=== PATIENT | female | born 1965 | race Caucasian/White ===

== ENCOUNTER → 2017-12-15 08:24 | Outpatient (CLI) | payer BC, SELFPAY ==
[2017-12-15 09:17] LABS: Albumin, Serum 3.9 g/dL (3.2-5.0); BUN 10 mg/dL (7-18); BUN/Creat Ratio 11.2 RATIO (10-20); Chloride 106 mmol/L (98-107); EST Glomerular Filtration Rate 70 mL/min (>60); Est Glom Filt Rate - Afr Amer 84 mL/min (>60); Glucose 92 mg/dL (74-106); Phosphorus 4.3 mg/dL (2.5-4.9); Sodium Level 140 mmol/L (136-145); Thyroid Stim Hormone (TSH) 2.53 uIU/mL (0.358-3.74)
[2017-12-16 09:36] LABS: Vitamin D,25 Hydroxy 58.9 ng/mL (29.95-100.01)
== END ==
PROVIDERS: Family Provider Family Medicine; PCP Family Medicine; Visit Provider Family Medicine
DX: R79.9 Abnormal finding of blood chemistry, unspecified (principal); E03.9 Hypothyroidism, unspecified; E55.9 Vitamin D deficiency, unspecified
CPT/HCPCS: 36415; 80069; 82306; 84443

== ENCOUNTER → 2019-01-09 10:14 | Outpatient (CLI) | payer BC, MEDICARE, SELFPAY ==
[2019-01-09 12:22] LABS: Absolute Lymphocyte Count 2.43 X10^3/ul (0.83-4.51); Absolute Neutrophil Count 3.7 X10^3/uL (2.0-7.7); Basophil# 0.04 X10^3/uL; Basophil% 0.6 % (0-1); Eosinophil# 0.16 X10^3/uL; Eosinophils% 2.3 % (0-5); Hematocrit 43.6 % (37-47); Hemoglobin 14.6 g/dl (12.0-15.0); Lymphocyte # 2.43 X10^3/ul (4.0); Lymphocyte % 34.8 % (19-41); Mean Corp Hgb Conc 33.5 g/gl (32-36); Mean Corpuscular Hgb 29.3 pg (27.0-32.0); Mean Corpuscular Volume 87.4 fL (81-99); Mean Platelet Vol. 9.3 fl (6.2-12.0); Monocyte# 0.68 X10^3/uL; Monocyte% 9.7 % (0-10); Neutrophil # 3.67 X10^3/uL (2.7-7.7); Neutrophil % 52.5 % (47-70); Platelet Count 279 K/mm3 (150-450); RBC Distribution Width CV 13.5 % (11.6-14.6); Red Blood Count 4.99 M/mm3 (4.2-5.4)
[2019-01-09 12:28] LABS: POSITIVE COUNT NO; POSITIVE DIFFERENTIAL NO; POSITIVE MORPHOLOGY NO
[2019-01-09 13:17] LABS: Anion Gap 10 (5-15); BUN 9 mg/dL (7-18); BUN/Creat Ratio 9.4 RATIO (10-20); Calcium,Total 8.9 mg/dL (8.5-10.1); Chloride 104 mmol/L (98-107); Creatinine, Serum 0.96 mg/dL (0.55-1.02); EST Glomerular Filtration Rate 64 mL/min (>60); Est Glom Filt Rate - Afr Amer 78 mL/min (>60); Free T3 2.2 pg/mL (2.18-3.98); Glucose 73 mg/dL (74-106); Potassium 3.7 mmol/L (3.5-5.1); Sodium Level 140 mmol/L (136-145); Thyroid Stim Hormone (TSH) 1.79 uIU/mL (0.358-3.74)
== END ==
PROVIDERS: Family Provider Family Medicine; PCP Family Medicine; Referring Provider Psychiatry & Neurology Psychiatry; Visit Provider Psychiatry & Neurology Psychiatry
DX: R53.83 Other fatigue (principal); Z79.899 Other long term (current) drug therapy
CPT/HCPCS: 36415; 80048; 84439; 84443; 84481; 85025

== ENCOUNTER 2019-09-03 15:58 | Emergency (ER) | payer BC, MEDICARE, SELFPAY ==
[2019-09-03 15:59] VITALS: BP 160/88; PULSE 74; RESP 16; TEMP 36.4; O2SAT 100; BMI 27.6
--- NOTE | 2019-09-03 16:14 | ED.DCSUM_ITS ---
- ER Visit Summary Date of Service: 09/03/19 Chief Complaint: [Fall with injury to left wrist and left shoulder] History of Present Illness: The patient is a 54 F [presents the emergency department after sustaining a fall about an hour ago. Patient states that she was run into by 1 of her dogs which caused her to fall in the yard onto the grass. Patient try to catch herself with the left wrist and thinks she may have just overdid. Patient also complained of some pain in her left shoulder. Patient does not think she hit her head. She denies any difference in her chronic head neck pain than normal. Patient denies any chest pain or abdominal pain. Patient is right-hand dominant. Patient has history of tach broken heart syndrome.] Physical Examination: [HEENT-PERRLA, EOMI. Cranial nerves II through XII grossly intact. TMs clear. Mucous membranes moist. No adenopathy. No external evidence to her head or neck. Cardiovascular-regular rate and rhythm without murmur or ectopy Lungs-clear to auscultation, chest wall stable without crepitus or subcu emphysema Abdomen-normoactive bowel sounds, soft, nontender, no rebound or rigidity, no peritoneal signs. Extremities-intact ?4, normal range of motion, normal pulses. Left arm-patient has some diffuse tenderness palpation over the glenohumeral joint. Decreased range of motion secondary to pain. No obvious deformity. Patient also tenderness over the distal radius. No soft tissue swelling or ecchymosis or b ruising noted. There is no deformity. Patient has limited range of motion flexion extension at the wrist as well as varus and valgus bending secondary to pain.] Test Results: [X-ray of the left wrist was normal. An x-ray of the left shoulder was normal.] Emergency Department Course and Treatment: [Patient was given a wrist splint.] Treatment Plan: [Patient advised to follow-up with primary care physician within next 5 to 7 days. Patient advised use Tylenol for discomfort.] Disposition: [Discharged home stable condition.] Impression: Mechanical fall Left wrist sprain Left shoulder contusion/sprain [] This note was generated with [employer] software. It may contain incorrect words, spelling, and punctuation that were not noted in review of the chart prior to signing ED Disposition - Plan for ED Patient: Referrals: Marjorie Martinez MD [Primary Care Provider] -
--- NOTE | 2019-09-03 16:15 | RAD_ITS ---
STUDY: X-RAY - LEFT SHOULDER REASON FOR EXAM: Female, 54 years old. Status post fall TECHNIQUE: 4 view(s) of the shoulder. COMPARISON: October 18, 2017 Limited comparison chest x-ray FINDINGS: Normal glenohumeral articulation. Normal acromioclavicular joint. Normal acromion. Normal humeral head and visualized proximal humerus. The soft tissue structures are unremarkable. Normal visualized pulmonary apex. RAD/Shoulder min 2 Views IMPRESSION: Normal x-ray examination of the shoulder. Electronically Signed: Lolly Pedraza MD at 17:01 EST Tel , Service support ,
--- NOTE | 2019-09-03 16:15 | RAD_ITS ---
STUDY: X-RAY - LEFT WRIST REASON FOR EXAM: Female, 54 years old. Status post fall TECHNIQUE: 3 view(s) of the wrist were obtained. COMPARISON: February 21, 2015 left wrist x-ray FINDINGS: Normal visualized distal radius and ulna. Normal radiocarpal articulation. Normal distal radioulnar articulation. Normal carpal bones. Normal carpal articulations. Normal carpometacarpal articulation of the thumb. Normal second through fifth carpometacarpal articulations. Normal visualized metacarpal bones. The soft tissue structures are unremarkable. RAD/Wrist min 3 Views IMPRESSION: Normal x-ray examination of the wrist. Electronically Signed: Lolly Pedraza MD at 16:45 EST Tel , Service support ,
[2019-09-03 16:18] VITALS: RESP 18
--- NOTE | 2019-09-03 17:06 | ED.DEP ---
ED Disposition - Plan for ED Patient: Instructions: Wrist Sprain, Shoulder Sprain Referrals: Marjorie Martinez MD [Primary Care Provider] - 5-7 Days
== END 2019-09-03 17:21 | disposition home or self-care (01) ==
LOC: ED 16:29
PROVIDERS: Emergency Provider Emergency Medicine; Family Provider Family Medicine; PCP Family Medicine
DX: S40.012A Contusion of left shoulder, initial encounter (principal); S43.402A Unspecified sprain of left shoulder joint, initial encounter; S63.502A Unspecified sprain of left wrist, initial encounter; W19.XXXA Unspecified fall, initial encounter; I25.10 Atherosclerotic heart disease of native coronary artery without angina pectoris; Z72.0 Tobacco use
CPT/HCPCS: 73030; 73110; 99283

== ENCOUNTER 2019-12-10 00:36 | Emergency (ER) | payer BC, MEDICARE, SELFPAY ==
[2019-12-10 00:37] VITALS: BP 158/82; PULSE 78; RESP 16; TEMP 36.6; O2SAT 100; BMI 27.3
--- NOTE | 2019-12-10 01:38 | ED.VISSUMM ---
- ER Visit Summary Date of Service: 12/10/19 Chief Complaint: Migraine headache History of Present Illness: The patient is a [address] migraine headaches and prior work-ups. Patient states Jet she started get onset of left-sided migraine headache. Associated nausea vomiting. No head trauma. She is on no blood thinners. No weakness to her upper or lower extremities. No fever. Positive photophobia. Physical Examination: White female no acute distress vital signs stable afebrile. Pulse ox 90% on room air no signs hypoxia. Initial blood pressure 158/82. Patient seated in a darkened room. Lights do cause her photophobia. HEENT exam unremarkable. No trauma. Pupils round react to light extra motions are intact no facial droop. Normal speech. Neck nontender. Lungs clear to auscultation bilaterally. Heart regular rhythm no murmur. Abdomen soft nontender normal bowel sounds no peritoneal signs. Extremities moves all 4. Neurovascular intact. 5 and 5 secondary school registrar strength. Dorsi plantarflexion intact bilaterally. Equal symmetrical. Neurologically she is awake and alert answering her own questions. NIH score is 0. No facial droop. Normal secondary school registrar strength. Normal fingertip to nose. She can lift either leg. Test Results: None necessary. She has had prior imaging in the past. Emergency Department Course and Treatment: Patient treated with IV fluids, Toradol, Benadryl and Phenergan. Repeat exam at 2:07 AM patient is doing well. Headaches resolving. She feels good enough to go home. Her neurologic exam remains normal. Treatment Plan: Fluids and rest. Benadryl as needed. Tylenol and Motrin. Return if feeling worse. Disposition: Discharge Impression: Acute migraine headache This note was generated with [employer] dictation software. It may contain incorrect words, spelling, and punctuation that were not noted in review of the chart prior to signing ED Disposition - Plan for ED Patient: Referrals: Dom Jalloh MD [Primary Care Provider] -
[2019-12-10] MEDS: 0.9% Normal Saline 1,000 ML 1000 ML IV (01:45)
[2019-12-10] MEDS: DiphenhydrAMINE 50 MG/ML Syringe IV (01:45)
[2019-12-10] MEDS: proMETHazine 25 MG/ML Syringe 12.5 MG IV (01:46)
[2019-12-10] MEDS: Ketorolac 30 MG/ML Syringe IV (01:48)
--- NOTE | 2019-12-10 02:08 | ED.DEP ---
ED Disposition - Plan for ED Patient: Disposition: Home or Assisted Living Instructions: ED, Migraine (Classical) Referrals: Dom Jalloh MD [Primary Care Provider] - 1-2 Days if not improving Additional Instructions: Limit fluids and rest. Benadryl as needed. Tylenol Motrin as needed. Follow-up if not improving or return to the emergency department feeling worse.
[2019-12-10 02:15] VITALS: BP 152/63; PULSE 68; RESP 18; O2SAT 94
== END 2019-12-10 02:19 | disposition home or self-care (01) ==
PROVIDERS: Emergency Provider Emergency Medicine; PCP Family Medicine
DX: G43.909 Migraine, unspecified, not intractable, without status migrainosus (principal); J44.9 Chronic obstructive pulmonary disease, unspecified; Z72.0 Tobacco use
CPT/HCPCS: 96361; 96374; 96375; 99283; J7030; A4216

== ENCOUNTER → 2020-04-17 08:23 | Outpatient (CLI) | payer BC, MEDICARE, SELFPAY ==
--- NOTE | 2020-04-17 08:25 | CT_ITS ---
STUDY: LOW DOSE CT LUNG CANCER SCREENING REASON FOR EXAM: Female, 55 years old. 2PPD X 45 YR SMOKING HX. Hx of uterine cancer and HTN-rx controlled. RADIATION DOSAGE (If Supplied By Facility): CTDIvol = ( 2.55 ) mGy, DLP = ( 83.28 ) mGycm TECHNIQUE: No contrast was administered. Low dose technique was utilized (average mAS-38 and kVp 120). 1.25 mm axial source images with a slice interval of 1.25-mm were reconstructed in lung windows. 2.5 mm axial source images with a slice interval of 2.5-mm were reconstructed in lung windows. 5.0 mm axial source images with a slice interval of 5.0-mm were reconstructed in soft tissue windows. Nodule measured using lung windows on PACS and/or independent workstation with automated measurement of minimum and maximum diameter. Nodule measurement reported as average diameter rounded to the nearest whole number. Growth is defined as an increase ins size of greater than 1.5 mm. COMPARISON: Previous plain films NODULES: Lung windows show underlying emphysema with bleb formation throughout both upper lobes. Chronic interstitial fibrotic changes in both lung santos with some subtle groundglass opacifications but no organized infiltrate, or suspicious noncalcified mass or nodule. No pleural or pericardial effusions. Bony structures show degenerative change. Limited cuts through the upper abdomen do not show any suspicious abnormality CT/Low Dose CT Lung Screening IMPRESSION: Lung-RADS category 2 - Continue annual screening with LDCT in 12 months. IMPORTANT NOTES FOR USE: ACR Lung-RADS Version 1.0 Assessment Categories Release Date: January 21, 2014 Category: Coded 0-4 bases on nodule(s) with highest degree of suspicion. Negative screen is defined as categories 1 and 2; a positive screen is defined as categories 3 and 4. Category 3 and 4A nodules that are unchanged on interval CT should be coded as category 2, and individuals returned to screening in 12 months. Category 4X: Category 3 or 4 nodules with additional imaging findings that increase the suspicion of lung cancer, such as spiculation, GGN that doubles in size in 1 year, enlarged lymph notes, etc. Category Modifiers: S (significant finding unrelated to lung cancer) and C (prior history of treated lung cancer) may be added to the 0-4 Lung-RADS Electronically Signed: Cristobal Paez MD at 8:51 EDT , Service support ,
== END ==
PROVIDERS: PCP Family Medicine; Referring Provider Registered Nurse; Visit Provider Registered Nurse
DX: Z12.2 Encounter for screening for malignant neoplasm of respiratory organs (principal); F17.210 Nicotine dependence, cigarettes, uncomplicated
CPT/HCPCS: G0297

== ENCOUNTER 2021-01-05 11:36 | Emergency (ER) | payer BC, MEDICARE, SELFPAY ==
[2021-01-05 11:38] VITALS: BP 120/82; PULSE 74; RESP 18; TEMP 36.9; O2SAT 99; BMI 28.4
--- NOTE | 2021-01-05 13:05 | ED.DCSUM_ITS ---
History of Present Illness Chief Complaint: Upper Extremity Injury Informant: Patient Occurred: Today - About 7 hours ago Mechanism/Context: Injury - See below Context: Sudden Onset Timing: Continuous Quality of Pain: Aching Location: Right shoulder Current Severity: Moderate Maximum Severity: Severe Worsened by: moving Relieved by: leaving alone/rest Associated Symptoms: Parasthesia, Loss of Funtion. Negative for: Weakness Narrative: Patient states she lifted her right upper extremity up to brush her hair she felt a clunk and sudden onset of pain in her right shoulder, and she was not able to bring her arm down, it was stuck in an overhead position. She states her helped her for sit down which hurt a lot and now she is having more pain than she was having when it was stuck up in the air. She is right-hand dominant. Never had this happen before. - Past Medical History (1) Anxiety Status: Chronic (2) COPD (chronic obstructive pulmonary disease) Status: Chronic (3) Takotsubo syndrome Status: Suspected (4) Depression Status: Chronic (5) GERD (gastroesophageal reflux disease) Status: Chronic (6) Hypothyroidism Status: Chronic (7) Irritable bowel syndrome with constipation Status: Chronic Past Medical History - Allergies and Home Meds Allergies/Adverse Reactions: Allergies acetaminophen [From Tylenol] Allergy (Verified 01/05/21 11:41) Shortness of breath amoxicillin Allergy (Verified 01/05/21 11:41) Other dicyclomine [From Bentyl] Allergy (Verified 01/05/21 11:41) Rash ketorolac [From Toradol] Allergy (Verified 01/05/21 11:41) Other Latex, Natural Rubber Allergy (Verified 01/05/21 11:41) Rash lidocaine Allergy (Verified 01/05/21 11:41) Rash mirtazapine Allergy (Verified 01/05/21 11:41) Other morphine Allergy (Verified 01/05/21 11:41) Shortness of breath Penicillins Allergy (Verified 01/05/21 11:41) Other prasterone (DHEA) Allergy (Verified 01/05/21 11:41) Other procaine Allergy (Verified 01/05/21 11:41) Other prochlorperazine Allergy (Verified 01/05/21 11:41) Other sulfasalazine Allergy (Verified 01/05/21 11:41) Other valdecoxib [From Bextra] Allergy (Verified 01/05/21 11:41) Shortness of breath Venlafaxine Analogues Allergy (Verified 01/05/21 11:41) Other Primary Care Physician: Dom Jalloh MD [Primary Care Provider] - Lives: Spouse/ Significant Other Smoking Status: Current every day smoker - Family History Paternal Family History: Reports: No pertinent history Review of Systems General: Denies: Chills, Fever, Sweats Eyes: Denies: Visual changes - bilaterally, Diplopia ENT: Denies: Rhinorrhea, Sore throat Cardiovascular: Denies: Chest pain, Palpitations Respiratory: Denies: Dyspnea, Cough, Dyspnea on exertion Gastrointestinal: Denies: Abdominal pain, Nausea, Vomiting, Diarrhea, Melena, Hematochezia Genitourinary: Denies: Dysuria, Hematuria, Frequency Musculoskeletal: Reports: Extremity Pain. Denies: Back pain Skin: Denies: Rash, Wounds Neurological: Reports: Parasthesia, Numbness. Denies: Headache, Weakness Physical Exam Vital Signs/Narrative: Vital Signs Temp Pulse Resp BP Pulse Ox 01/05/21 11:38 98.5 F 74 18 120/82 H 99 General: Well nourished, Well developed, - - NAD Head: Normocephalic, Atraumatic Neck: Nontender, Full ROM Extremeties: Holding right upper extremity in position of comfort at her side, no deformity at the shoulder. Subacromial tenderness. No acromioclavicular joint tenderness. Negative Yergason. Able to abduct to about 70 or 80 degrees, limited by pain further. Able to externally rotate from her abdomen to about neutral out in front of her then limited by pain. Limited internal rotation due to pain. No excessive warmth, erythema, or deformity at the shoulder. Normal sensation axillary nerve distribution. No problem with moving elbow or wrist. Skin: Normal color, No rash, No Trauma Neurological: Alert, Oriented x3, Cranial nerves II-XII grossly intact, Normal Strength, Parasthesia - Down dorsum of right upper extremity all the way into thumb and index finger Psychological: Normal affect, Normal Mood Diagnostic/Tx/Re-eval Clinical Impression(s) from Imaging Studies Shoulder X-Ray 01/05/21 13:33 IMPRESSION: Normal x-ray examination of the shoulder. Electronically Signed: Jules Cueto MD at 13:46 EDT , Service support , - Medical Decision Making On my interpretation, 4 views of the right shoulder show no acute injury including fracture/dislocation. She was given ibuprofen and declined any pre scription analgesics. Radiology interpretation is in agreement. At this time I suspect a soft tissue injury, unknown if she had a true dislocation but I am less inclined to think that was the case, possibly a subluxation or simply soft tissue problem. Prior to discharge she still has the radicular sensory symptoms into her right upper extremity/hand. ED Disposition - Plan for ED Patient: Disposition: Home or Assisted Living Diagnosis: Cervical radiculopathy at C6, Right shoulder injury Instructions: ED Shoulder Pain, Uncertain Cause, ED Radiculopathy, Cervical Referrals: Pierce Jalloh MD [STAFF PHYSICIAN] - 3-5 Days Dom Jalloh MD [Primary Care Provider] - 3-5 Days Additional Instructions: Ice and ibuprofen okay to use as needed.
[2021-01-05] MEDS: Ibuprofen 600 MG Tablet PO (13:23)
--- NOTE | 2021-01-05 13:33 | RAD_ITS ---
STUDY: X-RAY - RIGHT SHOULDER REASON FOR EXAM: Female, 55 years old. Injury TECHNIQUE: 4 view(s) of the shoulder. COMPARISON: None. FINDINGS: Normal glenohumeral articulation. Normal acromioclavicular joint. Normal acromion. Normal humeral head and visualized proximal humerus. The soft tissue structures are unremarkable. Normal visualized pulmonary apex. RAD/Shoulder min 2 Views IMPRESSION: Normal x-ray examination of the shoulder. Electronically Signed: Jules Cueto MD at 13:46 EDT , Service support ,
== END 2021-01-05 15:26 | disposition home or self-care (01) ==
PROVIDERS: Emergency Provider Emergency Medicine; PCP Family Medicine
DX: M54.12 Radiculopathy, cervical region (principal); S49.91XA Unspecified injury of right shoulder and upper arm, initial encounter; X50.9XXA Other and unspecified overexertion or strenuous movements or postures, initial encounter; Y93.9 Activity, unspecified; Y92.89 Other specified places as the place of occurrence of the external cause; Y99.9 Unspecified external cause status; F41.9 Anxiety disorder, unspecified; J44.9 Chronic obstructive pulmonary disease, unspecified; F32.9 Major depressive disorder, single episode, unspecified; K21.9 Gastro-esophageal reflux disease without esophagitis; E03.9 Hypothyroidism, unspecified; K58.9 Irritable bowel syndrome, unspecified; F17.200 Nicotine dependence, unspecified, uncomplicated; Z88.0 Allergy status to penicillin; Z88.6 Allergy status to analgesic agent; Z91.040 Latex allergy status
CPT/HCPCS: 73030; 99283

== ENCOUNTER 2021-02-06 13:08 | Emergency (ER) | payer BC, MEDICARE, SELFPAY ==
[2021-02-06 13:15] VITALS: BP 109/77; PULSE 106; RESP 17; TEMP 37.1; O2SAT 96; BMI 25.2
[2021-02-06 13:59] LABS: Absolute Lymphocyte Count 0.96 X10^3/uL (0.83-4.51); Absolute Neutrophil Count 5.1 X10^3/uL (2.0-7.7); Basophil# 0.02 X10^3/uL; Basophil% 0.3 % (0-1); Eosinophil# 0.13 X10^3/uL; Eosinophils% 1.9 % (0-5); Hemoglobin 15.2 g/dL (12.0-15.0); Lymphocyte # 0.96 X10^3/ul (0.83-4.51); Lymphocyte % 14.4 % (19-41); Mean Corp Hgb Conc 32.3 g/dL (32-36); Mean Corpuscular Hgb 28.8 pg (27.0-32.0); Mean Corpuscular Volume 89.2 fL (81-99); Mean Platelet Vol. 9.2 fl (6.2-12.0); Monocyte# 0.44 X10^3/uL; Monocyte% 6.6 % (0-10); NRBC Flagged by Analyzer 0 % (0-5); Neutrophil # 5.11 X10^3/uL (2.7-7.7); Neutrophil % 76.7 % (47-70); Platelet Count 272 K/mm3 (150-450); RBC Distribution Width CV 12.8 % (11.6-14.6); RBC Distribution Width SD 42.3 fl (35.1-43.9); Red Blood Count 5.27 M/mm3 (4.2-5.4); White Blood Count 6.7 K/mm3 (4.4-11.0)
[2021-02-06 14:08] LABS: Anion Gap 7 (5-15); BUN 12 mg/dL (7-18); BUN/Creat Ratio 13.6 RATIO (10-20); Calcium,Total 8.8 mg/dL (8.5-10.1); Chloride 107 mmol/L (98-107); Creatinine, Serum 0.88 mg/dL (0.55-1.02); EST Glomerular Filtration Rate 70 mL/min (>60); Est Glom Filt Rate - Afr Amer 85 mL/min (>60); Estimated Creatinine Clearance 66.82 ml/min; Glucose 101 mg/dL (74-106); Potassium 3.1 mmol/L (3.5-5.1); Sodium Level 138 mmol/L (136-145)
--- NOTE | 2021-02-06 14:13 | EDS_ITS ---
HPI HPI - GI History of Present Illness Chief Complaint: Nausea/Vomiting/Diarrhea Informant: patient Narrative Narrative: Patient has nausea, vomiting and diarrhea. Symptoms started yesterday. She has had multiple episodes of vomiting at home as well as diarrhea. Both of been nonbloody. She does have some stomach cramping before diarrhea which does improve after the bowel movement. She states that 2 days ago she had upper endoscopy performed at [facility] by Dr. Carranza. She states that she got a Botox injection in her stomach. She has had these endoscopies before and has not had any difficulties afterwards. She denies any fever. She tried taking Phenergan but vomited it back up. PFSH PFSH Medical History Anxiety Asthma Cancer Chronic pain COPD (chronic obstructive pulmonary disease) Depression GERD (gastroesophageal reflux disease) Hyperlipemia Hypothyroidism Migraines Myocardial infarct Smoker Home Medications ergocalciferol (vitamin D2) [Vitamin D2] 50,000 unit PO WE 10/18/17 [History Last Taken 10/12/17] levothyroxine 50 mcg PO DAILY 10/18/17 [History Last Taken 10/15/17] sertraline 100 mg PO DAILY 10/18/17 [History Last Taken 10/17/17] albuterol sulfate 2 puff IH 4X/DAY #1 hfa.aer.ad 10/19/17 [Rx Last Taken Unknown] alprazolam 0.5 mg PO TID PRN PRN #30 tab 10/19/17 [Rx Last Taken Unknown] tiotropium bromide 18 mcg IH DAILY #30 cap.w.dev 10/19/17 [Rx Last Taken Unknown] esomeprazole magnesium 40 mg PO BID 09/03/19 [History Last Taken Unknown] oxcarbazepine 600 mg PO QHS 09/03/19 [History Last Taken Unknown] risperidone 2 mg PO DAILY 09/03/19 [History Last Taken Unknown] sumatriptan succinate 100 mg PO DAILY PRN 12/10/19 [History Last Taken Unknown] galcanezumab-gnlm [Emgality Pen] 120 mg SUBCUT QMONTH 02/06/21 [History Last Taken Unknown] ondansetron 8 mg PO Q8H PRN PRN #20 tab 02/06/21 [Rx Last Taken Unknown] Allergy/AdvReac Type Severity Reaction Status Date / Time acetaminophen [From Tylenol] Allergy Shortness Verified 02/06/21 13:12 of breath amoxicillin Allergy Other Verified 02/06/21 13:12 dicyclomine [From Bentyl] Allergy Rash Verified 02/06/21 13:12 ketorolac [From Toradol] Allergy Other Verified 02/06/21 13:12 Latex, Natural Rubber Allergy Rash Verified 02/06/21 13:12 mirtazapine Allergy Other Verified 02/06/21 13:12 morphine Allergy Shortness Verified 02/06/21 13:12 of breath Penicillins Allergy Other Verified 02/06/21 13:12 prasterone (DHEA) Allergy Other Verified 02/06/21 13:12 procaine Allergy Other Verified 02/06/21 13:12 prochlorperazine Allergy Other Verified 02/06/21 13:12 sulfasalazine Allergy Other Verified 02/06/21 13:12 valdecoxib [From Bextra] Allergy Shortness Verified 02/06/21 13:12 of breath Venlafaxine Analogues Allergy Other Verified 02/06/21 13:12 Surgical History History of appendectomy Social History Smoking Status: Current every day smoker ROS ROS ED Constitutional Constitutional ED: Denies chills or fever(s) Eyes Eyes: Denies blurry vision, change in vision or diplopia ENT ENT ED: Denies ear pain, rhinorrhea or sore throat Cardiovascular Cardiovascular: Denies chest pain or palpitations Respiratory/Chest Respiratory/Chest: Denies cough, dyspnea or sputum Gastrointestinal Gastrointestinal: Reports diarrhea, nausea and vomiting; Denies abdominal pain Genitourinary Genitourinary ED: Denies dysuria, hematuria or urinary frequency Musculoskeletal Musculoskeletal: Denies back pain or neck pain Integumentary Denies change in pigmentation or rash Neurologic Neurologic: Denies headache(s), numbness or weakness Psychiatric Psychiatric: Denies anxiety or depression Endocrine Endocrinology: Denies polydipsia or polyuria EXAM Physical Exam Const Vital Signs: 02/06/21 13:15 Temperature 98.8 F Temperature Source Temporal Pulse Rate 106 H Respiratory Rate 17 Blood Pressure 109/77 Blood Pressure Mean 87 Pulse Ox 96 Oxygen Delivery Method Room Air Positive well nourished and well developed General Appearance ED: well developed and NAD HEENT Reports moist mucous membranes normocephalic and atraumatic; Negative for tenderness Eyes PERRL and EOMs intact bilaterally Neck supple and no JVD Chest Wall Chest: Negative for tenderness Resp normal respiratory effort and clear to auscultation bilaterally Effort and Inspection: Negative for respiratory distress Cardio regular rate, regular rhythm and no murmurs Rate: regular rate Rhythm: regular rhythm GI no masses Auscultation: normoactive bowel sounds Palpation: soft and tender other (mild diffuse) Back/Spine no CVA tenderness and no thoracic nor lumbar tenderness Cervical Spine: Negative for cervical spine tenderness Extremity normal to inspection and full ROM General Extremety ED: Negative for tenderness Neuro oriented x3, CN's II-XII intact bilaterally and no sensory deficits noted Sensorium / Orientation: awake and alert Motor Exam: strength 5/5 throughout Psych mental status grossly normal Skin no rashes or lesions noted MDM MDM MDM Narrative Medical decision making narrative: Patient was given IV fluids and Zofran. Laboratory studies show a hemoglobin of 15.2. Potassium was 3.1. Liver enzymes and lipase are normal. She felt better most of complaining of pain so I gave her oral Levsin. She has a listed allergy to dicyclomine but it is just a rash. She has not developed a rash since getting the Levsin. Patient is feeling much better. She will be discharged home with oral Zofran to take at home. She will follow-up with her outbound telemarketer Lab Data Labs: Laboratory Results - last 24 hr 02/06/21 02/06/21 02/06/21 13:30 13:30 13:30 WBC 6.7 RBC 5.27 Hgb 15.2 H Hct 47.0 MCV 89.2 MCH 28.8 MCHC 32.3 RDW Std Deviation 42.3 RDW Coeff of Ray 12.8 Plt Count 272 MPV 9.2 Immature Gran % (Auto) 0.100 Neut % (Auto) 76.7 H Lymph % (Auto) 14.4 L [place] % (Auto) 6.6 Eos % (Auto) 1.9 Baso % (Auto) 0.3 Absolute Neuts (auto) 5.1 Absolute Lymphs (auto) 0.96 Nucleated RBC % 0 Sodium 138 Potassium 3.1 L Chloride 107 Carbon Dioxide 24.0 Anion Gap 7 BUN 12 Creatinine 0.88 Estim Creat Clear Calc 66.82 Est GFR (MDRD) Af Amer 85 Est GFR (MDRD) Non-Af 70 BUN/Creatinine Ratio 13.6 Glucose 101 Calcium 8.8 Total Bilirubin 0.50 Direct Bilirubin 0.11 AST 10 L ALT 21 Alkaline Phosphatase 67 Total Protein 7.0 Albumin 4.1 Globulin 2.9 Lipase 63 L Urine Color Urine Clarity Urine pH Ur Specific [place] Urine Protein Urine Glucose (UA) Urine Ketones Urine Occult Blood Urine Nitrite Urine Bilirubin Urine Urobilinogen Ur Leukocyte Esterase Urine RBC Urine WBC Ur Squamous Epith Cells Urine Bacteria Urine Mucus 02/06/21 02/06/21 13:30 14:25 WBC RBC Hgb Hct MCV MCH MCHC RDW Std Deviation RDW Coeff of Ray Plt Count MPV Immature Gran % (Auto) Neut % (Auto) Lymph % (Auto) [place] % (Auto) Eos % (Auto) Baso % (Auto) Absolute Neuts (auto) Absolute Lymphs (auto) Nucleated RBC % Sodium Potassium Chloride Carbon Dioxide Anion Gap BUN Creatinine Estim Creat Clear Calc Est GFR (MDRD) Af Amer Est GFR (MDRD) Non-Af BUN/Creatinine Ratio Glucose Calcium Total Bilirubin Direct Bilirubin AST ALT Alkaline Phosphatase Total Protein Albumin Globulin Lipase Cancelled Urine Color Yellow Urine Clarity Sl. Cloudy Urine pH 6.0 Ur Specific [place] 1.010 Urine Protein Negative Urine Glucose (UA) Normal Urine Ketones 5 H Urine Occult Blood 10 H Urine Nitrite Negative Urine Bilirubin 1 H Urine Urobilinogen Normal Ur Leukocyte Esterase 25 H Urine RBC 0 SEEN Urine WBC 0-5 SEEN Ur Squamous Epith Cells 0-5 SEEN Urine Bacteria 0 SEEN Urine Mucus 0 SEEN Discharge Plan Triage Chief Complaint: Nausea/Vomiting/Diarrhea ED Provider: Salvador Stiles Dx/Rx/DC Orders Clinical Impression: Nausea vomiting and diarrhea Instructions: ED Gastroenteritis, Viral (Adult) Prescriptions: New ondansetron [ondansetron] 4 MG tablet 8 mg PO Q8H PRN PRN (Reason: Nausea) Qty: 20 RF: 0 No Action sertraline 100 MG tablet 100 mg PO DAILY RF: 0 levothyroxine 50 MCG tablet 50 mcg PO DAILY RF: 0 ergocalciferol (vitamin D2) [Vitamin D2] 50,000 UNIT capsule 50,000 unit PO WE RF: 0 alprazolam 0.5 MG tablet 0.5 mg PO TID PRN PRN (Reason: Anxiety) Qty: 30 RF: 0 albuterol sulfate 6.7 GM HFA aerosol inhaler 2 puff IH 4X/DAY Qty: 1 RF: 0 tiotropium bromide 18 MCG capsule, w/inhalation device 18 mcg IH DAILY Qty: 30 RF: 0 oxcarbazepine 300 MG tablet 600 mg PO QHS RF: 0 risperidone 1 MG tablet 2 mg PO DAILY RF: 0 esomeprazole magnesium [address] for susp in packet 40 mg PO BID RF: 0 sumatriptan succinate 100 MG tablet 100 mg PO DAILY PRN (Reason: Migraine Symptoms) RF: 0 Emgality Pen 120 mg/mL pen injector 120 mg SUBCUT QMONTH RF: 0 Primary Care Provider: Dom Jalloh Referrals: Dom Jalloh MD [Primary Care Provider] - Disposition Disposition: Home, self care
[2021-02-06] MEDS: Ondansetron 4 MG/2 ML Vial IV (14:24)
[2021-02-06] MEDS: 0.9% Normal Saline 1,000 ML 1000 ML IV (14:24)
[2021-02-06 14:31] LABS: Bacteria 0 SEEN /hpf (None Seen); Mucous, Urine 0 SEEN /hpf (<or=2+); Red Blood Cells-Urine 0 SEEN /hpf (0-5)
[2021-02-06 14:32] LABS: Color, Urine Yellow (Yellow); Glucose, Dipstick Normal (Normal); Ketone-Dipstick 5 mg/dl (Negative); Leukocyte Esterase-Dipstick 25 /ul (Negative); Nitrite-Dipstick Negative (Negative); Occult Blood-Urine 10 /ul (Negative); Protein-Dipstick Negative (Negative); Urine Clarity Sl. Cloudy (Clear); Urine Urobilinogen Normal (Normal)
[2021-02-06 14:33] LABS: Urine Bilirubin Dipstick 1 mg/dL (Negative)
[2021-02-06 14:37] LABS: Squamous Epithelial Cells - UA 0-5 SEEN /hpf (5-10); White Blood Cells 0-5 SEEN /hpf (0-5)
[2021-02-06 14:41] LABS: AST(SGOT) 10 U/L (15-37); Alanine Aminotransfer ALT/SGPT 21 U/L (13-56); Albumin, Serum 4.1 g/dL (3.2-5.0); Alkaline Phosphatase 67 U/L (45-117); Bilirubin, Direct 0.11 mg/dL (0.00-0.30); Globulin 2.9 g/dL (2.2-4.2); Lipase 63 U/L (73-393)
[2021-02-06] MEDS: Hyoscyamine Sulfate 0.125 MG Tablet SL (15:09)
[2021-02-06 16:20] VITALS: BP 146/82; PULSE 84; RESP 18
== END 2021-02-06 16:22 | disposition home or self-care (01) ==
PROVIDERS: Emergency Provider Emergency Medicine; PCP Family Medicine
DX: R11.2 Nausea with vomiting, unspecified (principal); R19.7 Diarrhea, unspecified; F17.200 Nicotine dependence, unspecified, uncomplicated; J44.9 Chronic obstructive pulmonary disease, unspecified; F32.9 Major depressive disorder, single episode, unspecified; K21.9 Gastro-esophageal reflux disease without esophagitis; E03.9 Hypothyroidism, unspecified; E78.5 Hyperlipidemia, unspecified; I25.2 Old myocardial infarction; F41.9 Anxiety disorder, unspecified; Z79.1 Long term (current) use of non-steroidal anti-inflammatories (NSAID); Z79.899 Other long term (current) drug therapy
CPT/HCPCS: 80048; 80076; 81001; 83690; 85025; 96361; 96374; 99284; J7030; J2405

== ENCOUNTER → 2021-02-27 15:33 | Outpatient (CLI) | payer BC, MEDICARE, SELFPAY ==
[2021-02-06 13:15] VITALS: BMI 25.2
--- NOTE | 2021-02-27 15:36 | RAD_ITS ---
STUDY: X-RAY - CERVICAL SPINE REASON FOR EXAM: Female, 55 years old. NECK PAIN TECHNIQUE: 3 view(s) of the cervical spine were obtained. COMPARISON: None FINDINGS: Normal anterior atlantoaxial articulation. Normal odontoid process. Normal cervical lordosis. Normal vertebral bodies and endplates. Normal disc space heights. Normal visualized intervertebral neuroforamina. The soft tissue structures are unremarkable. RAD/Cerv Spine 2 or 3 Views IMPRESSION: Normal x-ray examination of the visualized cervical spine. Electronically Signed: Jama Aguillon MD at 7:38 EDT Tel , Service support ,
== END ==
PROVIDERS: PCP Family Medicine; Referring Provider Anesthesiology Pain Medicine; Visit Provider Anesthesiology Pain Medicine
DX: M54.2 Cervicalgia (principal)
CPT/HCPCS: 72040

== ENCOUNTER → 2021-03-23 06:29 | Outpatient (CLI) | payer BC, MEDICARE, SELFPAY ==
--- NOTE | 2021-03-23 06:33 | MRI_ITS ---
HISTORY: NECK PAIN, LEFT ARM WEAKNESS. TECHNIQUE: Routine MRI of the cervical spine was performed. # of images incl. paperwork: 247. IV Contrast dosage and agent: None. COMPARISON: XR 02/27/2021, MR 04/18/2015. FINDINGS: VERTEBRAE: Vertebral body heights maintained. No significant bone marrow signal abnormality. ALIGNMENT: No anterior or posterior subluxation. CORD: Morphology and signal within normal limits. SOFT TISSUES: No prevertebral fluid collection. INTERVERTEBRAL DISCS: C2-3, C3-4: No significant posterior disc protrusion, central canal stenosis, or foraminal narrowing. C4-5: Mild posterior disc protrusion without significant central canal stenosis or foraminal narrowing. C5-6: Mild disc bulge and facet arthropathy resulting in mild left foraminal narrowing. No significant central canal stenosis. C6-7, C7-T1: No significant posterior disc protrusion, central canal stenosis, or foraminal narrowing. MRI/Spine Cervical (Routine) IMPRESSION: Mild disc protrusions at C4-5 and C5-6 without significant spinal canal stenosis. Mild left foraminal narrowing at C5-6. at 0810 Reported and signed by: Marjorie Pérez MD Electronically Signed: Marjorie Pérez MD at 8:09 EDT Tel , Service support ,
== END ==
PROVIDERS: PCP Family Medicine; Referring Provider Anesthesiology Pain Medicine; Visit Provider Anesthesiology Pain Medicine
DX: M54.2 Cervicalgia (principal); R53.1 Weakness
CPT/HCPCS: 72141

== ENCOUNTER → 2021-04-08 13:38 | Outpatient (CLI) | payer BC, MEDICARE, SELFPAY ==
--- NOTE | 2021-04-08 13:50 | RAD_ITS ---
STUDY: X-RAY - PELVIS AND BILATERAL HIPS REASON FOR EXAM: Female, 56 years old. HIP PAIN TECHNIQUE: AP view of the pelvis.? 2 views of the right hip, and 2 views of the left hip were obtained. COMPARISON: None. FINDINGS: There is a non-specific bowel gas pattern. Normal visualized soft tissue structures. Normal bilateral iliac wings, sacroiliac joints and visualized sacrum. Normal bilateral superior and inferior pubic rami. There are degenerative changes of the pubic symphysis with articular narrowing and sclerosis. Normal bilateral ischial tuberosities. Normal visualized right femoral head. Normal right acetabulum. Normal right hip joint. Normal visualized left femoral head. Normal left acetabulum. Normal left hip joint. RAD/Hips B/L min 2 views w/ Pelvis IMPRESSION: Degenerative changes of the symphysis pubis. Electronically Signed: Jules Cueto MD at 15:44 EDT , Service support ,
--- NOTE | 2021-04-08 13:50 | RAD_ITS ---
HISTORY: BACK PAIN. TECHNIQUE: XR Spine Lumbar 2 or 3 Views. # of images incl. paperwork: 2. COMPARISON: CT 03/28/2017. FINDINGS: VERTEBRAE: 5 lumbar vertebral bodies. Vertebral body heights maintained. No acute fracture identified. Degenerative changes of the posterior elements. ALIGNMENT: No significant anterior or posterior subluxation. INTERVERTEBRAL DISCS: Degenerative endplate changes with mild intervertebral disc space narrowing at L5-S1. SOFT TISSUES: Moderate stool in the colon. RAD/Lumbar Spine 2 or 3 Views IMPRESSION: No acute fracture or dislocation identified in the lumbar spine. Mild degenerative change. at 1624 Reported and signed by: Marjorie Pérez MD Electronically Signed: Marjorie Pérez MD at 16:23 EDT Tel , Service support ,
== END ==
PROVIDERS: PCP Family Medicine; Referring Provider Anesthesiology Pain Medicine; Visit Provider Anesthesiology Pain Medicine
DX: M54.9 Dorsalgia, unspecified (principal); M25.559 Pain in unspecified hip
CPT/HCPCS: 72100; 73521

== ENCOUNTER → 2021-04-22 06:39 | Outpatient (CLI) | payer BC, MEDICARE, SELFPAY ==
--- NOTE | 2021-04-22 06:43 | CT_ITS ---
STUDY: LOW DOSE CT LUNG CANCER SCREENING REASON FOR EXAM: Female, 56 years old. TOBACCO ABUSE. Patient smoked four packs per day for 30 years. RADIATION DOSAGE (If Supplied By Facility): CTDIvol = ( 2.01 ) mGy, DLP = ( 62.18 ) mGycm TECHNIQUE: No contrast was administered. Low dose technique was utilized (average mAS-38 and kVp 120). 1.25 mm axial source images with a slice interval of 1.25-mm were reconstructed in lung windows. 2.5 mm axial source images with a slice interval of 2.5-mm were reconstructed in lung windows. 5.0 mm axial source images with a slice interval of 5.0-mm were reconstructed in soft tissue windows. Nodule measured using lung windows on PACS and/or independent workstation with automated measurement of minimum and maximum diameter. Nodule measurement reported as average diameter rounded to the nearest whole number. Growth is defined as an increase ins size of greater than 1.5 mm. COMPARISON: Comparison is made with prior study dated 04/17/2020. Emphysema: Hyperinflation. Diffuse changes. Stable scarring at the lung apices. Stable diffuse emphysematous changes throughout both lungs. Endobronchial lesion: None Aorta: Unremarkable. Coronary arteries: Unremarkable Heart: Unremarkable Pulmonary artery: Unremarkable Mediastinal nodes: Small benign-appearing mediastinal lymph nodes. Other chest and abdominal findings: CT/Low Dose CT Lung Screening IMPRESSION: Lung-RADS category 2 - Continue annual screening with LDCT in 12 months. IMPORTANT NOTES FOR USE: ACR Lung-RADS Version 1.1 Assessment Categories Release Date: 2018 Category: Coded 0-4 bases on nodule(s) with highest degree of suspicion. Negative screen is defined as categories 1 and 2; a positive screen is defined as categories 3 and 4. Category 3 and 4A nodules that are unchanged on interval CT should be coded as category 2, and individuals returned to screening in 12 months. Category 4X: Category 3 or 4 nodules with additional imaging findings that increase the suspicion of lung cancer, such as spiculation, GGN that doubles in size in 1 year, enlarged lymph notes, etc. Category Modifiers: S (significant finding unrelated to lung cancer) Electronically Signed: Jules Cueto MD at 12:53 EDT , Service support ,
== END ==
PROVIDERS: PCP Family Medicine; Referring Provider Registered Nurse; Visit Provider Registered Nurse
DX: Z12.2 Encounter for screening for malignant neoplasm of respiratory organs (principal); F17.210 Nicotine dependence, cigarettes, uncomplicated
CPT/HCPCS: 71271

== ENCOUNTER 2021-05-15 23:49 | Emergency (ER) | payer BC, MEDICARE, SELFPAY ==
[2021-05-15 23:50] VITALS: BP 122/77; PULSE 79; RESP 16; TEMP 36.9; O2SAT 97; BMI 22.7
[2021-05-16 01:05] LABS: Absolute Lymphocyte Count 2.57 X10^3/uL (0.83-4.51); Basophil# 0.02 X10^3/uL; Basophil% 0.3 % (0-1); Eosinophil# 0.18 X10^3/uL; Eosinophils% 2.9 % (0-5); Hematocrit 37.2 % (37-47); Hemoglobin 12.5 g/dL (12.0-15.0); Lymphocyte # 2.57 X10^3/ul (0.83-4.51); Lymphocyte % 40.9 % (19-41); Mean Corp Hgb Conc 33.6 g/dL (32-36); Mean Corpuscular Hgb 30.1 pg (27.0-32.0); Mean Corpuscular Volume 89.6 fL (81-99); Mean Platelet Vol. 8.9 fl (6.2-12.0); Monocyte# 0.46 X10^3/uL; Monocyte% 7.3 % (0-10); NRBC Flagged by Analyzer 0 % (0-5); Neutrophil # 3.04 X10^3/uL (2.7-7.7); Neutrophil % 48.4 % (47-70); Platelet Count 250 K/mm3 (150-450); RBC Distribution Width CV 12.7 % (11.6-14.6); RBC Distribution Width SD 41.6 fl (35.1-43.9); Red Blood Count 4.15 M/mm3 (4.2-5.4); White Blood Count 6.3 K/mm3 (4.4-11.0)
--- NOTE | 2021-05-16 01:05 | EDS_ITS ---
HPI History of Present Illness Chief Complaint: Allergic Reaction Informant: patient and spouse/S.O. Onset/Context/Timing Onset: Today (around 1 hr prior to eval) Context: - (occured gradually, just after eating a can of fruit cocktail) Timing: Continuous Quality: sore and swollen Location: left cheek near ear Current Severity: Moderate Maximum Severity: Moderate Worsened by: palpation, moving jaw, talking Relieved by: remaining still Associated Symptoms Associated Symptoms: muffled hearing left ear a little. no fevers, change in taste, oral/ear d/c Narrative Narrative: Swelling in the left cheek just in front of the left ear soon after eating a can of fruit cocktail. Never had this before. No fevers or chills. She is not a diabetic. Denies any diffuse systemic symptoms such as itching, rash. Just sore and swollen in her left cheek. PFSH PFSH Medical History Anxiety Asthma Cancer Chronic pain COPD (chronic obstructive pulmonary disease) Depression GERD (gastroesophageal reflux disease) Hyperlipemia Hypothyroidism Migraines Myocardial infarct Smoker Home Medications ergocalciferol (vitamin D2) [Vitamin D2] 50,000 unit PO WE 10/18/17 [History Last Taken 10/12/17] levothyroxine 50 mcg PO DAILY 10/18/17 [History Last Taken 10/15/17] sertraline 100 mg PO DAILY 10/18/17 [History Last Taken 10/17/17] albuterol sulfate 2 puff IH 4X/DAY #1 hfa.aer.ad 10/19/17 [Rx Last Taken Unknown] alprazolam 0.5 mg PO TID PRN PRN #30 tab 10/19/17 [Rx Last Taken Unknown] tiotropium bromide 18 mcg IH DAILY #30 cap.w.dev 10/19/17 [Rx Last Taken Unknown] esomeprazole magnesium 40 mg PO BID 09/03/19 [History Last Taken Unknown] oxcarbazepine 600 mg PO QHS 09/03/19 [History Last Taken Unknown] risperidone 2 mg PO DAILY 09/03/19 [History Last Taken Unknown] sumatriptan succinate 100 mg PO DAILY PRN 12/10/19 [History Last Taken Unknown] galcanezumab-gnlm [Emgality Pen] 120 mg SUBCUT QMONTH 02/06/21 [History Last Taken Unknown] ondansetron 8 mg PO Q8H PRN PRN #20 tab 02/06/21 [Rx Last Taken Unknown] cephalexin 500 mg PO Q6 #40 capsule 05/16/21 [Rx Last Taken Unknown] Allergy/AdvReac Type Severity Reaction Status Date / Time acetaminophen [From Tylenol] Allergy Shortness Verified 05/15/21 23:52 of breath amoxicillin Allergy Other Verified 05/15/21 23:52 dicyclomine [From Bentyl] Allergy Rash Verified 05/15/21 23:52 ketorolac [From Toradol] Allergy Other Verified 05/15/21 23:52 Latex, Natural Rubber Allergy Rash Verified 05/15/21 23:52 mirtazapine Allergy Other Verified 05/15/21 23:52 morphine Allergy Shortness Verified 05/15/21 23:52 of breath Penicillins Allergy Other Verified 05/15/21 23:52 prasterone (DHEA) Allergy Other Verified 05/15/21 23:52 procaine Allergy Other Verified 05/15/21 23:52 prochlorperazine Allergy Other Verified 05/15/21 23:52 sulfasalazine Allergy Other Verified 05/15/21 23:52 valdecoxib [From Bextra] Allergy Shortness Verified 05/15/21 23:52 of breath Venlafaxine Analogues Allergy Other Verified 05/15/21 23:52 Surgical History History of appendectomy Social History Smoking Status: Current every day smoker tobacco type: cigarettes ROS ROS ED Constitutional Constitutional ED: Denies chills or fever(s) Eyes Eyes: Denies change in vision or diplopia ENT ENT ED: Reports as per HPI, ear pain left and facial pain; Denies rhinorrhea or sore throat Cardiovascular Cardiovascular: Denies chest pain or palpitations Respiratory/Chest Respiratory/Chest: Denies cough or dyspnea Gastrointestinal Gastrointestinal: Denies abdominal pain, diarrhea, nausea or vomiting Genitourinary Genitourinary ED: Denies dysuria or hematuria Musculoskeletal Musculoskeletal: Denies back pain or neck pain Integumentary Denies abscess or rash Neurologic Neurologic: Denies headache(s), paresthesias or weakness Psychiatric Psychiatric: Denies anxiety or suicidal thoughts EXAM Physical Exam Const Vital Signs: 05/15/21 23:50 Temperature 98.4 F Temperature Source Oral Pulse Rate 79 Respiratory Rate 16 Blood Pressure 122/77 H Blood Pressure Mean 92 Pulse Ox 97 Oxygen Delivery Method Room Air Positive well nourished and well developed General Appearance ED: well developed and NAD HEENT Reports moist mucous membranes HEENT Narrative: Swollen and tender, soft left parotid gland. No palpable lymphadenopathy. No overlying skin changes or erythema. Increased pain with manipulating the left ear, the EAC and TM are normal bilaterally. With massaging the parotid, there is no discharge from Stensen's duct which appears normal as is the rest of the intraoral exam. No trismus. normocephalic and atraumatic Eyes PERRL and EOMs intact bilaterally Neck full ROM and supple Resp normal respiratory effort and clear to auscultation bilaterally Cardio regular rate, regular rhythm and no murmurs Extremity normal to inspection General Extremety ED: Negative for edema, pulses abnormal or tenderness General Extremity: Negative for edema or pulses abnormal Neuro oriented x3, CN's II-XII intact bilaterally and no sensory deficits noted Sensorium / Orientation: awake and alert Motor Exam: strength 5/5 throughout Skin no rashes or lesions noted and no wounds MDM MDM MDM Narrative Medical decision making narrative: My suspicion is this patient has sialolithiasis of the left parotid gland causing swelling and pain, but given the differential including infectious etiologies, labs and a CT with contrast were obtained. There is delay because the chemistry machines in the lab went down and we were unable to run chemistries. However she recently had renal function measured and it was normal so we went forward with CT with contrast and flushing with saline afterwards. There is no sialolith present, and she has findings suggestive of acute parotitis as below, and on reexamination she still has some swelling and mild discomfort but she declines analgesics for. Therefore I think it is less likely she had a sialolith that passed although that certainly is possible as well. There is no pus from Stensen's duct so there is nothing to culture right now, but since the etiology here is unclear I would place her on empiric antibiotics and have her follow-up closely, also advised to use sialagogues and heat application to affected area. Lab Data Attestation: I reviewed the patient's lab results. Labs: Laboratory Results - last 24 hr 05/16/21 00:58 WBC 6.3 RBC 4.15 L Hgb 12.5 Hct 37.2 MCV 89.6 MCH 30.1 MCHC 33.6 RDW Std Deviation 41.6 RDW Coeff of Ray 12.7 Plt Count 250 MPV 8.9 Immature Gran % (Auto) 0.200 Neut % (Auto) 48.4 Lymph % (Auto) 40.9 [place] % (Auto) 7.3 Eos % (Auto) 2.9 Baso % (Auto) 0.3 Absolute Neuts (auto) 3.0 Absolute Lymphs (auto) 2.57 Nucleated RBC % 0 Radiography Diagnostic Testing: Radiology Impression Facial/Sinus 05/16/21 02:35 IMPRESSION: Unremarkable paranasal sinuses. Heterogeneous enhancement pattern of the salivary glands with enlargement of the left parotid gland as compared to the right with some inflammatory features. Findings are suggestive of acute parotitis Electronically Signed: Jackson Scanlon DO at 3:07 EDT Tel , Service support , Discharge Plan Triage Chief Complaint: Allergic Reaction ED Provider: Jhonny Miller Dx/Rx/DC Orders Clinical Impression: Acute parotitis Instructions: ED Salivary Gland Swelling ... Prescriptions: New cephalexin [cephalexin] 500 MG capsule 500 mg PO Q6 Qty: 40 RF: 0 No Action sertraline 100 MG tablet 100 mg PO DAILY RF: 0 levothyroxine 50 MCG tablet 50 mcg PO DAILY RF: 0 ergocalciferol (vitamin D2) [Vitamin D2] 50,000 UNIT capsule 50,000 unit PO WE RF: 0 alprazolam 0.5 MG tablet 0.5 mg PO TID PRN PRN (Reason: Anxiety) Qty: 30 RF: 0 albuterol sulfate 6.7 GM HFA aerosol inhaler 2 puff IH 4X/DAY Qty: 1 RF: 0 tiotropium bromide 18 MCG capsule, w/inhalation device 18 mcg IH DAILY Qty: 30 RF: 0 oxcarbazepine 300 MG tablet 600 mg PO QHS RF: 0 risperidone 1 MG tablet 2 mg PO DAILY RF: 0 esomeprazole magnesium [address] for susp in packet 40 mg PO BID RF: 0 sumatriptan succinate 100 MG tablet 100 mg PO DAILY PRN (Reason: Migraine Symptoms) RF: 0 Emgality Pen 120 mg/mL pen injector 120 mg SUBCUT QMONTH RF: 0 ondansetron [ondansetron] 4 MG tablet 8 mg PO Q8H PRN PRN (Reason: Nausea) Qty: 20 RF: 0 Primary Care Provider: Dom Jalloh Referrals: Dom Jalloh MD [Primary Care Provider] - 3-5 Days if not improving Activity Restrictions/Additional Instructions: In addition to antibiotic and warm/hot compresses, you may also try things that make you salivate more, such as acidic foods like a lemon, or chewing gum. Disposition Disposition: Home, Self Care
--- NOTE | 2021-05-16 02:35 | CT_ITS ---
STUDY: CT PARANASAL SINUSES WITH CONTRAST REASON FOR EXAM: Female, 56 years old. parotid RADIATION DOSAGE (If Supplied By Facility): CTDIvol = ( 29.38 ) mGy, DLP = ( 628.26 ) mGycm TECHNIQUE: The patient was scanned in a multi-detector CT scanner. High resolution transaxial imaging was performed following the intravenous administration of IV 100mL [id number]-[id number]. Sagittal and coronal images were reconstructed. Individualized dose optimization techniques were used for this CT. COMPARISON: None. FINDINGS: FRONTAL SINUSES: Normal development and aeration of the bilateral frontal sinuses without mucosal inflammatory disease. ETHMOIDAL SINUSES: Normal development and aeration of the bilateral ethmoidal air cells without mucosal inflammatory disease. MAXILLARY SINUSES: Normal development and aeration of the bilateral maxillary antra without mucosal inflammatory disease. SPHENOIDAL SINUSES: Normal aeration of the bilateral sphenoid sinuses and there is no mucosal inflammatory disease. OMU: Normal aeration of the bilateral maxillary infundibulum. Normal uncinate process, ethmoid bulla, and hiatus semilunaris. MIDDLE TURBINATES: Normal bilateral middle turbinates without a everett bullosa or paradoxical curvature. INFERIOR TURBINATES: Normal bilateral inferior turbinates. NASAL SEPTUM: Normal midline nasal septum and there is no nasal septal mass lesions, deviation or spur. Normal anterior cranial fossa, dilan thierry and cribriform plate. Normal bilateral orbital contents. Normal nasopharynx without adenoidal pad hypertrophy, or a posterior nasopharyngeal retention cyst. Abnormal appearance of the parotid glands with heterogeneous enhancement pattern however, there is enlargement of the left parotid gland as compared to the right with subtle surrounding inflammation suggesting acute partoitis. No definitive stone or ductal dilation is noted at this time. Also, somewhat heterogeneous enhancement pattern of the submandibular glands. CT/Sinus/Facial Bone WITH Contras IMPRESSION: Unremarkable paranasal sinuses. Heterogeneous enhancement pattern of the salivary glands with enlargement of the left parotid gland as compared to the right with some inflammatory features. Findings are suggestive of acute parotitis Electronically Signed: Jackson Scanlon DO at 3:07 EDT Tel , Service support ,
[2021-05-16 03:19] LABS: BUN 18 mg/dL (7-18); BUN/Creat Ratio 20.7 RATIO (10-20); Calcium,Total 8.4 mg/dL (8.5-10.1); Creatinine, Serum 0.87 mg/dL (0.55-1.02); EST Glomerular Filtration Rate 71 mL/min (>60); Est Glom Filt Rate - Afr Amer 86 mL/min (>60); Estimated Creatinine Clearance 69.38 ml/min; Glucose 99 mg/dL (74-106)
[2021-05-16] MEDS: Cephalexin 250 MG Capsule 500 MG PO (03:30)
[2021-05-16 03:37] VITALS: BP 122/70; PULSE 78; RESP 18; O2SAT 96
[2021-05-16 04:27] LABS: Anion Gap 7 (5-15); Chloride 106 mmol/L (98-107); Potassium 3.4 mmol/L (3.5-5.1); Sodium Level 137 mmol/L (136-145)
== END 2021-05-16 03:38 | disposition home or self-care (01) ==
PROVIDERS: Emergency Provider Emergency Medicine; PCP Family Medicine
DX: K11.21 Acute sialoadenitis (principal); E03.9 Hypothyroidism, unspecified; E78.5 Hyperlipidemia, unspecified; F32.9 Major depressive disorder, single episode, unspecified; F41.9 Anxiety disorder, unspecified; J44.9 Chronic obstructive pulmonary disease, unspecified; I25.2 Old myocardial infarction; F17.210 Nicotine dependence, cigarettes, uncomplicated; K21.9 Gastro-esophageal reflux disease without esophagitis; Z79.1 Long term (current) use of non-steroidal anti-inflammatories (NSAID); Z79.899 Other long term (current) drug therapy
CPT/HCPCS: 70487; 80048; 85025; 99284; Q9967; A4216

== ENCOUNTER 2021-10-20 09:27 | Emergency (ER) | payer BC, MEDICARE, SELFPAY ==
[2021-10-20 09:29] VITALS: BP 125/84; PULSE 78; RESP 18; TEMP 36.3; O2SAT 100; BMI 25.7
--- NOTE | 2021-10-20 09:45 | CT_ITS ---
STUDY: CT BRAIN WITHOUT CONTRAST REASON FOR EXAM: Female, 56 years old. 3 day history of headaches with nausea and vomiting. 2 day history of left hand numbness. RADIATION DOSAGE (If Supplied By Facility): CTDIvol = ( 47.06 ) mGy, DLP = ( 855.03 ) mGycm TECHNIQUE: Transaxial CT imaging of the brain was performed without administration of intravenous contrast material. Individualized dose optimization techniques were used for this CT. COMPARISON: Comparison is made with prior examination dated 05/16/2021. FINDINGS: Normal soft tissue structures. Normal calvarium. Normal size ventricles and extra-axial spaces for the patient''s age. Normal white matter tracts of the cerebral hemispheres. Normal basal ganglia and thalami. Normal brainstem. Normal cerebellum. There is no intracranial hemorrhage. There are no findings of an acute ischemic infarction. Normal visualized paranasal sinuses. CT/Brain/Head without Contrast IMPRESSION: Normal unenhanced CT scan of the brain. Electronically Signed: Jules Cueto MD at 10:42 EST ,
--- NOTE | 2021-10-20 09:51 | EX.ED.DYSGE1 ---
HPI History of Present Illness Chief Complaint: Headache Informant: patient Narrative Narrative: Patient presents with headache. She states she gets migraines commonly. This 1 she stated started on Tuesday. Her daughter then corrected her and stated it actually started Tuesday night. She states it was not that bad Tuesday though. Tuesday it slowly got worse. Slow onset. This is not by any means the worst headache she is ever had. Typical migraines are on the frontal area this is a little bit more posterior. But she still has nausea, left arm tingling, photophobia all of which are very typical symptoms for her migraines. She tried Phenergan at home. She also tried Imitrex but she took it the second day into symptoms. She is also concerned because she seems to have more nausea than normal she also has myalgias and subjective fevers. She is also lost some of her taste and smell. She has been exposed to Covid. However she has been vaccinated. She thought it was [employer] but it was actually [facility] in December and January 2021. Nothing specifically makes symptoms better or worse. PFSH PFSH Medical History Anxiety Asthma Cancer Chronic pain COPD (chronic obstructive pulmonary disease) Depression GERD (gastroesophageal reflux disease) Hyperlipemia Hypothyroidism Migraines Myocardial infarct Smoker Home Medications ergocalciferol (vitamin D2) [Vitamin D2] 50,000 unit PO WE 10/18/17 [History Last Taken 10/12/17] levothyroxine 50 mcg PO DAILY 10/18/17 [History Last Taken 10/15/17] sertraline 100 mg PO DAILY 10/18/17 [History Last Taken 10/17/17] albuterol sulfate 2 puff IH 4X/DAY #1 hfa.aer.ad 10/19/17 [Rx Last Taken Unknown] alprazolam 0.5 mg PO TID PRN PRN #30 tab 10/19/17 [Rx Last Taken Unknown] tiotropium bromide 18 mcg IH DAILY #30 cap.w.dev 10/19/17 [Rx Last Taken Unknown] esomeprazole magnesium 40 mg PO BID 09/03/19 [History Last Taken Unknown] oxcarbazepine 600 mg PO QHS 09/03/19 [History Last Taken Unknown] risperidone 2 mg PO DAILY 09/03/19 [History Last Taken Unknown] sumatriptan succinate 100 mg PO DAILY PRN 12/10/19 [History Last Taken Unknown] galcanezumab-gnlm [Emgality Pen] 120 mg SUBCUT QMONTH 02/06/21 [History Last Taken Unknown] ondansetron 8 mg PO Q8H PRN PRN #20 tab 02/06/21 [Rx Last Taken Unknown] Allergy/AdvReac Type Severity Reaction Status Date / Time acetaminophen [From Tylenol] Allergy Shortness Verified 10/20/21 10:21 of breath amoxicillin Allergy Other Verified 10/20/21 10:21 dicyclomine [From Bentyl] Allergy Rash Verified 10/20/21 10:21 Latex, Natural Rubber Allergy Rash Verified 10/20/21 10:21 mirtazapine Allergy Other Verified 10/20/21 10:21 morphine Allergy Shortness Verified 10/20/21 10:21 of breath Penicillins Allergy Other Verified 10/20/21 10:21 prasterone (DHEA) Allergy Other Verified 10/20/21 10:21 procaine Allergy Other Verified 10/20/21 10:21 prochlorperazine Allergy Other Verified 10/20/21 10:21 sulfasalazine Allergy Other Verified 10/20/21 10:21 valdecoxib [From Bextra] Allergy Shortness Verified 10/20/21 10:21 of breath Venlafaxine Analogues Allergy Other Verified 10/20/21 10:21 ketorolac [From Toradol] AdvReac Other Verified 10/20/21 10:21 Surgical History History of appendectomy Social History Smoking Status: Current every day smoker tobacco type: cigarettes ROS ROS ED Constitutional Constitutional ED: Reports subjective; Denies chills or fever(s) Eyes Eyes: Reports other; Denies blurry vision, change in vision or diplopia ENT ENT ED: Reports rhinorrhea; Denies ear pain or sore throat Cardiovascular Cardiovascular: Denies chest pain or palpitations Respiratory/Chest Respiratory/Chest: Reports cough; Denies dyspnea or sputum Gastrointestinal Gastrointestinal: Reports constipation, nausea and other Details: Chronic constipation. No different. ; Denies abdominal pain, diarrhea or vomiting Genitourinary Genitourinary ED: Denies dysuria or hematuria Musculoskeletal Musculoskeletal: Reports myalgias Integumentary Denies abscess or rash Neurologic Neurologic: Reports headache(s); Denies paresthesias or weakness Psychiatric Psychiatric: Reports anxiety; Denies depression Endocrine Endocrinology: Denies polydipsia or polyuria Allergic/Immunologic Allergic/Immunologic ED: Denies mouth swelling or urticaria EXAM Physical Exam Const Vital Signs: 10/20/21 09:29 Temperature 97.4 F L Temperature Source Temporal Pulse Rate 78 Respiratory Rate 18 Blood Pressure 125/84 H Blood Pressure Mean 97 Pulse Ox 100 Oxygen Delivery Method Room Air Positive well developed Constitutional Narrative: Patient has normal gait. She walked easily in the room. She has normal coordination. She is nontoxic. When I ask about medications and allergies both her and her daughter start to laugh. She does not look acutely ill or in significant discomfort at this moment. However she certainly may tolerate her symptoms well also. General Appearance ED: well developed and NAD; Negative for cyanotic or diaphoretic HEENT Reports moist mucous membranes HEENT Narrative: No temporal artery tenderness. Negative for trauma or tenderness Eyes PERRL and EOMs intact bilaterally Eyes Narrative: Mild subjective photophobia. General Eye ED: Negative for pale conjunctiva or scleral icterus Neck no lymphadenopathy and supple Neck Narrative: Mild paraspinal muscular tenderness but no meningismus. Resp normal respiratory effort and clear to auscultation bilaterally Effort and Inspection: Negative for pain with movement Auscultation: Negative for rales, rhonchi or wheezes Cardio regular rate, regular rhythm and no murmurs GI normal to inspection, nondistended, normoactive bowel sounds and non-tender Palpation: soft Back/Spine no CVA tenderness Extremity normal to inspection Neuro oriented x3 and CN's II-XII intact bilaterally Sensorium / Orientation: alert; Negative for orientation impaired, lethargic or stuporous Sensory Exam: No sensory level loss detected Motor Exam: strength 5/5 throughout; Negative for general weakness Psych mental status grossly normal Skin no rashes or lesions noted MDM MDM MDM Narrative Medical decision making narrative: Patient's Covid was negative. I discussed with her that this has about 85% sensitivity so if she still has further symptoms she may need rechecking. Her CT scan also showed no acute process. She states she is feeling better and she wants to go home she wants to go home as soon as we can get her out of here. Her daughter is driving. We will get her home at this time. We did discuss reasons to return and follow-up. Lab Data Attestation: I reviewed the patient's lab results. Radiography Diagnostic Testing: Clinical Impression(s) from Imaging Studies Brain CT 10/20/21 09:45 IMPRESSION: Normal unenhanced CT scan of the brain. Electronically Signed: Jules Cueto MD at 10:42 EST , Discharge Plan Triage Chief Complaint: Headache ED Provider: Garth Swenson Dx/Rx/DC Orders Clinical Impression: Migraine, Close exposure to 2018-nCoV Instructions: ED, Migraine (Classical) Prescriptions: No Action sertraline 100 MG tablet 100 mg PO DAILY RF: 0 levothyroxine 50 MCG tablet 50 mcg PO DAILY RF: 0 ergocalciferol (vitamin D2) [Vitamin D2] 50,000 UNIT capsule 50,000 unit PO WE RF: 0 alprazolam 0.5 MG tablet 0.5 mg PO TID PRN PRN (Reason: Anxiety) Qty: 30 RF: 0 albuterol sulfate 6.7 GM HFA aerosol inhaler 2 puff IH 4X/DAY Qty: 1 RF: 0 tiotropium bromide 18 MCG capsule, w/inhalation device 18 mcg IH DAILY Qty: 30 RF: 0 oxcarbazepine 300 MG tablet 600 mg PO QHS RF: 0 risperidone 1 MG tablet 2 mg PO DAILY RF: 0 esomeprazole magnesium [address] for susp in packet 40 mg PO BID RF: 0 sumatriptan succinate 100 MG tablet 100 mg PO DAILY PRN (Reason: Migraine Symptoms) RF: 0 Emgality Pen 120 mg/mL pen injector 120 mg SUBCUT QMONTH RF: 0 ondansetron [ondansetron] 4 MG tablet 8 mg PO Q8H PRN PRN (Reason: Nausea) Qty: 20 RF: 0 Primary Care Provider: Dom Jalloh Referrals: Dom Jalloh MD [Primary Care Provider] - As Needed Disposition Disposition: Home, Self Care
[2021-10-20] MEDS: 0.9% Normal Saline 1,000 ML 1000 ML IV (10:10)
[2021-10-20] MEDS: LORazepam 2 MG/ML Syringe 1 MG IV (10:11)
[2021-10-20] MEDS: proMETHazine 25 MG/ML Syringe 12.5 MG IM (10:12)
[2021-10-20] MEDS: DiphenhydrAMINE 50 MG/ML Syringe IV (10:13)
[2021-10-20] MEDS: Ketorolac 15 MG/ML Vial IV (10:14)
== END 2021-10-20 11:36 | disposition home or self-care (01) ==
PROVIDERS: Emergency Provider Emergency Medicine; PCP Family Medicine; Visit Provider Emergency Medicine
DX: G43.909 Migraine, unspecified, not intractable, without status migrainosus (principal); J44.9 Chronic obstructive pulmonary disease, unspecified; E78.5 Hyperlipidemia, unspecified; Z20.822 Contact with and (suspected) exposure to COVID-19; G89.29 Other chronic pain; F41.9 Anxiety disorder, unspecified; E03.9 Hypothyroidism, unspecified; I25.2 Old myocardial infarction; Z79.899 Other long term (current) drug therapy; F17.210 Nicotine dependence, cigarettes, uncomplicated; K59.00 Constipation, unspecified
CPT/HCPCS: 70450; 87426; 96361; 96372; 96374; 96375; 99283; J7030

== ENCOUNTER 2021-11-25 06:29 | Outpatient (CLI) | payer BC, MEDICARE, SELFPAY ==
--- NOTE | 2021-11-25 06:39 | MRI_ITS ---
STUDY: MRA OF THE HEAD WITHOUT CONTRAST REASON FOR EXAM: Female, 56 years old. VERTIGO Technologist Notes Other, severe headaches x a few months. Pain is usually frontal headache but recently has had occipital lobe area headaches. CT Brain done 10/20/21 TECHNIQUE: 3-D rdkw-sc-hbgmuj (TOF) imaging was performed with MIPs. The study was performed unenhanced. COMPARISON: Head CT dated October 20, 2021. MRA of the neck dated November 25, 2021 FINDINGS: Normal bilateral petrous carotid arteries. Normal right cavernous carotid artery with a normal supraclinoid bifurcation. Normal left cavernous carotid artery with a normal supraclinoid bifurcation. Normal right A1 segments of the anterior cerebral artery. Normal left A1 segments of the anterior cerebral artery. Normal intact anterior communicating artery (ACOM). Normal bilateral A2 segments of the anterior cerebral arteries. Normal right M1 and M2 segments of the middle cerebral arteries, with a normal M1 bifurcation. Normal left M1 and M2 segments of the middle cerebral arteries, with a normal M1 bifurcation. Normal right posterior communicating artery (PCOM). Normal left posterior communicating artery (PCOM). Normal bilateral vertebral arteries. Normal basilar artery with a normal basilar bifurcation. The visualized bilateral superior cerebellar (SCA) arteries are normal. Normal bilateral P1, P2 and visualized P3 segments of the posterior cerebral arteries. There is no demonstrated aneurysm of the [place]. There is no major vessel occlusion or hemodynamically significant stenosis. There is no demonstrated abnormality of the visualized brain. MRI/MRA Head ONLY without Contrast IMPRESSION: Normal MRA of the head Electronically Signed: Sudarshan Pan MD at 15:27 EST ,
--- NOTE | 2021-11-25 06:39 | MRI_ITS ---
STUDY: MRA NECK WITH AND WITHOUT CONTRAST REASON FOR EXAM: Female, 56 years old. VERTIGO Technologist Notes Other, severe headaches x a few months. Pain is usually frontal headache but recently has had occipital lobe area headaches. CT Brain done 10/20/21 TECHNIQUE: 3-D gdwq-rm-slcbsp (TOF) imaging was performed in an 1.5 T MRI scanner. IV DOTAREM 15 mL injected was administered for the contrast enhanced images. COMPARISON: Head CT dated October 20, 2021. MRA of the brain dated October 20, 2021 FINDINGS: RIGHT CAROTID ARTERIES: Normal right common carotid artery (CCA). Normal right common carotid bulb. Normal origin of the right internal carotid (ICA) artery without a hemodynamically significant stenosis. Normal visualized cervical portion of the right internal carotid artery. Normal origin of the right external carotid artery (ECA). LEFT CAROTID ARTERIES: Normal left common carotid artery (CCA). Normal left common carotid bulb. Normal origin of the left internal carotid (ICA) artery without a hemodynamically significant stenosis. Normal visualized cervical portion of the left internal carotid artery. Normal origin of the left external carotid artery (ECA). VERTEBRAL ARTERIES: Normal antegrade flow within the bilateral vertebral artery without a hemodynamically significant stenosis. MRI/MRA Neck WITH and W/O Contrast IMPRESSION: Normal bilateral cervical carotid and vertebral arteries. Electronically Signed: Sudarshan Pan MD at 15:29 EST ,
== END 2021-11-25 23:59 | disposition home or self-care (01) ==
LOC: MRI 06:31
PROVIDERS: PCP Family Medicine; Referring Provider Clinical Nurse Specialist Acute Care; Visit Provider Clinical Nurse Specialist Acute Care
DX: R42 Dizziness and giddiness (principal)
CPT/HCPCS: 70544; 70549; A9575; A4216

== ENCOUNTER 2021-12-21 06:44 | Outpatient (CLI) | payer BC, MEDICARE, SELFPAY ==
--- NOTE | 2021-12-21 06:52 | MRI_ITS ---
STUDY: MRI BRAIN WITHOUT CONTRAST REASON FOR EXAM: Female, 56 years old. ataxia TECHNIQUE: Standardized multiplanar fat and water weighted pulse sequences were obtained. COMPARISON: Head CT dated October 20, 2021 FINDINGS: Normal size of the ventricles and extra-axial spaces for the patient''s age. There are a limited number of small white matter hyperintensities, distributed throughout the deep white matter tracts of the cerebral hemispheres, consistent with mild chronic white matter ischemic changes. There is no evidence for recent intracranial ischemia or other cause of cytotoxic edema on diffusion weighted imaging (DWI). Normal T2* images of the brain without demonstrated susceptibility artifact. There is no demonstrated hemosiderin stain. No focal parenchymal edema or suspicious lesions. Normal bilateral basal ganglia. Normal thalami. There is no extra-axial fluid accumulation. Normal flow voids within the major intracranial circulation suggesting patency by spin echo criteria. Normal sella turcica, pituitary gland, infundibular stalk, optic chiasm and hypothalamus. Normal tectal plate and pineal gland. Normal midbrain, joseph and medulla. Normal cerebellum. Normal basal cisterns. Normal bilateral temporal bones. Normal bilateral internal auditory canals. No demonstrated orbital abnormality, within the constraints of a routine brain study. Normal visualized paranasal sinuses. Normal calvarium and skull base. Normal visualized soft tissue structures. Normal visualized upper cervical spine. MRI/Brain without Contrast IMPRESSION: 1. Mild chronic ischemic changes of the white matter. 2. No demonstrated acute infarct or intracranial hemorrhage. Electronically Signed: Sudarshan Pan MD at 10:27 EDT ,
== END 2021-12-21 23:59 | disposition home or self-care (01) ==
LOC: MRI 06:46
PROVIDERS: PCP Family Medicine; Referring Provider Clinical Nurse Specialist Acute Care; Visit Provider Clinical Nurse Specialist Acute Care
DX: R26.89 Other abnormalities of gait and mobility (principal); R27.0 Ataxia, unspecified
CPT/HCPCS: 70551

== ENCOUNTER → 2022-03-26 | Outpatient (CLI) | payer BC, MEDICARE, SELFPAY ==
[2022-03-26 12:40] LABS: Absolute Lymphocyte Count 2.59 X10^3/uL (0.83-4.51); Absolute Neutrophil Count 4.6 X10^3/uL (2.0-7.7); Basophil# 0.03 X10^3/uL; Basophil% 0.4 % (0-1); Eosinophil# 0.14 X10^3/uL; Eosinophils% 1.8 % (0-5); Hemoglobin 13.8 g/dL (12.0-15.0); Lymphocyte # 2.59 X10^3/ul (0.83-4.51); Lymphocyte % 32.9 % (19-41); Mean Corp Hgb Conc 34.5 g/dL (32-36); Mean Corpuscular Hgb 29.9 pg (27.0-32.0); Mean Corpuscular Volume 86.8 fL (81-99); Mean Platelet Vol. 8.8 fl (6.2-12.0); Monocyte# 0.52 X10^3/uL; Monocyte% 6.6 % (0-10); NRBC Flagged by Analyzer 0 % (0-5); Neutrophil # 4.57 X10^3/uL (2.7-7.7); Neutrophil % 57.9 % (47-70); Platelet Count 308 K/mm3 (150-450); RBC Distribution Width CV 12.4 % (11.6-14.6); RBC Distribution Width SD 39.4 fl (35.1-43.9); Red Blood Count 4.61 M/mm3 (4.2-5.4); White Blood Count 7.9 K/mm3 (4.4-11.0)
[2022-03-26 13:07] LABS: Vitamin D,25 Hydroxy 25.8 ng/mL
[2022-03-26 13:10] LABS: AST(SGOT) 13 U/L (15-37); Alanine Aminotransfer ALT/SGPT 25 U/L (13-56); Albumin, Serum 3.7 g/dL (3.2-5.0); Alkaline Phosphatase 73 U/L (45-117); Bilirubin, Direct 0.09 mg/dL (0.00-0.30); Globulin 3.2 g/dL (2.2-4.2); Protein, Total 6.9 g/dL (6.4-8.2)
[2022-03-30 14:08] LABS: PROEL- A/G Ratio 1.8 (0.7-1.7); PROEL- Albumin 4.1 g/dL (2.9-4.4); PROEL- Alpha-1 Globulin 0.2 g/dL (0.0-0.4); PROEL- Alpha-2 Globulin 0.8 g/dL (0.4-1.0); PROEL- Beta Globulin 0.8 g/dL (0.7-1.3); PROEL- Gamma Globulin 0.5 g/dL (0.4-1.8); PROEL- Globulin, Total 2.3 g/dL (2.2-3.9); PROEL- TOTAL PROTEIN 6.4 g/dL (6.0-8.5)
== END | disposition home or self-care (01) ==
PROVIDERS: PCP Family Medicine; Visit Provider Specialist
DX: L50.1 Idiopathic urticaria (principal); Z91.038 Other insect allergy status; Z91.040 Latex allergy status
CPT/HCPCS: 36415; 80076; 82306; 83520; 84165; 85025

== ENCOUNTER 2022-09-23 13:31 | Emergency (ER) | payer BC, MEDICARE, SELFPAY ==
[2022-09-23 13:34] VITALS: BP 120/80; PULSE 74; RESP 17; TEMP 36.7; O2SAT 99; BMI 26.6
--- NOTE | 2022-09-23 14:09 | EX.ED.DYSGE1 ---
HPI History of Present Illness Chief Complaint: Headache Narrative Narrative: Patient presents with headache. She is chronic recurrent headaches, this feels the same she normally goes to her doctor's office gets injections of Phenergan and Toradol and these usually help. Her doctor's office is closed today. No fever or chills, she has photophobia and phonophobia which are also part of her migraine. This migraine started slowly this morning and gradually got worse. She tried her Imitrex but did not work. PFSH PFSH Medical History Anxiety Asthma Cancer Chronic pain COPD (chronic obstructive pulmonary disease) Depression GERD (gastroesophageal reflux disease) Hyperlipemia Hypothyroidism Migraines Myocardial infarct Smoker Home Medications ergocalciferol (vitamin D2) 1,250 mcg (50,000 unit) capsule (Vitamin D2) 50,000 unit PO WE supplement 10/18/17 [History Last Taken 10/12/17] levothyroxine 50 mcg tablet 50 mcg PO DAILY thyroid 10/18/17 [History Last Taken 10/15/17] sertraline 100 mg tablet 100 mg PO DAILY mental health 10/18/17 [History Last Taken 10/17/17] albuterol sulfate 90 mcg/actuation aerosol inhaler 2 puff IH 4X/DAY ##1 10/19/17 [Rx Last Taken Unknown] alprazolam 0.5 mg tablet 0.5 mg PO TID PRN PRN Anxiety #30 tabs 10/19/17 [Rx Last Taken Unknown] tiotropium bromide 18 mcg capsule with inhalation device 18 mcg IH DAILY ##30 10/19/17 [Rx Last Taken Unknown] esomeprazole magnesium 40 mg granules delayed release for susp 40 mg PO BID 09/03/19 [History Last Taken Unknown] oxcarbazepine 300 mg tablet 600 mg PO QHS 09/03/19 [History Last Taken Unknown] risperidone 1 mg tablet 2 mg PO DAILY 09/03/19 [History Last Taken Unknown] sumatriptan succinate 100 mg tablet 100 mg PO DAILY PRN Migraine Symptoms 12/10/19 [History Last Taken Unknown] galcanezumab-gnlm 120 mg/mL subcutaneous pen injector (Emgality Pen) 120 mg subcut QMONTH 02/06/21 [History Last Taken Unknown] ondansetron 4 mg disintegrating tablet 8 mg PO Q8H PRN PRN Nausea #20 tabs 02/06/21 [Rx Last Taken Unknown] Allergy/AdvReac Type Severity Reaction Status Date / Time acetaminophen [From Tylenol] Allergy Shortness Verified 09/23/22 13:31 of breath amoxicillin Allergy Other Verified 09/23/22 13:31 dicyclomine [From Bentyl] Allergy Rash Verified 09/23/22 13:31 Latex, Natural Rubber Allergy Rash Verified 09/23/22 13:31 mirtazapine Allergy Other Verified 09/23/22 13:31 morphine Allergy Shortness Verified 09/23/22 13:31 of breath Penicillins Allergy Other Verified 09/23/22 13:31 prasterone (DHEA) Allergy Other Verified 09/23/22 13:31 procaine Allergy Other Verified 09/23/22 13:31 prochlorperazine Allergy Other Verified 09/23/22 13:31 sulfasalazine Allergy Other Verified 09/23/22 13:31 valdecoxib [From Bextra] Allergy Shortness Verified 09/23/22 13:31 of breath Venlafaxine Analogues Allergy Other Verified 09/23/22 13:31 ketorolac [From Toradol] AdvReac Other Verified 09/23/22 13:31 Surgical History History of appendectomy Social History Smoking Status: Current every day smoker tobacco type: cigarettes ROS ROS ED ROS Narrative Past medical history: Reviewed Medications: Reviewed Social history: Noncontributory Review of systems: All systems negative except as indicated General: No fever Eyes: No visual changes ENT: No upper airway congestion, normal voice Neck: No neck pain Cardiovascular: No chest pain Respiratory: No shortness of breath or cough Gastrointestinal: No abdominal pain, nausea vomiting or diarrhea Genitourinary: No dysuria Musculoskeletal: Denies myalgias no difficulty with ambulation Skin: No rash Neurological: Headache as in HPI Psych: No recent behavioral changes Hematologic: No easy bleeding or easy bruising EXAM Physical Exam Narrative Exam Narrative: Physical exam General: Patient appears relatively comfortable. Head: Normocephalic, Atraumatic Eyes: Conjunctiva not pale. Pupils are equal. She is initially wearing sunglasses ENT: Moist mucous membranes Neck: Supple, Nontender, No lymphadenopathy Cardiovascular: Regular rate, Regular rhythm Respiratory: No distress, CTA bilaterally Abdomen: Soft, Nontender, Nondistended Back: Nontender, Normal Inspection. Negative for: CVA tenderness Extremities: Nontender, No edema Skin: Normal color, No rash Neurological: Alert, Normal Strength, Normal Sensation Psychological: Normal affect Const Vital Signs: 09/23/22 13:34 Temperature 98.0 F Temperature Source Temporal Pulse Rate 74 Respiratory Rate 17 Blood Pressure 120/80 Blood Pressure Mean 93 Pulse Ox 99 Oxygen Delivery Method Room Air MDM MDM MDM Narrative Medical decision making narrative: Patient has gradual onset of headache with a normal neurological exam, her headaches similar to prior headaches. I do not believe CT of the head is warranted at this time although I did consider it. She appears well. I will discharge her in stable condition. She was given Phenergan and Toradol as her usual cocktail medicine in the ED. She has medications at home. Discharge Plan Triage Chief Complaint: Headache ED Provider: Jus Avila Dx/Rx/DC Orders Clinical Impression: Headache, Migraine Instructions: Migraine Triggers Prescriptions: No Action sertraline 100 MG tablet 100 mg PO DAILY levothyroxine 50 MCG tablet 50 mcg PO DAILY ergocalciferol (vitamin D2) [Vitamin D2] 50,000 UNIT capsule 50,000 unit PO WE alprazolam 0.5 MG tablet 0.5 mg PO TID PRN PRN (Reason: Anxiety) Qty: 30 0RF albuterol sulfate 6.7 GM HFA aerosol inhaler 2 puff IH 4X/DAY Qty: 1 0RF tiotropium bromide 18 MCG capsule, w/inhalation device 18 mcg IH DAILY Qty: 30 0RF oxcarbazepine 300 MG tablet 600 mg PO QHS Label Comments: TAKE 2 TABLETS BY MOUTH AT BEDTIME risperidone 1 MG tablet 2 mg PO DAILY Label Comments: PLEASE SEE ATTACHED FOR DETAILED DIRECTIONS esomeprazole magnesium [address] for susp in packet 40 mg PO BID sumatriptan succinate 100 MG tablet 100 mg PO DAILY PRN (Reason: Migraine Symptoms) Emgality Pen 120 mg/mL pen injector 120 mg SUBCUT QMONTH Label Comments: INJECT ONCE A MONTH DIRECTED ondansetron [ondansetron] 4 MG tablet 8 mg PO Q8H PRN PRN (Reason: Nausea) Qty: 20 0RF Primary Care Provider: Dom Jalloh Referrals: Dom Jalloh MD [Primary Care Provider] - 3-5 Days Disposition Disposition: Home, Self Care
[2022-09-23] MEDS: proMETHazine 25 MG/ML Syringe 12.5 MG IM (14:16)
[2022-09-23] MEDS: Ketorolac 60 MG/2 ML Vial IM (14:16)
[2022-09-23 14:27] VITALS: BP 134/78; PULSE 88; RESP 16; TEMP 36.6; O2SAT 100
== END 2022-09-23 14:33 | disposition home or self-care (01) ==
LOC: ED 14:17
PROVIDERS: Emergency Provider Emergency Medicine; PCP Family Medicine; Visit Provider Emergency Medicine
DX: G43.909 Migraine, unspecified, not intractable, without status migrainosus (principal); J44.9 Chronic obstructive pulmonary disease, unspecified; E78.5 Hyperlipidemia, unspecified; F17.210 Nicotine dependence, cigarettes, uncomplicated
CPT/HCPCS: 99282

== ENCOUNTER → 2022-11-16 | Outpatient (CLI) | payer BC, MEDICARE, SELFPAY ==
--- NOTE | 2022-11-16 09:35 | EKG12_ITS ---
Test Reason : CHEST PAIN Blood Pressure : / mmHG Vent. Rate : 083 BPM Atrial Rate : 083 BPM P-R Int : 166 ms QRS Dur : 072 ms QT Int : 352 ms P-R-T Axes : 064 071 076 degrees QTc Int : 413 ms Normal sinus rhythm Normal ECG Confirmed by JOJO MALIK, SAMY ([id number]), commissioning editor SEJAL SUNSHINE ([id number]) on 11/17/2022 8:57:30 AM Referred By: BECKY RODRIGUEZ Confirmed By:SAMY URIBE MD
[2022-11-16 09:50] LABS: Hematocrit 43.4 % (37-47); Hemoglobin 13.7 g/dL (12.0-15.0); Mean Corp Hgb Conc 31.6 g/dL (32-36); Mean Corpuscular Hgb 29.5 pg (27.0-32.0); Mean Corpuscular Volume 93.5 fL (81-99); Platelet Count 292 K/mm3 (150-450); RBC Distribution Width CV 13.1 % (11.6-14.6); Red Blood Count 4.64 M/mm3 (4.2-5.4); White Blood Count 8.7 K/mm3 (4.4-11.0)
[2022-11-16 10:14] LABS: Hemoglobin A1c 5.4 % (3.8-5.6)
[2022-11-16 10:26] LABS: Vitamin B12 332 pg/mL (211-911)
[2022-11-16 10:47] LABS: ALB/GLOB Ratio 1.2 RATIO (0.9-2.4); AST(SGOT) 11 U/L (15-37); Alanine Aminotransfer ALT/SGPT 24 U/L (13-56); Albumin, Serum 3.9 g/dL (3.2-5.0); Alkaline Phosphatase 81 U/L (45-117); Anion Gap 7 (5-15); BUN 7 mg/dL (7-18); BUN/Creat Ratio 7.2 RATIO (10-20); Calcium,Total 9.2 mg/dL (8.5-10.1); Chloride 107 mmol/L (98-107); Cholesterol 148 mg/dL (200); Creatinine, Serum 0.97 mg/dL (0.55-1.02); EST Glomerular Filtration Rate 63 mL/min (>60); Est Glom Filt Rate - Afr Amer 76 mL/min (>60); Globulin 3.2 g/dL (2.2-4.2); Glucose 124 mg/dL (74-106); High Density Lipoprotein 65 mg/dL; Iron 74 ug/dL (50-170); Iron Binding Capacity,Total 328 ug/dL (250-450); PERCENT IRON SATURATION 22.6 % (15.0-55.0); Potassium 3.4 mmol/L (3.5-5.1); Protein, Total 7.1 g/dL (6.4-8.2); Sodium Level 140 mmol/L (136-145); Thyroid Stim Hormone (TSH) 1.48 uIU/mL (0.358-3.74); Triglycerides 140 mg/dL; Very Low Density Lipoprotein 28 mg/dL (5-40)
== END | disposition home or self-care (01) ==
PROVIDERS: PCP Family Medicine; Referring Provider Counselor Mental Health; Visit Provider Counselor Mental Health
DX: E55.9 Vitamin D deficiency, unspecified (principal); Z79.899 Other long term (current) drug therapy
CPT/HCPCS: 36415; 80053; 80061; 82306; 82607; 82746; 83036; 83540; 83550; 84443; 85027; 93005

== ENCOUNTER 2023-04-05 13:00 | Outpatient (RCR) | payer BC, MEDICARE, SELFPAY ==
--- NOTE | 2023-03-22 16:19 | HP.PTEVAL ---
Patient's Visit Information ELVA CIFUENTES is a 57 year old F referred to Physical Therapy by Dr. Ghanshyam Rodrigues MD with a diagnosis of NECK PAIN ,BACK PAIN ,BALANCE. Date of Evaluation: 03/22/23 Physical Therapist: Rich Novak PT, Cert MDT, OCS - Visit Plan Frequency: 2x /Week Duration: 4 Weeks Plan: LATEX ALLERGY . PT INTERVETIONS POSTURAL EX'S ,DLS ,GRADED CERVICAL/ LUMBAR ROM, AND MODALTIES - Subjective This 57 y/o female presents to physical therapy with back ,neck pain and balance. Patient has cervical/lumbar pain may years ~ 22 years. Patient under care DR Ocasio recently for pain management. Patient had injection in cervical spine 3 months and lumbar 4 months ago. Tried PT in past several times which patient states therapy made symptoms worse . Patient has been doing [place] ex's and yoga. No pain meds just over counter. Left arm and left leg possible from neuropathy. Location cervical spine left UT /levator region. Back pain Located left lumbar radiating symptoms to thigh. Aggravating factors bending ,lifting , walking and standing. Alleviating factors heat/CP stretching. MRI in cervical spine. Aggravating neck flexion ,turning and lifting . Alleviating rest medication and ice. C/O Migraines. C/O nausea/dizziness. Coughing /sneezing - . Patient pain affects sleeping . Patient has complexity issues anxiety ,PTSD ,depression ,hallucinations with medication. Patient uses cane for walking last fall 4 months due to leg giving way. Patient affects QOL and function. Patient goal is to decrease pain. SOCIAL: SINGLE. VOCATION: disability - Pain Bilateral Back Pain Intensity (Out of 10): 6 Bilateral Neck Pain Intensity (Out of 10): 6 Pain Intensity Range: 10 - Objective POSTURE: mild forward. GAIT: reciprocal pattern with cane antalgic gait. SYMMTIES: align. PAPALTION: tender levator/UT ,SI /LS. NEURO: c/o paresthesia/tingling ,reflexes C5-6-7 ,L3-4,L4-L4-L5 ,L5-S1 1/3. LUMBAR ROM: flexion mod ,extension mod loss ,side glides mod loss pain. CERVICAL ROM: flexion min loss ,extension mod loss ,lateral flexion/rotation mod loss. FLEXABILITY: hamstrings min/mod loss. MMT: BUE 4-/5 except shoulders 3+/5 ,quads/hams 3+/5 ,hip flexion 3+/5 ,ankle 4/5 - Special Tests C/S Radiculapathy - Left Upper limb tension test: Negative C/S Radiculapathy - Right Upper limb tension test: Negative C/S Radiculapathy - Left Spurlings: Positive C/S Radiculapathy - Right Spurlings: Positive C/S Radiculapathy - Left Cervical distraction: Positive C/S Radiculapathy - Right Cervical distraction: Positive Sharp Deepak: Negative Vertebral Artery Test: Negative Alar Ligament Test: Negative L/S Slump test left side: Negative L/S Slump test right side: Negative L/S Left Straight Leg Raise: Negative L/S Right Straight Leg Raise: Negative - Balance/Special Test Scores CATSIB Score (Max score 120 seconds): 45 Oswestry Low Back Score: 33 - Goals Goal 1:: Patient to be I with HEP back /neck Goal Time Frame: 4-6 Weeks Goal 2:: Patient to improve cervical ROM and lumbar ROM for function of recovery for ADL's Goal Time Frame: 4-6 Weeks Goal 3:: Patient demonstrate 30-40% improvement in improved function with less pain. Goal Time Frame: 4-6 Weeks Goal 4:: Patient to strength of BUE/LE to good - to improve function with walking and standing Goal Time Frame: 4-6 Weeks Goal 5:: Patient to improve CATSIB by 5-10 points to improve decrease risk of balance Goal Time Frame: 4-6 Weeks Goal 6:: Patient to improve Back oswestry score by 5 points or > to improve QOL Goal Time Frame: 4-6 Weeks - Rehabilitation Potential Physical Therapy Diagnosis: This patient has chronic neck and lumbar pain with decrease ROM ,pain weakness arms/legs ,decrease gait and balance uses cane thus benefit from skilled PT Rehabilitation Potential: Fair - Anticipated Interventions Patient/Client Instruction: Educate patient on: Condition, Plan of Care For the Purpose of:: To decrease pain, To increase ROM, To improve muscle performance and motor function, To improve ability to perform ADL's, To increase tolerance to activity/condition/position, To improve ability of physical actions for home/community/work/leisure, To improve health of tissue, To decrease soft tissue restriction, To increase flexibility/ROM, To reduce risk of recurrence, To improve tolerance to ADL's Therapeutic Exercise to Include: Strength training, Endurance training, Balance training, Body mechanics, Postural training, Flexibilty training, Active ROM, Dynamic Lumbar Stabilization For the Purpose of:: To decrease pain, To increase ROM, To improve muscle performance and motor function, To increase tolerance to activity/condition/position, To improve ability of physical actions for home/community/work/leisure, To improve gait and locomotor functions, To improve health of tissue, To decrease soft tissue restriction, To increase flexibility/ROM TENS: Yes IF ES: Yes Cryotherapy (ice pack, ice massage): Yes Thermo therapy (hot pack): Yes Ultrasound (thermal/non thermal): Yes For the Purpose of:: To decrease pain, To increase ROM, To improve nutrient delivery to tissue, To increase oxygenation perfusion, To improve health of tissue, To decrease soft tissue restriction Thank you for the opportunity to evaluate your patient. For Medicare and Medicare HMO plans, please review the plan of care and approve it. It will need to be FAXED BACK to us at [phone] for Medicare purposes. For Medicare only, by signing this I certify the plan of care. Please let me know if there are questions or concerns regarding this plan of care. Physician Signature: Date:
--- NOTE | 2023-06-02 11:29 | HP.PTDCNRP_ITS ---
Patient Information Patient Information: ELVA CIFUENTES was seen in my office for initial evaluation on 03/22/23. The following Plan of Care was established for this patient: POC Established Initial Frequency: 2x /Week Initial Duration: 4 Weeks Anticipated Interventions Patient/Client Instruction: Educate patient on: Condition and Plan of Care For the Purpose of:: To decrease pain, To increase ROM, To improve muscle performance and motor function, To improve ability to perform ADL's, To increase tolerance to activity/condition/position, To improve ability of physical actions for home/community/work/leisure, To improve health of tissue, To decrease soft tissue restriction, To increase flexibility/ROM, To reduce risk of recurrence and To improve tolerance to ADL's Therapeutic Exercise to Include: Strength training, Endurance training, Balance training, Body mechanics, Postural training, Flexibilty training, Active ROM and Dynamic Lumbar Stabilization For the Purpose of:: To decrease pain, To increase ROM, To improve muscle performance and motor function, To increase tolerance to activity/condition/position, To improve ability of physical actions for home/community/work/leisure, To improve gait and locomotor functions, To improve health of tissue, To decrease soft tissue restriction and To increase flexibilit y/ROM TENS: Yes IF ES: Yes Cryotherapy (ice pack, ice massage): Yes Thermo therapy (hot pack): Yes Ultrasound (thermal/non thermal): Yes For the Purpose of:: To decrease pain, To increase ROM, To improve nutrient delivery to tissue, To increase oxygenation perfusion, To improve health of tissue and To decrease soft tissue restriction Last Seen Last Seen: This patient was last seen in our office . Pertinent comments regarding their Physical therapy will appear below: Patient was seen for neck pain and balance thus d/c At this point I will be discontinuing this patient from physical therapy. I would be happy to see this patient again in the future if found appropriate by the physician. Thank you! Rich Novak, PT, Cert MDT, OCS Balance/Gait/Functional tests Balance/Special Test Scores CATSIB Score (Max score 120 seconds): 45 Oswestry Low Back Score: 33
== END 2023-04-05 19:00 | disposition home or self-care (01) ==
LOC: PT 13:00
PROVIDERS: PCP Family Medicine; Referring Provider Anesthesiology Pain Medicine; Visit Provider Anesthesiology Pain Medicine
DX: M54.2 Cervicalgia (principal); M54.9 Dorsalgia, unspecified
CPT/HCPCS: 97110; 97162

== ENCOUNTER 2023-04-15 09:46 | Emergency (ER) | payer BC, MEDICARE, SELFPAY ==
[2023-04-15 09:47] VITALS: BP 112/92; PULSE 98; RESP 22; TEMP 37.2; O2SAT 98; BMI 30.5
--- NOTE | 2023-04-15 10:08 | EDS_ITS ---
HPI History of Present Illness Chief Complaint: Shortness of Breath Informant: patient Onset/Context/Timing Onset: Yesterday Context: Gradual Onset Current Severity: Mild Maximum Severity: Moderate Narrative Narrative: Patient presents with cough and congestion along with shortness of breath. She denies fever at home. She has chest pain only when she coughs. She is bringing up light-colored sputum. She does have increased wheezing and has been using her inhalers more than normal. PFSH PFSH Medical History Anxiety Asthma Cancer Chronic pain COPD (chronic obstructive pulmonary disease) Depression GERD (gastroesophageal reflux disease) Hyperlipemia Hypothyroidism Migraines Myocardial infarct Smoker Home Medications ergocalciferol (vitamin D2) 1,250 mcg (50,000 unit) capsule (Vitamin D2) 50,000 unit PO WE supplement 10/18/17 [History Last Taken 10/12/17] levothyroxine 50 mcg tablet 50 mcg PO DAILY thyroid 10/18/17 [History Last Taken 10/15/17] sertraline 100 mg tablet 100 mg PO DAILY mental health 10/18/17 [History Last Taken 10/17/17] albuterol sulfate 90 mcg/actuation aerosol inhaler 2 puff IH 4X/DAY ##1 10/19/17 [Rx Last Taken Unknown] alprazolam 0.5 mg tablet 0.5 mg PO TID PRN PRN Anxiety #30 tabs 10/19/17 [Rx Last Taken Unknown] tiotropium bromide 18 mcg capsule with inhalation device 18 mcg IH DAILY ##30 10/19/17 [Rx Last Taken Unknown] esomeprazole magnesium 40 mg granules delayed release for susp 40 mg PO BID 09/03/19 [History Last Taken Unknown] oxcarbazepine 300 mg tablet 600 mg PO QHS 09/03/19 [History Last Taken Unknown] risperidone 1 mg tablet 2 mg PO DAILY 09/03/19 [History Last Taken Unknown] sumatriptan succinate 100 mg tablet 100 mg PO DAILY PRN Migraine Symptoms 12/10/19 [History Last Taken Unknown] galcanezumab-gnlm 120 mg/mL subcutaneous pen injector (Emgality Pen) 120 mg s ubcut QMONTH 02/06/21 [History Last Taken Unknown] ondansetron 4 mg disintegrating tablet 8 mg (2 x 4 mg) PO Q8H PRN PRN Nausea #20 tabs 02/06/21 [Rx Last Taken Unknown] codeine 10 mg-guaifenesin 100 mg/5 mL oral liquid 5 ml PO Q6H PRN cough #120 mL 04/15/23 [Rx Last Taken Unknown] doxycycline monohydrate 100 mg capsule 100 mg PO BID #20 CAPSULES 04/15/23 [Rx Last Taken Unknown] prednisone 20 mg tablet 40 mg (2 x 20 mg) PO DAILY #8 tabs 04/15/23 [Rx Last Taken Unknown] Allergy/AdvReac Type Severity Reaction Status Date / Time acetaminophen [From Tylenol] Allergy Shortness Verified 04/15/23 09:47 of breath amoxicillin Allergy Other Verified 04/15/23 09:47 dicyclomine [From Bentyl] Allergy Rash Verified 04/15/23 09:47 Latex, Natural Rubber Allergy Rash Verified 04/15/23 09:47 mirtazapine Allergy Other Verified 04/15/23 09:47 morphine Allergy Shortness Verified 04/15/23 09:47 of breath Penicillins Allergy Other Verified 04/15/23 09:47 prasterone (DHEA) Allergy Other Verified 04/15/23 09:47 procaine Allergy Other Verified 04/15/23 09:47 prochlorperazine Allergy Other Verified 04/15/23 09:47 sulfasalazine Allergy Other Verified 04/15/23 09:47 valdecoxib [From Bextra] Allergy Shortness Verified 04/15/23 09:47 of breath Venlafaxine Analogues Allergy Other Verified 04/15/23 09:47 ketorolac [From Toradol] AdvReac Other Verified 04/15/23 09:47 Surgical History History of appendectomy Social History Smoking Status: Current every day smoker tobacco type: cigarettes ROS ROS ED Constitutional Constitutional ED: Denies chills or fever(s) Eyes Eyes: Denies change in vision or discharge from eye(s) ENT ENT ED: Denies discharge from eye(s), rhinorrhea or sore throat Cardiovascular Cardiovascular: Reports chest pain; Denies palpitations Respiratory/Chest Respiratory/Chest: Reports cough, dyspnea and sputum Gastrointestinal Gastrointestinal: Denies abdominal pain, nausea or vomiting Genitourinary Genitourinary ED: Denies dysuria Musculoskeletal Musculoskeletal: Denies back pain or extremity pain Integumentary Denies Abrasions or rash Neurologic Neurologic: Denies headache(s) or weakness Psychiatric Psychiatric: Denies anxiety or depression Endocrine Endocrinology: Denies polydipsia or polyuria Allergic/Immunologic Allergic/Immunologic ED: Denies lip swelling or urticaria EXAM Physical Exam Const Vital Signs: 04/15/23 09:47 04/15/23 09:58 04/15/23 10:16 Temperature 99 F Temperature Source Temporal Pulse Rate 98 84 Respiratory Rate 22 H 12 Respiratory Effort Short of Breath Respiratory Depth Normal Respiratory Pattern Normal Normal Blood Pressure 112/92 H Blood Pressure Mean 98 Pulse Ox 98 Oxygen Delivery Method Room Air Room Air Positive well nourished and well developed General Appearance ED: well developed HEENT Reports normocephalic and head/scalp atraumatic Eyes PERRL and EOMs intact bilaterally Neck supple Chest Wall inspection of chest normal and palpation of chest normal Resp normal respiratory effort Resp Narrative: Expiratory wheezes bilaterally, left greater than right. Cardio regular rate and regular rhythm GI normal to inspection, nondistended, normoactive bowel sounds Palpation: soft Back/Spine no CVA tenderness Extremity normal to inspection Extremity Narrative: No significant lower extremity edema. Neuro oriented x3 and no sensory deficits noted Sensorium / Orientation: alert Motor Exam: strength 5/5 throughout Psych mental status grossly normal Skin no rashes or lesions noted MDM MDM MDM Narrative Medical decision making narrative: Patient is given p.o. prednisone along with aerosols. Swab sent for COVID and influenza. Chest x-ray obtained to evaluate for acute lung pathology, cardiac size, or mediastinal abnormality. History & Record Review Discussion w/independent historian: Patient and Family Radiography Chest X-Ray - ED: 1 View, Read by ED Physician and Chronic Changes Treatment and Re-Evaluation :: On repeat evaluation patient's O2 sats remained in the mid 90s. Lung sounds are improved with only scant expiratory wheezing noted on the left at this time. COVID and influenza swab is negative. Chest x-ray per my interpretation reveals chronic changes with no obvious infiltrate. Given her COPD history she will be covered with doxycycline. I will also write her for prednisone. I will write her a short course of Robitussin-AC to help with cough. Return instructions given. Discharge Plan Triage Chief Complaint: Shortness of Breath ED Provider: Barajas,Michell Dx/Rx/DC Orders Clinical Impression: COPD exacerbation Instructions: ED COPD Flare Prescriptions: New doxycycline monohydrate 100 mg capsule 100 mg PO BID Qty: 20 0RF prednisone 20 mg tablet 40 mg PO DAILY Qty: 8 0RF codeine-guaifenesin 10-100 mg/5 mL liquid 5 ml PO Q6H PRN (Reason: cough) Qty: 120 0RF No Action sertraline 100 MG tablet 100 mg PO DAILY levothyroxine 50 MCG tablet 50 mcg PO DAILY ergocalciferol (vitamin D2) [Vitamin D2] 50,000 UNIT capsule 50,000 unit PO WE alprazolam 0.5 MG tablet 0.5 mg PO TID PRN PRN (Reason: Anxiety) Qty: 30 0RF albuterol sulfate 6.7 GM HFA aerosol inhaler 2 puff IH 4X/DAY Qty: 1 0RF tiotropium bromide 18 MCG capsule, w/inhalation device 18 mcg IH DAILY Qty: 30 0RF oxcarbazepine 300 MG tablet 600 mg PO QHS Patient Comments: TAKE 2 TABLETS BY MOUTH AT BEDTIME risperidone 1 MG tablet 2 mg PO DAILY Patient Comments: PLEASE SEE ATTACHED FOR DETAILED DIRECTIONS esomeprazole magnesium [address] for susp in packet 40 mg PO BID sumatriptan succinate 100 MG tablet 100 mg PO DAILY PRN (Reason: Migraine Symptoms) Emgality Pen 120 mg/mL pen injector 120 mg SUBCUT QMONTH Patient Comments: INJECT ONCE A MONTH DIRECTED ondansetron [ondansetron] 4 MG tablet 8 mg PO Q8H PRN PRN (Reason: Nausea) Qty: 20 0RF Primary Care Provider: Dom Jalloh Referrals: Dom Jalloh MD [Primary Care Provider] - 1 Week Disposition Disposition: Home, Self Care
[2023-04-15] MEDS: Ipratropium/Albuterol Sulfate 3 ML AMPUL.NEB INHALATION (10:14)
[2023-04-15 10:16] VITALS: PULSE 84; RESP 12
[2023-04-15] MEDS: Albuterol 2.5 MG/3 ML VIAL.NEB. INHALATION ×2 (10:19)
[2023-04-15] MEDS: predniSONE 20 MG Tablet 60 MG PO (10:35)
--- NOTE | 2023-04-15 10:43 | RAD_ITS ---
STUDY: X-RAY CHEST REASON FOR EXAM: Female, 58 years old. cough TECHNIQUE: Single AP portable view of the chest. COMPARISON: October 18, 2017 FINDINGS: No visualized consolidation. Cystic emphysematous changes are present as well as interstitial fibrosis. There is no demonstrated pleural abnormality. Normal size heart. Normal mediastinum and luis. Normal visualized pulmonary arteries. Normal visualized aortic arch and descending thoracic aorta. Normal visualized thoracic spine. Normal visualized ribs, clavicles, and shoulders. There is no demonstrated abnormality of the visualized soft tissue structures of the upper abdomen. RAD/Chest 1 View (Portable) IMPRESSION: 1. Cystic emphysematous changes are present as well as interstitial fibrosis Electronically Signed: Sudarshan Pan MD at 11:21 EDT ,
[2023-04-15 11:24] VITALS: BP 128/51; PULSE 97; RESP 20; O2SAT 95
== END 2023-04-15 11:30 | disposition home or self-care (01) ==
PROVIDERS: Emergency Provider Emergency Medicine; PCP Family Medicine; Visit Provider Emergency Medicine
DX: J44.1 Chronic obstructive pulmonary disease with (acute) exacerbation (principal); F17.210 Nicotine dependence, cigarettes, uncomplicated; E78.5 Hyperlipidemia, unspecified; I25.2 Old myocardial infarction; E03.9 Hypothyroidism, unspecified; F32.A Depression, unspecified; J45.909 Unspecified asthma, uncomplicated; Z79.899 Other long term (current) drug therapy; F41.9 Anxiety disorder, unspecified; K21.9 Gastro-esophageal reflux disease without esophagitis; G43.909 Migraine, unspecified, not intractable, without status migrainosus
CPT/HCPCS: 71045; 87428; 94640; 99283

== ENCOUNTER 2023-05-22 14:07 | Emergency (ER) | payer BC, MEDICARE, SELFPAY ==
[2023-05-22 14:08] VITALS: BP 135/80; PULSE 93; RESP 16; TEMP 36.4; O2SAT 96; BMI 29.6
--- NOTE | 2023-05-22 16:03 | EX.ED.DYSGE1 ---
HPI <FRANKLIN Muñiz - Last Filed: 05/22/23 17:03> History of Present Illness Chief Complaint: Ear Problem Narrative Narrative: Patient is a 58-year-old female with history of anxiety, depression, COPD who presents to the emergency department with left ear redness, swelling. Patient had a tragal piercing April 12. She is been having significant redness to the area since. Patient was placed on 1 round of Keflex. Patient states that the last 3 weeks, she is noticed more redness, drainage. She denies any fever or chills. Patient that she has difficulty hearing because of the swelling. PFSH <FRANKLIN Muñiz - Last Filed: 05/22/23 17:03> PFSH Medical History Anxiety Asthma Cancer Chronic pain COPD (chronic obstructive pulmonary disease) Depression GERD (gastroesophageal reflux disease) Hyperlipemia Hypothyroidism Migraines Myocardial infarct Smoker Home Medications ergocalciferol (vitamin D2) 1,250 mcg (50,000 unit) capsule (Vitamin D2) 50,000 unit PO WE supplement 10/18/17 [History Last Taken 10/12/17] levothyroxine 50 mcg tablet 50 mcg PO DAILY thyroid 10/18/17 [History Last Taken 10/15/17] sertraline 100 mg tablet 100 mg PO DAILY mental health 10/18/17 [History Last Taken 10/17/17] albuterol sulfate 90 mcg/actuation aerosol inhaler 2 puff IH 4X/DAY ##1 10/19/17 [Rx Last Taken Unknown] alprazolam 0.5 mg tablet 0.5 mg PO TID PRN PRN Anxiety #30 tabs 10/19/17 [Rx Last Taken Unknown] tiotropium bromide 18 mcg capsule with inhalation device 18 mcg IH DAILY ##30 10/19/17 [Rx Last Taken Unknown] esomeprazole magnesium 40 mg granules delayed release for susp 40 mg PO BID 09/03/19 [History Last Taken Unknown] oxcarbazepine 300 mg tablet 600 mg PO QHS 09/03/19 [History Last Taken Unknown] risperidone 1 mg tablet 2 mg PO DAILY 09/03/19 [History Last Taken Unknown] sumatriptan succinate 100 mg tablet 100 mg PO DAILY PRN Migraine Symptoms 12/10/19 [History Last Taken Unknown] galcanezumab-gnlm 120 mg/mL subcutaneous pen injector (Emgality Pen) 120 mg subcut QMONTH 02/06/21 [History Last Taken Unknown] ondansetron 4 mg disintegrating tablet 8 mg (2 x 4 mg) PO Q8H PRN PRN Nausea #20 tabs 02/06/21 [Rx Last Taken Unknown] codeine 10 mg-guaifenesin 100 mg/5 mL oral liquid 5 ml PO Q6H PRN cough #120 mL 04/15/23 [Rx Last Taken Unknown] doxycycline monohydrate 100 mg capsule 100 mg PO BID #20 CAPSULES 04/15/23 [Rx Last Taken Unknown] prednisone 20 mg tablet 40 mg (2 x 20 mg) PO DAILY #8 tabs 04/15/23 [Rx Last Taken Unknown] doxycycline hyclate 100 mg capsule 100 mg PO DAILY #20 caps 05/22/23 [Rx Last Taken Unknown] Allergy/AdvReac Type Severity Reaction Status Date / Time acetaminophen [From Tylenol] Allergy Shortness Verified 05/22/23 14:08 of breath amoxicillin Allergy Other Verified 05/22/23 14:08 dicyclomine [From Bentyl] Allergy Rash Verified 05/22/23 14:08 Latex, Natural Rubber Allergy Rash Verified 05/22/23 14:08 mirtazapine Allergy Other Verified 05/22/23 14:08 morphine Allergy Shortness Verified 05/22/23 14:08 of breath Penicillins Allergy Other Verified 05/22/23 14:08 prasterone (DHEA) Allergy Other Verified 05/22/23 14:08 procaine Allergy Other Verified 05/22/23 14:08 prochlorperazine Allergy Other Verified 05/22/23 14:08 sulfasalazine Allergy Other Verified 04/15/23 09:47 valdecoxib [From Bextra] Allergy Shortness Verified 05/22/23 14:08 of breath Venlafaxine Analogues Allergy Other Verified 05/22/23 14:08 ketorolac [From Toradol] AdvReac Other Verified 05/22/23 14:08 Surgical History History of appendectomy Social History (Updated 05/22/23 @ 16:20 by Jemima Caballero) household members: spouse housing: house Smoking Status: Current every day smoker tobacco type: cigarettes ROS <ROSARIO MuñizC - Last Filed: 05/22/23 17:03> ROS ED ROS Narrative Constitutional: Negative for fever, chills, weight loss, weakness Eyes: Negative for vision loss, vision change, double vision ENT: Negative for any sore throat, congestion. Positive for left ear pain, redness and swelling Cardiovascular: Negative for any chest pain, tightness, palpitations Respiratory: Negative for any cough, sputum production, hemoptysis, dyspnea, dyspnea on exertion, orthopnea Gastrointestinal: Negative for any abdominal pain, nausea, vomiting, diarrhea, constipation, blood in stool, blood in vomit : Negative for any urinary frequency, dysuria, retention, blood in urine Muscle skeletal: Negative for any muscle joint pain, stiffness, myalgias, arthralgias, neck pain, back pain Neurological: Negative for any headache, syncope, numbness or tingling, dizziness Skin: Negative for any rashes, lumps, itching, abrasions, lacerations Psychiatric: Negative for any depression, anxiety, stress, suicidal ideation, homicidal ideation Hematologic: Negative for any easy bruising, excessive bruising, easy bleeding Allergies: Negative for any eczema, hives, rash EXAM <FRANKLIN Muñiz - Last Filed: 05/22/23 17:03> Physical Exam Narrative Exam Narrative: Vital signs reviewed. HEET: Head normocephalic atraumatic, TMs clear bilaterally. Posterior pharynx is clear, moist mucous membranes. Nares clear bilaterally. Patient does have significant redness and swelling to the left ear. Patient has fluctuance to the just below the antihelix. Neck: Supple with no lymphadenopathy or tenderness. No signs of meningismus, negative jolt sign. Cardiac: Regular rate and rhythm no murmurs gallops or rubs, equal peripheral pulses bilaterally. Respiratory: Lungs clear to auscultation bilaterally. No chest tenderness. Abdomen: Soft, nontender, nondistended. No abdominal bruit or pulsatile masses. No hepatosplenomegaly Extremities: No peripheral edema, no signs of gross trauma or deformity. Active full range of motion of all extremities. Neuro: Cranial nerves II through XII intact, no focal neurological deficits. Skin: Clean dry and intact with no rash, purpura, petechiae, vesicles or pustules. Backs/flank: No CVA tenderness, no midline spinal tenderness, no deformity. Psych: Normal mood and affect. No SI, HI or acute psychosis. Const Vital Signs: 05/22/23 14:08 Temperature 97.5 F L Temperature Source Temporal Pulse Rate 93 Respiratory Rate 16 Blood Pressure 135/80 H Blood Pressure Mean 98 Pulse Ox 96 Oxygen Delivery Method Room Air <Dr. Iraj Olivia MD - Last Filed: 05/22/23 17:11> Physical Exam Const Vital Signs: 05/22/23 14:08 Temperature 97.5 F L Temperature Source Temporal Pulse Rate 93 Respiratory Rate 16 Blood Pressure 135/80 H Blood Pressure Mean 98 Pulse Ox 96 Oxygen Delivery Method Room Air MDM <FRANKLIN Muñiz - Last Filed: 05/22/23 17:03> [facility] Treatment and Re-Evaluation :: Patient appears generally well, patient appears nontoxic, vital signs are stable. Patient significant erythema, edema to the left ear. Patient has some swelling, this will need drain secondary to the fluctuance. I was able to do a field block to the left ear. Was able make a small incision to the top of the area however patient had trouble in significant pain. Immediate expulsion of yellow to green drainage. I was able to massage the area of fluctuation, there was no more drainage. The area appeared smaller. The patient will be able to be discharged home. Patient replaced on doxycycline. We will follow-up with her PCP, as well as ENT. Patient was given strict return precaution to return for any worsening symptoms. Patient has no evidence suspect any mastoiditis. Deep tissue infection. Patient stable for discharge <Dr. Iraj Olivia MD - Last Filed: 05/22/23 17:11> [facility] Narrative Medical decision making narrative: I have personally performed a face to face assessment of the patient and have reviewed the ROX Note. I performed a substantive portion of the visit including all aspects of the following. My chavez findings include: History is remarkable for swollen ear after piercing. This has been an issue for approximately 1 month. She denies history of diabetes. She denies fever, chills night sweats. She has no other complaints. Exam is patient has an enlarged swollen erythematous left ear consistent with abscess. Patient will need the abscess incised and drained. Medical Decision Making incision and drainage of ear and will place on doxycycline for streptococcal, staphylococcal and anaerobic coverage. Other additions or changes: Procedure was performed by nurse practitioner under my supervision and guidance Discharge Plan Triage Chief Complaint: Ear Problem ED Midlevel Provider: Jus Weiss ED Provider: Iraj Olivia Dx/Rx/DC Orders Clinical Impression: Cellulitis of auricle of ear, Abscess Instructions: Abscess Drainage, Cellulitis Dc Prescriptions: New doxycycline hyclate 100 mg capsule 100 mg PO DAILY Qty: 20 0RF No Action sertraline 100 MG tablet 100 mg PO DAILY levothyroxine 50 MCG tablet 50 mcg PO DAILY ergocalciferol (vitamin D2) [Vitamin D2] 50,000 UNIT capsule 50,000 unit PO WE alprazolam 0.5 MG tablet 0.5 mg PO TID PRN PRN (Reason: Anxiety) Qty: 30 0RF albuterol sulfate 6.7 GM HFA aerosol inhaler 2 puff IH 4X/DAY Qty: 1 0RF tiotropium bromide 18 MCG capsule, w/inhalation device 18 mcg IH DAILY Qty: 30 0RF oxcarbazepine 300 MG tablet 600 mg PO QHS Patient Comments: TAKE 2 TABLETS BY MOUTH AT BEDTIME risperidone 1 MG tablet 2 mg PO DAILY Patient Comments: PLEASE SEE ATTACHED FOR DETAILED DIRECTIONS esomeprazole magnesium [address] for susp in packet 40 mg PO BID sumatriptan succinate 100 MG tablet 100 mg PO DAILY PRN (Reason: Migraine Symptoms) Emgality Pen 120 mg/mL pen injector 120 mg SUBCUT QMONTH Patient Comments: INJECT ONCE A MONTH DIRECTED ondansetron [ondansetron] 4 MG tablet 8 mg PO Q8H PRN PRN (Reason: Nausea) Qty: 20 0RF doxycycline monohydrate 100 mg capsule 100 mg PO BID Qty: 20 0RF prednisone 20 mg tablet 40 mg PO DAILY Qty: 8 0RF codeine-guaifenesin 10-100 mg/5 mL liquid 5 ml PO Q6H PRN (Reason: cough) Qty: 120 0RF Primary Care Provider: Dom Jalloh Referrals: Lencho Sin MD [Med Staff - Active Staff] - Dom Jalloh MD [Primary Care Provider] - Activity Restrictions/Additional Instructions: Take antibiotic until finished. Return for worsening symptoms. Disposition Disposition: Home, Self Care
[2023-05-22] MEDS: Doxycycline 100 MG CAPSULE PO (17:15)
== END 2023-05-22 17:17 | disposition home or self-care (01) ==
PROVIDERS: Emergency Provider Emergency Medicine; PCP Family Medicine; Visit Provider Emergency Medicine
DX: H60.02 Abscess of left external ear (principal); J44.9 Chronic obstructive pulmonary disease, unspecified; F41.9 Anxiety disorder, unspecified; E78.5 Hyperlipidemia, unspecified; F17.210 Nicotine dependence, cigarettes, uncomplicated; E03.9 Hypothyroidism, unspecified; F32.A Depression, unspecified; J45.909 Unspecified asthma, uncomplicated; K21.9 Gastro-esophageal reflux disease without esophagitis; I25.2 Old myocardial infarction; G43.909 Migraine, unspecified, not intractable, without status migrainosus; H60.12 Cellulitis of left external ear; W26.8XXA Contact with other sharp object(s), not elsewhere classified, initial encounter
CPT/HCPCS: 69000; 99283

== ENCOUNTER → 2023-05-28 | Outpatient (CLI) | payer BC, MEDICARE, SELFPAY | END | disposition home or self-care (01) | LOC: LABSPEC 11:28 | PROVIDERS: PCP Family Medicine; Referring Provider Otolaryngology Otolaryngology/Facial Plastic Surgery; Visit Provider Otolaryngology Otolaryngology/Facial Plastic Surgery | DX: H66.42 Suppurative otitis media, unspecified, left ear (principal) | CPT/HCPCS: 87070; 87075; 87077; 87186; 87205 ==

== ENCOUNTER 2023-10-27 12:47 | Emergency (ER) | payer BC, MEDICARE, SELFPAY ==
[2023-10-27 12:51] VITALS: BP 134/95; PULSE 92; RESP 20; TEMP 36.8; O2SAT 98
--- NOTE | 2023-10-27 13:10 | CT_ITS ---
STUDY: CTA CHEST REASON FOR EXAM: Female, 58 years old. Hemoptysis. COPD. Increasing shortness of breath. RADIATION DOSAGE (If Supplied By Facility): CTDIvol = ( 11.81 ) mGy, DLP = ( 466.13 ) mGycm TECHNIQUE: The examination was performed with the intravenous administration of IV 100mL Isovue-370. Post-processing of the angiographic images was performed, with multiplanar reformation and 3D reconstruction. Individualized dose optimization techniques were used for this CT. COMPARISON: None. FINDINGS: Normal enhancement of the main pulmonary artery and right and left pulmonary arteries. Normal enhancement of the bilateral peripheral pulmonary arteries. There is no demonstrated pulmonary embolism. Normal thoracic aorta and visualized great vessels. There is no demonstrated aortic dissection. Normal heart and pericardium. Normal mediastinum. Normal hilar regions. Normal visualized trachea and bronchi. The lungs are well expanded. There is a 2.3 cm x 2.1 cm spiculated mass in the posterior aspect of the lingular segment of the left upper lobe abutting the left major fissure. Increased markings also seen in the left upper lobe. There is enlargement of the left hilar lymph nodes. A neoplastic process should be ruled out. Normal pleura. Normal chest wall structures. Normal osseous structures. Normal visualized upper abdomen. CT/CTA Chest W/WO Contrast IMPRESSION: No evidence of pulmonary embolism. 2.3 cm x 2.1 cm spiculated mass in the posterior aspect of the lingular segment of the left upper lobe with increased markings in the left upper lobe. Neoplastic process should be ruled out. Prominence of the left hilar lymph nodes. Electronically Signed: Jules Cueto MD at 14:50 EST ,
--- NOTE | 2023-10-27 13:11 | ED.VIS.DYS ---
HPI History of Present Illness Chief Complaint: Shortness of Breath Informant: patient and family Narrative Narrative: Patient presents with hemoptysis. Patient has a long history of COPD. She finally quit smoking 3 weeks ago. She has been coughing more but thought it was because she quit smoking. Not really bringing up sputum. She was also started on a new inhaler. This has fluticasone and salmeterol. She states she has been told not to take steroid inhalers but she does not know why. She states sometimes her chest hurts but is mostly with a cough and it is not hurting now. She has never had a PE or DVT. No leg swelling. No recent travel surgery or immobilization. PFSH PFSH Medical History Anxiety Asthma Cancer Chronic pain COPD (chronic obstructive pulmonary disease) Depression GERD (gastroesophageal reflux disease) Hyperlipemia Hypothyroidism Migraines Myocardial infarct Smoker Home Medications ergocalciferol (vitamin D2) 1,250 mcg (50,000 unit) capsule (Vitamin D2) 50,000 unit PO WE supplement 10/18/17 [History Last Taken 10/12/17] levothyroxine 50 mcg tablet 50 mcg PO DAILY thyroid 10/18/17 [History Last Taken 10/15/17] sertraline 100 mg tablet 100 mg PO DAILY mental health 10/18/17 [History Last Taken 10/17/17] albuterol sulfate 90 mcg/actuation aerosol inhaler 2 puff IH 4X/DAY ##1 10/19/17 [Rx Last Taken Unknown] alprazolam 0.5 mg tablet 0.5 mg PO TID PRN PRN Anxiety #30 tabs 10/19/17 [Rx Last Taken Unknown] tiotropium bromide 18 mcg capsule with inhalation device 18 mcg IH DAILY ##30 10/19/17 [Rx Last Taken Unknown] esomeprazole magnesium 40 mg granules delayed release for susp 40 mg PO BID 09/03/19 [History Last Taken Unknown] oxcarbazepine 300 mg tablet 600 mg PO QHS 09/03/19 [History Last Taken Unknown] risperidone 1 mg tablet 2 mg PO DAILY 09/03/19 [History Last Taken Unknown] sumatriptan succinate 100 mg tablet 100 mg PO DAILY PRN Migraine Symptoms 12/10/19 [History Last Taken Unknown] galcanezumab-gnlm 120 mg/mL subcutaneous pen injector (Emgality Pen) 120 mg subcut QMONTH 02/06/21 [History Last Taken Unknown] ondansetron 4 mg disintegrating tablet 8 mg (2 x 4 mg) PO Q8H PRN PRN Nausea #20 tabs 02/06/21 [Rx Last Taken Unknown] codeine 10 mg-guaifenesin 100 mg/5 mL oral liquid 5 ml PO Q6H PRN cough #120 mL 04/15/23 [Rx Last Taken Unknown] doxycycline monohydrate 100 mg capsule 100 mg PO BID #20 CAPSULES 04/15/23 [Rx Last Taken Unknown] prednisone 20 mg tablet 40 mg (2 x 20 mg) PO DAILY #8 tabs 04/15/23 [Rx Last Taken Unknown] doxycycline hyclate 100 mg capsule 100 mg PO DAILY #20 caps 05/22/23 [Rx Last Taken Unknown] ipratropium bromide 0.02 % solution for inhalation 2.5 ml inhalation Q6H PRN shortness of breath or wheezing #75 mL 10/27/23 [Rx Last Taken Unknown] ipratropium bromide 17 mcg/actuation HFA aerosol inhaler 2 puff inhalation Q6H PRN shortness of breath or wheezing #12.9 grams 10/27/23 [Rx Last Taken Unknown] Allergy/AdvReac Type Severity Reaction Status Date / Time acetaminophen [From Tylenol] Allergy Shortness Verified 10/27/23 12:51 of breath amoxicillin Allergy Other Verified 10/27/23 12:51 dicyclomine [From Bentyl] Allergy Rash Verified 10/27/23 12:51 Latex, Natural Rubber Allergy Rash Verified 10/27/23 12:51 mirtazapine Allergy Other Verified 10/27/23 12:51 morphine Allergy Shortness Verified 10/27/23 12:51 of breath Penicillins Allergy Other Verified 10/27/23 12:51 prasterone (DHEA) Allergy Other Verified 10/27/23 12:51 procaine Allergy Other Verified 10/27/23 12:51 prochlorperazine Allergy Other Verified 10/27/23 12:51 sulfasalazine Allergy Other Verified 10/27/23 12:51 valdecoxib [From Bextra] Allergy Shortness Verified 10/27/23 12:51 of breath Venlafaxine Analogues Allergy Other Verified 10/27/23 12:51 ketorolac [From Toradol] AdvReac Other Verified 10/27/23 12:51 Surgical History History of appendectomy Social History household members: spouse housing: house Smoking Status: Former smoker ROS ROS ED ROS Narrative A complete review of systems was performed and is negative except as documented in the history of present illness. Some specific details below. Constitutional: No recent fevers or chills. No malaise. EYE: No visual changes. ENT: No difficulty swallowing. No swelling. No pain. No reflux symptoms. CV: See history of present illness. Respiratory: See history of present illness. GI: No abdominal pain. No nausea vomiting diarrhea. No blood in stool. : No frequency dysuria or hematuria. Musculoskeletal: No recent trauma. No pains. No swelling. Skin: No rash. Nondiaphoretic. Neuro: No weakness or numbness. Endocrine: No polyuria or polydipsia. EXAM Physical Exam Narrative Exam Narrative: CONSTITUTIONAL: Patient is nontoxic in appearance. The patient looks comfortable. Work of breathing looks normal. No coughing or hemoptysis while I am in the room. HEENT: No notable trauma. Mucous membranes moist. No sinus tenderness. No indication of pain with swallowing. No nasal blood noted or clot. EYES: No conjunctival injection. No proptosis. No pallor. NECK:No JVD. No stridor. CARDIOVASCULAR: Regular rate. Regular rhythm. No notable murmur. No JVD. RESPIRATORY: No respiratory distress. Breathing is unlabored. Trace wheeze only when she coughs after a deep breath. She does have mild discomfort with a deep breath but none with palpation. She has normal saturations at 98% on room air. GASTROINTESTINAL: Not distended. Bowel sounds are normal. No tenderness. GENITOURINARY: No tenderness over the bladder. No CVA tenderness. MUSCULOSKELETAL: Atraumatic. No peripheral edema. No cord. No tenderness along the deep venous system. No asymmetry. No distended veins. NEUROLOGICAL: Patient is alert and appropriate. No focal deficit noted. SKIN: No noted rashes. No diaphoresis. PSYCHIATRIC: Patient is calm. Mood is appropriate. Const Vital Signs: 10/27/23 12:51 10/27/23 12:57 10/27/23 14:47 Temperature 98.2 F Temperature Source Temporal Pulse Rate 92 67 Respiratory Rate 20 H 18 Respiratory Effort Short of Breath Respiratory Depth Normal Respiratory Pattern Normal Blood Pressure 134/95 H Blood Pressure Mean 108 Pulse Ox 98 98 Oxygen Delivery Method Room Air Room Air MDM MDM MDM Narrative Medical decision making narrative: Patient will have workup with blood work. With this intermittent pain she will get a troponin although her symptoms do not sound likely cardiac. I think she may be having some mild hemoptysis because of the fluticasone. But cannot rule out PE. She is also at risk for lung cancer with long history of smoking and chronic cough. We will do a CT scan that we will evaluate her for enlargement of the heart with history of Takotsubo, pleural effusion, cancer, pneumonia and pulmonary embolus also. Patient's CBC is normal. Patient's electrolytes show no marked abnormalities. Minimal elevation in the glucose of 136 that can be followed up. Patient's troponin is negative at 3. My independent interpretation of the patient's CT scan of the chest shows density in the left lung field. Final reading is spiculated mass 2.3 x 2.1 cm. I discussed this with the patient. I explained that this is concerning but not completely diagnostic for lung cancer. But it needs rapid management. We will update the patient's phone in our computer system to make sure we have the right numbers to call her. I did contact the [facility] phone number and give them her number. I will put the order for referral in the computer also. All questions were answered. I will have the patient's stop her new medication as the inhaled steroid might be contributing to some bleeding. I will write for ipratropium bromide and both an inhaler and liquid as she does have a nebulizer at home. She has had no further hemoptysis here. Lab Data Attestation: I reviewed the patient's lab results. Labs: Laboratory Results - last 24 hr 10/27/23 13:25 WBC 5.5 RBC 4.23 Hgb 12.3 Hct 37.8 MCV 89.4 MCH 29.1 MCHC 32.5 RDW Std Deviation 42.2 RDW Coeff of Ray 12.9 Plt Count 237 MPV 8.8 Immature Gran % (Auto) 0.400 Neut % (Auto) 51.0 Lymph % (Auto) 37.9 [place] % (Auto) 5.8 Eos % (Auto) 4.4 Baso % (Auto) 0.5 Absolute Neuts (auto) 2.8 Absolute Lymphs (auto) 2.09 Nucleated RBC % 0 Sodium 138 Potassium 3.6 Chloride 111 H Carbon Dioxide 23.0 Anion Gap 4 L BUN 7 Creatinine 0.90 Estim Creat Clear Calc 76.24 Est GFR (MDRD) Af Amer 83 Est GFR (MDRD) Non-Af 68 BUN/Creatinine Ratio 7.8 L Glucose 136 H Calcium 8.8 Troponin I High Sens 3 Radiography Diagnostic Testing: Clinical Impression(s) from Imaging Studies Chest CTA 10/27/23 13:10 IMPRESSION: No evidence of pulmonary embolism. 2.3 cm x 2.1 cm spiculated mass in the posterior aspect of the lingular segment of the left upper lobe with increased markings in the left upper lobe. Neoplastic process should be ruled out. Prominence of the left hilar lymph nodes. Electronically Signed: Jules Cueto MD at 14:50 EST , EKG Initial EKG: Comments: My independent interpretation of the patient's EKG shows a normal sinus rhythm with controlled rate at 74. Decreased voltage throughout nonspecific changes but no sign of acute ST elevation or depression. NC interval, QRS duration and QTc are all normal. Discharge Plan Triage Chief Complaint: Shortness of Breath ED Provider: Garth Swenson Dx/Rx/DC Orders Clinical Impression: History of COPD, Hemoptysis, Mass of left lung Instructions: ED Hemoptysis Prescriptions: New ipratropium bromide 17 mcg/actuation HFA aerosol inhaler 2 puff inhalation Q6H PRN (Reason: shortness of breath or wheezing) Qty: 12.9 0RF Rx Instructions: administer with spacer ipratropium bromide 0.02 % solution 2.5 ml inhalation Q6H PRN (Reason: shortness of breath or wheezing) Qty: 75 1RF No Action sertraline 100 MG tablet 100 mg PO DAILY levothyroxine 50 MCG tablet 50 mcg PO DAILY ergocalciferol (vitamin D2) [Vitamin D2] 50,000 UNIT capsule 50,000 unit PO WE alprazolam 0.5 MG tablet 0.5 mg PO TID PRN PRN (Reason: Anxiety) Qty: 30 0RF albuterol sulfate 6.7 GM HFA aerosol inhaler 2 puff IH 4X/DAY Qty: 1 0RF tiotropium bromide 18 MCG capsule, w/inhalation device 18 mcg IH DAILY Qty: 30 0RF oxcarbazepine 300 MG tablet 600 mg PO QHS Patient Comments: TAKE 2 TABLETS BY MOUTH AT BEDTIME risperidone 1 MG tablet 2 mg PO DAILY Patient Comments: PLEASE SEE ATTACHED FOR DETAILED DIRECTIONS esomeprazole magnesium [address] for susp in packet 40 mg PO BID sumatriptan succinate 100 MG tablet 100 mg PO DAILY PRN (Reason: Migraine Symptoms) Emgality Pen 120 mg/mL pen injector 120 mg SUBCUT QMONTH Patient Comments: INJECT ONCE A MONTH DIRECTED ondansetron [ondansetron] 4 MG tablet 8 mg PO Q8H PRN PRN (Reason: Nausea) Qty: 20 0RF doxycycline monohydrate 100 mg capsule 100 mg PO BID Qty: 20 0RF prednisone 20 mg tablet 40 mg PO DAILY Qty: 8 0RF codeine-guaifenesin 10-100 mg/5 mL liquid 5 ml PO Q6H PRN (Reason: cough) Qty: 120 0RF doxycycline hyclate 100 mg capsule 100 mg PO DAILY Qty: 20 0RF Other Ambulatory Orders: Fast Pass: Oncology Referral [facility] (Routine) Facility: [facility] - Location: [facility] Ordered By: Dr. Garth Swenson Primary Care Provider: Bob Lake Referrals: Dom Jalloh MD [Non-Staff] - As soon as possible Activity Restrictions/Additional Instructions: [facility] system will be contacting you soon for close follow-up. Disposition Disposition: Home, Self Care
[2023-10-27 13:35] LABS: Absolute Lymphocyte Count 2.09 X10^3/uL (0.83-4.51); Absolute Neutrophil Count 2.8 X10^3/uL (2.0-7.7); Basophil# 0.03 X10^3/uL; Basophil% 0.5 % (0-1); Eosinophil# 0.24 X10^3/uL; Eosinophils% 4.4 % (0-5); Hematocrit 37.8 % (37-47); Hemoglobin 12.3 g/dL (12.0-15.0); Lymphocyte # 2.09 X10^3/ul (0.83-4.51); Lymphocyte % 37.9 % (19-41); Mean Corp Hgb Conc 32.5 g/dL (32-36); Mean Corpuscular Hgb 29.1 pg (27.0-32.0); Mean Corpuscular Volume 89.4 fL (81-99); Mean Platelet Vol. 8.8 fl (6.2-12.0); Monocyte# 0.32 X10^3/uL; Monocyte% 5.8 % (0-10); NRBC Flagged by Analyzer 0 % (0-5); Neutrophil # 2.81 X10^3/uL (2.7-7.7); Platelet Count 237 K/mm3 (150-450); RBC Distribution Width CV 12.9 % (11.6-14.6); RBC Distribution Width SD 42.2 fl (35.1-43.9); Red Blood Count 4.23 M/mm3 (4.2-5.4); White Blood Count 5.5 K/mm3 (4.4-11.0)
[2023-10-27 13:48] LABS: Anion Gap 4 (5-15); BUN 7 mg/dL (7-18); BUN/Creat Ratio 7.8 RATIO (10-20); Calcium,Total 8.8 mg/dL (8.5-10.1); Chloride 111 mmol/L (98-107); EST Glomerular Filtration Rate 68 mL/min (>60); Est Glom Filt Rate - Afr Amer 83 mL/min (>60); Estimated Creatinine Clearance 76.24 ml/min; Glucose 136 mg/dL (74-106); Potassium 3.6 mmol/L (3.5-5.1); Sodium Level 138 mmol/L (136-145); Troponin-I HS 3 pg/mL (3.0-54.0)
[2023-10-27 14:47] VITALS: PULSE 67; RESP 18; O2SAT 98
--- NOTE | 2023-10-27 15:23 | ED.RN ---
pt refused IV fluids stating I'll just drink some water
[2023-10-27 15:37] VITALS: BP 135/74; PULSE 69; RESP 16; O2SAT 99
== END 2023-10-27 15:40 | disposition home or self-care (01) ==
PROVIDERS: Emergency Provider Emergency Medicine; PCP Student in an Organized Health Care Education/Training Program; Visit Provider Emergency Medicine
DX: R04.2 Hemoptysis (principal); J44.9 Chronic obstructive pulmonary disease, unspecified; Z87.891 Personal history of nicotine dependence; I25.2 Old myocardial infarction; E03.9 Hypothyroidism, unspecified; E78.5 Hyperlipidemia, unspecified; F32.9 Major depressive disorder, single episode, unspecified; R91.8 Other nonspecific abnormal finding of lung field
CPT/HCPCS: 71275; 80048; 84484; 85025; 93005; 99284; J7030; Q9967

== ENCOUNTER → 2023-10-28 | Outpatient (CLI) | payer BC, MEDICARE, SELFPAY ==
--- OUTSIDE RECORDS SUMMARY | 2023-10-28 20:02 | XMS RPT_ITS | CCD ---
Author Name Unknown Address [address] [place] [address] Organization [facility] Care Team Providers Care Exhaust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 Name Role Phone Kemal Monique Unavailable Unavailable GutKemal tirado P Unavailable Unavailable GutroyaveKemal P Unavailable Unavailable GutloveKemal P Unavailable Unavailable GutloveKemal P Unavailable Unavailable GutKemal tirado P Unavailable Unavailable No Family Physician given Unavailable UnaKemal Lopez Unavailable Unavailable No Family Physician given Unavailable Unavaemilee labKemal Feliciano P Unavailable Unavailable No Family Physician given Unavailable Unavai lable Clarissalove, Kemal P Unavailable Unavailable No Family Physician given Unavailable Unavai lable eKmal Monique P Unavailable Unavailable Marjorie Martinez Unavailable Unavailable Kemal Monique P Unavailable Unavailable Scott Barros Unavailable Unavailable No Family Physician given Unavailable Unameena Henson MD, Arun Solomon Primary Care Provider Arnu Henson MD Primary Care Provider ARUN HENSON Attending Unavailable ARUN HENSON Primary Care Unavailable BESSIEAL, AGRY Attending Unavailable ARUN HENSON Primary Care Unavailable BESSIEAL, GARY Referring Unavailable ARUN HENSON Primary Care Unavailable NGUYEN, GARY Attending Unavailable ARUN HENSON Primary Care Unavailable ARUN HENSON Attending Unavailable RHONDA CRAFT Attending Unavailable RHONDA CRAFT Referring Unavailable LAZARUS ROBINS DO Attending Unavailable LAZARUS ROBINS DO Primary Care Unavailable LAZARUS SALINAS CRNA Consulting Unavailable NIYAH MALIK~[id number], NIYAH Estes Admitting Unavailable NIYAH MALIK~[id number], NIYAH Estes Attending Unavailable ARUN HENSON Primary Care Unavailable LAZARUS SALINAS CRNA Consulting Unavailable LAZARUS ROBINS Primary Care Unavailable NIYAH MALIK~[id number], NIYAH Estes Attending Unavailable NIYAH MALIK~[id number], NIYAH Estes Admitting Unavailable JERMAINE ALVAREZ CRNA Consulting Unava ilable JERMAINE ALVAREZ CRNA Consulting Unava ilable JANKI FOSTER Primary Care Unavailable TASHIA WEAVER CRNA Consulting Unavailable NIYAH MALIK~[id number], NIYAH Estes Admitting Unavailable NIYAH MALIK~[id number], NIYAH Estes Attending Unavailable TASHIA WEAVER CRNA Consulting Unavailable BECKY RASMUSSEN CRNA Consulting Unavailable NIYAH MALIK~[id number], NIYAH Estes Admitting Unavailable NIYAH MALIK~[id number], NIYAH Estes Attending Unavailable RAUN HENSON [facility] Unavailable BECKY RASMUSSEN CRNA Consulting Unavailable Allergies Allergy Classification Reported Allergen(s) Allergy Type Date of Onset Reaction(s) Facility (7 sources) Acetaminophen Drug Allergy 03-05-20 15 Hives [facility] (7 sources) calcium phosphate / prasterone Drug Allergy 07-27-20 05 [facility] (7 sources) Dextran Drug Allergy 12-05-19 22 Rash [facility] (7 sources) Dicyclomine Drug Allergy 06-05-20 16 [facility] (6 sources) Honey bee venom Propensity to adverse reactions 03-05-20 15 Anaphylaxis [facility] (8 sources) Iothalamate Drug Allergy 09-05-20 19 [facility] (7 sources) Ketorolac trometamol Propensity to adverse reactions 03-05-20 15 Anxiety [facility] (8 sources) Latex; Translations: [Latex] Propensity to adverse reactions 07-05-20 08 Anaphylaxis, Rash [facility] (7 sources) Lidocaine Drug Allergy 03-05-20 15 Shortness of breath [facility] (7 sources) lubiprostone Drug Allergy 09-05-20 19 [facility] (7 sources) Mirtazapine Drug Allergy 02-09-20 16 Anaphylaxis [facility] (7 sources) Morphine Drug Allergy 03-05-20 15 Shortness of breath [facility] (7 sources) Penicillins Drug Intolerance 03-05-20 15 Shortness of breath [facility] (7 sources) Prazosin Drug Allergy 01-29-20 22 Rash [facility] (7 sources) Prednisone Propensity to adverse reactions 03-05-20 15 [facility] (7 sources) Procaine Drug Allergy 12-09-19 12 [facility] (7 sources) Prochlorperazine Drug Allergy 03-05-20 15 Shortness of breath [facility] (7 sources) Sulfasalazine Propensity to adverse reactions 06-05-20 15 Anaphylaxis [facility] (7 sources) Sulfonamides (Antibiotic) Drug Intolerance 06-05-20 15 Anaphylaxis [facility] (7 sources) valdecoxib Drug Allergy 03-05-20 15 Shortness of breath [facility] (7 sources) venlafaxine Drug Allergy 12-09-19 12 [facility] (7 sources) Amoxicillin-Pot Clavulanate Drug Intolerance 12-09-19 12 [facility] (7 sources) Prasterone Propensity to adverse reactions 02-07-20 21 [facility] (7 sources) Soybean-Containing Drug Products Drug Intolerance 03-05-20 15 Hives [facility] (2 sources) Other Propensity to adverse reactions 04-28-20 23 [facility] (1 source) bee venom Propensity to adverse reactions 03-05-20 15 Anaphylaxis [facility] (1 source) Acetaminophen Drug Allergy [facility] (1 source) Amoxicillin / Clavulanate Drug Allergy [facility] (1 source) Dicyclomine Drug Allergy [facility] (1 source) lubiprostone Drug Allergy [facility] (1 source) Morphine Drug Allergy [facility] (1 source) Penicillins Drug allergy (disorder) [facility] (1 source) DHEA Drug allergy (disorder) [facility] (1 source) Novocain Drug allergy (disorder) [facility] Medications Current Medications Medication Drug Class(es) Dates Sig (Normalized) Sig (Original) [id number] 200 actuat albuterol 0.09 mg/actuat metered dose inhaler (14 sources) beta2-Adrenergic Agonist Start: 08-25-2022 take 1 puff(s) by inhalation every two hours as needed for wheezing albuterol 108 (90 Base) MCG/ACT inhaler Indications: Chronic bronchitis, unspecified chronic bronchitis type (HCC) INHALE 1 PUFF EVERY 2 HOURS NEEDED for shortness of breath, wheezing Strength: 108 (90 Base) MCG/ACT 18 g 3 08/25/2022 Active Completed/Discontinued Medications Medication Drug Class(es) Dates Sig (Normalized) Sig (Original) meloxicam 7.5 mg oral tablet (6 sources) Nonsteroidal Anti-inflammatory Drug Start: 10-16-2021 End: 04-28-2023 meloxicam (Mobic) 7.5 MG tablet tiotropium 0.018 mg inhalation powder (5 sources) Anticholinergic Start: 06-20-2019 End: 01-24-2023 take 1 capsule by inhalation once daily tiotropium (Spiriva) 18 MCG inhalation capsule INHALE THE CONTENTS OF ONE CAPSULE VIA HANDIHALER ONCE DAILY 0 06/20/2019 01/24/2023 Discontinued (Therapy completed) Problems Active Problems Problem Classification Problem Date Documented Da te Episodic/Chronic Allergic reactions (13 sources) Allergic disorder of skin; Translations: [Allergic contact dermatitis, unspecified cause] Onset: 2 07-08-2022 Episodic Anxiety disorders (11 sources) Anxiety; Translations: [Anxiety disorder, unspecified] Onset: 5 07-08-2022 Chronic Chronic obstructive pulmonary disease and bronchiectasis (14 sources) Chronic obstructive lung disease; Translations: [Chronic obstructive pulmonary disease, unspecified] Onset: 8 07-08-2022 Chronic Disorders of lipid metabolism (11 sources) Hyperlipidemia; Translations: [Hyperlipidemia, unspecified] Onset: 5 07-08-2022 Chronic Esophageal disorders (11 sources) Gastroesophageal reflux disease; Translations: [Gastro-esophageal reflux disease without esophagitis] Onset: 5 07-08-2022 Chronic Essential hypertension (1 source) Essential (primary) hypertension; Translations: [ESSENTIAL PRIMARY HYPERTENSION] Onset: 4 Chronic Headache; including migraine (10 sources) Migraine without aura; Translations: [Migraine without aura, not intractable, without status migrainosus] Onset: 9 07-08-2022 Chronic Mood disorders (10 sources) Severe recurrent major depression without psychotic features; Translations: [Major depressive disorder, recurrent severe without psychotic features] Onset: 0 07-08-2022 Chronic Mood disorders (3 sources) Mood disorders; Translations: [DEPRESSION UNSPECIFIED] Onset: 4 04-28-2023 Nutritional deficiencies (9 sources) Vitamin D deficiency; Translations: [Vitamin D deficiency, unspecified] Onset: 7 07-08-2022 Chronic Osteoarthritis (1 source) Unspecified osteoarthritis, unspecified site; Translations: [UNSPECIFIED OSTEOARTHRITIS UNS SITE] Onset: 3 Chronic Other aftercare (1 source) [facility] (current) use of aspirin; Translations: [APPLE SOLUTIONS CONSULTANT CURRENT USE OF ASPIRIN] Onset: 4 Episodic Other aftercare (1 source) Other terminal supervisor (current) drug therapy; Translations: [[facility] CURRENT DRUG THERAPY] Onset: 4 Episodic Other disorders of stomach and duodenum (2 sources) Gastroparesis; Translations: [GASTROPARESIS] Onset: 4 Episodic Other gastrointestinal disorders (7 sources) Irritable bowel syndrome characterized by constipation; Translations: [Irritable bowel syndrome with constipation] Onset: 5 07-08-2022 Chronic Other nervous system disorders (9 sources) Neuropathy; Translations: [Idiopathic progressive neuropathy] Onset: 2 07-08-2022 Chronic Other nervous system disorders (1 source) Idiopathic progressive neuropathy; Translations: [Idiopathic progressive neuropathy] Onset: 2 Chronic Other nutritional; endocrine; and metabolic disorders (1 source) Obesity, unspecified; Translations: [OBESITY UNSPECIFIED] Onset: 4 Chronic Other nutritional; endocrine; and metabolic disorders (1 source) Body mass index (BMI) 30.0-30.9, adult; Translations: [BODY MASS INDEX BMI 30.0-30.9 ADULT] Onset: 4 Chronic Other screening for suspected conditions (not mental disorders or infectious disease) (5 sources) Patient encounter status; Translations: [Encounter for screening for diabetes mellitus] Onset: 3 04-28-2023 Episodic Other upper respiratory disease (7 sources) Allergic rhinitis due to pollen; Translations: [Allergic rhinitis due to pollen] Onset: 1 07-08-2022 Chronic Residual codes; unclassified (5 sources) Desaturation of blood; Translations: [Idiopathic sleep related nonobstructive alveolar hypoventilation] Onset: 3 01-24-2023 Chronic Residual codes; unclassified (1 source) Obstructive sleep apnea (adult) (pediatric); Translations: [OBSTRUCTIVE SLEEP APNEA] Onset: 4 Chronic Residual codes; unclassified (2 sources) Tobacco use; Translations: [Tobacco use] Onset: 2 Episodic Residual codes; unclassified (2 sources) Other amnesia; Translations: [Other amnesia] Onset: 3 Episodic Substance-related disorders (2 sources) Nicotine dependence, cigarettes, uncomplicated; Translations: [Nicotine dependence, unspecified, uncomplicated] Onset: 3 Chronic Thyroid disorders (13 sources) Hypothyroidism; Translations: [Hypothyroidism, unspecified] Onset: 8 07-08-2022 Chronic Unclassified (1 source) Unknown / UNK(Unknown) Onset: 8 Past or Other Problems Problem Classification Problem Date Documented Date Episodic/Chronic Nausea and vomiting (7 sources) Chronic vomiting ; Translations: [Vomiting, unspecified] Onset: 03-05-2015 07-08-2022 Episodic Nonmalignant breast conditions (9 sources) Mastodynia; Translations: [Mastodynia] Onset: 10-26-2022 10-26-2022 Episodic Other aftercare (1 source) 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) use of non-steroidal anti-inflammatories (NSAID); Translations: [APPLE SOLUTIONS CONSULTANT USE NSAID] Onset: 06-30-2023 Episodic Other aftercare (1 source) [facility] (current) use of inhaled steroids; Translations: [APPLE SOLUTIONS CONSULTANT USE OF INHALED STEROIDS] Onset: 06-30-2023 Episodic Other circulatory disease (1 source) Personal history of transient ischemic attack (TIA), and cerebral infarction without residual deficits; Translations: [PERS HX TIA AND CI NO RESID DEFICIT] Onset: 06-30-2023 Episodic Other connective tissue disease (7 sources) Trigger thumb of right hand; Translations: [Trigger thumb, right thumb] Onset: 12-29-2020 07-08-2022 Episodic Other connective tissue disease (7 sources) Paraparesis; Translations: [Other symptoms and signs involving the musculoskeletal system] Onset: 12-21-2021 07-08-2022 Episodic Other disorders of stomach and duodenum (7 sources) Gastroparesis syndrome; Translations: [Gastroparesis] Onset: 03-05-2015 07-08-2022 Episodic Other nutritional; endocrine; and metabolic disorders (1 source) Body mass index (BMI) 28.0-28.9, adult; Translations: [BODY MASS INDEX BMI 28.0-28.9 ADULT] Onset: 04-13-2023 Episodic Residual codes; unclassified (8 sources) Tobacco user; Translations: [Tobacco use] Onset: 03-05-2015 07-08-2022 Episodic Spondylosis; intervertebral disc disorders; other back problems (2 sources) Other specified dorsopathies, cervical region; Translations: [Dorsopathy, unspecified] Onset: 06-30-2023 Episodic Unclassified (1 source) MYOFASCIASL PAIN SYNDROME Onset: 10-03-2017 Results Test Name Value Interpretation Reference Range Facil ity Vital Signs Date Time Vital Sign Value Performing Clinician Faci lity 04-28-2023 10:13-0400 Body height 170.2 cm Arun Henson MD Work Phone: [facility] 04-28-2023 10:13-0400 Body mass index (BMI) [Ratio] 29.66 kg/m2 Arun Henson MD Work Phone: [facility] 04-28-2023 10:13-0400 Body weight 85.91 kg Arun Henson MD Work Phone: [facility] 04-28-2023 10:13-0400 Diastolic blood pressure 76 mm[Hg] Arun Henson MD Work Phone: [facility] 04-28-2023 10:13-0400 Heart rate 78 /min Arun Henson MD Work Phone: [facility] 04-28-2023 10:13-0400 SaO2% (BldA) [Mass fraction] 94 % Arun Henson MD Work Phone: [facility] 04-28-2023 10:13-0400 Systolic blood pressure 122 mm[Hg] Arun Christy Work Phone: [facility] 01-24-2023 10:17-0400 Body mass index (BMI) [Ratio] 26.31 kg/m2 Gary La APRN - [facility] Work Phone: [facility] 01-24-2023 10:17-0400 Body weight 76.2 kg Gary Balajienthal PERSONAL PROTECTION SPECIALIST - CERAMIC ENGINEERING PROFESSOR Work Phone: [employer] 01-24-2023 10:17-0400 Diastolic blood pressure 82 mm[Hg] Gary Bridenthal PERSONAL PROTECTION SPECIALIST - CERAMIC ENGINEERING PROFESSOR Work Phone: [employer] 01-24-2023 10:17-0400 Heart rate 91 /min Gary Bridenthal PERSONAL PROTECTION SPECIALIST - CERAMIC ENGINEERING PROFESSOR Work Phone: [employer] 01-24-2023 10:17-0400 Respiratory rate 24 /min Gary Bridenthal PERSONAL PROTECTION SPECIALIST - CERAMIC ENGINEERING PROFESSOR Work Phone: [facility] [employer] 01-24-2023 10:17-0400 SaO2% (BldA) [Mass fraction] 98 % Gary Bridenthal PERSONAL PROTECTION SPECIALIST - CERAMIC ENGINEERING PROFESSOR Work Phone: [facility] [employer] Encounters Encounter Date Encounter Type Care Provider Facility Start: 10-03-2023 End: 10-03-2023 ambulatory [facility] Start: 09-02-2023 End: 09-02-2023 ambulatory RHONDA Torres CRAFT Not Available Start: 08-31-2023 End: 09-05-2023 ambulatory [facility] Facility:B Start: 07-14-2023 Refill Arun Henson MD Work Phone: [facility] Start: 06-27-2023 End: 06-27-2023 ambulatory [facility] Start: 04-28-2023 End: 04-28-2023 ambulatory ARUN HENSON [facility] Start: 04-28-2023 End: 04-28-2023 Encounter for general adult medical examination without abnormal findings ARUN HENSON [facility] Start: 04-28-2023 End: 04-28-2023 Patient encounter procedure Arun Henson MD Work Phone: [employer] Work Phone: Start: 04-28-2023 End: 04-28-2023 Periodic preventive med est patient 40-64yrs Arun Henson MD Work Phone: [facility] Procedures Date Procedure Procedure Detail Performing Clinician Start: 04-28-2023 Lipid 1996 panel - S blaise or Plasma Arun Henson MD Work Phone: Start: 04-28-2023 Thyrotropin [Units/v olume] in Serum or Plasma Arun Henson MD Work Phone: Start: 11-23-2022 Mammography Gary Br identhal PERSONAL PROTECTION SPECIALIST - CERAMIC ENGINEERING PROFESSOR Work Phone: Start: 04-07-2022 Lipid 1996 panel - S blaise or Plasma Gary Bridenthal PERSONAL PROTECTION SPECIALIST - CERAMIC ENGINEERING PROFESSOR Work Phone: Start: 04-07-2022 Thyrotropin [Units/v olume] in Serum or Plasma Gary Bridenthal PERSONAL PROTECTION SPECIALIST - CERAMIC ENGINEERING PROFESSOR Work Phone: Start: 03-18-2021 Colonoscopy Arun ba MD Work Phone: Plan of Treatment Date Care Activity Detail Author Start: 03-18-2031 Screening for malignant neoplasm of colon [facility] Start: 04-28-2028 Lipid panel Lipid Panel [facility] Start: 04-07-2027 Lipid panel Lipid Panel [facility] Start: 04-28-2024 Thyroid stimulating hormone measurement TSH Level [facility] Start: 11-23-2023 Screening for malignant neoplasm of breast Mammogram [facility] Start: 11-08-2023 End: 11-08-2023 Patient encounter procedure 11/08/2023 9:45 AM EST Office Visit [facility] [address] [place] [address] Arun Henson MD [address] [place], [place] [id number] [facility] Start: 10-29-2023 Depresssion Monitoring Depresssion Monitoring [facility] Start: 05-27-2023 Influenza vaccination Influenza Vaccine (#1) [facility] Start: 04-28-2023 End: 04-28-2024 Comprehensive metabolic 1998 panel - Serum or Plasma Comprehensive metabolic panel Lab Routine Screening for diabetes mellitus Expected: 04/28/2023 (Approximate), Expires: 04/28/2024 [facility] Immunizations Immunization Date Immunization Notes Care Provider Dannielle rahman 08-13-2022 zoster vaccine recombinant Gary Bridenthal PERSONAL PROTECTION SPECIALIST - CERAMIC ENGINEERING PROFESSOR Work Phone: [facility] 07-28-2022 Covid-19, Pfizer Bivalent Booster, (Age 12y+), Im, 30 Mcg/0e Gary Bridenthal PERSONAL PROTECTION SPECIALIST - CERAMIC ENGINEERING PROFESSOR Work Phone: [facility] 07-28-2022 influenza, injectabl e, quadrivalent, contains preservative Gary Bridenthal PERSONAL PROTECTION SPECIALIST - CERAMIC ENGINEERING PROFESSOR Work Phone: [facility] 07-28-2022 Seasonal, quadrivale nt, recombinant, injectable influenza vaccine, preservative free Gary Bridenthal PERSONAL PROTECTION SPECIALIST - CERAMIC ENGINEERING PROFESSOR Work Phone: [facility] 07-28-2022 influenza virus vacc ine, unspecified formulation Arun Henson MD Work Phone: [facility] 04-15-2022 zoster vaccine recombinant Gary Bridenthal PERSONAL PROTECTION SPECIALIST - CERAMIC ENGINEERING PROFESSOR Work Phone: [facility] 02-10-2022 Pneumococcal Conjuga te PCV20, Pf (Prevnar 20) Gary Bridenthal PERSONAL PROTECTION SPECIALIST - CERAMIC ENGINEERING PROFESSOR Work Phone: [facility] 10-31-2021 Covid-19, Pfizer Gra y Top, Do Not Dilute, (Age 12 Y+), Im, L Gary Bridenthal PERSONAL PROTECTION SPECIALIST - CERAMIC ENGINEERING PROFESSOR Work Phone: [facility] 06-26-2021 Seasonal, quadrivale nt, recombinant, injectable influenza vaccine, preservative free Gary Bridenthal PERSONAL PROTECTION SPECIALIST - CERAMIC ENGINEERING PROFESSOR Work Phone: [facility] 01-27-2021 Pfizer SARS-CoV-2 Vaccination Gary Bridenthal PERSONAL PROTECTION SPECIALIST - CERAMIC ENGINEERING PROFESSOR Work Phone: [facility] [employer] 01-06-2021 Pfizer SARS-CoV-2 Vaccination Gary Bridenthal PERSONAL PROTECTION SPECIALIST - CERAMIC ENGINEERING PROFESSOR Work Phone: [facility] [employer] Work Phone: 06-01-2020 influenza, injectabl e, quadrivalent, preservative free Gary Bridenthal PERSONAL PROTECTION SPECIALIST - CERAMIC ENGINEERING PROFESSOR Work Phone: [facility] 05-24-2019 influenza, injectabl e, quadrivalent, preservative free Gary Bridenthal PERSONAL PROTECTION SPECIALIST - CERAMIC ENGINEERING PROFESSOR Work Phone: [facility] 06-08-2018 influenza, injectabl e, quadrivalent, contains preservative Gary Bridenthal PERSONAL PROTECTION SPECIALIST - CERAMIC ENGINEERING PROFESSOR Work Phone: [facility] 06-08-2018 influenza, injectabl e, quadrivalent, preservative free Gary Bridenthal PERSONAL PROTECTION SPECIALIST - CERAMIC ENGINEERING PROFESSOR Work Phone: [facility] 07-18-2017 influenza, injectabl e, quadrivalent, preservative free Gary Bridenthal PERSONAL PROTECTION SPECIALIST - CERAMIC ENGINEERING PROFESSOR Work Phone: [facility] 06-20-2016 influenza, injectabl e, quadrivalent, preservative free Gary Bridenthal PERSONAL PROTECTION SPECIALIST - CERAMIC ENGINEERING PROFESSOR Work Phone: [facility] 12-04-2013 influenza virus vacc ine, unspecified formulation Gary Bridenthal PERSONAL PROTECTION SPECIALIST - CERAMIC ENGINEERING PROFESSOR Work Phone: [facility] 05-28-2011 pneumococcal polysaccharide vaccine, 23 valent Gary Bridenthal PERSONAL PROTECTION SPECIALIST - CERAMIC ENGINEERING PROFESSOR Work Phone: [facility] 07-31-2009 novel influenza-H1N1 -09, preservative-free, injectable Gary Bridenthal PERSONAL PROTECTION SPECIALIST - CERAMIC ENGINEERING PROFESSOR Work Phone: [facility] 11-19-2008 tetanus and diphther ia toxoids, not adsorbed, for adult use Gary Bridenthal PERSONAL PROTECTION SPECIALIST - CERAMIC ENGINEERING PROFESSOR Work Phone: [facility] 05-10-2005 pneumococcal polysaccharide vaccine, 23 valent Gary Bridenthal PERSONAL PROTECTION SPECIALIST - CERAMIC ENGINEERING PROFESSOR Work Phone: [facility] Payers Date Payer Category Payer Self-pay 2022 Medicare [id number] 2022 Unknown ANTHEM BL[employer] S ANTHEM [employer]OSS [id number] 2022-Present [address] [place] [address] Commercial [id number] 2017 Medicare [id number] 1964 Unknown [id number] [id number] 1964 Unknown [id number] [id number] 1964 Unknown [id number] [id number] 1964 Unknown [id number] [id number] 1964 Unknown [id number] 2.16.840.1.343960.3.579.2.598 1964 Unknown [id number] 2.16.840.1.073399.3.579.2.598 1959 Medicare [id number] 1959 Unknown [id number] 1959 Unknown [id number] Medicare [id number] Unknown [id number] [id number] Unknown [id number] 2.16.840.1.299166.3.579.2.273 Unknown [id number] 2.16.840.1.527627.3.579.2.273 Unknown [id number] 2.16.840.1.019575.3.579.2.273 Unknown [id number] 2.16.840.1.050345.3.579.2.273 Unknown [id number] 2.16.840.1.416150.3.579.2.273 Unknown [id number] [id number] Unknown [id number] 2.16.840.1.664573.3.579.2.273 Unknown [id number] 2.16.840.1.775983.3.579.2.273 Unknown [id number] 2.16.840.1.668307.3.579.2.273 Unknown [id number] 2.16.840.1.404542.3.579.2.273 Unknown [id number] [id number] Social History Date Type Detail Facility Tobacco smoking status [facility] Smokes tobacc o daily [facility] History of tobacco use Cigarette Smoker S [facility] Start: 11-23-2022 End: 04-28-2023 Alcohol intake Current non-drinker of alcohol (finding) [facility] Start: 1965 Sex Assigned At Not on file [facility] Start: 11-13-2022 End: 04-28-2023 Exposure to SARS-CoV-2 (event) Not sure [facility] Start: 04-28-2023 History of Social function [facility] Start: 04-28-2023 Alcohol Use Disorder Identification Test - Consumption [AUDIT-C] [facility] Frequency of Alcohol Consumption Not on file [facility] (I/We) worried wheth er (my/our) food would run out before (I/we) got money to buy more. Sometimes true [facility] The food that (I/we) bought just didn't last, and (I/we) didn't have money to get more. Never true [facility] In the past 12 month s, was there a time when you were not able to pay the mortgage or rent on time? Yes [facility] At any time in the p ast 12 months, were you homeless or living in long term [including now]? No [facility] Clinical Notes 12-22-2022 to 07-14-2023 Telephone Encounter - ANTONIA Martinez CNP - 07/14/2023 1:24 PM EDTTelephone Encounter - ANTONIA Martinez CNP - 07/14/2023 1:24 PM Lizbet Ferrer MA - 04/28/2023 10:30 AM EDT Note Date & Type Note Facility 07-14-2023 Telephone encount er Note Reviewed chart. Refill appropriate. RX sent. [facility] 07-14-2023 Miscellaneous Notes Formattin g of this note might be different from the original. Reviewed chart. Refill appropriate. RX sent. Medication name: levothyroxine (Synthroid, Levoxyl) 50 MCG tablet Medication dosage: 50 mcg (Micrograms) Monthly quantity needed: 90 How many day supply requestin days Medication route: oral (PO) Medication administration time(s): daily If taking medication PRN, reason for taking medication: N/A If this is a controlled substance do you receive this or any other controlled medication from any other doctor or facility: N/A Ordering provider: ANTONIA Baeza CNP Date of last office visit: 04/28/23 Date of next office visit: 11/08/23 Date of last refill: (see medication tab): 01/10/23 Updated/Validated preferred pharmacy: Yes Patient instructed to contact the pharmacy prior to picking up the medication: Yes documented in this encounter [facility] 07-14-2023 Telephone encount er Note Medication name: levothyroxine (Synthroid, Levoxyl) 50 MCG tablet Medication dosage: 50 mcg (Micrograms) Monthly quantity needed: 90 How many day supply requestin days Medication route: oral (PO) Medication administration time(s): daily If taking medication PRN, reason for taking medication: N/A If this is a controlled substance do you receive this or any other controlled medication from any other doctor or facility: N/A Ordering provider: ANTONIA Baeza CNP Date of last office visit: 04/28/23 Date of next office visit: 11/08/23 Date of last refill: (see medication tab): 01/10/23 Updated/Validated preferred pharmacy: Yes Patient instructed to contact the pharmacy prior to picking up the medication: Yes [facility] 04-28-2023 Evaluation + Plan note Associ ated Problem(s): Tobacco abuse Discussed smoking cessation, she gives no indication she is ready to quit. [facility] 04-28-2023 Evaluation + Plan note Associ ated Problem(s): Severe episode of recurrent major depressive disorder, without psychotic features (HCC) Remission, continues Zoloft 100 mg daily and Cymbalta 30 mg, Risperdal [facility] 04-28-2023 Miscellaneous Notes Associate d Problem(s): Tobacco abuse Discussed smoking cessation, she gives no indication she is ready to quit. Associated Problem(s): Severe episode of recurrent major depressive disorder, without psychotic features (HCC) Remission, continues Zoloft 100 mg daily and Cymbalta 30 mg, Risperdal Associated Problem(s): Migraine without aura Stable, continue Emgality once a month and Imitrex as needed., Continues Topamax 100 mg twice a day Associated Problem(s): Hyperlipidemia Controlled, continue rosuvastatin 20 mg daily Associated Problem(s): Anxiety Stable, continue Zoloft 100 mg daily, Cymbalta 30 mg Associated Problem(s): GERD (gastroesophageal reflux disease) Controlled, continue Protonix 40 mg daily Associated Problem(s): Chronic obstructive pulmonary disease with acute exacerbation (HCC) Stable, decreased breath sounds in the bases although no wheezes she does have a cough, continue albuterol and Symbicort and will send in cough medicine Associated Problem(s): Idiopathic progressive neuropathy Stable, continue Cymbalta documented in this encounter [facility] 04-28-2023 Evaluation + Plan note Associ ated Problem(s): Migraine without aura Stable, continue Emgality once a month and Imitrex as needed., Continues Topamax 100 mg twice a day [facility] 04-28-2023 Evaluation + Plan note Associ ated Problem(s): Hyperlipidemia Controlled, continue rosuvastatin 20 mg daily [facility] 04-28-2023 Evaluation + Plan note Associ ated Problem(s): Anxiety Stable, continue Zoloft 100 mg daily, Cymbalta 30 mg [facility] 04-28-2023 Evaluation + Plan note Associ ated Problem(s): GERD (gastroesophageal reflux disease) Controlled, continue Protonix 40 mg daily [facility] 04-28-2023 Evaluation + Plan note Associ ated Problem(s): Chronic obstructive pulmonary disease with acute exacerbation (HCC) Stable, decreased breath sounds in the bases although no wheezes she does have a cough, continue albuterol and Symbicort and will send in cough medicine [facility] 04-28-2023 Evaluation + Plan note Associ ated Problem(s): Idiopathic progressive neuropathy Stable, continue Cymbalta [facility] 04-28-2023 History of Presen t illness Narrative Patient verified by last name and date of . Images from the original note were not included. 04/28/2023 Kera Rosenberg (: 1965) is a 58 y.o. female , Established patient, here for evaluation of the following chief complaint(s): Annual Exam, Blood Work, Health Maintenance (Hep b vaccine- refuse/Hiv/hep c screening- refuse/Colonoscopy- done 2 yrs ago due again 2023 Dr Muro /Tdap vaccine- refuse/Mmr vaccine- done as child ), and Cough (Pt asking for something to help cough) ASSESSMENT/PLAN: 1. Annual physical exam 2. Pure hypercholesterolemia Assessment & Plan: Controlled, continue rosuvastatin 20 mg daily Orders: - Lipid panel 3. Idiopathic progressive neuropathy Assessment & Plan: Stable, continue Cymbalta 4. Chronic obstructive pulmonary disease with acute exacerbation (HCC) Assessment & Plan: Stable, decreased breath sounds in the bases although no wheezes she does have a cough, continue albuterol and Symbicort and will send in cough medicine 5. Gastroesophageal reflux disease without esophagitis Assessment & Plan: Controlled, continue Protonix 40 mg daily 6. Anxiety Assessment & Plan: Stable, continue Zoloft 100 mg daily, Cymbalta 30 mg 7. Migraine without aura and without status migrainosus, not intractable Assessment & Plan: Stable, continue Emgality once a month and Imitrex as needed., Continues Topamax 100 mg twice a day 8. Severe episode of recurrent major depressive disorder, without psychotic features (HCC) Assessment & Plan: Remission, continues Zoloft 100 mg daily and Cymbalta 30 mg, Risperdal 9. Tobacco abuse Assessment & Plan: Discussed smoking cessation, she gives no indication she is ready to quit. 10. Screening for diabetes mellitus - Comprehensive metabolic panel 11. Acquired hypothyroidism - TSH Follow up in about 6 months (around 10/29/2023). SUBJECTIVE/OBJECTIVE: MARCELA Bolaños comes in today for an annual exam she is here for follow-up on her hypercholesterolemia. Neuropathy COPD which she says currently she is in an exacerbation although she has a cough but she is not hypoxemic, her GERD, her anxiety her migraines and depression. Review of Systems Constitutional: Negative for chills and fever. Respiratory: Negative for shortness of breath. Cardiovascular: Negative for chest pain and palpitations. Gastrointestinal: Negative for abdominal pain, blood in stool, constipation and diarrhea. Genitourinary: Negative for dysuria, frequency, hematuria and urgency. Neurological: Negative for weakness and numbness. Psychiatric/Behavioral: Negative for dysphoric mood. The patient is not nervous/anxious. Vitals: 04/28/23 1013 BP: 122/76 Pulse: 78 SpO2: 94% Weight: 189 lb 6.4 oz (85.9 kg) Height: 5' 7 (1.702 m) Physical Exam Vitals and nursing note reviewed. Constitutional: General: She is not in acute distress. Appearance: Normal appearance. HENT: Head: Normocephalic. Right Ear: Tympanic membrane, ear canal and external ear normal. Left Ear: Tympanic membrane, ear canal and external ear normal. Mouth/Throat: Mouth: Mucous membranes are moist. Pharynx: Oropharynx is clear. Eyes: Extraocular Movements: Extraocular movements intact. Pupils: Pupils are equal, round, and reactive to light. Neck: Vascular: No carotid bruit. Cardiovascular: Rate and Rhythm: Normal rate and regular rhythm. Heart sounds: Normal heart sounds. No murmur heard. Pulmonary: Effort: Pulmonary effort is normal. Breath sounds: Decreased air movement present. Examination of the right-lower field reveals decreased breath sounds. Examination of the left-lower field reveals decreased breath sounds. Decreased breath sounds present. Abdominal: General: Bowel sounds are normal. Palpations: Abdomen is soft. Musculoskeletal: General: Normal range of motion. Cervical back: Normal range of motion. Lymphadenopathy: Cervical: No cervical adenopathy. Skin: General: Skin is warm and dry. Neurological: General: No focal deficit present. Mental Status: She is alert and oriented to person, place, and time. Psychiatric: Mood and Affect: Mood normal. An electronic signature was used to authenticate this note. Arun Henson MD 04/28/2023 10:55 AM documented in this encounter [facility] 01-24-2023 Evaluation + Plan note Associ ated Problem(s): Nocturnal oxygen desaturation Will reorder oxygen for night time use. Samuel performed last nocturnal study that I could find in the media tab in 2018. May need to have new assessment. ?sleep study [facility] 01-24-2023 Miscellaneous Notes Associate d Problem(s): Nocturnal oxygen desaturation Will reorder oxygen for night time use. Samuel performed last nocturnal study that I could find in the media tab in 2018. May need to have new assessment. ?sleep study Associated Problem(s): Chronic obstructive pulmonary disease with acute exacerbation (HCC) Acute exacerbation. Will treat with prednisone, azithromycin, continue symbicort (use twice daily) albuterol as needed. Consider adding back spiriva (patient reports ?not using) documented in this encounter [facility] 01-24-2023 Evaluation + Plan note Associ ated Problem(s): Chronic obstructive pulmonary disease with acute exacerbation (HCC) Acute exacerbation. Will treat with prednisone, azithromycin, continue symbicort (use twice daily) albuterol as needed. Consider adding back spiriva (patient reports ?not using) [facility] 01-24-2023 History of Presen t illness Narrative Padder for Intimate and Non Intimate Exam Padder was declined Padder: accompanied Walking pulse ox at 98% Images from the original note were not included. 01/24/2023 Kera Rosenberg (: 1965) is a 57 y.o. female , Established patient, here for evaluation of the following chief complaint(s): Cough, Shortness of Breath, and COPD ASSESSMENT/PLAN: 1. Chronic obstructive pulmonary disease, unspecified COPD type (HCC) Assessment & Plan: Acute exacerbation. Will treat with prednisone, azithromycin, continue symbicort (use twice daily) albuterol as needed. Consider adding back spiriva (patient reports ?not using) Orders: - azithromycin (Zithromax) 250 MG tablet; Take 2 tabs (500 mg) by mouth today, than 1 daily for 4 days., Normal - predniSONE (Deltasone) 20 MG tablet; Take 2 tablets (40 mg) by mouth daily for 5 days., Starting 01/24/2023, Until 01/29/2023, Normal - DME Order for Home Oxygen as OP 2. Nocturnal oxygen desaturation Assessment & Plan: Will reorder oxygen for night time use. Samuel performed last nocturnal study that I could find in the media tab in 2018. May need to have new assessment. ?sleep study Orders: - DME Order for Home Oxygen as OP Follow up for with primary care provider as scheduled. Follow up if symptoms worsen or fail to improve. SUBJECTIVE/OBJECTIVE: MARCELA - Kera Rosenberg (: 1965) is a 57 y.o. female , Established patient, here for the evaluation of the following chief complaint(s): Cough, Shortness of Breath, and COPD Has had increased shortness over the past 5 days. No fever or chills. Increased wheezing and phlegm. Doing mucinex, using albuterol 2-3 times a day. Uses symbicort daily. Reports using only once daily in am. When using it for the past few weeks it triggers increased shortness of breath right after she uses it, then she follows it with albuterol which helps. Would like oxygen for at home. Had in the past but stopped it d/t financial reasons. Previously was on oxygen [place] at night time. [facility] Last had about 1 year ago. States that she had a night time pulse ox completed that showed she needed it, ?2018. Prior to Admission medications Medication Sig Start Date End Date Taking? Authorizing Provider albuterol (2.5 MG/3ML) 0.083% nebulizer solution Take 3 mL by nebulization every 6 hours as needed. 06/27/18 Yes Historical Provider, albuterol 108 (90 Base) MCG/ACT inhaler INHALE 1 PUFF EVERY 2 HOURS NEEDED for shortness of breath, wheezing Strength: 108 (90 Base) MCG/ACT 08/25/22 Yes ANTONIA Martinez CNP budesonide-formoterol (Symbicort) 80-4.5 MCG/ACT inhaler Inhale 2 puffs in the morning and 2 puffs before bedtime. 08/25/22 Yes ANTONIA Martinez CNP celecoxib (CeleBREX) 200 MG capsule 07/27/22 Yes Historical Provider, cetirizine (ZyrTEC) 10 MG tablet Take 10 mg by mouth daily. Yes Historical Provider, doxazosin (Cardura) 1 MG tablet TAKE 1 TABLET BY MOUTH AT BEDTIME. STOP PRAZOSIN. 02/02/22 Yes Historical Provider, DULoxetine (Cymbalta) [address] capsule 06/28/22 Yes Historical Provider, EPINEPHrine (Epipen) 0.3 MG/0.3ML injection syringe Use as directed for allergic reaction 04/01/21 Yes Historical Provider, galcanezumab (Emgality) 120 MG/ML auto-injector INJECT ONCE A MONTH DIRECTED 08/04/20 Yes Historical Provider, hydrOXYzine HCl (Atarax) 25 MG tablet Take 25 mg by mouth. 04/07/22 Yes Historical Provider, levothyroxine (Synthroid, Levoxyl) 50 MCG tablet Take 1 tablet (50 mcg) by mouth every morning (before breakfast). 01/10/23 Yes ANTONIA Baeza CNP meloxicam (Mobic) 7.5 MG tablet 10/16/21 Yes Historical Provider, OXcarbazepine (Trileptal) 300 MG tablet OXcarbazepine Oxcarbazepine Active 600 MG AT BEDTIME September 03, 2019 4:20pm 09-03-2019 [facility] ([id number]) 09/03/19 Yes Historical Provider, pantoprazole (ProtoNix) 40 MG EC tablet 07/21/22 Yes Historical Provider, risperiDONE (RisperDAL) 0.25 MG tablet Take 0.25 mg by mouth. 02/10/21 Yes Historical Provider, risperiDONE (RisperDAL) 2 MG tablet Take 1 tablet by mouth Nightly. 01/10/20 Yes Historical Provider, rosuvastatin (Crestor) 20 MG tablet Take 1 tablet (20 mg) by mouth every morning. 10/22/22 Yes Gary La APRN - [employer] sertraline (Zoloft) 100 MG tablet Take 1 tablet by mouth daily. 05/04/16 Yes Historical Provider, SUMAtriptan (Imitrex) 100 MG tablet 03/21/19 Yes Historical Provider, tiotropium (Spiriva) 18 MCG inhalation capsule INHALE THE CONTENTS OF ONE CAPSULE VIA HANDIHALER ONCE DAILY 06/20/19 Yes Historical Provider, tiZANidine (Zanaflex) 2 MG capsule 08/26/22 Yes Historical Provider, topiramate (Topamax) 100 MG tablet Take 1 tablet by mouth in the morning and 1 tablet before bedtime. 03/26/22 Yes Historical Provider, traZODone (Desyrel) 50 MG tablet TAKE 1/2 TO 1 (ONE-HALF TO ONE) TABLET BY MOUTH AT BEDTIME 09/08/22 Yes Historical Provider, Health Maintenance Due Topic Date Due Hepatitis B Vaccines (1 of 3 - 3-dose series) Never done HIV Screening Never done Colorectal Cancer Screening Never done Hepatitis C Screening Never done Diabetes Screening Never done DTaP/Tdap/Td Vaccines (1 - Tdap) 11/20/2008 MMR Vaccines (1 of 1 - Standard series) Never done Review of Systems Constitutional: Negative for chills, fatigue and fever. HENT: Positive for congestion. Negative for sore throat and trouble swallowing. Respiratory: Positive for cough, shortness of breath and wheezing. Negative for chest tightness. Cardiovascular: Negative for chest pain and leg swelling. Gastrointestinal: Negative. Genitourinary: Negative for difficulty urinating. Neurological: Negative for dizziness, light-headedness and headaches. Vitals: 01/24/23 1017 BP: 124/82 Pulse: 91 Resp: 24 SpO2: 98% Weight: 168 lb (76.2 kg) Physical Exam Constitutional: General: She is not in acute distress. Appearance: Normal appearance. She is not ill-appearing. HENT: Head: Normocephalic and atraumatic. Right Ear: Tympanic membrane normal. Left Ear: Tympanic membrane normal. Nose: No congestion or rhinorrhea. Mouth/Throat: Pharynx: Oropharynx is clear. Eyes: Conjunctiva/sclera: Conjunctivae normal. Cardiovascular: Rate and Rhythm: Normal rate and regular rhythm. Pulmonary: Effort: Pulmonary effort is normal. No respiratory distress. Breath sounds: Wheezing and rhonchi present. Musculoskeletal: Right lower leg: No edema. Left lower leg: No edema. Lymphadenopathy: Cervical: No cervical adenopathy. Skin: General: Skin is warm and dry. Neurological: Mental Status: She is alert and oriented to person, place, and time. An electronic signature was used to authenticate this note. ANTONIA Martinez CNP 01/24/2023 10:26 AM documented in this encounter [facility] 01-24-2023 Telephone encount er Note Noted. Agree with disposition. [facility] 01-24-2023 Miscellaneous Notes Formattin g of this note might be different from the original. Noted. Agree with disposition. S: Patient called the clinical access center with complaint of breathing difficulty. B: Ongoing hx COPD A: Patient c/o breathing difficulty increasing. Patient states she was prescribed oxygen, but could not afford it. Patient now has new insurance and would like to be prescribed oxygen. R: Appointment scheduled today, 5.. @ 1020 with Ailyn La CNP. . Insurance verified. Home care advice provided. Patient instructed to call back with worsening symptoms, concerns or questions. Patient verbalized understanding. Reason for Disposition Longstanding difficulty breathing (e.g., CHF, COPD, emphysema) and worse than normal Protocols used: Breathing [id number] documented in this encounter [facility] 01-24-2023 Telephone encount er Note S: Patient called the [facility] access center with complaint of breathing difficulty. B: Ongoing hx COPD A: Patient c/o breathing difficulty increasing. Patient states she was prescribed oxygen, but could not afford it. Patient now has new insurance and would like to be prescribed oxygen. R: Appointment scheduled today, 5..23 @ 1020 with Ailyn La CNP. . Insurance verified. Home care advice provided. Patient instructed to call back with worsening symptoms, concerns or questions. Patient verbalized understanding. Reason for Disposition Longstanding difficulty breathing (e.g., CHF, COPD, emphysema) and worse than normal Protocols used: Breathing [id number] [facility] 01-10-2023 Telephone encount er Note Rx sent. [facility] 01-10-2023 Miscellaneous Notes Formattin g of this note might be different from the original. Rx sent. Medication name: levothyroxine (SYNTHROID) 50 MCG tablet TAKE 1 TABLET BY MOUTH EVERY DAY --90 days Medication dosage: 50 mcg (Micrograms) Monthly quantity needed: 90 How many day supply requestin days Medication route: oral (PO) Medication administration time(s): daily If taking medication PRN, reason for taking medication: N/A If this is a controlled substance do you receive this or any other controlled medication from any other doctor or facility: No Ordering provider: Dr. Henson Date of last office visit: 10-26-2022 Date of next office visit: 04-11-2023 Date of last refill: (see medication tab): 2022 Updated/Validated preferred pharmacy: Yes Patient instructed to contact the pharmacy prior to picking up the medication: Yes documented in this encounter [facility] 01-10-2023 Telephone encount er Note Noted. Agree with disposition. [facility] 01-10-2023 Miscellaneous Notes Formattin g of this note might be different from the original. Noted. Agree with disposition. Scheduled with Theresa tomorrow. S: Patient spoke with CAC nurse regarding something popped in her neck. B: Onset of symptoms started this am. A: Shoup like something popped, states she was laying down when it happened, she turned over and felt it, rates the pain moderate, took a muscle relaxer and Ibuprofen about 1 hour ago and no relief. L arm feels weird and neck and shoulder hurt, no arm numbness or weakness. R: Can't come in today and can come in on Tuesday. Appointment scheduled, address given to the patient, instructed to bring phot ID, insurance info and medication list to the appointment. Advised to wear mask. Patient understands care advice. No further needs at this time. Patient instructed to call back with new or worsening symptoms. Reason for Disposition Patient wants to be seen Protocols used: Neck Pain or [id number] documented in this encounter [facility] 01-10-2023 Telephone encount er Note Scheduled with Theresa tomorrow. [facility] 01-10-2023 Telephone encount er Note S: Patient spoke with [facility] nurse regarding something popped in her neck. B: Onset of symptoms started this am. A: Shoup like something popped, states she was laying down when it happened, she turned over and felt it, rates the pain moderate, took a muscle relaxer and Ibuprofen about 1 hour ago and no relief. L arm feels weird and neck and shoulder hurt, no arm numbness or weakness. R: Can't come in today and can come in on Tuesday. Appointment scheduled, address given to the patient, instructed to bring phot ID, insurance info and medication list to the appointment. Advised to wear mask. Patient understands care advice. No further needs at this time. Patient instructed to call back with new or worsening symptoms. Reason for Disposition Patient wants to be seen Protocols used: Neck Pain or [id number] [facility] 01-10-2023 Telephone encount er Note Medication name: levothyroxine (SYNTHROID) 50 MCG tablet TAKE 1 TABLET BY MOUTH EVERY DAY --90 days Medication dosage: 50 mcg (Micrograms) Monthly quantity needed: 90 How many day supply requestin days Medication route: oral (PO) Medication administration time(s): daily If taking medication PRN, reason for taking medication: N/A If this is a controlled substance do you receive this or any other controlled medication from any other doctor or facility: No Ordering provider: Dr. Henson Date of last office visit: 10-26-2022 Date of next office visit: 04-11-2023 Date of last refill: (see medication tab): 2022 Updated/Validated preferred pharmacy: Yes Patient instructed to contact the pharmacy prior to picking up the medication: Yes [facility] 12-27-2022 Telephone encount er Note Message released to patient as written. Patient's further questions if applicable: No further questions Were all questions from office addressed or relayed to the patient from encounter: Yes [facility] 12-27-2022 Miscellaneous Notes Formattin g of this note might be different from the original. Message released to patient as written. Patient's further questions if applicable: No further questions Were all questions from office addressed or relayed to the patient from encounter: Yes Left a message to return call. LM LM to relay results, please document in this encounter that results were relayed and if patient has any questions. ----- Message from ANTONIA Martinez CNP sent at 12/22/2022 4:42 PM EDT ----- Category 2 benign mammogram- no masses. Recommend routine mammogram in 1 year and follow up in office for further evaluation if nipple pain does not improve or resolve over the next 6-8 weeks. Sooner for worsening. documented in this encounter [facility] 12-27-2022 Telephone encount er Note Left a message to return call. [facility] 12-23-2022 Telephone encount er Note LM [facility] 12-22-2022 Telephone encount er Note LM to relay results, please document in this encounter that results were relayed and if patient has any questions. [facility] 12-22-2022 Telephone encount er Note ----- Message from ANTONIA Martinez CNP sent at 12/22/2022 4:42 PM EDT ----- Category 2 benign mammogram- no masses. Recommend routine mammogram in 1 year and follow up in office for further evaluation if nipple pain does not improve or resolve over the next 6-8 weeks. Sooner for worsening. [facility] [employer] documented in this encounter [facility] HealthEvaluation note* Diagnosis Annual physical exam- Primary Routine general medical examination at a health care facility Pure hypercholesterolemia Idiopathic progressive neuropathy Chronic obstructive pulmonary disease with acute exacerbation (HCC) Gastroesophageal reflux disease without esophagitis Esophageal reflux Anxiety Anxiety state, unspecified Migraine without aura and without status migrainosus, not intractable Severe episode of recurrent major depressive disorder, without psychotic features (HCC) Tobacco abuse Tobacco use disorder Screening for diabetes mellitus Acquired hypothyroidism Unspecified hypothyroidism documented in this encounter [facility] Health Summary Purpose Family History No Family History Records FoundNo Family History Records FoundNo Family History Records FoundNo Family History Records FoundNo Family History Records FoundNo Family History Records FoundNo Family History Records Found Advance Directives No Advanced Directives Records FoundNo Advanced Directives Records FoundNo Advanced Directives Records FoundNo Advanced Directives Records FoundNo Advanced Directives Records FoundNo Advanced Directives Records FoundNo Advanced Directives Records Found Additional Source Comments INFORMATION SOURCE (unrecogn ized section and content) DATE CREATED AUTHOR AUTHOR'S ORGANIZ ATION 03/25/2021 [facility] DATE CREATED AUTHOR AUTHOR'S ORGANIZ ATION 05/19/2022 [facility] DATE CREATED AUTHOR AUTHOR'S ORGANIZ ATION 07/16/2023 [facility] DATE CREATED AUTHOR AUTHOR'S ORGANIZ ATION 09/04/2023 [facility] EPIC DATE CREATED AUTHOR AUTHOR'S ORGANIZ ATION 09/06/2023 [facility] ([place] DATE CREATED AUTHOR AUTHOR'S ORGANIZ ATION 10/10/2023 [facility] Reason for Visit (unrecogniz ed section and content) Reason Onset Date Comments Neck Pain 01/10/2023 Reason Onset Date Comments Med Refill 01/10/2023 Reason Onset Date Comments Breathing Problem 01/24/2023 Reason Comments Cough Shortness of Breath COPD Reason Comments Annual Exam Blood Work Health Maintenance Hep b vaccine- refus eHiv/hep c screening- refuseColonoscopy- done 2 yrs ago due again 2023 Dr Muro Tdap vaccine- refuseMmr vaccine- done as child Cough Pt asking for someth ing to help cough Reason Onset Date Comments Med Refill 07/14/2023 Patient needs a refill on levothyroxine (Synthroid, Levoxyl) 50 MCG tablet Care Teams (unrecognized sec tion and content) 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 Relationship Specialty Start Date End Date Arun Henson MD [address] [facility], [facility] [place] [address] PCP - General 03/21/19 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 Relationship Specialty Start Date End Date Arun Henson MD [address] [facility], [facility] [place] [address] PCP - General 03/21/19 Ex[employer]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 Relationship Specialty Start Date End Date Arun Henson MD [address] [place] [address] PCP - General 03/21/19 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 Relationship Specialty Start Date End Date Arun Henson MD [address] [facility] [place] [address] PCP - General 03/21/19 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 This clinical summary was aggregated from multiple sources. Caution should be exercised in using it in the provision of clinical care. This summary normalizes information from multiple sources, and as a consequence, information in this document may materially change the coding, format and clinical context of patient data. In addition, data may be omitted in some cases. CLINICAL DECISIONS SHOULD BE BASED ON THE PRIMARY CLINICAL RECORDS. [employer] [facility]. provides no warranty or guarantee of the accuracy or completeness of information in this document.
== END | disposition home or self-care (01) ==
LOC: SL 19:59
PROVIDERS: PCP Student in an Organized Health Care Education/Training Program; Visit Provider Student in an Organized Health Care Education/Training Program
DX: G47.10 Hypersomnia, unspecified (principal)
CPT/HCPCS: 95810

== ENCOUNTER → 2023-11-08 | Outpatient (CLI) | payer BC, MEDICARE, SELFPAY ==
--- NOTE | 2023-11-08 08:03 | MRI_ITS ---
STUDY: MRI BRAIN WITH AND WITHOUT CONTRAST REASON FOR EXAM: Female, 58 years old. STAGING LUNG CANCER TECHNIQUE: Standardized multiplanar fat and water weighted pulse sequences were obtained. IV 17ML Clariscan was administered for the contrast portion of the examination. COMPARISON: MRI of the brain dated December 21, 2021. FINDINGS: Normal size of the ventricles and extra-axial spaces for the patient''s age. There are a limited number of small white matter hyperintensities, distributed throughout the deep white matter tracts of the cerebral hemispheres, consistent with mild chronic white matter ischemic changes. There is no evidence for recent intracranial ischemia or other cause of cytotoxic edema on diffusion weighted imaging (DWI). Normal T2* images of the brain without demonstrated susceptibility artifact. There is no demonstrated hemosiderin stain. No hydrocephalus or midline shift is present. There are no ring-enhancing lesions of the brain parenchyma or abnormal thickening or enhancement of the meninges or dura. No skull lesions are present. No infiltrative process or vasogenic edema is present on the current exam. Normal bilateral basal ganglia. Normal thalami. There is no extra-axial fluid accumulation. Normal flow voids within the major intracranial circulation suggesting patency by spin echo criteria. Normal venous enhancement. There is no enhancing intra-axial or extra-axial abnormality. Normal sella turcica, pituitary gland, infundibular stalk, optic chiasm and hypothalamus. Normal tectal plate and pineal gland. Normal midbrain, joseph and medulla. Normal cerebellum. Normal basal cisterns. Normal bilateral temporal bones. Normal bilateral internal auditory canals. No demonstrated orbital abnormality, within the constraints of a routine brain study. Normal visualized paranasal sinuses. Normal calvarium and skull base. Normal visualized soft tissue structures. Normal visualized upper cervical spine. MRI/Brain W/WO Contrast IMPRESSION: 1. Involutional and chronic ischemic changes of the brain, as described above. 2. There are no ring-enhancing lesions of the brain parenchyma or abnormal thickening or enhancement of the meninges or dura. No skull lesions are present. No infiltrative process or vasogenic edema is present on the current exam. Electronically Signed: Sudarshan Pan MD at 11:58 EST ,
--- OUTSIDE RECORDS SUMMARY | 2023-11-08 08:10 | XMS RPT_ITS | CCD ---
Author Name Unknown Address [address] [place] [address] [facility] Care Team Providers Care Fund Manager Name Role Phone Kemal Monique Unavailable Unavailable GutroyaveKemal P Unavailable Unavailable GutloveKemal P Unavailable Unavailable GutKemal tirado P Unavailable Unavailable GutloKemal solano P Unavailable Unavailable GutKemal tirado Unavailable Unavailable No Family Physician given Unavailable Unavai labKemal Feliciano Unavailable Unavailable No Family Physician given Unavailable Unavai lable ClarissaloveKemal P Unavailable Unavailable No Family Physician given Unavailable Unavai lable GutKemal tirado P Unavailable Unavailable No Family Physician given Unavailable Unavai lable Kemal Monique P Unavailable Unavailable Marjorie Martinez Unavailable Unavailable GutloveKemal P Unavailable Unavailable Scott Barros L Unavailable Unavailable No Family Physician given Unavailable Unameena Henson MD, Arun Solomon Primary Care Provider Arun Henson MD Primary Care Provider ARUN HENSON Attending Unavailable ARUN HENSON Primary Care Unavailable NGUYEN, GARY Attending Unavailable ARUN HENSON Primary Care Unavailable NGUYEN, GARY Referring Unavailable ARUN HENSON Primary Care Unavailable NGUYEN GARY Attending Unavailable ARUN HENSON Primary Care Unavailable ARUN HENSON Attending Unavailable RHONDA CRAFT Attending Unavailable RHONDA CRAFT Referring Unavailable LAZARUS ROBINS DO Attending Unavailable LAZARUS ROBINS DO Primary Care Unavailable LAZARUS SALINAS CRNA Consulting Unavailable NIYAH MALIK~[id number], NIYAH Estes Admitting Unavailable NIYAH MALIK~[id number], NIYAH Estes Attending Unavailable ARUN HENSON Primary Care Unavailable LAZARUS SALINAS CRNA Consulting Unavailable LAZARUS ROBINS Primary Care Unavailable NIYAH MALIK~[id number], NIYAH Estes Attending Unavailable NIYAH MALIK~[id number], NIYAH Estes Admitting Unavailable JERMAINE ALVAREZ CRNA Consulting Unava ilable JERMAINE ALVAREZ CRNA Consulting Unava ilable JANKI FOSTER Primary Care Unavailable TASHIA WEAVER CRNA Consulting Unavailable NIYAH MALIK~[id number], NIYAH Estes Admitting Unavailable NIYAH MALIK~[id number], NIYAH Estes Attending Unavailable TASHIA WEAVER CRNA Consulting Unavailable BECKY RASMUSSEN CRNA Consulting Unavailable NIYAH MALIK~[id number], NIYAH Estes Admitting Unavailable NIYAH MALIK~[id number], NIYAH Estes Attending Unavailable ARUN HENSON [facility] Unavailable BECKY RASMUSSEN CRNA Consulting Unavailable Allergies Allergy Classification Reported Allergen(s) Allergy Type Date of Onset Reaction(s) Facility (7 sources) Acetaminophen Drug Allergy 03-05-20 15 Hives [facility] (7 sources) calcium phosphate / prasterone Drug Allergy 07-27-20 05 [facility] (7 sources) Dextran Drug Allergy 12-05-19 22 Rash [facility] (7 sources) Dicyclomine Drug Allergy 06-05-20 16 [facility] (6 sources) Honey bee venom Propensity to adverse reactions 03-05-20 15 Anaphylaxis [facility] (8 sources) Iothalamate Drug Allergy 09-05-20 19 [facility] (7 sources) Ketorolac trometamol Propensity to adverse reactions 03-05-20 15 Anxiety [facility] (8 sources) Latex; Translations: [Latex] Propensity to adverse reactions 07-05-20 08 Anaphylaxis, Rash [facility] (7 sources) Lidocaine Drug Allergy 03-05-20 15 Shortness of breath [facility] (7 sources) lubiprostone Drug Allergy 09-05-20 19 [facility] (7 sources) Mirtazapine Drug Allergy 02-09-20 16 Anaphylaxis [facility] (7 sources) Morphine Drug Allergy 03-05-20 15 Shortness of breath [facility] (7 sources) Penicillins Drug Intolerance 03-05-20 15 Shortness of breath [facility] (7 sources) Prazosin Drug Allergy 01-29-20 22 Rash [facility] (7 sources) Prednisone Propensity to adverse reactions 03-05-20 15 [facility] (7 sources) Procaine Drug Allergy 12-09-19 12 [facility] (7 sources) Prochlorperazine Drug Allergy 03-05-20 15 Shortness of breath [facility] (7 sources) Sulfasalazine Propensity to adverse reactions 06-05-20 15 Anaphylaxis [facility] (7 sources) Sulfonamides (Antibiotic) Drug Intolerance 06-05-20 15 Anaphylaxis [facility] (7 sources) valdecoxib Drug Allergy 03-05-20 15 Shortness of breath [facility] (7 sources) venlafaxine Drug Allergy 12-09-19 12 [facility] (7 sources) Amoxicillin-Pot Clavulanate Drug Intolerance 12-09-19 12 [facility] (7 sources) Prasterone Propensity to adverse reactions 02-07-20 21 [facility] (7 sources) Soybean-Containing Drug Products Drug Intolerance 03-05-20 15 Hives [facility] (2 sources) Other Propensity to adverse reactions 04-28-20 23 [facility] (1 source) bee venom Propensity to adverse reactions 03-05-20 15 Anaphylaxis [facility] (1 source) Acetaminophen Drug Allergy [facility] (1 source) Amoxicillin / Clavulanate Drug Allergy [facility] (1 source) Dicyclomine Drug Allergy [facility] (1 source) lubiprostone Drug Allergy [facility] (1 source) Morphine Drug Allergy [facility] (1 source) Penicillins Drug allergy (disorder) [facility] (1 source) DHEA Drug allergy (disorder) [facility] (1 source) Novocain Drug allergy (disorder) [facility] Medications Current Medications Medication Drug Class(es) Dates Sig (Normalized) Sig (Original) [id number] 200 actuat albuterol 0.09 mg/actuat metered dose [...] Onset: 3 Chronic Other aftercare (1 source) half-way (current) use of aspirin; Translations: [FLOATER 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 USE OF ASPIRIN] Onset: 4 Episodic Other aftercare (1 source) Other mcc (current) drug therapy; Translations: [OTH FLOATER OPERATOR CURRENT DRUG THERAPY] Onset: 4 Episodic Other [...] 10-26-2022 10-26-2022 Episodic Other aftercare (1 source) half-way (current) use of non-steroidal anti-inflammatories (NSAID); Translations: [SKILLED NURSING USE NSAID] Onset: 06-30-2023 Episodic Other aftercare (1 source) half-way (current) use of inhaled steroids; Translations: [SKILLED NURSING USE OF INHALED STEROIDS] Onset: 06-30-2023 Episodic [...] Date Time Vital Sign Value Performing Clinician Facemilee fuentes 04-28-2023 10:13-0400 Body height 170.2 cm Arun Henson MD Work Phone: [employer] 04-28-2023 10:13-0400 Body mass index (BMI) [Ratio] 29.66 kg/m2 Arun Henson MD Work Phone: [employer] 04-28-2023 10:13-0400 Body weight 85.91 kg Arun Henson MD Work Phone: [employer] 04-28-2023 10:13-0400 Diastolic blood pressure 76 mm[Hg] Arun Henson MD Work Phone: [employer] 04-28-2023 10:13-0400 Heart rate 78 /min Arun Henson MD Work Phone: [employer] 04-28-2023 10:13-0400 SaO2% (BldA) [Mass fraction] 94 % Arun Henson MD Work Phone: [employer] 04-28-2023 10:13-0400 Systolic blood pressure 122 mm[Hg] Arun Christy Work Phone: [employer] 01-24-2023 10:17-0400 Body mass index (BMI) [Ratio] 26.31 kg/m2 Gary Tellez CNP Work Phone: [employer] 01-24-2023 10:17-0400 Body weight 76.2 kg Gary Bridenthal [employer]ARD - BOX PERSON Work Phone: [employer] 01-24-2023 10:17-0400 Diastolic blood pressure 82 mm[Hg] Gary Bridenthal [employer]BOARD - BOX PERSON Work Phone: [employer] 01-24-2023 10:17-0400 Heart rate 91 /min Gary Bridenthal [employer] PAN[employer]ARD - BOX PERSON Work Phone: [employer] 01-24-2023 10:17-0400 Respiratory rate 24 /min Gary Bridenthal [employer] PANELBOARD - BOX PERSON Work Phone: [employer] 01-24-2023 10:17-0400 SaO2% (BldA) [Mass fraction] 98 % Gary Bridenthal [employer] PANELBOARD - BOX PERSON Work Phone: [employer] Encounters Encounter Date Encounter Type Care Provider Facility Start: 10-03-2023 End: 10-03-2023 ambulatory [facility] Start: 09-02-2023 End: 09-02-2023 ambulatory RHONDA CRAFT Not Available Start: 08-31-2023 End: 09-05-2023 ambulatory [facility] Facility:B Start: 07-14-2023 Refill Arun Henson MD Work Phone: [facility] Start: 06-27-2023 End: 06-27-2023 ambulatory [facility] Start: 04-28-2023 End: 04-28-2023 ambulatory ARUN NATIVIDAD [facility] Start: 04-28-2023 End: 04-28-2023 Encounter for general adult medical examination without abnormal findings ARUN HENSON [facility] Start: 04-28-2023 End: 04-28-2023 Patient encounter procedure Arun Henson MD Work Phone: [employer] Work Phone: Start: 04-28-2023 End: 04-28-2023 Periodic preventive med est patient 40-64yrs Arun Henson MD Work Phone: [facility] Procedures Date Procedure Procedure Detail Performing Clinician Start: 04-28-2023 Lipid 1996 panel - S blaise or Plasma Arun Henson MD Work Phone: Start: 04-28-2023 Thyrotropin [Units/v olume] in Serum or Plasma Arun Henson MD Work Phone: Start: 11-23-2022 Mammography Gary Br identhal [employer] - BOX PERSON Work Phone: Start: 04-07-2022 Lipid 1996 panel - S blaise or Plasma Gary Bridenthal [employer] PANELBOARD - BOX PERSON Work Phone: Start: 04-07-2022 Thyrotropin [Units/v olume] in Serum or Plasma Gary Bridenthal [employer] PANELBOARD - BOX PERSON Work Phone: Start: 03-18-2021 Colonoscopy Arun ba MD Work Phone: Plan of Treatment Date Care Activity Detail Author Start: 03-18-2031 Screening for malignant neoplasm of colon [facility] Start: 04-28-2028 Lipid panel Lipid Panel [facility] Start: 04-07-2027 Lipid panel Lipid Panel [facility] Start: 04-28-2024 Thyroid stimulating hormone measurement TSH Level [facility] Start: 11-23-2023 Screening for malignant neoplasm of breast Mammogram [facility] Start: 11-08-2023 End: 11-08-2023 Patient encounter procedure 11/08/2023 9:45 AM EST Office Visit [facility] [address] [place] [address] [facility]un Henson [facility] [address] [facility] [address] [place], [place] [id number] [facility] Start: 10-29-2023 Depresssion Monitoring Depresssion Monitoring [facility] Start: 05-27-2023 Influenza vaccination Influenza Vaccine (#1) [facility] Start: 04-28-2023 End: 04-28-2024 Comprehensive metabolic 1998 panel - Serum or Plasma Comprehensive metabolic panel Lab Routine Screening for diabetes mellitus Expected: 04/28/2023 (Approximate), Expires: 04/28/2024 [facility] Immunizations Immunization Date Immunization Notes Care Provider Dannielle kylefausto 08-13-2022 zoster vaccine recombinant Gary Bridenthal [employer] - BOX PERSON Work Phone: [facility] 07-28-2022 Covid-19, Pfizer Bivalent Booster, (Age 12y+), Im, 30 Mcg/0e Gary Bridenthal [employer] - BOX PERSON Work Phone: [facility] 07-28-2022 influenza, injectabl e, quadrivalent, contains preservative Gary Bridenthal [employer]ELBOARD - BOX PERSON Work Phone: [facility] 07-28-2022 Seasonal, quadrivale nt, recombinant, injectable influenza vaccine, preservative free Gary Bridenthal [employer] PANELBOARD - BOX PERSON Work Phone: [facility] 07-28-2022 influenza virus vacc ine, unspecified formulation Arun Henson MD Work Phone: [facility] 04-15-2022 zoster vaccine recombinant Gary Bridenthal T[employer] PU[employer] PANELBOARD - BOX PERSON Work Phone: [facility] 02-10-2022 Pneumococcal Conjuga te PCV20, Pf (Prevnar 20) Gary Bridenthal [employer]ELBOARD - BOX PERSON Work Phone: [facility] 10-31-2021 Covid-19, Pfizer Gra y Top, Do Not Dilute, (Age 12 Y+), Im, L Gary Bridenthal [employer] PANELBOARD - BOX PERSON Work Phone: [facility] [employer] 06-26-2021 Seasonal, quadrivale nt, recombinant, injectable influenza vaccine, preservative free Gary Bridenthal T[employer] PU[employer] PANELBOARD - BOX PERSON Work Phone: [facility] 01-27-2021 Pfizer SARS-CoV-2 Vaccination Gary Bridenthal T[employer] PANELBOARD - BOX PERSON Work Phone: [facility] 01-06-2021 Pfizer SARS-CoV-2 Vaccination Gary Bridenthal T[employer] PU[employer] PANELBOARD - BOX PERSON Work Phone: [facility] [employer] Work Phone: 06-01-2020 influenza, injectabl e, quadrivalent, preservative free Gary Bridenthal T[employer] PANELBOARD - BOX PERSON Work Phone: [facility] 05-24-2019 influenza, injectabl e, quadrivalent, preservative free Gary Bridenthal T[employer] PU[employer] PANELBOARD - BOX PERSON Work Phone: [facility] 06-08-2018 influenza, injectabl e, quadrivalent, contains preservative Gary Bridenthal [employer] PANELBOARD - BOX PERSON Work Phone: [facility] 06-08-2018 influenza, injectabl e, quadrivalent, preservative free Gary Bridenthal T[employer] PU[employer] PANELBOARD - BOX PERSON Work Phone: [facility] 07-18-2017 influenza, injectabl e, quadrivalent, preservative free Gary Bridenthal T[employer] PU[employer] PANELBOARD - BOX PERSON Work Phone: [facility] 06-20-2016 influenza, injectabl e, quadrivalent, preservative free Gary Bridenthal [employer] PANELBOARD - BOX PERSON Work Phone: [facility] 12-04-2013 influenza virus vacc ine, unspecified formulation Gary Bridenthal [employer]ELBOARD - BOX PERSON Work Phone: [facility] 05-28-2011 pneumococcal polysaccharide vaccine, 23 valent Gary Bridenthal [employer]ELBOARD - BOX PERSON Work Phone: [facility] 07-31-2009 novel influenza-H1N1 -09, preservative-free, injectable Gary Bridenthal [employer] PANELBOARD - BOX PERSON Work Phone: [facility] 11-19-2008 tetanus and diphther ia toxoids, not adsorbed, for adult use Gary Bridenthal [employer] PU[employer] PANELBOARD - BOX PERSON Work Phone: [facility] 05-10-2005 pneumococcal polysaccharide vaccine, 23 valent Gary Bridenthal T[employer] PU[employer]ER PANELBOARD - BOX PERSON Work Phone: [facility] Payers Date Payer Category Payer Self-pay 2022 Medicare [id number] 2022 Unknown SANGEETHA ESCOBEDO CROS S SANGEETHA ESCOBEDO CROSS [id number] 2022-Present [address] [place] [address] Commercial [id number] 2017 Medicare [id number] 1965 Unknown [id number] 1964 Unknown [id number] [id number] 1964 Unknown [id number] [id number] 1964 Unknown [id number] [id number] 1964 Unknown [id number] [id number] 1964 Unknown [id number] [id number] 1960 Medicare [id number] 1960 Unknown [id number] 1959 Unknown [id number] Medicare [id number] Unknown [id number] [id number] Unknown [id number] [id number] Unknown [id number] 2.16.840.1.346454.3.579.2.273 Unknown [id number] [id number] Unknown [id number] [id number] Unknown [id number] 2.16.840.1.869723.3.579.2.273 Unknown [id number] 2.16.840.1.471030.3.579.2.273 Unknown [id number] 2.16.840.1.131803.3.579.2.273 Unknown [id number] [id number] Unknown [id number] [id number] Unknown [id number] [id number] Unknown [id number] [id number] Social History Date Type Detail Facility Tobacco smoking status [facility] Smokes tobacc o daily [facility] History of tobacco use Cigarette Smoker [facility] Start: 11-23-2022 End: 04-28-2023 Alcohol intake Current non-drinker of alcohol (finding) [facility] Start: 1965 Sex Assigned At Not on file [facility] Start: 11-13-2022 End: 04-28-2023 Exposure to SARS-CoV-2 (event) Not sure [facility] Start: 04-28-2023 History of Social function [facility] Start: 04-28-2023 Alcohol Use Disorder Identification Test - Consumption [AUDIT-C] [facility] Frequency of Alcohol Consumption Not on file [facility] (I/We) worried wheth er (my/our) food would run out before (I/we) got money to buy more. Sometimes true [facility] The food that (I/we) bought just didn't last, and (I/we) didn't have money to get more. Never true [facility] In the past 12 month s, was there a time when you were not able to pay the mortgage or rent on time? Yes [facility] At any time in the p ast 12 months, were you homeless or living in nursing home [including now]? No [facility] Clinical Notes 12-22-2022 to 07-14-2023 Telephone Encounter - ANTONIA Martinez CNP - 07/14/2023 1:24 PM EDTTelephone Encounter - ANTONIA Martinez CNP - 07/14/2023 1:24 PM Lizbet Ferrer MA - 04/28/2023 10:30 AM EDT Note Date & Type Note Facility 07-14-2023 Telephone encount er Note Reviewed chart. Refill appropriate. RX sent. [facility] 07-14-2023 Miscellaneous Notes Formattin g of [...] the medication: Yes documented in this encounter [facility] 07-14-2023 Telephone encount er Note Medication [...] prior to picking up the medication: Yes [facility] 04-28-2023 Evaluation + Plan note Associ ated Problem(s): Tobacco abuse Discussed smoking cessation, she gives no indication she is ready to quit. [facility] 04-28-2023 Evaluation + Plan note Associ ated Problem(s): Severe episode of recurrent major depressive disorder, without psychotic features (HCC) Remission, continues Zoloft 100 mg daily and Cymbalta 30 mg, Risperdal [facility] 04-28-2023 Miscellaneous Notes Associate d Problem(s): [...] Stable, continue Cymbalta documented in this encounter [facility] 04-28-2023 Evaluation + Plan note Associ ated Problem(s): Migraine without aura Stable, continue Emgality once a month and Imitrex as needed., Continues Topamax 100 mg twice a day [facility] 04-28-2023 Evaluation + Plan note Associ ated Problem(s): Hyperlipidemia Controlled, continue rosuvastatin 20 mg daily [facility] 04-28-2023 Evaluation + Plan note Associ ated Problem(s): Anxiety Stable, continue Zoloft 100 mg daily, Cymbalta 30 mg [facility] [employer] 04-28-2023 Evaluation + Plan note Associ ated Problem(s): GERD (gastroesophageal reflux disease) Controlled, continue Protonix 40 mg daily [facility] [employer] 04-28-2023 Evaluation + Plan note Associ ated Problem(s): Chronic obstructive pulmonary disease with acute exacerbation (HCC) Stable, decreased breath sounds in the bases although no wheezes she does have a cough, continue albuterol and Symbicort and will send in cough medicine [facility] [employer] 04-28-2023 Evaluation + Plan note Associ ated Problem(s): Idiopathic progressive neuropathy Stable, continue Cymbalta T [facility] 04-28-2023 History of Presen t illness Narrative [...] 04/28/2023 10:55 AM documented in this encounter [facility] 01-24-2023 Evaluation + Plan note Associ ated Problem(s): Nocturnal oxygen desaturation Will reorder oxygen for night time use. Samuel performed last nocturnal study that I could find in the media tab in 2018. May need to have new assessment. ?sleep study [facility] 01-24-2023 Miscellaneous Notes Associate d Problem(s): [...] reports ?not using) documented in this encounter [facility] 01-24-2023 Evaluation + Plan note Associ ated Problem(s): Chronic obstructive pulmonary disease with acute exacerbation (HCC) Acute exacerbation. Will treat with prednisone, azithromycin, continue symbicort (use twice daily) albuterol as needed. Consider adding back spiriva (patient reports ?not using) [facility] 01-24-2023 History of Presen t illness Narrative [employer] Examiner for Intimate and Non Intimate Exam Electric Powerline Examiner was declined Electric Powerline Examiner: accompanied Walking pulse ox at 98% Images [...] night time. Was getting the oxygen through [facility] [place]. Last had about 1 year ago. States [...] AT BEDTIME September 03, 2019 4:20pm 09-03-2019 [facility] ([id number]) 09/03/19 Yes Historical Provider, pantoprazole (ProtoNix) 40 MG EC tablet 07/21/22 Yes Historical Provider, risperiDONE (RisperDAL) 0.25 MG tablet Take 0.25 mg by mouth. 02/10/21 Yes Historical Provider, risperiDONE (RisperDAL) 2 MG tablet Take 1 tablet by mouth Nightly. 01/10/20 Yes Historical Provider, rosuvastatin (Crestor) 20 MG tablet Take 1 tablet (20 mg) by mouth every morning. 10/22/22 Yes ANTONIA Martinez CNP sertraline (Zoloft) 100 MG tablet Take 1 [...] 01/24/2023 10:26 AM documented in this encounter [facility] 01-24-2023 Telephone encount er Note Noted. Agree with disposition. [facility] 01-24-2023 Miscellaneous Notes Formattin g of [...] be prescribed oxygen. R: Appointment scheduled today, 01.24.23 @ 1020 with Ailyn La CNP. . Insurance verified. Home care advice provided. Patient instructed to call back with worsening symptoms, concerns or questions. Patient verbalized understanding. Reason for Disposition Longstanding difficulty breathing (e.g., CHF, COPD, emphysema) and worse than normal Protocols used: Breathing [id number] documented in this encounter [facility] 01-24-2023 Telephone encount er Note S: Patient called the clinical access center with complaint of breathing difficulty. B: Ongoing hx COPD A: Patient c/o breathing difficulty increasing. Patient states she was prescribed oxygen, but could not afford it. Patient now has new insurance and would like to be prescribed oxygen. R: Appointment scheduled today, 01.24.23 @ 1020 with Ailyn La CNP. . Insurance verified. Home care advice provided. Patient instructed to call back with worsening symptoms, concerns or questions. Patient verbalized understanding. Reason for Disposition Longstanding difficulty breathing (e.g., CHF, COPD, emphysema) and worse than normal Protocols used: Breathing [id number] [facility] 01-10-2023 Telephone encount er Note Rx sent. [facility] 01-10-2023 Miscellaneous Notes Formattin g of [...] the medication: Yes documented in this encounter [facility] 01-10-2023 Telephone encount er Note Noted. Agree with disposition. [facility] 01-10-2023 Miscellaneous Notes Formattin g of this note might be different from the original. Noted. Agree with disposition. Scheduled with Theresa tomorrow. S: Patient spoke with CAC nurse regarding something popped in her neck. B: Onset of symptoms started this am. A: [place] like something popped, states she was laying [...] be seen Protocols used: Neck Pain or Utbntueeq-OPCMJ-MF documented in this encounter [facility] 01-10-2023 Telephone encount er Note Scheduled with Theresa tomorrow. [facility] 01-10-2023 Telephone encount er Note S: Patient spoke with [facility] nurse regarding something popped in her neck. B: Onset of symptoms started this am. A: [place] like something popped, states she was laying [...] be seen Protocols used: Neck Pain or [place]-QTJFS-RQ [facility] 01-10-2023 Telephone encount er Note Medication [...] prior to picking up the medication: Yes [employer] 12-27-2022 Telephone encount er Note Message released to patient as written. Patient's further questions if applicable: No further questions Were all questions from office addressed or relayed to the patient from encounter: Yes [employer] 12-27-2022 Miscellaneous Notes Formattin g of this [...] Sooner for worsening. documented in this encounter [facility] 12-27-2022 Telephone encount er Note Left a message to return call. [facility] 12-23-2022 Telephone encount er Note LM [facility] 12-22-2022 Telephone encount er Note LM to relay results, please document in this encounter that results were relayed and if patient has any questions. [facility] 12-22-2022 Telephone encount er Note ----- Message from ANTONIA Martinez CNP sent at 12/22/2022 4:42 PM EDT ----- Category 2 benign mammogram- no masses. Recommend routine mammogram in 1 year and follow up in office for further evaluation if nipple pain does not improve or resolve over the next 6-8 weeks. Sooner for worsening. [facility] [employer] documented in this encounter [facility] Health[facility] note* Diagnosis Annual physical exam- Primary [...] hypothyroidism Unspecified hypothyroidism [facility] Purpose Family History No Family [...] DATE CREATED AUTHOR AUTHOR'S ORGANIZ ATION 03/25/2021 [facility] DATE CREATED AUTHOR AUTHOR'S ORGANIZ ATION 05/19/2022 [facility] DATE CREATED AUTHOR AUTHOR'S ORGANIZ ATION 07/16/2023 [facility] DATE CREATED AUTHOR AUTHOR'S ORGANIZ ATION 09/04/2023 [facility] EPIC DATE CREATED AUTHOR AUTHOR'S ORGANIZ ATION 09/06/2023 [facility] ([place]) DATE CREATED AUTHOR AUTHOR'S ORGANIZ ATION 10/10/2023 [facility] Reason for Visit (unrecogniz ed section and [...] Care Teams (unrecognized sec tion and content) Fund Manager Relationship Specialty Start Date End Date Arun Henson MD [address] [facility], [facility] [place] [address] PCP - General 03/21/19 Fund Manager Relationship Specialty Start Date End Date Arun Henson MD [address] [facility], [facility] [place] [address] PCP - General 03/21/19 Fund Manager Relationship Specialty Start Date End Date Arun Henson MD [address] [place] [id number] PCP - General 03/21/19 Fund Manager Relationship Specialty Start Date End Date Arun Henson MD [address] [place] [id number] PCP - General 03/21/19 Fund Manager Relationship Specialty Start Date End Date Arun Henson MD [address] [place], [place] [address], [place] [address] PCP - General 03/21/19 Fund Manager Relationship Specialty Start Date End Date Arun Henson MD [address] [place] [id number] PCP - General 03/21/19 FOR RECORDS PERTAINING TO PATIENTS WHO [...] BE BASED ON THE PRIMARY CLINICAL RECORDS. [facility]. provides no warranty or guarantee of the accuracy or completeness of information in this document.
[2023-11-08 11:49] LABS: Anion Gap 8 (5-15); BUN 13 mg/dL (7-18); BUN/Creat Ratio 10.4 RATIO (10-20); Chloride 109 mmol/L (98-107); Creatinine, Serum 1.25 mg/dL (0.55-1.02); EST Glomerular Filtration Rate 47 mL/min (>60); Est Glom Filt Rate - Afr Amer 56 mL/min (>60); Glucose 105 mg/dL (74-106); Potassium 3.3 mmol/L (3.5-5.1); Sodium Level 141 mmol/L (136-145)
== END | disposition home or self-care (01) ==
PROVIDERS: PCP Student in an Organized Health Care Education/Training Program; Referring Provider Internal Medicine Hematology & Oncology; Visit Provider Internal Medicine Hematology & Oncology
DX: M79.89 Other specified soft tissue disorders (principal)
CPT/HCPCS: 36415; 70553; 80048; A9575

== ENCOUNTER 2023-11-11 10:18 | Day surgery (SDC) | payer BC, MEDICARE, SELFPAY ==
[2023-11-08 11:18] LABS: Absolute Lymphocyte Count 3.21 X10^3/uL (0.83-4.51); Absolute Neutrophil Count 3.9 X10^3/uL (2.0-7.7); Basophil# 0.06 X10^3/uL; Basophil% 0.7 % (0-1); Eosinophil# 0.37 X10^3/uL; Eosinophils% 4.6 % (0-5); Hemoglobin 14.6 g/dL (12.0-15.0); Lymphocyte # 3.21 X10^3/ul (0.83-4.51); Lymphocyte % 39.7 % (19-41); Mean Corp Hgb Conc 32.4 g/dL (32-36); Mean Corpuscular Volume 89.3 fL (81-99); Mean Platelet Vol. 9.3 fl (6.2-12.0); Monocyte# 0.51 X10^3/uL; Monocyte% 6.3 % (0-10); NRBC Flagged by Analyzer 0 % (0-5); Neutrophil # 3.91 X10^3/uL (2.7-7.7); Neutrophil % 48.3 % (47-70); Platelet Count 296 K/mm3 (150-450); RBC Distribution Width SD 42.6 fl (35.1-43.9); Red Blood Count 5.04 M/mm3 (4.2-5.4); White Blood Count 8.1 K/mm3 (4.4-11.0)
[2023-11-08 11:39] LABS: Partial Thromboplast Time 35.2 Seconds (24.1-36.2)
[2023-11-08 11:44] LABS: International Normalized Ratio 1.1; Prothrombin Time (Protime)PT. 13.7 SECONDS (11.7-14.9)
[2023-11-11] VITALS (8 sets, daily range): BP systolic 120–142; BP diastolic 71–82; PULSE 79–104; RESP 16–18; TEMP 36.3–36.6; O2SAT 92–100; BMI 30.2
--- NOTE | 2023-11-11 | IMM_PTH ---
PATHOLOGY RESULTS PATIENT: ELVA CIFUENTES LOC: EN U#:[id number] AGE/SX: 58/F ROOM: RE11/11/[address]: Dr. Tommy Prescott MD : 1965 BED: DIS: 11/11/2023 SPEC #: [id number] RECD: 11/14/23 13:21 STATUS: WAYLON REQ #: [id number] ANUP: 11/11/23 00:[address]: Tommy Prescott DEPT: IMMUNOHISTOCHEMISTRY RECD BY: Sade Cheema ENTERED: 11/14/23 13:24 SP TYPE: IMMUNO OTHR DR: Dr. Bob Lake DO Tissues: Left upper lobe of lung, NOS Procedures: RCC (add) NAPSIN A (add) CK20 (add) CK5-6 (add) CK7 (add) CK8 (add) ER (add) HEP PAR (add) NE (add) TTF1 (add) Pankeratin (initial) P40 (add) PHYSICIAN & INSTITUTION [address] [address] SPECIMEN INFORMATION: Tissue Source: Left upper lobe lung Clinical Info: Left hilar mass Specimen Number: [id number] CPT code: 16617, 90307 x11 METHODOLOGY: Deparaffinized sections of prefer/formalin-fixed tissue or PAP/DQ stained slides are incubated with monoclonal/polyclonal antibodies/oligonucleotide probes. Localization is made via biotin free immunoperoxidase method. Appropriate controls are performed and reacted as expected. Results on target cell population are indicated in the following table: RESULTS: ANTIBODY / CLONE RESULT ER (6F11) negative NE (1E2) negative AE1-3 (AE1/AE3/PCK26) positive CK7 (OV-TL12/30) negative CK8 (45slknK60) positive, weak CK20 (KS20.8) negative TTF-1 (8G7G3/1) negative Napsin A (Rabbit Polyclonal) negative HepPar (OCh1E5) negative RCC (PN-15) negative CK5-6 (D5 & 1684) positive P40 (BC28) positive These tests were developed and their performance characteristics determined by [facility]. They may not have been cleared or approved by the U.S. Food and Drug Administration. The FDA has determined that such clearance or approval is not necessary. The above immunohistochemical/dualISH markers are ordered and reviewed by the Pathologist. INTERPRETATION: Left upper lobe lung, endobronchial biopsy: Non-small cell carcinoma, favor squamous cell carcinoma. SJ:courtney 11/15/2023
--- NOTE | 2023-11-11 | ASPIG_PTH ---
PATHOLOGY RESULTS PATIENT: ELVA CIFUENTES LOC: EN U#:[id number] AGE/SX: 58/F ROOM: RE11/11/[address]: Dr. Tommy Prescott MD : 1965 BED: DIS: 11/11/2023 SPEC #: [id number] RECD: 11/11/23 13:06 STATUS: WAYLON DAVIDA #: [id number] ANUP: 11/11/23 00:[address]: Tommy Prescott DEPT: CYTOLOGY RECD BY: Myles Fernandes ENTERED: 11/11/23 13:07 SP TYPE: ASP OUT OTHR DR: Dr. Bob Lake DO Tissues: Lung, NOS Lung, NOS Lung, NOS Lung, NOS Lung, NOS Procedures: FNA Specimen Adequacy Special Stain Group II Surgery Specimen Level IV Cytology Other HEADER OPERATION: Endobronchial ultrasound, endobronchial biopsy, biopsy PRE-OP DIAGNOSIS: Left hilar mass TISSUE SUBMITTED: A - EBUS, TBNA, site 11L #1, B - EBUS, TBNA, site 11L #2, C - EBUS, TBNA, site 11L #3, D - EBUS, TBNA, site 11L #4, E - EBUS, TBNA, site 11L DIAGNOSIS CYTOLOGY A. EBUS, TBNA, site 11L #1 (smears): Rare clusters of atypical cells noted. B. EBUS, TBNA, site 11L #2 (smears): A few clusters of atypical cells noted. Numerous lymphocytes are also noted. C. EBUS, TBNA, site 11L #3 (smears): Negative for malignant cells. Numerous lymphocytes are noted. Adequate for evaluation. D. EBUS, TBNA, site 11L #4 (smears): Negative for malignant cells. Numerous lymphocytes are noted. Adequate for evaluation. E. EBUS, TBNA, site 11L fluid (cell block): Malignant cells present derived from non-small cell carcinoma. SJ:courtney 11/14/2023 COMMENT The specimen is evaluated at the time of procedure by Dr. Watters. Rapid On-Site Evaluation: A. EBUS, TBNA, site 11L #1: Negative for malignant cells. B. EBUS, TBNA, site 11L #2: Negative for malignant cells. Numerous lymphocytes are noted. Adequate for evaluation. C. EBUS, TBNA, site 11L #3: Negative for malignant cells. Numerous lymphocytes are noted. Adequate for evaluation. D. EBUS, TBNA, site 11L #4: Negative for malignant cells. Numerous lymphocytes are noted. Adequate for evaluation. Please make reference to additional specimen ([id number]), YANIV, endobronchial biopsy with diagnosis of non-small cell carcinoma, favor squamous cell carcinoma. Case has been reviewed in consultation with Dr. Murillo who concurs with the above diagnosis. IDC:AM CYTOLOGY STUDY Slides are reviewed. CYTOLOGY GROSS A - Received labeled with the patient's name and and designated EBUS, TBNA, site 11L #1. The specimen consists of two stained smears for KEYON (Rapid On-Site Evaluation). B - Received labeled with the patient's name and and designated EBUS, TBNA, site 11L #2. The specimen consists of two stained smears for KEYON. C - Received labeled with the patient's name and and designated EBUS, TBNA, site 11L #3. The specimen consists of two stained smears for KEYON. D - Received labeled with the patient's name and and designated EBUS, TBNA, site 11L #4. The specimen consists of two stained smears for KEYON. E - Received in RPMI is 20 ml of pink, needle rinsed fluid labeled with the patient's name and and designated EBUS, TBNA, site 11L. The specimen is submitted for cell block preparation. / LJ:courtney 11/11/2023 TC:0 CPT: 37433, 30215, 21081, 74860 X3
--- OUTSIDE RECORDS SUMMARY | 2023-11-11 10:41 | XMS RPT_ITS | CCD ---
Author Name Unknown Address [address] [place] [address] Organization [facility] Care Team Providers Care Manager Financial Services Name Role Phone Kemal Monique Unavailable Unavailable GutroyaveKmeal P Unavailable Unavailable GutroyaveKemal P Unavailable Unavailable GutKemal tirado P Unavailable Unavailable GutKemal tirado Unavailable Unavailable Kemal Monique Unavailable Unavailable No Family Physician given Unavailable Unavai labKemal Feliciano Unavailable Unavailable No Family Physician given Unavailable Unavai lable GutloveKemal P Unavailable Unavailable No Family Physician given Unavailable Unavai lable Gutroyave, Kemal P Unavailable Unavailable No Family Physician given Unavailable Unavai lable Kemal Monique P Unavailable Unavailable Marjorie Martinez Unavailable Unavailable GutloveKemal P Unavailable Unavailable Scott Barros Unavailable Unavailable No Family Physician given Unavailable Unameena Henson MD, Arun Solomon Primary Care Provider Arun Henson MD Primary Care Provider RHONDA CRAFT Attending Unavailable RHONDA CRAFT Referring Unavailable LAZARUS SALINAS CRNA Consulting Unavailable NIYAH MALIK~[id number] Admitting Unavailable NIYAH MALIK~[id number], NIYAH Estes Attending Unavailable ARUN HENSON Primary Care Unavailable LAZARUS SALINAS CRNA Consulting Unavailable LAZARUS ROBINS Primary Care Unavailable NIYAH MALIK~[id number], NIYAH Estes Attending Unavailable NIYAH MALIK~[id number] Admitting Unavailable JERMAINE ALVAREZ CRNA Consulting Unava ilable JERMAINE ALVAREZ CRNA Consulting Unava ilable MANDAT, JANKI TODD Primary Care Unavailable MEG WYMAN, TASHIA Austin Consulting Unavailable NIYAH MALIK~[id number], NIYAH Estes Admitting Unavailable NIYAH MALIK~[id number], NIYAH Estes Attending Unavailable MEG WYMAN, TASHIA Austin Consulting Unavailable BECKY RASMUSSEN CRNA Consulting Unavailable NIYAH MALIK~[id number], NIYAH Estes Admitting Unavailable NIYAH MALIK~[id number], NIYAH Estes Attending Unavailable NATIVIDAD, ARUN Primary Care Unavailable BECKY RASMUSSEN CRNA Consulting Unavailable NATIVIDAD, ARUN Attending Unavailable NATIVIDAD, ARUN Primary Care Unavailable BRIDENTHAL, GARY Referring Unavailable NATIVIDAD, ARUN Primary Care Unavailable BRIDCHEYENNE, GARY Attending Unavailable NATIVIDAD, ARUN Primary Care Unavailable SHIMON GU, LAZARUS Primary Care Unavailable SHIMON GU, LAZARUS Attending Unavailable ROBERT NEAL MD Attending Unavailnithin e SHIMON GU, LAZARUS Primary Care Unavailable LAZARUS ROBINS DO Attending Unavailable SHIMON GU, LAZARUS Primary Care Unavailable Allergies Allergy Classification Reported Allergen(s) Allergy Type Date of Onset Reaction(s) Facility (7 sources) Acetaminophen Drug Allergy 03-05-20 15 Hives [facility] (7 sources) calcium phosphate / prasterone Drug Allergy 07-27-20 05 [facility] (7 sources) Dextran Drug Allergy 12-05-19 22 Rash [facility] (7 sources) Dicyclomine Drug Allergy 06-05-20 16 [facility] (6 sources) Honey bee venom Propensity to adverse reactions 03-05-20 15 Anaphylaxis [facility] (8 sources) Iothalamate Drug Allergy 09-05-20 19 [facility] (7 sources) Ketorolac trometamol Propensity to adverse reactions 03-05-20 15 Anxiety [facility] (8 sources) Latex; Translations: [Latex] Propensity to adverse reactions 07-05-20 08 Anaphylaxis, Rash [facility] (7 sources) Lidocaine Drug Allergy 03-05-20 15 Shortness of breath [facility] (7 sources) lubiprostone Drug Allergy 09-05-20 19 [facility] (7 sources) Mirtazapine Drug Allergy 02-09-20 16 Anaphylaxis [facility] (7 sources) Morphine Drug Allergy 03-05-20 15 Shortness of breath [facility] (7 sources) Penicillins Drug Intolerance 03-05-20 15 Shortness of breath [facility] (7 sources) Prazosin Drug Allergy 01-29-20 22 Rash [facility] (7 sources) Prednisone Propensity to adverse reactions 03-05-20 15 [facility] (7 sources) Procaine Drug Allergy 12-09-19 12 [facility] (7 sources) Prochlorperazine Drug Allergy 03-05-20 15 Shortness of breath [facility] (7 sources) Sulfasalazine Propensity to adverse reactions 06-05-20 15 Anaphylaxis [facility] (7 sources) Sulfonamides (Antibiotic) Drug Intolerance 06-05-20 15 Anaphylaxis [facility] (7 sources) valdecoxib Drug Allergy 03-05-20 15 Shortness of breath [facility] (7 sources) venlafaxine Drug Allergy 12-09-19 12 [facility] (7 sources) Amoxicillin-Pot Clavulanate Drug Intolerance 12-09-19 12 [facility] (7 sources) Prasterone Propensity to adverse reactions 02-07-20 21 [facility] (7 sources) Soybean-Containing Drug Products Drug Intolerance 03-05-20 15 Hives [facility] (2 sources) Other Propensity to adverse reactions 04-28-20 23 [facility] (1 source) bee venom Propensity to adverse reactions 03-05-20 15 Anaphylaxis [facility] (1 source) Acetaminophen Drug Allergy [facility] (1 source) Amoxicillin / Clavulanate Drug Allergy [facility] (1 source) Dicyclomine Drug Allergy [facility] (1 source) lubiprostone Drug Allergy [facility] (1 source) Morphine Drug Allergy [facility] (1 source) Penicillins Drug allergy (disorder) [facility] (1 source) DHEA Drug allergy (disorder) [facility] (1 source) Novocain Drug allergy (disorder) [facility] Medications Current Medications Medication Drug Class(es) Dates Sig (Normalized) Sig (Original) [id number] 200 actuat albuterol 0.09 mg/actuat metered dose [...] Onset: 3 Chronic Other aftercare (1 source) prison (current) use of aspirin; Translations: [[facility] CURRENT USE OF ASPIRIN] Onset: 4 Episodic Other aftercare (1 source) 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; Translations: [OTH [facility] CURRENT DRUG THERAPY] Onset: 4 Episodic Other [...] 4 Chronic Residual codes; unclassified (2 sources) Other amnesia; [...] 10-26-2022 10-26-2022 Episodic Other aftercare (1 source) 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 non-steroidal anti-inflammatories (NSAID); Translations: [[facility] USE NSAID] Onset: 06-30-2023 Episodic Other aftercare (1 source) 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 inhaled steroids; Translations: [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 USE OF INHALED STEROIDS] Onset: 06-30-2023 Episodic [...] Translations: [Tobacco use] Onset: 03-05-2015 07-08-2022 Episodic Residual codes; unclassified (2 sources) Tobacco use; Translations: [Tobacco use] Onset: 07-08-2022 Episodic Spondylosis; intervertebral disc disorders; other back problems (2 sources) Other specified dorsopathies, cervical region; Translations: [Dorsopathy, unspecified] Onset: 06-30-2023 Episodic Unclassified (1 source) MYOFASCIASL PAIN SYNDROME Onset: 10-03-2017 Results Test Name Value Interpretation Reference Range Facil ity Vital Signs Date Time Vital Sign Value Performing Clinician Faci lity 04-28-2023 10:13-0400 Body height 170.2 cm Arun Henson MD Work Phone: [facility] 04-28-2023 10:13-0400 Body mass index (BMI) [Ratio] 29.66 kg/m2 Arun Henson MD Work Phone: [facility] 04-28-2023 10:13-0400 Body weight 85.91 kg Arun Henson MD Work Phone: [facility] 04-28-2023 10:13-0400 Diastolic blood pressure 76 mm[Hg] Arun Henson MD Work Phone: [facility] 04-28-2023 10:13-0400 Heart rate 78 /min Arun Henson MD Work Phone: [facility] 04-28-2023 10:13-0400 SaO2% (BldA) [Mass fraction] 94 % Arun Henson MD Work Phone: [facility] 04-28-2023 10:13-0400 Systolic blood pressure 122 mm[Hg] Arun Christy Work Phone: [facility] 01-24-2023 10:17-0400 Body mass index (BMI) [Ratio] 26.31 kg/m2 Gary Bridenthal LEAD BURNER HELPER - [employer] FARM [employer]ORER Work Phone: [facility] 01-24-2023 10:17-0400 Body weight 76.2 kg Gary Bridenthal LEAD BURNER HELPER - [employer]ARM [employer]ER Work Phone: [facility] 01-24-2023 10:17-0400 Diastolic blood pressure 82 mm[Hg] Gary Bridenthal LEAD BURNER HELPER - [employer]ARM [employer]ER Work Phone: [facility] 01-24-2023 10:17-0400 Heart rate 91 /min Gary Bridenthal LEAD BURNER HELPER - [employer] F[employer]ER Work Phone: [facility] 01-24-2023 10:17-0400 Respiratory rate 24 /min Gary Bridenthal LEAD BURNER HELPER - [employer] FARM [employer]ER Work Phone: [facility] 01-24-2023 10:17-0400 SaO2% (BldA) [Mass fraction] 98 % Gary Balajienthal LEAD BURNER HELPER - [employer] FARM LABORER Work Phone: [facility] Encounters Encounter Date Encounter Type Care Provider Facility Start: 11-09-2023 End: 11-10-2023 ambulatory ROBERT NEAL MD Facility:B Start: 11-02-2023 End: 11-03-2023 ambulatory [facility] Facility:A Start: 10-03-2023 End: 10-03-2023 ambulatory [facility] Start: 09-02-2023 End: 09-02-2023 ambulatory RHONDA CRAFT Not Available Start: 08-31-2023 End: 09-05-2023 ambulatory [facility] Facility:B Start: 07-14-2023 Angel Henson MD Work Phone: [facility] Start: 06-27-2023 End: 06-27-2023 ambulatory [facility] Start: 04-28-2023 End: 04-28-2023 ambulatory ARUN HENSON [facility] Start: 04-28-2023 End: 04-28-2023 Encounter for general adult medical examination without abnormal findings ARUN HENSON [facility] Start: 04-28-2023 End: 04-28-2023 Patient encounter procedure Arun Henson MD Work Phone: [facility] Work Phone: Start: 04-28-2023 End: 04-28-2023 Periodic preventive med est patient 40-64yrs Arun Henson MD Work Phone: [facility] Procedures Date Procedure Procedure Detail Performing Clinician Start: 04-28-2023 Lipid 1996 panel - S blaise or Plasma Arun Henson MD Work Phone: Start: 04-28-2023 Thyrotropin [Units/v olume] in Serum or Plasma Arun Henson MD Work Phone: Start: 11-23-2022 Mammography Gary Br identhal LEAD BURNER HELPER - [employer] FARM [employer]ORER Work Phone: Start: 04-07-2022 Lipid 1996 panel - S blaise or Plasma Gary Bridenthal LEAD BURNER HELPER - [employer] F[employer]ER Work Phone: Start: 04-07-2022 Thyrotropin [Units/v olume] in Serum or Plasma Gary Bridenthal LEAD BURNER HELPER - [employer] FARM [employer]ER Work Phone: Start: 03-18-2021 Colonoscopy Arun ba MD Work Phone: Plan of Treatment Date Care Activity Detail Author Start: 03-18-2031 Screening for malignant neoplasm of colon [facility] Start: 04-28-2028 Lipid panel Lipid Panel [facility] Start: 04-07-2027 Lipid panel Lipid Panel [facility] Start: 04-28-2024 Thyroid stimulating hormone measurement TSH Level [facility] Start: 11-23-2023 Screening for malignant neoplasm of breast Mammogram [facility] Start: 11-08-2023 End: 11-08-2023 Patient encounter procedure 11/08/2023 9:45 AM EST Office Visit [facility] [address] [facility] [place] [address] Ar[facility] [place] [address] [facility] Start: 10-29-2023 Depresssion Monitoring Depresssion Monitoring [facility] Start: 05-27-2023 Influenza vaccination Influenza Vaccine (#1) [facility] Start: 04-28-2023 End: 04-28-2024 Comprehensive metabolic 1998 panel - Serum or Plasma Comprehensive metabolic panel Lab Routine Screening for diabetes mellitus Expected: 04/28/2023 (Approximate), Expires: 04/28/2024 [facility] Immunizations Immunization Date Immunization Notes Care Provider Fa cility 08-13-2022 zoster vaccine recombinant Gary Bridenthal LEAD BURNER HELPER - [employer] FARM [employer]ORER Work Phone: [facility] 07-28-2022 Covid-19, Pfizer Bivalent Booster, (Age 12y+), Im, 30 Mcg/0e Gary Bridenthal LEAD BURNER HELPER - [employer] F[employer]ER Work Phone: [facility] 07-28-2022 influenza, injectabl e, quadrivalent, contains preservative Gary Bridenthal LEAD BURNER HELPER - [employer] F[employer]ER Work Phone: [facility] 07-28-2022 Seasonal, quadrivale nt, recombinant, injectable influenza vaccine, preservative free Gary Bridenthal LEAD BURNER HELPER - [employer] F[employer]ER Work Phone: [facility] 07-28-2022 influenza virus vacc ine, unspecified formulation Arun Henson MD Work Phone: [facility] 04-15-2022 zoster vaccine recombinant Gary Bridenthal LEAD BURNER HELPER - [employer] FARM [employer]ER Work Phone: [facility] 02-10-2022 Pneumococcal Conjuga te PCV20, Pf (Prevnar 20) Gary Bridenthal LEAD BURNER HELPER - [employer] FARM [employer]ER Work Phone: [facility] 10-31-2021 Covid-19, Pfizer Gra y Top, Do Not Dilute, (Age 12 Y+), Im, L Gary Bridenthal LEAD BURNER HELPER - [employer] FARM [employer]ER Work Phone: [facility] 06-26-2021 Seasonal, quadrivale nt, recombinant, injectable influenza vaccine, preservative free Gary Bridenthal LEAD BURNER HELPER - [employer] F[employer]ER Work Phone: [facility] 01-27-2021 Pfizer SARS-CoV-2 Vaccination Gary Bridenthal LEAD BURNER HELPER - [employer] F[employer]ER Work Phone: [facility] 01-06-2021 Pfizer SARS-CoV-2 Vaccination Gary Bridenthal LEAD BURNER HELPER - [employer] FARM [employer]ER Work Phone: [facility] Work Phone: 06-01-2020 influenza, injectabl e, quadrivalent, preservative free Gary Bridenthal LEAD BURNER HELPER - [employer] F[employer]ER Work Phone: [facility] 05-24-2019 influenza, injectabl e, quadrivalent, preservative free Gary Bridenthal LEAD BURNER HELPER - [employer] FARM [employer]ER Work Phone: [facility] 06-08-2018 influenza, injectabl e, quadrivalent, contains preservative Gary Bridenthal LEAD BURNER HELPER - [employer]ER Work Phone: [facility] 06-08-2018 influenza, injectabl e, quadrivalent, preservative free Gary Bridenthal LEAD BURNER HELPER - [employer] F[employer]ER Work Phone: [facility] 07-18-2017 influenza, injectabl e, quadrivalent, preservative free Gary Bridenthal LEAD BURNER HELPER - [employer]ER Work Phone: [facility] 06-20-2016 influenza, injectabl e, quadrivalent, preservative free Gary Bridenthal LEAD BURNER HELPER - [employer]ER Work Phone: [facility] 12-04-2013 influenza virus vacc ine, unspecified formulation Gary Bridenthal LEAD BURNER HELPER - [employer]ER Work Phone: [facility] 05-28-2011 pneumococcal polysaccharide vaccine, 23 valent Gary Bridenthal LEAD BURNER HELPER - [employer] FARM [employer]ER Work Phone: [facility] 07-31-2009 novel influenza-H1N1 -09, preservative-free, injectable Gary Bridenthal LEAD BURNER HELPER - [employer] F[employer]ER Work Phone: [facility] 11-19-2008 tetanus and diphther ia toxoids, not adsorbed, for adult use Gary Bridenthal LEAD BURNER HELPER - [employer] F[employer]ER Work Phone: [facility] 05-10-2005 pneumococcal polysaccharide vaccine, 23 valent Gary Fountainal LEAD BURNER HELPER - [employer] FARM [employer]ORER Work Phone: [facility] Payers Date Payer Category Payer Self-pay 2022 Medicare [id number] 2022 Unknown [employer] S [employer] [id number] 2022-Present [address] [place] [address] Commercial [id number] 2017 Medicare [id number] 1965 Unknown [id number] .1259 1964 Unknown [id number] 2.16.840.1.167073.3.579.2 .598 1964 Unknown [id number] 2.16.840.1.339232.3.579.2 .598 1964 Unknown [id number] 2.16.840.1.032037.3.579.2 .598 1964 Unknown [id number] 2.16.840.1.113980.3.579.2 .598 1964 Unknown [id number] 2.16.840.1.165167.3.579.2 .627 1964 Unknown [id number] 2.16.840.1.988135.3.579.2 .627 1964 Unknown [id number] 2.16.840.1.194797.3.579.2 .627 1959 Private Health Insurance [id number] 1959 Unknown [id number] 1959 Unknown [id number] Medicare [id number] Unknown [id number] 2.16.840.1.796025.3.579.2 .273 Unknown [id number] 2.16.840.1.976195.3.579.2 .273 Unknown [id number] 2.16.840.1.664723.3.579.2 .273 Unknown [id number] 2.16.840.1.609685.3.579.2 .273 Unknown [id number] 2.16.840.1.725730.3.579.2 .273 Unknown [id number] 2.16.840.1.261674.3.579.2 .273 Unknown [id number] 2.16.840.1.277997.3.579.2 .273 Unknown [id number] 2.16.840.1.802164.3.579.2 .273 Unknown [id number] 2.16.840.1.203573.3.579.2 .273 Unknown [id number] 2.16.840.1.977350.3.579.2 .273 Unknown [id number] 2.16.840.1.207570.3.579.2 .273 Unknown [id number] 2.16.840.1.154731.3.579.2 .273 Social History Date Type Detail Facility Tobacco smoking status [facility] Smokes tobacc o daily [facility] History of tobacco use Cigarette Smoker [facility] Start: 11-23-2022 End: 04-28-2023 Alcohol intake Current non-drinker of alcohol (finding) [facility] Start: 1965 Sex Assigned At Not on file [facility] Start: 11-13-2022 End: 04-28-2023 Exposure to SARS-CoV-2 (event) Not sure [facility] Start: 04-28-2023 History of Social function [facility] Start: 04-28-2023 Alcohol Use Disorder Identification Test - Consumption [AUDIT-C] [facility] Frequency of Alcohol Consumption Not on file [facility] (I/We) worried wheth er (my/our) food would run out before (I/we) got money to buy more. Sometimes true [facility] The food that (I/we) bought just didn't last, and (I/we) didn't have money to get more. Never true [facility] In the past 12 month s, was there a time when you were not able to pay the mortgage or rent on time? Yes [facility] At any time in the p ast 12 months, were you homeless or living in penitentiary [including now]? No [facility] Clinical Notes 12-22-2022 to 07-14-2023 Telephone Encounter - ANTONIA Martinez CNP - 07/14/2023 1:24 PM EDTTelephone Encounter - ANTONIA Martinez CNP - 07/14/2023 1:24 PM Lizbet Ferrer MA - 04/28/2023 10:30 AM EDT Note Date & Type Note Facility 07-14-2023 Telephone encount er Note Reviewed chart. Refill appropriate. RX sent. [facility] 07-14-2023 Miscellaneous Notes Formattin g of this [...] the medication: Yes documented in this encounter [facility] 07-14-2023 Telephone encount er Note Medication name: [...] prior to picking up the medication: Yes [facility] 04-28-2023 Evaluation + Plan note Associ ated Problem(s): Tobacco abuse Discussed smoking cessation, she gives no indication she is ready to quit. [facility] 04-28-2023 Evaluation + Plan note Associ ated Problem(s): Severe episode of recurrent major depressive disorder, without psychotic features (HCC) Remission, continues Zoloft 100 mg daily and Cymbalta 30 mg, Risperdal T [facility] 04-28-2023 Miscellaneous Notes Associate d Problem(s): Tobacco [...] Stable, continue Cymbalta documented in this encounter [facility] 04-28-2023 Evaluation + Plan note Associ ated Problem(s): Migraine without aura Stable, continue Emgality once a month and Imitrex as needed., Continues Topamax 100 mg twice a day [facility] 04-28-2023 Evaluation + Plan note Associ ated Problem(s): Hyperlipidemia Controlled, continue rosuvastatin 20 mg daily [facility] 04-28-2023 Evaluation + Plan note Associ ated Problem(s): Anxiety Stable, continue Zoloft 100 mg daily, Cymbalta 30 mg [facility] 04-28-2023 Evaluation + Plan note Associ ated Problem(s): GERD (gastroesophageal reflux disease) Controlled, continue Protonix 40 mg daily [facility] 04-28-2023 Evaluation + Plan note Associ ated Problem(s): Chronic obstructive pulmonary disease with acute exacerbation (HCC) Stable, decreased breath sounds in the bases although no wheezes she does have a cough, continue albuterol and Symbicort and will send in cough medicine T [facility] 04-28-2023 Evaluation + Plan note Associ ated Problem(s): Idiopathic progressive neuropathy Stable, continue Cymbalta T [facility] 04-28-2023 History of Presen t illness Narrative [...] 04/28/2023 10:55 AM documented in this encounter [facility] 01-24-2023 Evaluation + Plan note Associ ated Problem(s): Nocturnal oxygen desaturation Will reorder oxygen for night time use. Samuel performed last nocturnal study that I could find in the media tab in 2018. May need to have new assessment. ?sleep study [facility] 01-24-2023 Miscellaneous Notes Associate d Problem(s): Nocturnal [...] reports ?not using) documented in this encounter [facility] 01-24-2023 Evaluation + Plan note Associ ated Problem(s): Chronic obstructive pulmonary disease with acute exacerbation (HCC) Acute exacerbation. Will treat with prednisone, azithromycin, continue symbicort (use twice daily) albuterol as needed. 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 [facility] performed last nocturnal study that I could find in the media tab in 2018. May need to have new assessment. ?sleep study Orders: - DME Order for Home Oxygen as OP Follow up for with primary care provider as scheduled. Follow up if symptoms worsen or fail to improve. SUBJECTIVE/OBJECTIVE: HPI - Kera Rosenberg (: 1965) is a [...] night time. Was getting the oxygen through [facility]. Last had about 1 year ago. States [...] Strength: 108 (90 Base) MCG/ACT 08/25/22 Yes Gary La APRN - [facility] budesonide-formoterol (Symbicort) 80-4.5 MCG/ACT inhaler Inhale 2 [...] AT BEDTIME September 03, 2019 4:20pm 09-03-2019 [facility] ([id number]) 09/03/19 Yes Historical Provider, pantoprazole (ProtoNix) 40 MG EC tablet 07/21/22 Yes Historical Provider, risperiDONE (RisperDAL) 0.25 MG tablet Take 0.25 mg by mouth. 02/10/21 Yes Historical Provider, risperiDONE (RisperDAL) 2 MG tablet Take 1 tablet by mouth Nightly. 01/10/20 Yes Historical Provider, rosuvastatin (Crestor) 20 MG tablet Take 1 tablet (20 mg) by mouth every morning. 10/22/22 Yes Gary Bridenthal, LEAD BURNER HELPER - [employer] FARM [employer]ORER sertraline (Zoloft) 100 MG tablet Take 1 [...] 01/24/2023 10:26 AM documented in this encounter [facility] 01-24-2023 Telephone encount er Note Noted. Agree with disposition. [facility] 01-24-2023 Miscellaneous Notes Formattin g of this [...] be prescribed oxygen. R: Appointment scheduled today, .. @ 1020 with Ailyn La CNP. . Insurance verified. Home care advice provided. Patient instructed to call back with worsening symptoms, concerns or questions. Patient verbalized understanding. Reason for Disposition Longstanding difficulty breathing (e.g., CHF, COPD, emphysema) and worse than normal Protocols used: Breathing [id number] documented in this encounter [facility] 01-24-2023 Telephone encount er Note S: Patient called the clinical access center with complaint of breathing difficulty. B: Ongoing hx COPD A: Patient c/o breathing difficulty increasing. Patient states she was prescribed oxygen, but could not afford it. Patient now has new insurance and would like to be prescribed oxygen. R: Appointment scheduled today, 5.1.23 @ 1020 with Ailyn La CNP. . Insurance verified. Home care advice provided. Patient instructed to call back with worsening symptoms, concerns or questions. Patient verbalized understanding. Reason for Disposition Longstanding difficulty breathing (e.g., CHF, COPD, emphysema) and worse than normal Protocols used: Breathing Ddaykizhvv-[id number]-KG [facility] 01-10-2023 Telephone encount er Note Rx sent. [facility] 01-10-2023 Miscellaneous Notes Formattin g of this [...] the medication: Yes documented in this encounter [facility] 01-10-2023 Telephone encount er Note Noted. Agree with disposition. [facility] 01-10-2023 Miscellaneous Notes Formattin g of this note might be different from the original. Noted. Agree with disposition. Scheduled with Theresa tomorrow. S: Patient spoke with [facility] nurse regarding something popped in her neck. B: Onset of symptoms started this am. A: [place] like something popped, states she was laying [...] be seen Protocols used: Neck Pain or Ltxhxadwy-GQEMV-LZ documented in this encounter [facility] 01-10-2023 Telephone encount er Note Scheduled with Theresa tomorrow. [facility] 01-10-2023 Telephone encount er Note S: Patient spoke with [facility] nurse regarding something popped in her neck. B: Onset of symptoms started this am. A: [place] like something popped, states she was laying [...] be seen Protocols used: Neck Pain or Wllsqfrnd-YCLZX-OF [facility] 01-10-2023 Telephone encount er Note Medication name: [...] prior to picking up the medication: Yes [facility] 12-27-2022 Telephone encount er Note Message released to patient as written. Patient's further questions if applicable: No further questions Were all questions from office addressed or relayed to the patient from encounter: Yes T [facility] 12-27-2022 Miscellaneous Notes Formattin g of this [...] Sooner for worsening. documented in this encounter [facility] 12-27-2022 Telephone encount er Note Left a message to return call. [facility] 12-23-2022 Telephone encount er Note LM [facility] 12-22-2022 Telephone encount er Note LM to relay results, please document in this encounter that results were relayed and if patient has any questions. [facility] 12-22-2022 Telephone encount er Note ----- Message from ANTONIA Martinez CNP sent at 12/22/2022 4:42 PM EDT ----- Category 2 benign mammogram- no masses. Recommend routine mammogram in 1 year and follow up in office for further evaluation if nipple pain does not improve or resolve over the next 6-8 weeks. Sooner for worsening. [facility] Diagnosis Annual physical exam- Primary [...] hypothyroidism Unspecified hypothyroidism documented in this encounter [facility] Summary Purpose Family History No Family [...] DATE CREATED AUTHOR AUTHOR'S ORGANIZ ATION 03/25/2021 [facility] DATE CREATED AUTHOR AUTHOR'S ORGANIZ ATION 05/19/2022 [facility] DATE CREATED AUTHOR AUTHOR'S ORGANIZ ATION 09/04/2023 [facility] DATE CREATED AUTHOR AUTHOR'S ORGANIZ ATION 10/10/2023 [facility] DATE CREATED AUTHOR AUTHOR'S ORGANIZ ATION 11/08/2023 [facility] DATE CREATED AUTHOR AUTHOR'S ORGANIZ ATION 11/11/[address] [facility] ([place]) Reason for Visit (unrecogniz ed section and [...] Care Teams (unrecognized sec tion and content) Manager Financial Services Relationship Specialty Start Date End Date Arun Henson MD [address] [place] [address] PCP - General 03/21/19 Manager Financial Services Relationship Specialty Start Date End Date Arun Henson MD [address] [place] [id number] PCP - General 03/21/19 Manager Financial Services Relationship Specialty Start Date End Date Arun Henson MD [address] [place] [id number] PCP - General 03/21/19 Manager Financial Services Relationship Specialty Start Date End Date Arun Henson MD [address] [place] [id number] PCP - General 03/21/19 Manager Financial Services Relationship Specialty Start Date End Date Arun Henson MD [address] [place] [id number] PCP - General 03/21/19 Manager Financial Services Relationship Specialty Start Date End Date Arun Henson MD [address] [place] [id number] PCP - General 03/21/19 FOR RECORDS PERTAINING [...] BE BASED ON THE PRIMARY CLINICAL RECORDS. [facility] [employer] [facility]. provides no warranty or guarantee of the accuracy or completeness of information in this document.
[2023-11-11] MEDS: Lactated Ringers 1,000 ML 15 ML IV (10:55)
--- NOTE | 2023-11-11 10:58 | PCM.HP.BLA ---
History and Physical Date of Admission: 11/11/23 Patient seen and examined independently. All questions were answered. Patient understands the risks and benefits along with the follow-up plan. There is been no significant change from documentation below. Assessment and Plan Assessment and Plan (1) COPD (chronic obstructive pulmonary disease): Status: Chronic Qualifiers: COPD type: emphysema Emphysema type: centrilobular Qualified Code(s): J43.2 - Centrilobular emphysema Plan: Patient with significant emphysematous changes noted on CT scan. Patient does have an extensive smoking history. Patient is not compliant with Symbicort therapy at this time. Patient reportedly has PFTs already ordered by oncology. Will await these results. Patient does have an oxygen requirement with sleep, so need with ambulation needs to be evaluated. Will await results of PFT prior to suggesting new maintenance inhaler. Await complete PFT. Order walking oximetry. (2) Hilar mass: Status: Acute Plan: PET scan and CT scan were reviewed in detail. Patient is not a very good candidate for CT-guided biopsy given its hilar location. Patient does have significant hypermetabolic activity noted in the 10 L region. High clinical concern for squamous cell carcinoma. Patient may have endobronchial findings, but after review the risks, benefits alternatives, patient has elected for an EBUS approach. This will be scheduled for November 12 at 12 PM. Patient already has coagulation studies ordered by oncology, so these will not be reordered EBUS as scheduled. Orders: Orders Simple Pulmonary Exercise Test Today J44.9 - Chronic obstructive pulmonary disease, unspecified Bronchoscopy Today R91.8 - Other nonspecific abnormal finding of lung field Plan Details Follow Up: 2 Weeks ([facility]) HPI Lung Mass Details: Patient is a 58-year-old female, currently in the care of Dr. Lake, who presents for evaluation secondary to an abnormal PET scan. Patient reports that she had presented originally to the emergency department with complaints of hemoptysis. Patient states she does have a long smoking history of over 40+ pack years. A workup at that time showed significant enlargement of the left hilum and patient was recommended to see oncology. As part of the workup, patient had a pulmonary consult ordered to evaluate for possible bronchoscopy. Patient states that she does have shortness of breath with ambulation. Patient has had shortness of breath for several years along with a cough productive of clear to white sputum. Patient reportedly had quit 1 month ago and feels that this has helped with her dyspnea and cough. Patient states she has not had recurrence of hemoptysis in quite some time. Patient does report some mild weight loss, but states that she has been nervous and not eating as much. Patient was on Symbicort previously secondary to shortness of breath. This has been discontinued. Patient does have Atrovent that she uses 3 times a day. Patient also has been using some Mucinex to help with sputum production. Patient is not reporting any chest pain at this time. Patient has been prescribed supplemental oxygen with sleep. Patient states that she typically uses 2 L/min. Patient has never used more than 3 L/min. Patient does not believe she needs it with ambulation, but is not sure that it has been checked. Review of systems otherwise negative from a constitutional, HEENT, respiratory, cardiovascular, GI, genitourinary, musculoskeletal, skin, neurologic, psychiatric and hematologic system unless stated above. Documentation reviewed prior to the office visit 40 pages of documentation were reviewed prior to the office visit. Patient reportedly had been to the ER couple times with hemoptysis that led to a CT scan. Patient ultimately had a PET scan showing a 2.1 x 2.2 spiculated lingular mass with increased uptake consistent with malignancy. Patient presents for recommendations. 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 Patient reportedly has continued to smoke and appears to currently be on Symbicort laboratory workup showed a white blood cell count of 8.4 with 3.2% eosinophils. Chemistries were relatively unremarkable except for a creatinine of 1.27. Patient does have multiple allergies reported. Patient has had a sleep apnea evaluation showing an overall AHI of 4.4 events per hour completed in October 2023. Patient was noted to have desaturation for 6.8 minutes. Imaging personally reviewed prior to the office visit CTA chest and PET scan were reviewed. Patient does have a hypermetabolic left hilar mass with postobstructive atelectasis in the lingula and possible 10 L enlargement/hypermetabolic activity. Review of the CT scan shows only shotty enlargement of the 7 station lymph nodes. No significant right-sided or station 7 hypermetabolic activity noted in PET scan. Intake Vital Signs 11/01/2413:48 11/07/2409:27 Height 5 ft 7 in 5 ft 7 in Weight: 87.657 kg 86.636 kg BMI 30.2 29.9 BP 109/69 137/85 H Blood Pressure Location Lt brachial Rt brachial Position Sitting Sitting Respiration 18 20 H Pulse 89 102 H Pulse Source Monitor Monitor Temp 35.8 C L 36.9 C Temperature Source Temporal Artery Temporal Artery Pulse Oximetry (%) 96 97 Oxygen Delivery Method room air room air Intake Visit Reasons: Lung Mass Chief Complaint: Hemoptysis, lung mass on CT Transportation Technician Required: No DME Vendor: [employer] Accompanied by: Daughter Is patient in pain?: No Allergies acetaminophen [From Tylenol] Allergy (Verified 11/07/23 11:04) Shortness of breathamoxicillin Allergy (Verified 11/07/23 11:04) Otherdicyclomine [From Bentyl] Allergy (Verified 11/07/23 11:04) RashLatex, Natural Rubber Allergy (Verified 11/07/23 11:04) Rashmirtazapine Allergy (Verified 11/07/23 11:04) Othermorphine Allergy (Verified 11/07/23 11:04) Shortness of breathPenicillins Allergy (Verified 11/07/23 11:04) Otherprasterone (DHEA) Allergy (Verified 11/07/23 11:04) Otherprocaine Allergy (Verified 11/07/23 11:04) Otherprochlorperazine Allergy (Verified 11/07/23 11:04) Othersulfasalazine Allergy (Verified 11/07/23 11:04) Othervaldecoxib [From Bextra] Allergy (Verified 11/07/23 11:04) Shortness of breathVenlafaxine Analogues Allergy (Verified 11/07/23 11:04) Otherprednisolone Adverse Reaction (Severe, Verified 11/07/23 11:04) bleedingketorolac [From Toradol] Adverse Reaction (Verified 11/07/23 11:04) Other Medications levothyroxine 50 mcg tablet 50 mcg PO DAILY thyroid 10/18/17 [History Confirmed 11/07/23] albuterol sulfate 90 mcg/actuation aerosol inhaler 2 puff IH 4X/DAY ##1 10/19/17 [Rx Confirmed 11/07/23] risperidone 1 mg tablet 2 mg PO DAILY 09/03/19 [History Confirmed 11/07/23] cetirizine 10 mg tablet 10 mg PO DAILY PRN 11/01/23 [History Confirmed 11/07/23] epinephrine 0.3 mg/0.3 mL injection, auto-injector 0.3 mg IM Q4H PRN 11/01/23 [History Confirmed 11/07/23] galcanezumab-gnlm 120 mg/mL subcutaneous pen injector (Emgality Pen) 120 mg subcut QMONTH 11/01/23 [History Confirmed 11/07/23] magnesium 250 mg tablet 250 mg PO DAILY 11/01/23 [History Confirmed 11/07/23] rosuvastatin 20 mg tablet 20 mg PO DAILY 11/01/23 [History Confirmed 11/07/23] topiramate 100 mg tablet (Topamax) 100 mg PO BID 11/01/23 [History Confirmed 11/07/23] cholecalciferol (vitamin D3) 50 mcg (2,000 unit) capsule 50 mcg PO DAILY 11/04/23 [History Confirmed 11/07/23] cyanocobalamin (vitamin B-12) 5,000 mcg capsule 5,000 mcg PO DAILY 11/04/23 [History Confirmed 11/07/23] hydroxyzine HCl 25 mg tablet 25 mg PO .qd 11/04/23 [History Confirmed 11/07/23] hydroxyzine pamoate 50 mg capsule mg PO .qid PRN 11/04/23 [History Confirmed 11/07/23] ibuprofen 200 mg tablet 400 mg PO Q4H PRN pain 11/04/23 [History] ipratropium 0.5 mg-albuterol 3 mg (2.5 mg base)/3 mL nebulization soln ml inhalation Q6H PRN shortness of breath or wheezing 11/04/23 [History Confirmed 11/07/23] ondansetron 8 mg disintegrating tablet mg translingual Q8H PRN nausea and vomiting 11/04/23 [History Confirmed 11/07/23] pantoprazole 40 mg tablet,delayed release mg PO BID 11/04/23 [History Confirmed 11/07/23] hqgkzrjyflpmg-frjmegzedpawl-djyruhebhik 5 mg-325 mg-200 mg tablet (Mucus Relief Cold and Sinus) 2 tab PO Q4-6H PRN 11/04/23 [History Confirmed 11/07/23] risperidone 0.5 mg tablet mg PO DAILY 11/04/23 [History Confirmed 11/07/23] escitalopram oxalate 10 mg tablet (Lexapro) 10 mg PO DAILY 11/07/23 [History Confirmed 11/07/23] furosemide 40 mg tablet mg PO 11/07/23 [History Confirmed 11/07/23] ipratropium bromide 17 mcg/actuation HFA aerosol inhaler (Atrovent HFA) 2 puff inhalation TID 11/07/23 [History Confirmed 11/07/23] quetiapine 50 mg tablet (Seroquel) 50 mg PO BID 11/07/23 [History Confirmed 11/07/23] PFSH Medical History Anxiety Asthma Cancer Chronic pain COPD (chronic obstructive pulmonary disease) COVID-19 Depression Gastroparesis GERD (gastroesophageal reflux disease) Hyperlipemia Hypothyroidism Migraines Myocardial infarct Neuropathy Panic attack Smoker Surgical History (Updated 11/04/23 @ 09:50 by Stephanie Rolle) H/O right knee surgery History of appendectomy History of hysterectomy Family History (Updated 11/01/23 @ 15:05 by Shaina Baer) Mother Colon cancer DiabetesSister Colon cancer DiabetesFather Diabetes Cancer liverOther Heart disease Social History (Updated 11/01/23 @ 15:02 by Shaina Baer) household members: spouse housing: house Smoking Status: Former smoker Tobacco: How many years used: 50 alcohol intake: never substance use type: does not use Exam Const Constitutional: Positive conversant, cooperative, in no acute respiratory distress, well developed, well nourished, poor hygiene and appears older than stated age; Negative wearing supplemental oxygen Head Head: Yes normocephalic, Yes atraumatic and No cyanosis of lips/distal nose Eyes Eye: Positive clear conjunctiva; Negative nystagmus, scleral abnormality or cataract present Glasses in place Ears Ear: Positive hearing normal and external ears normal Nose Nose: Yes external nose normal, No nasal polyp and Yes septum normal Mouth Mouth: Positive oral mucosae normal, no lesions and crowded posterior oropharynx; Negative oral thrush present or post nasal drip Mallampati Score: III: Mallampati Score Neck Neck: Positive normal visual inspection, full ROM and trachea midline; Negative lymphadenopathy or JVD Chest Wall Chest: Positive normal inspection of the chest and symmetric chest movement; Negative crepitus or tenderness Resp lung sounds: Positive diminished lung sounds, prolonged expiratory time and normal expiratory time; Negative wheezes, wheeze present on forced exhalation, rhonchi, rales, dullness or use of accessory muscles Cardio Cardiac: Positive regular rate, regular rhythm, S1 normal and S2 normal; Negative murmur, rub or gallop GI GI: Positive normal to inspection and normal bowel sounds; Negative distended, ascites or epigastric tenderness Musc Musculoskeletal: Positive steady gait; Negative using an assistive device for ambulation, kyphosis or scoliosis Skin Pulmonary Skin Exam: Positive intact; Negative lesion, rash, ulcers or erythema Pulses Pulse: Yes radial pulses present Extremities Extremities: Yes capillary refill normal, No clubbing, No cyanosis and No edema Neuro Neurologic: Yes no focal neuro deficits, Yes conversant, Yes cooperative, Yes normal cognition, Yes normal coordination, Yes normal concentration and Yes understands questions Lymph Lymphatic: No lymphadenopathy Psych Appearance: Positive grossly normal Mental Status: Positive mental status grossly normal Mood: Positive congruent mood Affect: Positive normal affect
--- NOTE | 2023-11-11 12:30 | LUNB_PTH ---
PATHOLOGY RESULTS PATIENT: ELVA CIFUENTES LOC: EN U#:[id number] AGE/SX: 58/F ROOM: RE11/11/[address]: Dr. Tommy Prescott MD : 1965 BED: DIS: 11/11/2023 SPEC #: [id number] RECD: 11/11/23 13:26 STATUS: WAYLON DAVIDA #: [id number] ANUP: 11/11/23 12:[address]: Tommy Prescott DEPT: SURGICAL PATHOLOGY RECD BY: Lata Bailey ENTERED: 11/11/23 14:14 SP TYPE: LUNG BX OTHR DR: Dr. Bob Lake, DO Tissues: Lung, NOS Procedures: Surgery Specimen Level IV HEADER OPERATION: Endobronchial ultrasound, endobronchial biopsy, biopsy PRE-OP DIAGNOSIS: Left hilar mass TISSUE SUBMITTED: Left upper lobe lung mass MICROSCOPIC DIAGNOSIS Left upper lobe lung, endobronchial biopsy: Non-small cell carcinoma, favor squamous cell carcinoma. See comment. LJ:courtney 11/14/2023 COMMENT Immunohistochemistry ([id number]) supports the above diagnosis. Molecular studies on the tumor can be performed if clinically indicated. Please notify the laboratory if they are needed. Case has been reviewed in consultation with Dr. Murillo who concurs with the above diagnosis. IDC:AM MICROSCOPIC DESCRIPTION Slides are reviewed. GROSS DESCRIPTION Received in fixative is one container labeled with the patient's name and designated Left upper lobe lung. The specimen consists of multiple irregular fragments of lackey soft tissue that in aggregate measure 1.0 x 0.3 x 0.1 cm. The specimen is totally submitted in one cassette. / LJ:courtney 11/11/2023 TC:0 CPT: 47245 ADDENDUM ADDENDUM 12/02/2023 09:36 PD-L1 (KEYTRUDA) IMMUNOHISTOCHEMICAL ANALYSIS FROM [facility] RESULTS: Tumor proportion score: 1-2% / Positive [facility] NGS REPORT FROM [facility] RESULT SUMMARY: Abnormal High level TMB is DETECTED Genomic alterations evaluated and reported herein solely consist of DNA level mutations. Parallel NGS gene fusion panel testing is currently pending to further assess for potential RNA level abnormalities involving ALK, ROS1, RET, MET, NTRK1/2/3, etc., separate report to follow. DETECTED GENOMIC ALTERATIONS: Tier II: Variants of Potential Clinical Significance TP53 p.([id number]) IMMUNOTHERAPY BIOMARKERS: Tumor Mutation [place]: High (11.8 Mutations / MB) Microsatellite Instability: MSI Negative (2.5%) PERTINENT NEGATIVE RESULTS: The following genes are NEGATIVE for clinically relevant mutations. Mutational hotspots and surrounding exonic regions were interrogated for DNA level point mutations and indels (fusions not assayed). AKT1, ALK, ATR, BRAF, CHEK1, DDR2, EGFR, ERBB2, ERBB3, FGFR1, HRAS, KRAS, MAP2K1, MET, NRAS, NTRK1, PIK3CA, POLD1, POLE, ROS1, STK11, TERT Please see complete report in e-chart or EMR
[2023-11-11] MEDS: Epinephrine (1 mg/ml) 1 MG/ML VIAL (13:06)
[2023-11-11] MEDS: Lidocaine Jelly 2% 20 ML Syringe (URO-JET) 1 APPLIC (13:06)
[2023-11-11] MEDS: 0.9% Normal Saline (Pres. free 10 ML Vial (13:08)
--- NOTE | 2023-11-11 13:35 | OP.BRONCH_ITS ---
Patient Name: Kera Rosenberg Procedure Date: 11/11/2023 11:57 AM Date of : 1965 Age: 58 Procedure: Bronchoscopy Indications: Left upper lobe mass, Endobronchial mass, Mediastinal adenopathy Providers: Tommy Prescott MD Referring MD: Bob Lake Do Medicines: See the Anesthesia note for documentation of the administered medications Complications: No immediate complications Procedure: Pre-Anesthesia Assessment: - A History and Physical has been performed. The patient's medications, allergies and sensitivities have been reviewed. - The risks and benefits of the procedure and the sedation options and risks were discussed with the patient. All questions were answered and informed consent was obtained. After I obtained informed consent, the scope was passed under direct vision. Throughout the procedure, the patient's blood pressure, pulse, and oxygen saturations were monitored continuously. The bronchoscope was introduced into the airway. Right bronchial tree was within normal limits, but left bronchial tree was notable for abnormal epithelium. There was significant dynamic collapse throughout the airway bilaterally. This was noted to be very friable, so a total of 3 cc of epinephrine were used topically preemptively. The ultrasound bronchoscope was introduced through the mouth, via laryngeal mask airway and advanced to the tracheobronchial tree. The bronchoscope was introduced through the mouth, via laryngeal mask airway and advanced to the tracheobronchial tree. The procedure was accomplished without difficulty. The patient tolerated the procedure well. The procedure was accomplished without difficulty. The patient tolerated the procedure fairly well. Findings: The laryngeal mask airway is in good position. The vocal cords appear normal. The subglottic space is normal. The trachea is of normal caliber. The jimbo is sharp. The tracheobronchial tree was examined to at least the first subsegmental level. Bronchial mucosa and anatomy are normal; there are no endobronchial lesions, and no secretions. The laryngeal mask airway is in good position. The vocal cords appear normal. The subglottic space is normal. The trachea is of normal caliber. The jimbo is sharp. The tracheobronchial tree of the right lung was examined to at least the first subsegmental level. Bronchial mucosa and anatomy are normal; there are no endobronchial lesions, and no secretions. Left Lung Abnormalities: Partially obstructing (about 80% obstructed) dynamic collapse was found throughout the left tracheobronchial tree. Mucosal irregularity was found in the left upper lobe. The scope was withdrawn and replaced with the EBUS bronchoscope to accomplish the ultrasound examination. Lymph Nodes: An endobronchial ultrasound endoscope was utilized to systematically examine the subcarinal mediastinum (level 7) and left hilar region (level 10L) in order to assist with fine needle aspiration and evaluate lymph nodes. Lymph node sizing was performed via endobronchial ultrasound. Sampling by transbronchial needle aspiration was also performed using an Olympus EBUS-TBNA needle in the left interlobar region (level 11L) and sent for routine cytology. Rapid On-Site Evaluation (KEYON) was also performed. - The 7 (subcarinal) node was not visualized by EBUS. The node was round. Sampling was not done due to size criteria (less than 5 mm). KEYON was not performed. - The 11L (interlobar) node was 25 mm by EBUS. The node was irregular, heterogenous and had well defined margins. Four samples with the needle were obtained. The cellularity of the specimen was adequate. Lymph Nodes: A PET scan was found to be hypermetabolic in the left interlobar region (level 11L) node. The bronchoscope was then changed back to the the therapeutic bronchoscope. Endobronchial biopsies of a lesion were performed in the left upper lobe using a forceps and sent for histopathology examination. Four samples were obtained. Patient did require irrigation with cold saline secondary to obstruction of view by secretions. Impression: - Left upper lobe mass - Endobronchial mass - Mediastinal adenopathy - The airway examination was normal. - The airway examination of the right lung was normal. - Dynamic collapse was found throughout the left tracheobronchial tree. - Mucosal irregularity was visualized in the left upper lobe. - Endobronchial ultrasound was performed. - Systematic lymph node sizing, sampling, ultrasound visualization and preliminary cytology was performed. - An endobronchial biopsy was performed. Recommendation: - The patient will be observed post-procedure, until all discharge criteria are met. - Await biopsy and cytology results. - Follow up with bronchoscopist once pathology is finalized. Procedure Code(s): --- Professional --- 46708, Bronchoscopy, rigid or flexible, including fluoroscopic guidance, when performed; with endobronchial ultrasound (EBUS) guided transtracheal and/or transbronchial sampling (eg, aspiration[s]/biopsy[ies]), one or two mediastinal and/or hilar lymph node stations or structures 42748, Bronchoscopy, rigid or flexible, including fluoroscopic guidance, when performed; with bronchial or endobronchial biopsy(s), single or multiple sites 63040, Bronchoscopy, rigid or flexible, including fluoroscopic guidance, when performed; with transendoscopic endobronchial ultrasound (EBUS) during bronchoscopic diagnostic or therapeutic intervention(s) for peripheral lesion(s) (List separately in addition to code for primary procedure[s]) Diagnosis Code(s): --- Professional --- R91.8, Other nonspecific abnormal finding of lung field R59.0, Localized enlarged lymph nodes J98.19, Other pulmonary collapse J98.4, Other disorders of lung CPT copyright 202 [employer]. All rights reserved. The codes documented in this report are preliminary and upon merchandising director review may be revised to meet current compliance requirements. MD Tommy Rowell MD 11/11/2023 1:35:30 PM This report has been signed electronically. Number of Addenda: 0 Note Initiated On: 11/11/2023 11:57 AM
--- NOTE | 2023-11-11 14:13 | SUR.PHASEII ---
PATIENT USED IN ALBUTERAL INHALER. COARSE COUGING NOTED.
== END 2023-11-11 14:16 | disposition home or self-care (01) ==
LOC: EN 10:18 → AC 10:19
PROVIDERS: PCP Student in an Organized Health Care Education/Training Program; Referring Provider Student in an Organized Health Care Education/Training Program; Visit Provider Internal Medicine Critical Care Medicine
PROC: BB4BZZZ Ultrasonography of Pleura (ICD-10-PCS; CPT 31625; principal; 2023-11-11 11:30)
DX: C34.12 Malignant neoplasm of upper lobe, left bronchus or lung (principal); J43.2 Centrilobular emphysema; F41.0 Panic disorder [episodic paroxysmal anxiety]; R04.2 Hemoptysis; G89.29 Other chronic pain; R59.0 Localized enlarged lymph nodes; E78.5 Hyperlipidemia, unspecified; Z86.16 Personal history of COVID-19; G47.30 Sleep apnea, unspecified; Z80.0 Family history of malignant neoplasm of digestive organs; Z87.891 Personal history of nicotine dependence; R91.8 Other nonspecific abnormal finding of lung field; J98.19 Other pulmonary collapse
CPT/HCPCS: 31625; 31654; 31652; 85025; 85610; 85730; 88161; 88172; 88305; 88313; 88341; 88342; J7120; A4216; J3490

== ENCOUNTER → 2023-11-14 | Outpatient (CLI) | payer BC, MEDICARE, SELFPAY ==
--- OUTSIDE RECORDS SUMMARY | 2023-11-14 09:38 | XMS RPT_ITS | CCD ---
Author Name Unknown Address [address] [place] [address] [facility] Care Team Providers Care Slide Fastener Repairer Name Role Phone Kemal Monique Unavailable Unavailable GutloveKemal P Unavailable Unavailable GutloveKemal P Unavailable Unavailable GutloveKemal P Unavailable Unavailable GutloveKemal P Unavailable Unavailable GutKemal tirado P Unavailable Unavailable No Family Physician given Unavailable Unavai lable GutKemal tirado P Unavailable Unavailable No Family Physician given Unavailable Unavai lable Gutlove, Kemal P Unavailable Unavailable No Family Physician given Unavailable Unavai lable Gutlove, Kemal P Unavailable Unavailable No Family Physician given Unavailable Unavai lable Gutroyave, Kemal P Unavailable Unavailable Marjorie Martinez Unavailable Unavailable Gutlove Kemal P Unavailable Unavailable Scott Barros Unavailable Unavailable No Family Physician given Unavailable UnavaArun Presley MD Primary Care Provider Arun Henson MD Primary Care Provider RHONDA CRAFT Attending Unavailable RHONDA CRAFT Referring Unavailable ARUN HENSON Attending Unavailable ARUN HENSON Primary Care Unavailable GARY LA Referring Unavailable ARUN HENSON Primary Care Unavailable GARY LA Attending Unavailable ARUN HENSON Primary Care Unavailable LAZARUS ROBINS DO Attending Unavailable LAZARUS ROBINS DO Primary Care Unavailable ROBERT NEAL MD Attending Unavailabl e LAZARUS ROBINS DO Primary Care Unavailable LAZARUS ROBINS DO Attending Unavailable LAZARUS ROBINS DO Primary Care Unavailable JERMAINE ALVAREZ CRNA Consulting Unava ilboris LINDER MD~[id number], NIYAH Estes Admitting Unavailable NIYAH MALIK~[id number], NIYAH Estes Attending Unavailable LAZARUS ROBINS Primary Care Unavailable JERMAINE ALVAREZ CRNA Consulting ARUN Ascencio Primary Care Unavailable NIYAH MALIK~[id number], NIYAH Estes Admitting Unavailable NIYAH MALIK~[id number], NIYAH Estes Attending Unavailable LAZARUS SALINAS CRNA Consulting Unavailable LAZARUS SALINAS CRNA Consulting Unavailable JANKI FOSTER Primary Care Unavailable NIYAH MALIK~[id number], NIYAH Estes Admitting Unavailable NIYAH MALIK~[id number], NIYAH Estes Attending Unavailable TASHIA WEAVER CRNA Consulting Unavailable TASHIA WEAVER CRNA Consulting Unavailable ARUN HENSON Primary Care Unavailable NIYAH MALIK~[id number], NIYAH Estes Admitting Unavailable NIYAH MALIK~[id number], NIYAH Estes Attending Unavailable BECKY RASMUSSEN CRNA Consulting Unavailable BECKY RASMUSSEN CRNA Consulting Unavailable Allergies Allergy Classification Reported Allergen(s) Allergy Type Date of Onset Reaction(s) Facility (7 sources) Acetaminophen Drug Allergy 03-05-20 15 Hives [facility] (7 sources) calcium phosphate / prasterone Drug Allergy 07-27-20 05 [facility] (7 sources) Dextran Drug Allergy 12-05-19 22 Rash [facility] (7 sources) Dicyclomine Drug Allergy 06-05-20 16 [facility] (6 sources) Honey bee venom Propensity to adverse reactions 03-05-20 15 Anaphylaxis [facility] (8 sources) Iothalamate Drug Allergy 09-05-20 19 [facility] (7 sources) Ketorolac trometamol Propensity to adverse reactions 03-05-20 15 Anxiety [facility] (8 sources) Latex; Translations: [Latex] Propensity to adverse reactions 07-05-20 08 Anaphylaxis, Rash [facility] (7 sources) Lidocaine Drug Allergy 03-05-20 15 Shortness of breath [facility] (7 sources) lubiprostone Drug Allergy 09-05-20 19 [facility] (7 sources) Mirtazapine Drug Allergy 02-09-20 16 Anaphylaxis [facility] (7 sources) Morphine Drug Allergy 03-05-20 15 Shortness of breath [facility] (7 sources) Penicillins Drug Intolerance 03-05-20 15 Shortness of breath [facility] (7 sources) Prazosin Drug Allergy 01-29-20 22 Rash [facility] (7 sources) Prednisone Propensity to adverse reactions 03-05-20 15 [facility] (7 sources) Procaine Drug Allergy 12-09-19 12 [facility] (7 sources) Prochlorperazine Drug Allergy 03-05-20 15 Shortness of breath [facility] (7 sources) Sulfasalazine Propensity to adverse reactions 06-05-20 15 Anaphylaxis [facility] (7 sources) Sulfonamides (Antibiotic) Drug Intolerance 06-05-20 15 Anaphylaxis [facility] (7 sources) valdecoxib Drug Allergy 03-05-20 15 Shortness of breath [facility] (7 sources) venlafaxine Drug Allergy 12-09-19 12 [facility] (7 sources) Amoxicillin-Pot Clavulanate Drug Intolerance 12-09-19 12 [facility] (7 sources) Prasterone Propensity to adverse reactions 02-07-20 21 [facility] (7 sources) Soybean-Containing Drug Products Drug Intolerance 03-05-20 15 Hives [facility] (2 sources) Other Propensity to adverse reactions 04-28-20 23 [facility] (1 source) bee venom Propensity to adverse reactions 03-05-20 15 Anaphylaxis [facility] (1 source) Acetaminophen Drug Allergy [facility] (1 source) Amoxicillin / Clavulanate Drug Allergy [facility] (1 source) Dicyclomine Drug Allergy [facility] (1 source) lubiprostone Drug Allergy [facility] (1 source) Morphine Drug Allergy [facility] (1 source) Penicillins Drug allergy (disorder) [facility] (1 source) DHEA Drug allergy (disorder) [facility] (1 source) Novocain Drug allergy (disorder) [facility] Medications Current Medications Medication Drug Class(es) Dates Sig (Normalized) Sig (Original) [id number] 200 actuat albuterol 0.09 mg/actuat metered dose [...] Onset: 3 Chronic Other aftercare (1 source) group home (current) use of aspirin; Translations: [[facility] CURRENT USE OF ASPIRIN] Onset: 4 Episodic Other aftercare (1 source) Other buttermaker continuous churn (current) drug therapy; Translations: [OTH [facility] CURRENT DRUG THERAPY] Onset: 4 Episodic Other [...] 10-26-2022 10-26-2022 Episodic Other aftercare (1 source) ad terminal makeup operator (current) use of non-steroidal anti-inflammatories (NSAID); Translations: [[facility] USE NSAID] Onset: 06-30-2023 Episodic Other aftercare (1 source) ad terminal makeup operator (current) use of inhaled steroids; Translations: [SKI PATROLLER USE OF INHALED STEROIDS] Onset: 06-30-2023 Episodic [...] 170.2 cm Arun Henson MD Work Phone: [employer] 04-28-2023 10:13-0400 Body mass index (BMI) [Ratio] 29.66 kg/m2 Arun Henson MD Work Phone: [employer] 04-28-2023 10:13-0400 Body weight 85.91 kg Arun Henson MD Work Phone: [employer] 04-28-2023 10:13-0400 Diastolic blood pressure 76 mm[Hg] Arun Henson MD Work Phone: [employer] 04-28-2023 10:13-0400 Heart rate 78 /min Arun Henson MD Work Phone: [employer] 04-28-2023 10:13-0400 SaO2% (BldA) [Mass fraction] 94 % Arun Henson MD Work Phone: [employer] 04-28-2023 10:13-0400 Systolic blood pressure 122 mm[Hg] Arun Christy Work Phone: [employer] 01-24-2023 10:17-0400 Body mass index (BMI) [Ratio] 26.31 kg/m2 Gary Bridenthal INVERFORM MACHINE OPERATOR - MANAGER RESIDENTIAL Work Phone: [employer] 01-24-2023 10:17-0400 Body weight 76.2 kg Gary Bridenthal INVERFORM MACHINE OPERATOR - MANAGER RESIDENTIAL Work Phone: [employer] 01-24-2023 10:17-0400 Diastolic blood pressure 82 mm[Hg] Gary Bridenthal INVERFORM MACHINE OPERATOR - MANAGER RESIDENTIAL Work Phone: [facility] [employer] 01-24-2023 10:17-0400 Heart rate 91 /min Gary Bridenthal INVERFORM MACHINE OPERATOR - MANAGER RESIDENTIAL Work Phone: [employer] 01-24-2023 10:17-0400 Respiratory rate 24 /min Gary Bridenthal INVERFORM MACHINE OPERATOR - MANAGER RESIDENTIAL Work Phone: [employer] 01-24-2023 10:17-0400 SaO2% (BldA) [Mass fraction] 98 % Gary Balajienthal INVERFORM MACHINE OPERATOR - MANAGER RESIDENTIAL Work Phone: [facility] [employer] Encounters Encounter Date Encounter Type Care Provider Facility Start: 11-09-2023 End: 11-10-2023 ambulatory ROBERT NEAL MD Facility:B Start: 11-02-2023 End: 11-03-2023 ambulatory LAZARUS ROBINS DO Facility:A Start: 10-03-2023 End: 10-03-2023 ambulatory JERMAINE [facility] Start: 09-02-2023 End: 09-02-2023 ambulatory RHONDA CRAFT Not Available Start: 08-31-2023 End: 09-05-2023 ambulatory LAZARUS ROBINS DO Facility:B Start: 07-14-2023 Angel Henson MD Work Phone: [facility] Start: 06-27-2023 End: 06-27-2023 ambulatory [facility] Start: 04-28-2023 End: 04-28-2023 ambulatory [facility] Start: 04-28-2023 End: 04-28-2023 Encounter for general adult medical examination without abnormal findings [facility] Start: 04-28-2023 End: 04-28-2023 Patient encounter procedure Arun Henson MD Work Phone: [facility] Work Phone: Start: 04-28-2023 End: 04-28-2023 Periodic preventive med est patient 40-64yrs Arun Henson MD Work Phone: [facility] Procedures Date Procedure Procedure Detail Performing Clinician Start: 04-28-2023 Lipid 1996 panel - S blaise or Plasma Arun Henson MD Work Phone: Start: 04-28-2023 Thyrotropin [Units/v olume] in Serum or Plasma Arun Henson MD Work Phone: Start: 11-23-2022 Mammography Gary Br identhal INVERFORM MACHINE OPERATOR - MANAGER RESIDENTIAL Work Phone: Start: 04-07-2022 Lipid 1996 panel - S blaise or Plasma Gary Bridenthal INVERFORM MACHINE OPERATOR - MANAGER RESIDENTIAL Work Phone: Start: 04-07-2022 Thyrotropin [Units/v olume] in Serum or Plasma Gary Bridenthal INVERFORM MACHINE OPERATOR - MANAGER RESIDENTIAL Work Phone: Start: 03-18-2021 Colonoscopy Arun ba MD Work Phone: Plan of Treatment Date Care Activity Detail Author Start: 03-18-2031 Screening for malignant neoplasm of colon [facility] Start: 04-28-2028 Lipid panel Lipid Panel [facility] Start: 04-07-2027 Lipid panel Lipid Panel [facility] Start: 04-28-2024 Thyroid stimulating hormone measurement TSH Level [facility] Start: 11-23-2023 Screening for malignant neoplasm of breast Mammogram [facility] Start: 11-08-2023 End: 11-08-2023 Patient encounter procedure 11/08/2023 9:45 AM EST Office Visit [facility] [address] [place] [address] [place] [address] [facility] [address] [facility] Start: 10-29-2023 Depresssion Monitoring Depresssion Monitoring [facility] Start: 05-27-2023 Influenza vaccination Influenza Vaccine (#1) [facility] Start: 04-28-2023 End: 04-28-2024 Comprehensive metabolic 1998 panel - Serum or Plasma Comprehensive metabolic panel Lab Routine Screening for diabetes mellitus Expected: 04/28/2023 (Approximate), Expires: 04/28/2024 [facility] Immunizations Immunization Date Immunization Notes Care Provider Fa cility 08-13-2022 zoster vaccine recombinant Gary Bridenthal INVERFORM MACHINE OPERATOR - MANAGER RESIDENTIAL Work Phone: [facility] 07-28-2022 Covid-19, Pfizer Bivalent Booster, (Age 12y+), Im, 30 Mcg/0e Gary Bridenthal INVERFORM MACHINE OPERATOR - MANAGER RESIDENTIAL Work Phone: [facility] 07-28-2022 influenza, injectabl e, quadrivalent, contains preservative Gary Bridenthal INVERFORM MACHINE OPERATOR - MANAGER RESIDENTIAL Work Phone: [facility] 07-28-2022 Seasonal, quadrivale nt, recombinant, injectable influenza vaccine, preservative free Gary Bridenthal INVERFORM MACHINE OPERATOR - MANAGER RESIDENTIAL Work Phone: [facility] 07-28-2022 influenza virus vacc ine, unspecified formulation Arun Henson MD Work Phone: [facility] 04-15-2022 zoster vaccine recombinant Gary Bridenthal INVERFORM MACHINE OPERATOR - MANAGER RESIDENTIAL Work Phone: [facility] 02-10-2022 Pneumococcal Conjuga te PCV20, Pf (Prevnar 20) Gary Bridenthal INVERFORM MACHINE OPERATOR - MANAGER RESIDENTIAL Work Phone: [facility] 10-31-2021 Covid-19, Pfizer Gra y Top, Do Not Dilute, (Age 12 Y+), Im, L Gary Bridenthal INVERFORM MACHINE OPERATOR - MANAGER RESIDENTIAL Work Phone: [facility] [employer] 06-26-2021 Seasonal, quadrivale nt, recombinant, injectable influenza vaccine, preservative free Gary Bridenthal INVERFORM MACHINE OPERATOR - MANAGER RESIDENTIAL Work Phone: [facility] 01-27-2021 Pfizer SARS-CoV-2 Vaccination Gary Bridenthal INVERFORM MACHINE OPERATOR - MANAGER RESIDENTIAL Work Phone: [facility] 01-06-2021 Pfizer SARS-CoV-2 Vaccination Gary Bridenthal INVERFORM MACHINE OPERATOR - MANAGER RESIDENTIAL Work Phone: [facility] [employer] Work Phone: 06-01-2020 influenza, injectabl e, quadrivalent, preservative free Gary Bridenthal INVERFORM MACHINE OPERATOR - MANAGER RESIDENTIAL Work Phone: [facility] [employer] 05-24-2019 influenza, injectabl e, quadrivalent, preservative free Gary Bridenthal INVERFORM MACHINE OPERATOR - MANAGER RESIDENTIAL Work Phone: [facility] 06-08-2018 influenza, injectabl e, quadrivalent, contains preservative Gary Bridenthal INVERFORM MACHINE OPERATOR - MANAGER RESIDENTIAL Work Phone: [facility] 06-08-2018 influenza, injectabl e, quadrivalent, preservative free Gary Bridenthal INVERFORM MACHINE OPERATOR - MANAGER RESIDENTIAL Work Phone: [facility] 07-18-2017 influenza, injectabl e, quadrivalent, preservative free Gary Bridenthal INVERFORM MACHINE OPERATOR - MANAGER RESIDENTIAL Work Phone: [facility] 06-20-2016 influenza, injectabl e, quadrivalent, preservative free Gary Bridenthal INVERFORM MACHINE OPERATOR - MANAGER RESIDENTIAL Work Phone: [facility] 12-04-2013 influenza virus vacc ine, unspecified formulation Gary Bridenthal INVERFORM MACHINE OPERATOR - MANAGER RESIDENTIAL Work Phone: [facility] 05-28-2011 pneumococcal polysaccharide vaccine, 23 valent Gary Bridenthal INVERFORM MACHINE OPERATOR - MANAGER RESIDENTIAL Work Phone: [facility] 07-31-2009 novel influenza-H1N1 -09, preservative-free, injectable Gary Bridenthal INVERFORM MACHINE OPERATOR - MANAGER RESIDENTIAL Work Phone: [facility] 11-19-2008 tetanus and diphther ia toxoids, not adsorbed, for adult use Gary Bridenthal INVERFORM MACHINE OPERATOR - MANAGER RESIDENTIAL Work Phone: [employer] 05-10-2005 pneumococcal polysaccharide vaccine, 23 valent Gary La INVERFORM MACHINE OPERATOR - MANAGER RESIDENTIAL Work Phone: [facility] [employer] Payers Date Payer Category Payer Self-pay 2022 Medicare [id number] 2022 Unknown ANTHEM [employer] S [employer] [id number] 2022-Present [address] [place] [address] Commercial [id number] 2017 Medicare [id number] 1965 Unknown [id number] .[id number] 1965 Unknown [id number] [id number] .627 1965 Unknown [id number] 2.16.840.1.238607.3.579.2 .627 1964 Unknown [id number] 2.16.840.1.953597.3.579.2 .627 1964 Unknown [id number] 2.16.840.1.907176.3.579.2 .598 1964 Unknown [id number] 2.16.840.1.385405.3.579.2 .598 1965 Unknown [id number] 2.16.840.1.345908.3.579.2 .598 1965 Unknown [id number] 2.16.840.1.654021.3.579.2 .598 1959 Private Health Insurance [id number] 1959 Unknown [id number] 1960 Unknown [id number] Medicare [id number] Unknown [id number] 2.16.840.1.017906.3.579.2 .273 Unknown [id number] 2.16.840.1.027274.3.579.2 .273 Unknown [id number] 2.16.840.1.257369.3.579.2 .273 Unknown [id number] 2.16.840.1.483903.3.579.2 .273 Unknown [id number] 2.16.840.1.898829.3.579.2 .273 Unknown [id number] 2.16.840.1.099256.3.579.2 .273 Unknown [id number] 2.16.840.1.308015.3.579.2 .273 Unknown [id number] 2.16.840.1.271624.3.579.2 .273 Unknown [id number] 2.16.840.1.817154.3.579.2 .273 Unknown [id number] 2.16.840.1.405753.3.579.2 .273 Unknown [id number] 2.16.840.1.388464.3.579.2 .273 Unknown [id number] 2.16.840.1.572805.3.579.2 .273 Social History Date Type Detail Facility Tobacco smoking status [facility] Smokes tobacc o daily [facility] History of tobacco use Cigarette Smoker [facility] Start: 11-23-2022 End: 04-28-2023 Alcohol intake Current non-drinker of alcohol (finding) [facility] Start: 1965 Sex Assigned At Not on file [facility] Start: 11-13-2022 End: 04-28-2023 Exposure to SARS-CoV-2 (event) Not sure [facility] Start: 04-28-2023 History of Social function [facility] Start: 04-28-2023 Alcohol Use Disorder Identification Test - Consumption [AUDIT-C] [facility] Frequency of Alcohol Consumption Not on file [facility] (I/We) worried wheth er (my/our) food would run out before (I/we) got money to buy more. Sometimes true [facility] The food that (I/we) bought just didn't last, and (I/we) didn't have money to get more. Never true [employer] In the past 12 month s, was there a time when you were not able to pay the mortgage or rent on time? Yes [employer] At any time in the p ast 12 months, were you homeless or living in correction [including now]? No [facility] Clinical Notes 12-22-2022 to 07-14-2023 Telephone Encounter - ANTONIA Martinez CNP - 07/14/2023 1:24 PM EDTTelephone Encounter - ANTONIA Martinez CNP - 07/14/2023 1:24 PM EDTTjarod Ferrer MA - 04/28/2023 10:30 AM EDT Note Date & Type Note Facility 07-14-2023 Telephone encount er Note Reviewed chart. Refill appropriate. RX sent. [facility] 07-14-2023 Miscellaneous Notes Formattin g of this [...] the medication: Yes documented in this encounter [facility] 07-14-2023 Telephone encount er Note Medication name: [...] prior to picking up the medication: Yes [facility] 04-28-2023 Evaluation + Plan note Associ ated Problem(s): Tobacco abuse Discussed smoking cessation, she gives no indication she is ready to quit. [facility] 04-28-2023 Evaluation + Plan note Associ ated Problem(s): Severe episode of recurrent major depressive disorder, without psychotic features (HCC) Remission, continues Zoloft 100 mg daily and Cymbalta 30 mg, Risperdal [facility] 04-28-2023 Miscellaneous Notes Associate d Problem(s): Tobacco [...] Stable, continue Cymbalta documented in this encounter [facility] 04-28-2023 Evaluation + Plan note Associ ated Problem(s): Migraine without aura Stable, continue Emgality once a month and Imitrex as needed., Continues Topamax 100 mg twice a day [facility] 04-28-2023 Evaluation + Plan note Associ ated Problem(s): Hyperlipidemia Controlled, continue rosuvastatin 20 mg daily [facility] 04-28-2023 Evaluation + Plan note Associ ated Problem(s): Anxiety Stable, continue Zoloft 100 mg daily, Cymbalta 30 mg [facility] 04-28-2023 Evaluation + Plan note Associ ated Problem(s): GERD (gastroesophageal reflux disease) Controlled, continue Protonix 40 mg daily [facility] 04-28-2023 Evaluation + Plan note Associ ated Problem(s): Chronic obstructive pulmonary disease with acute exacerbation (HCC) Stable, decreased breath sounds in the bases although no wheezes she does have a cough, continue albuterol and Symbicort and will send in cough medicine T [facility] 04-28-2023 Evaluation + Plan note Associ ated Problem(s): Idiopathic progressive neuropathy Stable, continue Cymbalta T [facility] 04-28-2023 History of Presen t illness Narrative Patient verified by last name and date of . Images from the original note were not included. 04/28/2023 Kera Haynes: 1965) is a 58 y.o. female , [...] in about 6 months (around 10/29/2023). SUBJECTIVE/OBJECTIVE: HPI -Kera comes in today for an annual exam [...] 04/28/2023 10:55 AM documented in this encounter [facility] 01-24-2023 Evaluation + Plan note Associ ated Problem(s): Nocturnal oxygen desaturation Will reorder oxygen for night time use. Samuel performed last nocturnal study that I could find in the media tab in 2018. May need to have new assessment. ?sleep study [facility] 01-24-2023 Miscellaneous Notes Associate d Problem(s): Nocturnal [...] reports ?not using) documented in this encounter [facility] 01-24-2023 Evaluation + Plan note Associ ated Problem(s): Chronic obstructive pulmonary disease with acute exacerbation (HCC) Acute exacerbation. Will treat with prednisone, azithromycin, continue symbicort (use twice daily) albuterol as needed. Consider adding back spiriva (patient reports ?not using) [facility] 01-24-2023 History of Presen t illness Narrative Naphthalene Operator Helper for Intimate and Non Intimate Exam Naphthalene Operator Helper was declined Naphthalene Operator Helper: accompanied Walking pulse ox at 98% Images [...] Will reorder oxygen for night time use. [facility] performed last nocturnal study that I could [...] time. Was getting the oxygen [facility]. Last had about 1 year ago. States [...] Strength: 108 (90 Base) MCG/ACT 08/25/22 Yes GaryANTONIA Elias CNP budesonide-formoterol (Symbicort) 80-4.5 MCG/ACT inhaler Inhale [...] AT BEDTIME September 03, 2019 4:20pm 09-03-2019 [facility] ([id number]) 09/03/19 Yes Historical Provider, pantoprazole (ProtoNix) 40 MG EC tablet 07/21/22 Yes Historical Provider, risperiDONE (RisperDAL) 0.25 MG tablet Take 0.25 mg by mouth. 02/10/21 Yes Historical Provider, risperiDONE (RisperDAL) 2 MG tablet Take 1 tablet by mouth Nightly. 01/10/20 Yes Historical Provider, rosuvastatin (Crestor) 20 MG tablet Take 1 tablet (20 mg) by mouth every morning. 10/22/22 Yes Gary Bridenthal, INVERFORM MACHINE OPERATOR - MANAGER RESIDENTIAL sertraline (Zoloft) 100 MG tablet Take 1 [...] 01/24/2023 10:26 AM documented in this encounter [facility] 01-24-2023 Telephone encount er Note Noted. Agree with disposition. [facility] 01-24-2023 Miscellaneous Notes Formattin g of this [...] and worse than normal Protocols used: Breathing [id number] documented in this encounter [facility] 01-24-2023 Telephone encount er Note S: Patient [...] and worse than normal Protocols used: Breathing [id number] [facility] 01-10-2023 Telephone encount er Note Rx sent. [facility] 01-10-2023 Miscellaneous Notes Formattin g of this [...] the medication: Yes documented in this encounter [facility] 01-10-2023 Telephone encount er Note Noted. Agree with disposition. [facility] 04-17-2023 Miscellaneous Notes Formattin g of this note might be different from the original. Noted. Agree with disposition. Scheduled with Theresa tomorrow. S: Patient spoke with [facility] nurse regarding something popped in her neck. B: Onset of symptoms started this am. A: Moody like something popped, states she was laying [...] be seen Protocols used: Neck Pain or [id number] documented in this encounter [facility] 01-10-2023 Telephone encount er Note Scheduled with Theresa tomorrow. [facility] 01-10-2023 Telephone encount er Note S: Patient spoke with [facility] nurse regarding something popped in her neck. B: Onset of symptoms started this am. A: Moody like something popped, states she was laying [...] be seen Protocols used: Neck Pain or [id number] [facility] 01-10-2023 Telephone encount er Note Medication name: [...] prior to picking up the medication: Yes [facility] 12-27-2022 Telephone encount er Note Message released to patient as written. Patient's further questions if applicable: No further questions Were all questions from office addressed or relayed to the patient from encounter: Yes T [facility] 12-27-2022 Miscellaneous Notes Formattin g of this [...] Sooner for worsening. documented in this encounter [facility] [employer] 12-27-2022 Telephone encount er Note Left a message to return call. [facility] 12-23-2022 Telephone encount er Note LM [facility] 12-22-2022 Telephone encount er Note LM to relay results, please document in this encounter that results were relayed and if patient has any questions. [facility] 12-22-2022 Telephone encount er Note ----- Message from ANTONIA Martinez CNP sent at 12/22/2022 4:42 PM EDT ----- Category 2 benign mammogram- no masses. Recommend routine mammogram in 1 year and follow up in office for further evaluation if nipple pain does not improve or resolve over the next 6-8 weeks. Sooner for worsening. [facility] [employer] documented in this encounter [facility] HealthEvaluation note* Diagnosis Annual physical exam- Primary [...] hypothyroidism documented in this encounter [facility] Summary Purpose Family History No Family [...] DATE CREATED AUTHOR AUTHOR'S ORGANIZ ATION 03/25/2021 [facility] DATE CREATED AUTHOR AUTHOR'S ORGANIZ ATION 05/19/2022 [facility] [employer] [facility] [employer] DATE CREATED AUTHOR AUTHOR'S ORGANIZ ATION 09/04/2023 [facility] EPIC DATE CREATED AUTHOR AUTHOR'S ORGANIZ ATION 11/08/2023 [facility] [employer] [facility] DATE CREATED AUTHOR AUTHOR'S ORGANIZ ATION 11/13/2023 [facility] ([place] DATE CREATED AUTHOR AUTHOR'S ORGANIZ ATION 11/14/2023 [facility] Reason for Visit (unrecogniz ed section and [...] Care Teams (unrecognized sec tion and content) [employer]ide [employer]ener Repairer Relationship Specialty Start Date End [place] [id number] PCP - General 03/21/19 [employer]r Relationship Specialty Start Date End [place] [id number] PCP - General 03/21/19 [employer] Fastener Repairer Relationship Specialty Start Date End Date Arun Henson MD [address] [place] [id number] PCP - General 03/21/19 [employer] Fastener Repairer Relationship Specialty Start Date End Date Arun Henson MD [address] [place] [id number] PCP - General 03/21/19 Slide 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 [facility]. provides no warranty or guarantee of the accuracy or completeness of information in this document.
== END | disposition home or self-care (01) ==
PROVIDERS: PCP Student in an Organized Health Care Education/Training Program; Referring Provider Internal Medicine Hematology & Oncology; Visit Provider Internal Medicine Hematology & Oncology
DX: R91.8 Other nonspecific abnormal finding of lung field (principal)
CPT/HCPCS: 94060; 94726; 94729

== ENCOUNTER → 2023-11-18 | Outpatient (CLI) | payer BC, MEDICARE, SELFPAY ==
[2023-11-18 12:40] VITALS: PULSE 100; PULSE 104; PULSE 107; PULSE 108; PULSE 111; PULSE 88; O2SAT 94; O2SAT 95; O2SAT 96; O2SAT 97; O2SAT 98
--- NOTE | 2023-11-21 06:51 | PCM.PSN.6M ---
PSN 6 Minute Walk Test 6 Minute Walk Test 6 Minute Walk Test: 6 Minute Walk Test PSN:6-Minute Walk Test Start: 11/18/23 12:39 Freq: Status: Active Protocol: RESP.[id number] Document 11/18/23 12:40 EVASILVERIO (Rec: 11/18/23 12:42 EVASILVERIO [id number]) 6 Minute Walk Test Date Performed 11/18/23 Time Performed 12:30 Height 5 ft 7 in Weight: 86.183 kg Weight in Pounds 190.[address]: Tommy Prescott Assistive device used: Cane Pre-test Oxygen Delivery Method Room Air Pulse Ox 97 Pulse Rate (60-100) 88 Dyspnea John Scale (0-10) 2 Exertion John Scale (6-20) 6 1st minute Oxygen Delivery Method Room Air Pulse Ox 96 Pulse Rate (60-100) 104 H 2nd minute Oxygen Delivery Method Room Air Pulse Ox 96 Pulse Rate (60-100) 107 H 3rd minute Oxygen Delivery Method Room Air Pulse Ox 94 Pulse Rate (60-100) 107 H 4th minute Oxygen Delivery Method Room Air Pulse Ox 95 Pulse Rate (60-100) 111 H Number of Rests Taken 1 5th minute Oxygen Delivery Method Room Air Pulse Ox 95 Pulse Rate (60-100) 107 H 6th minute Oxygen Delivery Method Room Air Pulse Ox 95 Pulse Rate (60-100) 108 H Dyspnea John Scale (0-10) 4 Exertion John Scale (6-20) 14 Post-test Oxygen Delivery Method Room Air Pulse Ox 98 Pulse Rate (60-100) 100 Full Laps Walked 8 Partial Lap, Number of Tiles Walked 36 Total Distance Walked (ft) 508 Interpretation Interpretation: The patient was able to ambulate only 508 feet over the course of 6 minutes on room air with the assistance of a cane and 1 break. The patient experienced no significant desaturation, but did have tachycardia as high as 111 bpm. These findings are consistent with a musculoskeletal limitation to exercise tolerance. Recommendations Recommendations: No supplemental oxygen is indicated with ambulation at this time, but testing may need to be repeated once patient becomes more active.
== END | disposition home or self-care (01) ==
LOC: PSN 12:19
PROVIDERS: PCP Student in an Organized Health Care Education/Training Program; Referring Provider Internal Medicine Critical Care Medicine; Visit Provider Internal Medicine Critical Care Medicine
DX: J44.9 Chronic obstructive pulmonary disease, unspecified (principal)
CPT/HCPCS: 94618

== ENCOUNTER 2023-12-02 07:50 | Day surgery (SDC) | payer BC, MEDICARE, SELFPAY ==
--- OUTSIDE RECORDS SUMMARY | 2023-12-02 07:54 | XMS RPT_ITS | CCD ---
Author Name Unknown Address [address] [place] [address] Organization [facility] Care Team Providers Care Brake Rider Name Role Phone Kemal Monique Unavailable Unavailable GutloveKemal P Unavailable Unavailable GutloveKemal P Unavailable Unavailable GutloveKemal P Unavailable Unavailable GutloveKemal P Unavailable Unavailable GutKemal tirado P Unavailable Unavailable No Family Physician given Unavailable Unavai labKemal Feliciano P Unavailable Unavailable No Family Physician given Unavailable Unavai lable KyleveKemal P Unavailable Unavailable No Family Physician given Unavailable Unavai lable Kemal Monique P Unavailable Unavailable No Family Physician given Unavailable Unavai lable Kemal Monique P Unavailable Unavailable Marjorie Martinez Unavailable Unavailable GutloveKemal P Unavailable Unavailable Fiorella Scott L Unavailable Unavailable No Family Physician given Unavailable Unameena Henson MD, Arun Solomon Primary Care Provider Arun Henson MD Primary Care Provider ARUN HENSON Attending Unavailable ARUN HENSON Primary Care Unavailable BALAJIENTHAL, GARY Referring Unavailable ARUN HENSON Primary Care Unavailable NGUYEN, GARY Attending Unavailable ARUN HENSON Primary Care Unavailable LAZARUS ROBINS DO Attending Unavailable SHIMON DO, LAZARUS Primary Care Unavailable ROBERT NEAL MD Attending Unavailabl e LAZARUS ROBINS DO Primary Care Unavailable LAZARUS ROBINS DO Attending Unavailable SHIMON GU, LAAZRUS Primary Care Unavailable LAZARUS SALINAS CRNA Consulting Unavailable NIYAH MALIK~[id number], NIYAH Estes Admitting Unavailable NIYAH MALIK~[id number], NIYAH Estes Attending Unavailable ARUN HENSON Primary Care Unavailable LAZARUS SALINAS CRNA Consulting Unavailable LAZARUS ROBINS Primary Care Unavailable NIYAH MALIK~[id number], NIYAH Estes Attending Unavailable NIYAH MALIK~[id number], NIYAH Estes Admitting Unavailable JERMAINE ALVAREZ CRNA Consulting Unava ilable JERMAINE ALVAREZ CRNA Consulting Unava ilable JANKI FOSTER Primary Care Unavailable TASHIA WEAVER CRNA Consulting Unavailable NIYAH MALIK~[id number], NIYAH Estes Admitting Unavailable NIYAH MALIK~[id number], NIYAH Estes Attending Unavailable TASHAI WEAVER CRNA Consulting Unavailable BECKY RASMUSSEN CRNA Consulting Unavailable NIYAH MALIK~[id number], NIYAH Estes Admitting Unavailable NIYAH MALIK~[id number], NIYAH Estes Attending Unavailable ARUN HENSON [facility] Care Unavailable BECKY RASMUSSEN CRNA Consulting Unavailable RHONDA CRAFT Attending Unavailable RHONDA CRAFT Attending Unavailable RHONDA CRAFT Referring Unavailable Allergies Allergy Classification Reported Allergen(s) Allergy Type Date of Onset Reaction(s) Facility (7 sources) Acetaminophen Drug Allergy 03-05-20 15 Hives [facility] (7 sources) calcium phosphate / prasterone Drug Allergy 07-27-20 05 [facility] (7 sources) Dextran Drug Allergy 12-05-19 22 Rash [facility] (7 sources) Dicyclomine Drug Allergy 06-05-20 16 [facility] (6 sources) Honey bee venom Propensity to adverse reactions 03-05-20 15 Anaphylaxis [facility] (8 sources) Iothalamate Drug Allergy 09-05-20 19 [facility] (7 sources) Ketorolac trometamol Propensity to adverse reactions 03-05-20 15 Anxiety [facility] (8 sources) Latex; Translations: [Latex] Propensity to adverse reactions 07-05-20 08 Anaphylaxis, Rash [facility] (7 sources) Lidocaine Drug Allergy 03-05-20 15 Shortness of breath [facility] (7 sources) lubiprostone Drug Allergy 09-05-20 19 [facility] (7 sources) Mirtazapine Drug Allergy 02-09-20 16 Anaphylaxis [facility] (7 sources) Morphine Drug Allergy 03-05-20 15 Shortness of breath [facility] (7 sources) Penicillins Drug Intolerance 03-05-20 15 Shortness of breath [facility] (7 sources) Prazosin Drug Allergy 01-29-20 22 Rash [facility] (7 sources) Prednisone Propensity to adverse reactions 03-05-20 15 [facility] (7 sources) Procaine Drug Allergy 12-09-19 12 [facility] (7 sources) Prochlorperazine Drug Allergy 03-05-20 15 Shortness of breath [facility] (7 sources) Sulfasalazine Propensity to adverse reactions 06-05-20 15 Anaphylaxis [facility] (7 sources) Sulfonamides (Antibiotic) Drug Intolerance 06-05-20 15 Anaphylaxis [facility] (7 sources) valdecoxib Drug Allergy 03-05-20 15 Shortness of breath [facility] (7 sources) venlafaxine Drug Allergy 12-09-19 12 [facility] (7 sources) Amoxicillin-Pot Clavulanate Drug Intolerance 12-09-19 12 [facility] (7 sources) Prasterone Propensity to adverse reactions 02-07-20 21 [facility] (7 sources) Soybean-Containing Drug Products Drug Intolerance 03-05-20 15 Hives [facility] (2 sources) Other Propensity to adverse reactions 04-28-20 23 [facility] (1 source) bee venom Propensity to adverse reactions 03-05-20 15 Anaphylaxis [facility] (1 source) Acetaminophen Drug Allergy [facility] (1 source) Amoxicillin / Clavulanate Drug Allergy [facility] (1 source) Dicyclomine Drug Allergy [facility] (1 source) lubiprostone Drug Allergy [facility] (1 source) Morphine Drug Allergy [facility] (1 source) Penicillins Drug allergy (disorder) [facility] (1 source) DHEA Drug allergy (disorder) [facility] (1 source) Novocain Drug allergy (disorder) [facility] Medications Current Medications Medication Drug Class(es) Dates Sig (Normalized) Sig (Original) [id number] 200 actuat albuterol 0.09 mg/actuat metered dose [...] Onset: 3 Chronic Other aftercare (1 source) [facility] (current) use of aspirin; Translations: [CARE HOME CURRENT USE OF ASPIRIN] Onset: 4 Episodic Other aftercare (1 source) 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 (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) drug therapy; Translations: [OTH CARE HOME CURRENT DRUG THERAPY] Onset: 4 Episodic Other [...] 10-26-2022 10-26-2022 Episodic Other aftercare (1 source) terminal 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 (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) use of non-steroidal anti-inflammatories (NSAID); Translations: [TELECOMMUNICATIONS FACILITY EXAMINER USE NSAID] Onset: 06-30-2023 Episodic Other aftercare (1 source) [facility] (current) use of inhaled steroids; Translations: [CARE HOME USE OF INHALED STEROIDS] Onset: 06-30-2023 Episodic [...] 170.2 cm Arun Henson MD Work Phone: [employer] 04-28-2023 10:13-0400 Body mass index (BMI) [Ratio] 29.66 kg/m2 Arun Henson MD Work Phone: [employer] [facility] 04-28-2023 10:13-0400 Body weight 85.91 kg Arun Henson MD Work Phone: [employer] [facility] 04-28-2023 10:13-0400 Diastolic blood pressure 76 mm[Hg] Arun Henson MD Work Phone: [facility] [facility] 04-28-2023 10:13-0400 Heart rate 78 /min Arun Henson MD Work Phone: [employer] [facility] 04-28-2023 10:13-0400 SaO2% (BldA) [Mass fraction] 94 % Arun Henson MD Work Phone: [facility] [facility] 04-28-2023 10:13-0400 Systolic blood pressure 122 mm[Hg] Arun Christy Work Phone: [facility] [facility] 01-24-2023 10:17-0400 Body mass index (BMI) [Ratio] 26.31 kg/m2 Gary La PEDIATRIC PHYSICAL THERAPIST - OPTIMIZATION SPECIALIST Work Phone: [facility] [facility] 01-24-2023 10:17-0400 Body weight 76.2 kg Gary Bridenthal PEDIATRIC PHYSICAL THERAPIST - OPTIMIZATION SPECIALIST Work Phone: [facility] [facility] 01-24-2023 10:17-0400 Diastolic blood pressure 82 mm[Hg] Gary Bridenthal PEDIATRIC PHYSICAL THERAPIST - OPTIMIZATION SPECIALIST Work Phone: [facility] [facility] 01-24-2023 10:17-0400 Heart rate 91 /min Gary Bridenthal PEDIATRIC PHYSICAL THERAPIST - OPTIMIZATION SPECIALIST Work Phone: [facility] [facility] 01-24-2023 10:17-0400 Respiratory rate 24 /min Gary Bridenthal PEDIATRIC PHYSICAL THERAPIST - OPTIMIZATION SPECIALIST Work Phone: [facility] [facility] 01-24-2023 10:17-0400 SaO2% (BldA) [Mass fraction] 98 % Gary Balajienthal PEDIATRIC PHYSICAL THERAPIST - OPTIMIZATION SPECIALIST Work Phone: [employer] [facility] Encounters Encounter Date Encounter Type Care Provider Facility Start: 11-25-2023 End: 11-25-2023 ambulatory RHONDA CRAFT Not Available Start: 11-09-2023 End: 11-10-2023 ambulatory ROBERT NEAL MD Facility:B Start: 11-02-2023 End: 11-03-2023 ambulatory LAZARUS ROBINS DO Facility:A Start: 10-03-2023 End: 10-03-2023 ambulatory [facility] Start: 09-02-2023 End: 09-02-2023 ambulatory RHONDA CRAFT Not Available Start: 08-31-2023 End: 09-05-2023 ambulatory LAZARUS SHIMON GU Facility:B Start: 07-14-2023 Lilianaill Arun Henson MD Work Phone: [facility] Start: 06-27-2023 End: 06-27-[address] [facility] Start: 04-28-2023 End: 04-28-2023 ambulatory ARUN HENSON [facility] Start: 04-28-2023 End: 04-28-2023 Encounter for general adult medical examination without abnormal findings ARUN HENSON [facility] Start: 04-28-2023 End: 04-28-2023 Patient encounter procedure Arun Henson MD Work Phone: [facility] Work Phone: Start: 04-28-2023 End: 04-28-2023 Periodic preventive med est patient 40-64yrs Arun Henson MD Work Phone: [facility] Procedures Date Procedure Procedure Detail Performing Clinician Start: 04-28-2023 Lipid 1996 panel - S blaise or Plasma Arun Henson MD Work Phone: Start: 04-28-2023 Thyrotropin [Units/v olume] in Serum or Plasma Arun Henson MD Work Phone: Start: 11-23-2022 Mammography Gary Br identhal PEDIATRIC PHYSICAL THERAPIST - OPTIMIZATION SPECIALIST Work Phone: Start: 04-07-2022 Lipid 1996 panel - S blaise or Plasma Gary Bridenthal PEDIATRIC PHYSICAL THERAPIST - OPTIMIZATION SPECIALIST Work Phone: Start: 04-07-2022 Thyrotropin [Units/v olume] in Serum or Plasma Gary Bridenthal PEDIATRIC PHYSICAL THERAPIST - OPTIMIZATION SPECIALIST Work Phone: Start: 03-18-2021 Colonoscopy Arun ba MD Work Phone: Plan of Treatment Date Care Activity Detail Author Start: 03-18-2031 Screening for malignant neoplasm of colon [facility] Start: 04-28-2028 Lipid panel Lipid Panel [facility] Start: 04-07-2027 Lipid panel Lipid Panel [facility] Start: 04-28-2024 Thyroid stimulating hormone measurement TSH Level [facility] Start: 11-23-2023 Screening for malignant neoplasm of breast Mammogram [facility] Start: 11-08-2023 End: 11-08-2023 Patient encounter procedure 11/08/2023 9:45 AM EST Office Visit [facility] [address] [place] [address] [place] [address] Arun Henson MD [address] [place] [address], [place] [address] [facility] Start: 10-29-2023 Depresssion Monitoring Depresssion Monitoring [facility] Start: 05-27-2023 Influenza vaccination Influenza Vaccine (#1) [facility] Start: 04-28-2023 End: 04-28-2024 Comprehensive metabolic 1998 panel - Serum or Plasma Comprehensive metabolic panel Lab Routine Screening for diabetes mellitus Expected: 04/28/2023 (Approximate), Expires: 04/28/2024 [facility] Immunizations Immunization Date Immunization Notes Care Provider Fa cility 08-13-2022 zoster vaccine recombinant Gary Bridenthal PEDIATRIC PHYSICAL THERAPIST - OPTIMIZATION SPECIALIST Work Phone: [facility] 07-28-2022 Covid-19, Pfizer Bivalent Booster, (Age 12y+), Im, 30 Mcg/0e Gary Bridenthal PEDIATRIC PHYSICAL THERAPIST - OPTIMIZATION SPECIALIST Work Phone: [facility] 07-28-2022 influenza, injectabl e, quadrivalent, contains preservative Gary Bridenthal PEDIATRIC PHYSICAL THERAPIST - OPTIMIZATION SPECIALIST Work Phone: [facility] 07-28-2022 Seasonal, quadrivale nt, recombinant, injectable influenza vaccine, preservative free Gary Bridenthal PEDIATRIC PHYSICAL THERAPIST - OPTIMIZATION SPECIALIST Work Phone: [facility] 07-28-2022 influenza virus vacc ine, unspecified formulation Arun Henson MD Work Phone: [facility] 04-15-2022 zoster vaccine recombinant Gary Bridenthal PEDIATRIC PHYSICAL THERAPIST - OPTIMIZATION SPECIALIST Work Phone: [facility] 02-10-2022 Pneumococcal Conjuga te PCV20, Pf (Prevnar 20) Gary Bridenthal PEDIATRIC PHYSICAL THERAPIST - OPTIMIZATION SPECIALIST Work Phone: [facility] 10-31-2021 Covid-19, Pfizer Gra y Top, Do Not Dilute, (Age 12 Y+), Im, L Gary Bridenthal PEDIATRIC PHYSICAL THERAPIST - OPTIMIZATION SPECIALIST Work Phone: [facility] 06-26-2021 Seasonal, quadrivale nt, recombinant, injectable influenza vaccine, preservative free Gary Bridenthal PEDIATRIC PHYSICAL THERAPIST - OPTIMIZATION SPECIALIST Work Phone: [facility] 01-27-2021 Pfizer SARS-CoV-2 Vaccination Gary Bridenthal PEDIATRIC PHYSICAL THERAPIST - OPTIMIZATION SPECIALIST Work Phone: [facility] 01-06-2021 Pfizer SARS-CoV-2 Vaccination Gary Bridenthal PEDIATRIC PHYSICAL THERAPIST - OPTIMIZATION SPECIALIST Work Phone: [facility] Work Phone: 06-01-2020 influenza, injectabl e, quadrivalent, preservative free Gary Bridenthal PEDIATRIC PHYSICAL THERAPIST - OPTIMIZATION SPECIALIST Work Phone: [facility] 05-24-2019 influenza, injectabl e, quadrivalent, preservative free Gary Bridenthal PEDIATRIC PHYSICAL THERAPIST - OPTIMIZATION SPECIALIST Work Phone: [facility] 06-08-2018 influenza, injectabl e, quadrivalent, contains preservative Gary Bridenthal PEDIATRIC PHYSICAL THERAPIST - OPTIMIZATION SPECIALIST Work Phone: [facility] 06-08-2018 influenza, injectabl e, quadrivalent, preservative free Gary Bridenthal PEDIATRIC PHYSICAL THERAPIST - OPTIMIZATION SPECIALIST Work Phone: [facility] 07-18-2017 influenza, injectabl e, quadrivalent, preservative free Gary Bridenthal PEDIATRIC PHYSICAL THERAPIST - OPTIMIZATION SPECIALIST Work Phone: [facility] 06-20-2016 influenza, injectabl e, quadrivalent, preservative free Gary Bridenthal PEDIATRIC PHYSICAL THERAPIST - OPTIMIZATION SPECIALIST Work Phone: [facility] 12-04-2013 influenza virus vacc ine, unspecified formulation Gary Bridenthal PEDIATRIC PHYSICAL THERAPIST - OPTIMIZATION SPECIALIST Work Phone: [facility] 05-28-2011 pneumococcal polysaccharide vaccine, 23 valent Gary Bridenthal PEDIATRIC PHYSICAL THERAPIST - OPTIMIZATION SPECIALIST Work Phone: [facility] 07-31-2009 novel influenza-H1N1 -09, preservative-free, injectable Gary Bridenthal PEDIATRIC PHYSICAL THERAPIST - OPTIMIZATION SPECIALIST Work Phone: [facility] 11-19-2008 tetanus and diphther ia toxoids, not adsorbed, for adult use Gary La PEDIATRIC PHYSICAL THERAPIST - OPTIMIZATION SPECIALIST Work Phone: [facility] 05-10-2005 pneumococcal polysaccharide vaccine, 23 valent Gary La PEDIATRIC PHYSICAL THERAPIST - OPTIMIZATION SPECIALIST Work Phone: [facility] Payers Date Payer Category Payer Self-pay 2022 Medicare [id number] 2022 Unknown ANTHEM [employer] S [employer]OSS [id number] 2022-Present [address] [place] [address] Commercial [id number] 2017 Medicare [id number] 1964 Unknown [id number] 1964 Unknown [id number] 2.16.840.1.594659.3.579.2.62 1964 Unknown [id number] 2.16.840.1.979000.3.579.2.627 1964 Unknown [id number] 2.16.840.1.823422.3.579.2.598 1964 Unknown [id number] 2.16.840.1.225121.3.579.2.598 1964 Unknown [id number] 2.16.840.1.659741.3.579.2.59 1964 Unknown [id number] 2.16.840.1.621209.3.579.2.598 1964 Unknown [id number] 2.16.840.1.546602.3.579.2.1259 1964 Unknown [id number] 2.16.840.1.164397.3.579.2.1259 1959 Medicare [id number] 1959 Unknown [id number] 1959 Unknown [id number] Medicare [id number] Unknown [id number] 2.16.840.1.655490.3.579.2.273 Unknown [id number] 2.16.840.1.029269.3.579.2.273 Unknown [id number] 2.16.840.1.375004.3.579.2.273 Unknown [id number] 2.16.840.1.784712.3.579.2.273 Unknown [id number] 2.16.840.1.496573.3.579.2.273 Unknown [id number] 2.16.840.1.011054.3.579.2.273 Unknown [id number] 2.16.840.1.531915.3.579.2.273 Unknown [id number] 2.16.840.1.388033.3.579.2.273 Unknown [id number] 2.16.840.1.560285.3.579.2.273 Unknown [id number] 2.16.840.1.438611.3.579.2.273 Unknown [id number] 2.16.840.1.657851.3.579.2.273 Unknown [id number] 2.16.840.1.964026.3.579.2.273 Social History Date Type Detail Facility Tobacco smoking status ALIS Smokes tobacc o daily [facility] History of tobacco use Cigarette Smoker [facility] Start: 11-23-2022 End: 04-28-2023 Alcohol intake Current non-drinker of alcohol (finding) [facility] Start: 1965 Sex Assigned At Not on file [facility] Start: 11-13-2022 End: 04-28-2023 Exposure to SARS-CoV-2 (event) Not sure [facility] Start: 04-28-2023 History of Social function [facility] Start: 08-03-2023 Alcohol Use Disorder Identification Test - Consumption [AUDIT-C] [facility] Frequency of Alcohol Consumption Not on file [facility] (I/We) worried [facility] er (my/our) food would run out before (I/we) got money to buy more. Sometimes true [facility] The food that (I/we) bought just didn't last, and (I/we) didn't have money to get more. Never true [facility] In the past 12 month s, was there a time when you were not able to pay the mortgage or rent on time? Yes [facility] At any time in the p ast 12 months, were you homeless or living in [place] [facility] [including now]? No [facility] Clinical Notes 12-22-2022 to 07-14-2023 Telephone Encounter - ANTONIA Martinez CNP - 07/14/2023 1:24 PM EDTTelephone Encounter - ANTONIA Martinez CNP - 07/14/2023 1:24 PM Lizbet Ferrer MA - 04/28/2023 10:30 AM EDT Note Date & Type Note Facility 07-14-2023 Telephone encount er Note Reviewed chart. Refill appropriate. RX sent. [facility] 07-14-2023 Miscellaneous Notes Formattin g of this [...] the medication: Yes documented in this encounter [facility] 07-14-2023 Telephone encount er Note Medication name: [...] prior to picking up the medication: Yes [facility] 04-28-2023 Evaluation + Plan note Associ ated Problem(s): Tobacco abuse Discussed smoking cessation, she gives no indication she is ready to quit. [facility] 04-28-2023 Evaluation + Plan note Associ ated Problem(s): Severe episode of recurrent major depressive disorder, without psychotic features (HCC) Remission, continues Zoloft 100 mg daily and Cymbalta 30 mg, Risperdal [facility] 04-28-2023 Miscellaneous Notes Associate d Problem(s): Tobacco [...] Stable, continue Cymbalta documented in this encounter [facility] 04-28-2023 Evaluation + Plan note Associ ated Problem(s): Migraine without aura Stable, continue Emgality once a month and Imitrex as needed., Continues Topamax 100 mg twice a day [facility] 04-28-2023 Evaluation + Plan note Associ ated Problem(s): Hyperlipidemia Controlled, continue rosuvastatin 20 mg daily [facility] 04-28-2023 Evaluation + Plan note Associ ated Problem(s): Anxiety Stable, continue Zoloft 100 mg daily, Cymbalta 30 mg [facility] 04-28-2023 Evaluation + Plan note Associ ated Problem(s): GERD (gastroesophageal reflux disease) Controlled, continue Protonix 40 mg daily T [facility] 04-28-2023 Evaluation + Plan note Associ ated Problem(s): Chronic obstructive pulmonary disease with acute exacerbation (HCC) Stable, decreased breath sounds in the bases although no wheezes she does have a cough, continue albuterol and Symbicort and will send in cough medicine T [facility] 04-28-2023 Evaluation + Plan note Associ ated Problem(s): Idiopathic progressive neuropathy Stable, continue Cymbalta T [facility] 04-28-2023 History of Presen t illness Narrative [...] 04/28/2023 10:55 AM documented in this encounter [facility] 01-24-2023 Evaluation + Plan note Associ ated Problem(s): Nocturnal oxygen desaturation Will reorder oxygen for night time use. Samuel performed last nocturnal study that I could find in the media tab in 2018. May need to have new assessment. ?sleep study [facility] 01-24-2023 Miscellaneous Notes Associate d Problem(s): Nocturnal [...] reports ?not using) documented in this encounter [facility] 01-24-2023 Evaluation + Plan note Associ ated Problem(s): Chronic obstructive pulmonary disease with acute exacerbation (HCC) Acute exacerbation. Will treat with prednisone, azithromycin, continue symbicort (use twice daily) albuterol as needed. Consider adding back spiriva (patient reports ?not using) [facility] 01-24-2023 History of Presen t illness Narrative [employer] for Intimate and Non Intimate Exam [employer] was declined [employer]: accompanied Walking pulse ox at 98% Images [...] night time. Was getting the oxygen through [facility]. Last had about 1 year ago. States [...] AT BEDTIME September 03, 2019 4:20pm 09-03-2019 [facility] ([id number]) 09/03/19 Yes Historical Provider, pantoprazole (ProtoNix) 40 [...] 01/24/2023 10:26 AM documented in this encounter [facility] 01-24-2023 Telephone encount er Note Noted. Agree with disposition. [facility] 01-24-2023 Miscellaneous Notes Formattin g of this [...] and worse than normal Protocols used: Breathing Nxphpteods-CWBPK-SC documented in this encounter [facility] 01-24-2023 Telephone encount er Note S: Patient [...] and worse than normal Protocols used: Breathing [id number] [facility] 01-10-2023 Telephone encount er Note Rx sent. [facility] 01-10-2023 Miscellaneous Notes Formattin g of this [...] the medication: Yes documented in this encounter [facility] 01-10-2023 Telephone encount er Note Noted. Agree with disposition. [facility] 01-10-2023 Miscellaneous Notes Formattin g of this note might be different from the original. Noted. Agree with disposition. Scheduled with Theresa tomorrow. S: Patient spoke with CAC nurse regarding something popped in her neck. B: Onset of symptoms started this am. A: [place] like something popped, states she was laying [...] be seen Protocols used: Neck Pain or Nijkmnisc-DDLON-JM documented in this encounter [facility] 01-10-2023 Telephone encount er Note Scheduled with Theresa tomorrow. [facility] 01-10-2023 Telephone encount er Note S: Patient spoke with CAC nurse regarding something popped in her neck. B: Onset of symptoms started this am. A: [place] like something popped, states she was laying [...] be seen Protocols used: Neck Pain or [id number] [facility] 01-10-2023 Telephone encount er Note Medication name: [...] prior to picking up the medication: Yes [facility] 12-27-2022 Telephone encount er Note Message released to patient as written. Patient's further questions if applicable: No further questions Were all questions from office addressed or relayed to the patient from encounter: Yes T [facility] 12-27-2022 Miscellaneous Notes Formattin g of this [...] Sooner for worsening. documented in this encounter [facility] 12-27-2022 Telephone encount er Note Left a message to return call. [facility] 12-23-2022 Telephone encount er Note LM [facility] 12-22-2022 Telephone encount er Note LM to relay results, please document in this encounter that results were relayed and if patient has any questions. [facility] 12-22-2022 Telephone encount er Note ----- Message from ANTONIA Martinez CNP sent at 12/22/2022 4:42 PM EDT ----- Category 2 benign mammogram- no masses. Recommend routine mammogram in 1 year and follow up in office for further evaluation if nipple pain does not improve or resolve over the next 6-8 weeks. Sooner for worsening. [facility] documented in this encounter [facility]* Diagnosis Annual physical exam- [...] hypothyroidism Unspecified hypothyroidism documented in this encounter [facility] Summary Purpose Family History No Family [...] DATE CREATED AUTHOR AUTHOR'S ORGANIZ ATION 03/25/2021 [facility] DATE CREATED AUTHOR AUTHOR'S ORGANIZ ATION 05/19/2022 [facility] DATE CREATED AUTHOR AUTHOR'S ORGANIZ ATION 11/08/2023 [facility] DATE CREATED AUTHOR AUTHOR'S ORGANIZ ATION 11/13/2023 [facility] ([place]) DATE CREATED AUTHOR AUTHOR'S ORGANIZ ATION 11/24/2023 [facility] DATE CREATED AUTHOR AUTHOR'S ORGANIZ ATION 11/27/2023 [facility] EPIC Reason for Visit (unrecogniz ed section and [...] Care Teams (unrecognized sec tion and content) Brake Rider Relationship Specialty Start Date End Date Arun Henson MD [address] [place] [id number] PCP - General 03/21/19 Brake Rider Relationship Specialty Start Date End Date Arun Henson MD [address] [place] [address] [id number] PCP - General 03/21/19 Brake Rider Relationship Specialty Start Date End Date Arun Henson MD [address] [place] [address] [id number] PCP - General 03/21/19 Brake Rider Relationship Specialty Start Date End Date Arun Henson MD [address] [place] [address] [id number] PCP - General 03/21/19 Brake Rider Relationship Specialty Start Date End Date Arun Henson MD [address] [place] [address] [id number] PCP - General 03/21/19 Brake Rider Relationship Specialty Start Date End Date Arun Henson MD [address] [place], [place] [address] [address] PCP - General 03/21/19 FOR RECORDS PERTAINING [...] BE BASED ON THE PRIMARY CLINICAL RECORDS. [facility] [employer] [facility]. provides no warranty or guarantee of the accuracy or completeness of information in this document.
[2023-12-02 08:14] VITALS: BP 138/87; PULSE 77; RESP 16; TEMP 36.6; O2SAT 100; BMI 30.2
[2023-12-02] MEDS: Lactated Ringers 1,000 ML 15 ML IV (08:33)
--- NOTE | 2023-12-02 09:02 | HP.PCM_ITS ---
History and Physical Date of Admission: 12/02/23 Date of Service: 11/24/23 MR#: [id number] Acct: [id number] Name: ELVA CIFUENTES Rep #: [id number] : 1965 Provider: Dr. 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 Store Required: No Accompanied by: Daughter Is patient in pain?: No Allergies acetaminophen [From Tylenol] Allergy (Verified 11/24/23 09:21) Shortness of breathamoxicillin Allergy (Verified 11/24/23 09:21) Otherdicyclomine [From Bentyl] Allergy (Verified 11/24/23 09:21) RashLatex, Natural Rubber Allergy (Verified 11/24/23 09:21) Rashmirtazapine Allergy (Verified 11/24/23 09:21) Othermorphine Allergy (Verified 11/24/23 09:21) Shortness of breathPenicillins Allergy (Verified 11/24/23 09:21) Otherprasterone (DHEA) Allergy (Verified 11/24/23 09:21) Otherprocaine Allergy (Verified 11/24/23 09:21) Otherprochlorperazine Allergy (Verified 11/24/23 09:21) Othersulfasalazine Allergy (Verified 11/24/23 09:21) Othervaldecoxib [From Bextra] Allergy (Verified 11/24/23 09:21) Shortness of breathVenlafaxine Analogues Allergy (Verified 11/24/23 09:21) Otherprednisolone Adverse Reaction (Severe, Verified 11/24/23 09:21) bleedingketorolac [From Toradol] Adverse Reaction (Verified 11/24/23 09:21) Other Medications levothyroxine 50 mcg tablet 50 mcg PO DAILY thyroid 10/18/17 [History Confirmed 11/24/23] albuterol sulfate 90 mcg/actuation aerosol inhaler 2 puff IH 4X/DAY ##1 10/19/17 [Rx Confirmed 11/24/23] risperidone 1 mg tablet 2 mg PO QHS 09/03/19 [History Confirmed 11/24/23] cetirizine 10 mg tablet 10 mg PO DAILY PRN allergy symptoms 11/01/23 [History Confirmed 11/24/23] epinephrine 0.3 mg/0.3 mL injection, auto-injector 0.3 mg IM Q4H PRN anaphylaxis 11/01/23 [History Confirmed 11/24/23] galcanezumab-gnlm 120 mg/mL subcutaneous pen injector (Emgality Pen) 120 mg subcut QMONTH 11/01/23 [History Confirmed 11/24/23] magnesium 250 mg tablet 250 mg PO DAILY 11/01/23 [History Confirmed 11/24/23] rosuvastatin 20 mg tablet 20 mg PO QHS 11/01/23 [History Confirmed 11/24/23] topiramate 100 mg tablet (Topamax) 100 mg PO BID 11/01/23 [History Confirmed 11/24/23] cholecalciferol (vitamin D3) 50 mcg (2,000 unit) capsule 50 mcg PO DAILY 11/04/23 [History Confirmed 11/24/23] cyanocobalamin (vitamin B-12) 5,000 mcg capsule 5,000 mcg PO DAILY 11/04/23 [History Confirmed 11/24/23] hydroxyzine HCl 25 mg tablet 25 mg PO QHS 11/04/23 [History Confirmed 11/24/23] hydroxyzine pamoate 50 mg capsule 50 mg PO .qid PRN nausea and vomiting 11/04/23 [History Confirmed 11/24/23] ibuprofen 200 mg tablet 400 mg PO Q4H PRN pain 11/04/23 [History Confirmed 11/24/23] ipratropium 0.5 mg-albuterol 3 mg (2.5 mg base)/3 mL nebulization soln 3 ml inhalation Q6H PRN shortness of breath or wheezing 11/04/23 [History Confirmed 11/24/23] ondansetron 8 mg disintegrating tablet 8 mg translingual Q8H PRN nausea and vomiting 11/04/23 [History Confirmed 11/24/23] pantoprazole 40 mg tablet,delayed release 40 mg PO BID 11/04/23 [History Confirmed 11/24/23] wwmhrdvdbwtjf-lplnhonxtslav-ajywzeztbsi 5 mg-325 mg-200 mg tablet (Mucus Relief Cold and Sinus) 2 tab PO Q4-6H PRN sinus symptoms 11/04/23 [History Confirmed 11/24/23] risperidone 0.5 mg tablet 0.5 mg PO DAILY 11/04/23 [History Confirmed 11/24/23] escitalopram oxalate 10 mg tablet (Lexapro) 10 mg PO DAILY 11/07/23 [History Confirmed 11/24/23] furosemide 40 mg tablet 40 mg PO DAILY 11/07/23 [History Confirmed 11/24/23] ipratropium bromide 17 mcg/actuation HFA aerosol inhaler (Atrovent HFA) 2 puff inhalation TID 11/07/23 [History Confirmed 11/24/23] quetiapine 50 mg tablet (Seroquel) 50 mg PO BID 11/07/23 [History Confirmed 11/24/23] fluticasone fur. 200 mcg-umeclid 62.5 mcg-vilant 25 mcg inhalat.powder (Trelegy Ellipta) 1 inh inhalation DAILY #60 ea 11/16/23 [Rx Confirmed 11/24/23] lidocaine-prilocaine 2.5 %-2.5 % topical cream 1 applic topical ONCE PRN port access 30 days #30 grams 11/23/23 [Rx Confirmed 11/24/23] PFS Medical History (Updated 11/24/23 @ 12:[address] Agata Lynn MD) Anxiety Arthritis Back pain Cancer Cancer of left lung Cardiology follow-up encounter Chronic pain COPD (chronic obstructive pulmonary disease) COVID-19 Depression Difficulty swallowing Emphysema, unspecified Encounter for education Gastroparesis GERD (gastroesophageal reflux disease) High cholesterol History of edema History of IBS History of pain when walking Hyperlipemia Hypothyroidism Injury of head and neck Leg cramps Migraines Myocardial infarct Neuropathy On home oxygen therapy Panic attack Regional lymph node metastasis present Restless legs Shortness of breath on exertion Smoker Wears dentures Wears glasses Surgical History (Updated 11/24/23 @ 09:17 by Purnima Walter LPN) H/O right knee surgery History of hysterectomy Hx of elbow surgery S/P cataract surgery Family History Mother Colon cancer DiabetesSister Colon cancer DiabetesFather Diabetes Cancer liverOther Heart disease Social History household members: spouse housing: house Smoking Status: Former smoker Tobacco: How many years used: 50 alcohol intake: never substance use type: does not use HPI HPI HPI: 58-year-old female presents for port placement due to recently diagnosed left lung cancer. Patient planning to start chemo and radiation per family and patient 11/13/2023 before. Patient has been holding her aspirin 81 mg for about a week since she came to the ER with hemoptysis. ROS General General: Yes fatigue; No weight change, appetite, colon cancer or breast cancer HEENT HEENT: Yes eye surgery; No difficulty swallowing, eye injury, swollen glands or hoarseness Additional Details: cataract sx Endo Endocrine: Yes thyroid disease; No diabetes mellitus, thyroid cancer, Hair loss, heat intolerance or cold intolerance Skin Skin: Yes rash; No changing moles Musc Musculoskeletal: Yes back problems, arthritis and gout Cardio Cardiovascular: Yes heart attack; No murmur, pacemaker, heart disease, atrial fibrillation, high blood pressure, heart stent, palpitations, shortness of breat with exertion or chest pain Psych Psychiatric: Yes depression and anxiety; No hearing voices Resp Respiratory: Yes shortness of breath, No sleep apnea, Yes cough, Yes COPD, Yes asthma, Yes emphysema and No wheezing Gastro Gastrointestinal: Yes abdominal pain, Yes nausea or vomiting, Yes diarrhea, Yes constipation, No blood in stool, Yes acid reflux, Yes hemorrhoids, No ulcers, No gallbladder problem and No black,tarry stools Nav Hematologic: Yes blood thinners, No blood disorders, No bleeding, No anemia and No blood clots Additional Details: baby aspirin Neuro Neurologic: Yes numbness and Yes tingling Exam Const General: cooperative, healthy appearing, comfortable and no acute distress HENMT Head: normocephalic and atraumatic Neck Neck: supple Chest Other: Palpation of bilateral upper chest normal Resp Effort & Inspection: normal respiratory effort Cardio Rate: regular rate GI Inspection: non-distended Skin General: no rashes or lesions noted Neuro General: CN's II-XI intact bilaterally Extrem General: normal to inspection Psych Mental Status: mental status grossly normal Attitude: cooperative Assessment and Plan Assessment and Plan (1) Encounter for insertion of venous access port: Status: Acute (2) Cancer of left lung: Status: Acute Qualifiers: Lung location: overlapping sites Qualified Code(s): C34.82 - Malignant neoplasm of overlapping sites of left bronchus and lung (3) Regional lymph node metastasis present: Status: Acute Plan I have discussed above with the patient- Port-a-Cath placement. Patient has been counseled as to the risks/benefits of the procedure. I have explained the risks of the surgery, including but not limited to: infection, bleeding, injury to any blood vessels/nerves, injury to lungs (such as pneumothorax or hemothorax and need for chest tube), not having any access, nonfunctioning of port due to thrombosis, infection of port, etc. the patient understands and agrees to proceed. I have answered all the patient's questions to the patient?s satisfaction and the patient has no further questions. Agata Lynn M.D. Pager: [phone] [facility] [address] [place] [address], [address] [place] [address] Office: [phone] Coding Level of Care Code Off vis,new,level 3 Diagnoses Encounter for insertion of venous access port Z45.2 Malignant neoplasm of overlapping sites of left lung C34.82 Lung location: overlapping sites Regional lymph node metastasis present C77.9 11/24/23 1212 <Electronically signed by Agata Lynn MD> Date Agata Lynn MD
[2023-12-02] MEDS: Bupivacaine 0.5% PF 10 ML VIAL ×2 (09:29→09:57)
[2023-12-02] MEDS: Clindamycin 900 MG/50 ML BAG 75 MG IV (09:43)
[2023-12-02] MEDS: Lidocaine 1% /Epi 1:100 (20ml) 20 ML Vial (09:57)
--- NOTE | 2023-12-02 10:20 | PCM.OPRPT ---
Report of Operation Date of Procedure: 12/02/23 Pre-Operative Diagnosis: z45.2, lung cancer Post-Operative Diagnosis: Same Surgery/Procedure Performed:: Placement of right IJ Port-A-Cath Use of ultrasound Use of fluoroscopy Surgeon: Agata Lynn Type of Anesthesia: Local MAC Anesthesiologist: Kelvin Reyes Special Medications: Clindamycin 900 mg IV x 1 Estimated Blood Loss (mL): < 10 cc Description of Procedure: After informed consent was given, the patient was brought to the operating room and placed in the supine position. Appropriate time out protocol was followed. Patient was then given IV conscious sedation for anesthesia. The patient's right upper chest and neck were then prepped with a surgical skin preparation and sterile surgical drapes were placed. After proper landmarks were ascertained, the skin at the upper right chest area was then infiltrated with 1:1 mixture of 1% lidocaine with epinephrine and 0.5% marcaine. A needle trocar was then inserted into the right internal jugular vein with ultrasound guidance-multiple vessels were viewed with u/s and the right IJ was chosen-- and there was good aspiration of venous blood. A wire was then threaded into the needle trocar and this was visualized under fluoroscopy to ensure that the wire was in the superior vena cava. Once this was done, then the needle trocar was removed. A small skin sandra was made with an 11 blade knife at the wire entrance site. The dilator with the introducer sheath attached was then placed over the wire into the right internal jugular vein via the Seldinger technique and this was visualized under fluoroscopy. The dilator and sheath were in proper position as visualized by fluoroscopy. A subcutaneous pocket was then created caudad to the catheter insertion site. A transverse skin incision was made after the skin and subcutaneous tissues were infiltrated with local anesthetic. Blunt dissection was then used to create a space large enough for placement of the subcutaneous port. The catheter was then tunneled into the subcutaneous pocket. The wire and dilator were then removed. The catheter was then threaded into the introducer sheath and was positioned with its tip at the junction of the superior vena cava and the right atrium as visualized under fluoroscopy. The excess catheter was transected. The catheter was then attached to the subcutaneous port using manufacturers guidelines. The catheter was flushed with a heparin saline mixture prior to placement. Hemostasis was carefully controlled with electrocautery. The port was sutured to the subcutaneous fascia using 2-0 Vicryl suture at two sites. The port was then placed in the subcutaneous pocket. The incision were reapproximated with interrupted subdermal 3-0 vicryl sutures. The skin was reapproximated with 3-0 nylon suture in a interrupted fashion. Steristrips were used for reinforcement of the skin closure at IJ insertion site and a sterile opsite dressings were applied. The patient tolerated the procedure well. Grafts/Implants Used: Bard PowerPort isp M.R.I. 6Fr Lot [id number] [id number] Complications none
--- NOTE | 2023-12-02 10:23 | DCINST_ITS ---
Discharge Instructions Procedure Port-A-Cath Diet Discharge Diet: Light diet - advance as tolerated Activity May shower in (days): 5 (Keep port site clean and dry x5 days. Neck incision okay to get wet after 1 day. Okay to lower shower and upper sponge bath. OR okay to taper off port site with a Ziploc bag to shower) Lifting Restrictions: No lifting > 15 pounds for 3 days with the arm on the side of the port Dressing / Incision Call your doctor if your incision/area has: Continuous Slow Oozing, Sudden Increased Bleeding, Increased Pain/ Swelling, Increased Redness, Foul Smelling Discharge and Swelling at the incision site Call your doctor if you observe: Fever of 101 or Higher Change Dressing in: 2 days (2-3 days- port site; ok to remove neck opsite in 1 day) Follow Up Care Please Follow Up With: Agata Lynn MD When: In 10 days for permanent suture removal?call office for appointment Test Results: Test results from this visit will be discussed in further detail at your follow- up appointment, if applicable. Discharge Plan Admission Attending Provider: Agata Lynn Primary Care Provider: Bob Lake Discharge Orders/Prescriptions Prescriptions: Continued topiramate [Topamax] 100 mg tablet 100 mg PO BID rosuvastatin 20 mg tablet 20 mg PO QHS Emgality Pen 120 mg/mL pen injector 120 mg subcut QMONTH epinephrine 0.3 mg/0.3 mL auto-injector 0.3 mg IM Q4H PRN (Reason: anaphylaxis) magnesium 250 mg tablet 250 mg PO DAILY cetirizine 10 mg tablet 10 mg PO DAILY PRN (Reason: allergy symptoms) ipratropium-albuterol 0.5 mg-3 mg(2.5 mg base)/3 mL solution for nebulization 3 ml inhalation Q6H PRN (Reason: shortness of breath or wheezing) ondansetron 8 mg tablet,disintegrating 8 mg translingual Q8H PRN (Reason: nausea and vomiting) cholecalciferol (vitamin D3) 50 mcg (2,000 unit) capsule 50 mcg PO DAILY cyanocobalamin (vitamin B-12) 5,000 mcg capsule 5,000 mcg PO DAILY pantoprazole 40 mg tablet,delayed release (DR/EC) 40 mg PO BID Mucus Relief Cold and Sinus 5-325-200 mg tablet 2 tab PO Q4-6H PRN (Reason: sinus symptoms) hydroxyzine pamoate 50 mg capsule 50 mg PO BID PRN (Reason: nausea and vomiting) risperidone 0.5 mg tablet 0.5 mg PO DAILY furosemide 40 mg tablet 40 mg PO DAILY PRN (Reason: edema) Patient Comments: TAKE 1 TABLET BY MOUTH ONCE A DAY FOR 7 DAYS NEEDED FOR LEG SWELLING Atrovent HFA 17 mcg/actuation HFA aerosol inhaler 2 puff inhalation TID escitalopram oxalate [Lexapro] 10 mg tablet 10 mg PO DAILY quetiapine [Seroquel] 50 mg tablet 50 mg PO BID Trelegy Ellipta 200-62.5-25 mcg blister with device 1 inh inhalation DAILY Qty: 60 6RF lidocaine-prilocaine 2.5-2.5 % cream 1 applic topical ONCE PRN (Reason: port access) 30 Days Qty: 30 2RF levothyroxine 50 MCG tablet 50 mcg PO DAILY albuterol sulfate 6.7 GM HFA aerosol inhaler 2 puff IH 4X/DAY Qty: 1 0RF risperidone 1 MG tablet 2 mg PO QHS Patient Comments: PLEASE SEE ATTACHED FOR DETAILED DIRECTIONS hydrocodone-ibuprofen 7.5-200 mg tablet 1 tab PO Q12H PRN (Reason: pain) Patient Comments: TAKE 1 ORAL TWICE A DAY FOR 7 DAYS tizanidine 2 mg capsule 2 mg PO Q12H PRN (Reason: muscle spasticity) Patient Comments: TAKE 1 CAPSULE BY MOUTH TWICE A DAY Referrals / Follow Up: Bob Lake DO [Primary Care Provider] - Disposition Disposition (needs filled in before D/C Order can be placed): Home, Self Care
[2023-12-02 10:30] VITALS: BP 132/79; BP 138/87; PULSE 75; RESP 16; TEMP 36.1; O2SAT 97
[2023-12-02 10:35] VITALS: BP 121/76; BP 138/87; PULSE 72; RESP 16; O2SAT 98
--- NOTE | 2023-12-02 10:35 | RAD_ITS ---
INDICATION: port -- pacu EXAMINATION/TECHNIQUE: X-RAY - XR Chest 1 View COMPARISON: April 15, [address] dated October 27, 2023 FINDINGS: LINES/DEVICES: There is a right-sided central venous catheter in place terminating within the expected region of the proximal superior vena cava. LUNGS: There is an ill-defined opacity within the left lateral lower lung. No pneumothorax. MEDIASTINUM AND CARDIOVASCULAR STRUCTURES: Cardiac silhouette not enlarged. Central airways and mediastinal contour are unremarkable. BONES AND SOFT TISSUES: Unremarkable. RAD/CXR for Line Placement IMPRESSION: Ill-defined opacity within the left lower lung may be secondary to consolidation and/or a neoplastic process. Electronically Signed: Rukhsana Silver MD at 10:49 EST ,
[2023-12-02 10:40] VITALS: BP 127/75; BP 138/87; PULSE 76; RESP 16; O2SAT 100
[2023-12-02 10:50] VITALS: BP 125/77; BP 138/87; PULSE 75; RESP 16; TEMP 36.1; O2SAT 99
[2023-12-02 11:17] VITALS: BP 138/87
== END 2023-12-02 11:19 | disposition home or self-care (01) ==
LOC: SDC 07:50 → AC 07:51
PROVIDERS: PCP Student in an Organized Health Care Education/Training Program; Referring Provider Surgery; Visit Provider Surgery
PROC: (CPT 36561; principal; 2023-12-02 09:25)
DX: Z45.2 Encounter for adjustment and management of vascular access device (principal); C34.82 Malignant neoplasm of overlapping sites of left bronchus and lung; C77.9 Secondary and unspecified malignant neoplasm of lymph node, unspecified; J44.9 Chronic obstructive pulmonary disease, unspecified; E78.00 Pure hypercholesterolemia, unspecified; Z80.0 Family history of malignant neoplasm of digestive organs; Z86.16 Personal history of COVID-19; F41.0 Panic disorder [episodic paroxysmal anxiety]; E78.5 Hyperlipidemia, unspecified; Z87.891 Personal history of nicotine dependence; G89.29 Other chronic pain; E03.9 Hypothyroidism, unspecified
CPT/HCPCS: 36561; 00532; 71045; 77001; J7120; J2405

== ENCOUNTER 2024-02-08 11:50 | Outpatient (RCR) | payer BC, MEDICARE, SELFPAY | END 2024-02-24 23:59 | LOC: NS 11:50 | PROVIDERS: PCP Student in an Organized Health Care Education/Training Program; Visit Provider Internal Medicine Hematology & Oncology | DX: Z71.3 Dietary counseling and surveillance (principal) ==

== ENCOUNTER → 2024-04-03 | Outpatient (CLI) | payer BC, MEDICARE, SELFPAY ==
--- NOTE | 2024-04-03 17:10 | RAD_ITS ---
STUDY: X-RAY - THORACIC SPINE REASON FOR EXAM: Female, 58 years old. Malignant neoplasm of unspecified main bronchus TECHNIQUE: 3 view(s) of the thoracic spine were obtained. COMPARISON: None. FINDINGS: Normal kyphosis of the thoracic spine. There is no substantial scoliosis. Normal thoracic vertebrae and endplates. Normal disc space heights. The soft tissue structures are unremarkable. RAD/Thoracic Spine 2 Views IMPRESSION: Normal x-ray examination of the thoracic spine. Electronically Signed: Jama Aguillon MD at 10:02 EDT ,
== END | disposition home or self-care (01) ==
LOC: RAD 16:57
PROVIDERS: PCP Student in an Organized Health Care Education/Training Program; Referring Provider Anesthesiology Pain Medicine; Visit Provider Anesthesiology Pain Medicine
DX: C34.00 Malignant neoplasm of unspecified main bronchus (principal)
CPT/HCPCS: 72070

== ENCOUNTER 2024-04-19 00:36 | Emergency (ER) | payer BC, MEDICARE, SELFPAY ==
[2024-04-19] VITALS (12 sets, daily range): BP systolic 103–144; BP diastolic 7–100; PULSE 69–87; RESP 13–21; TEMP 36.2–36.4; O2SAT 92–97; BMI 32.0
--- NOTE | 2024-04-19 00:46 | RAD_ITS ---
INDICATION: chest pain EXAMINATION/TECHNIQUE: X-RAY - XR Chest 1 View COMPARISON: April 03, 2024. Chest radiograph. CT chest October 27, 2023 FINDINGS: LINES/DEVICES: Accessed right chest port with tip at the distal superior vena cava. LUNGS: Left perihilar fullness and linear atelectasis or scarring similar prior CT October 27, 2023. Lateral left lower lung peripheral pericardial fat correlating with appearance on comparison CT. No right lung consolidation or florid edema. No pneumothorax. MEDIASTINUM AND CARDIOVASCULAR STRUCTURES: Cardiac silhouette not enlarged. BONES AND SOFT TISSUES: Unremarkable. RAD/Chest 1 View (Portable) IMPRESSION: Persistent left perihilar fullness and atelectasis without significant change from July 27, [address] could best compare to October 27 2023 when clinically able. No other acute finding. Electronically Signed: Teddy Shaw MD at 1:49 EDT ,
--- NOTE | 2024-04-19 00:46 | EKG12_ITS ---
Test Reason : CP Blood Pressure : / mmHG Vent. Rate : 082 BPM Atrial Rate : 082 BPM P-R Int : 176 ms QRS Dur : 072 ms QT Int : 342 ms P-R-T Axes : 067 067 037 degrees QTc Int : 399 ms Normal sinus rhythm Low voltage QRS Nonspecific ST abnormality Abnormal ECG Confirmed by BECK MALKI, LAYO ([id number]), commissioning editor RIAZ BRADFORD ([id number]) on 04/24/2024 1:47:41 PM Referred By: Confirmed By:SHANDRA SOLARES MD
--- NOTE | 2024-04-19 01:02 | EDS_ITS ---
HPI History of Present Illness Chief Complaint: Chest Pain Informant: patient Onset/Context/Timing Onset: Today Narrative Narrative: Patient presents with 30 minutes of chest squeezing that radiates to her left shoulder. She states the pain woke her from sleep. She felt well when she went to bed last night. She also reports some shortness of breath. No recent cough or congestion. No fever. She does have a history of prior AK secondary to Takotsubo. She does not have a cardiac stent. She is undergoing treatment for lung cancer. Her last chemotherapy treatment was approximately 5 weeks ago. [facility] Medical History Encounter for education Regional lymph node metastasis present Cancer of left lung Wears glasses Wears dentures Arthritis High cholesterol Back pain Restless legs Injury of head and neck Difficulty swallowing History of IBS On home oxygen therapy Emphysema, unspecified Shortness of breath on exertion Leg cramps History of pain when walking History of edema Cardiology follow-up encounter COVID-19 Panic attack Neuropathy Gastroparesis Cancer Depression Anxiety Hypothyroidism Chronic pain GERD (gastroesophageal reflux disease) Smoker COPD (chronic obstructive pulmonary disease) Myocardial infarct Hyperlipemia Migraines Home Medications ?Medication ?Instructions ?Recorded ?Last Taken ?Type levothyroxine 50 mcg tablet 50 mcg PO DAILY thyroid 10/18/17 12/02/23 03:00 History epinephrine 0.3 mg/0.3 mL 0.3 mg IM Q4H PRN anaphylaxis 11/01/23 Unknown History injection, auto-injector galcanezumab-gnlm 120 mg/mL 120 mg subcut QMONTH 11/01/23 11/08/23 History subcutaneous pen injector (Emgality Pen) magnesium 250 mg tablet 250 mg PO DAILY 11/01/23 Unknown History rosuvastatin 20 mg tablet 20 mg PO QHS 11/01/23 Unknown History topiramate 100 mg tablet (Topamax) 100 mg PO BID 11/01/23 12/02/23 03:00 History cholecalciferol (vitamin D3) 50 50 mcg PO DAILY 11/04/23 Unknown History mcg (2,000 unit) capsule hydroxyzine pamoate 50 mg capsule 50 mg PO BID PRN nausea and 11/04/23 12/02/23 03:00 History vomiting pantoprazole 40 mg tablet,delayed 40 mg PO BID 11/04/23 12/02/23 03:00 History release zqynewznqvlys-dkzxsrgcgyiuo-qiqnqdynhnw 2 tab PO Q4-6H PRN sinus symptoms 11/04/23 Unknown History 5 mg-325 mg-200 mg tablet (Mucus Relief Cold and Sinus) risperidone 0.5 mg tablet 0.5 mg PO DAILY 11/04/23 Unknown History escitalopram oxalate 10 mg tablet 10 mg PO DAILY 11/07/23 12/02/23 03:00 History (Lexapro) ipratropium bromide 17 2 puff inhalation TID 11/07/23 Unknown History mcg/actuation HFA aerosol inhaler (Atrovent HFA) quetiapine 50 mg tablet (Seroquel) 50 mg PO BID 11/07/23 12/02/23 03:00 History lidocaine-prilocaine 2.5 %-2.5 % 1 applic topical ONCE PRN port 11/23/23 Unknown Rx topical cream access 30 days #30 grams hydrocodone 7.5 mg-ibuprofen 200 1 tab PO Q12H PRN pain 11/29/23 Unknown History mg tablet tizanidine 2 mg capsule 2 mg PO Q12H PRN muscle spasticity 11/29/23 Unknown History albuterol sulfate 90 mcg/actuation 2 inh inhalation Q6-8H #3 ea 01/03/24 Unknown Rx aerosol inhaler fluticasone fur. 200 mcg-umeclid 1 inh inhalation DAILY #3 ea 01/03/24 Unknown Rx 62.5 mcg-vilant 25 mcg inhalat.powder (Trelegy Ellipta) MAGIC MOUTH WASH (BMX) 180 mL 15 ml PO .qid PRN pain #180 mL 01/18/24 Unknown Rx suspension cetirizine 10 mg tablet (24Hour 10 mg PO DAILY PRN allergy symptoms 04/19/24 Unknown History Allergy) guaifenesin 1,200 mg tablet, 1,200 mg PO BID 04/19/24 Unknown History extended release 12 hr (Mucinex) risperidone 2 mg tablet 2 mg PO QHS 04/19/24 Unknown History sumatriptan succinate 100 mg tablet 100 mg PO PRN 04/19/24 Unknown History Allergy/AdvReac Type Severity Reaction Status Date / Time acetaminophen (From Tylenol) Allergy Shortness Verified 04/19/24 00:36 of breath amoxicillin Allergy Other Verified 04/19/24 00:36 dicyclomine (From Bentyl) Allergy Rash Verified 04/19/24 00:36 Latex, Natural Rubber Allergy Rash Verified 04/19/24 00:36 mirtazapine Allergy Other Verified 04/19/24 00:36 morphine Allergy Shortness Verified 04/19/24 00:36 of breath Penicillins Allergy Other Verified 04/19/24 00:36 prasterone (DHEA) Allergy Other Verified 04/19/24 00:36 procaine Allergy Other Verified 04/19/24 00:36 prochlorperazine Allergy Other Verified 04/19/24 00:36 sulfasalazine Allergy Other Verified 04/19/24 00:36 valdecoxib (From Bextra) Allergy Shortness Verified 04/19/24 00:36 of breath Venlafaxine Analogues Allergy Other Verified 04/19/24 00:36 prednisolone AdvReac Severe bleeding Verified 04/19/24 00:36 ketorolac (From Toradol) AdvReac Other Verified 04/19/24 00:36 Family History Mother Colon cancer Diabetes Sister Colon cancer Diabetes Father Diabetes Cancer liver Other Heart disease Surgical History S/P cataract surgery Hx of elbow surgery H/O right knee surgery History of hysterectomy Social History household members: spouse housing: house Smoking Status: Former smoker Tobacco: How many years used: 50 alcohol intake: never substance use type: does not use ROS ROS ED Constitutional Constitutional ED: Denies chills or fever(s) Eyes Eyes: Denies discharge from eye(s) ENT ENT ED: Denies discharge from eye(s), rhinorrhea or sore throat Cardiovascular Cardiovascular: Reports chest pain; Denies palpitations Respiratory/Chest Respiratory/Chest: Reports dyspnea; Denies cough Gastrointestinal Gastrointestinal: Denies abdominal pain, nausea or vomiting Genitourinary Genitourinary ED: Denies dysuria Musculoskeletal Musculoskeletal: Reports extremity pain; Denies back pain Integumentary Denies Abrasions or rash Neurologic Neurologic: Denies headache(s) or weakness Psychiatric Psychiatric: Denies anxiety or depression Allergic/Immunologic Allergic/Immunologic ED: Denies lip swelling or urticaria EXAM Physical Exam Const Vital Signs: 04/19/24 00:36 04/19/24 00:39 04/19/24 01:04 Temperature 97.5 F L Temperature Source Oral Pulse Rate 87 Respiratory Rate 18 Respiratory Pattern Normal Blood Pressure 144/82 H Blood Pressure Mean 102 Pulse Ox 97 Oxygen Delivery Method Room Air Room Air 04/19/24 01:14 04/19/24 01:15 04/19/24 01:30 Temperature Temperature Source Pulse Rate 73 72 73 Respiratory Rate 16 13 15 Respiratory Pattern Blood Pressure 117/56 L 113/81 H Blood Pressure Mean 75 88 Pulse Ox 96 94 95 Oxygen Delivery Method 04/19/24 01:45 04/19/24 01:46 04/19/24 02:00 Temperature Temperature Source Pulse Rate 74 71 72 Respiratory Rate 14 17 16 Respiratory Pattern Blood Pressure 109/77 103/88 H Blood Pressure Mean 89 93 Pulse Ox 92 93 95 Oxygen Delivery Method Room Air Room Air 04/19/24 02:00 04/19/24 02:15 04/19/24 02:30 Temperature Temperature Source Pulse Rate 76 73 69 Respiratory Rate 21 H 17 18 Respiratory Pattern Blood Pressure 117/100 H 103/88 H 106/67 Blood Pressure Mean 108 95 79 Pulse Ox 95 95 94 Oxygen Delivery Method 04/19/24 02:45 04/19/24 03:00 Temperature Temperature Source Pulse Rate 73 69 Respiratory Rate 19 H 13 Respiratory Pattern Blood Pressure 114/56 L Blood Pressure Mean 72 Pulse Ox 96 96 Oxygen Delivery Method Room Air Positive well nourished and well developed General Appearance ED: well developed HEENT Reports moist mucous membranes Eyes EOMs intact bilaterally Chest Wall palpation of chest normal Chest Narrative: Port noted to the right upper chest. 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 IV line initiated. Patient given 4 baby aspirin. Labwork obtained to evaluate for leukocytosis, anemia, and electrolyte derangement. EKG obtained to evaluate for cardiac arrhythmia/ischemia. Chest x-ray obtained to evaluate for acute lung pathology, cardiac size, or mediastinal abnormality. History & Record Review Discussion w/independent historian: Patient Lab Data Attestation: I reviewed the patient's lab results. Labs: Laboratory Results - last 24 hr 04/19/24 04/19/24 01:01 03:00 WBC 4.3 L RBC 2.97 L Hgb 10.0 L Hct 30.2 L MCV 101.7 H MCH 33.7 H MCHC 33.1 RDW Std Deviation 55.6 H RDW Coeff of Ray 14.9 H Plt Count 158 MPV 8.6 Immature Gran % (Auto) 0.500 Neut % (Auto) 64.9 Lymph % (Auto) 23.3 Haakon % (Auto) 8.3 Eos % (Auto) 2.5 Baso % (Auto) 0.5 Absolute Neuts (auto) 2.8 Absolute Lymphs (auto) 1.01 Nucleated RBC % 0 Atypical Lymphocytes 1+ D-Dimer Quant (PE/DVT) 0.55 H* Sodium 142 Potassium 3.4 L Chloride 109 H Carbon Dioxide 25.0 Anion Gap 8 BUN 19 H Creatinine 1.08 H Estim Creat Clear Calc 64.75 Est GFR (MDRD) Af Amer 67 Est GFR (MDRD) Non-Af 55 L BUN/Creatinine Ratio 17.6 Glucose 107 H Calcium 8.5 Troponin I High Sens 3 4 Radiography Chest X-Ray - ED: 1 View, Read by ED Physician, Chronic Changes and No Infiltrates Diagnostic Testing: Clinical Impression(s) from Imaging Studies Chest X-Ray 04/19/24 00:46 IMPRESSION: Persistent left perihilar fullness and atelectasis without significant change from July 27, [address] could best compare to October 27 2023 when clinically able. No other acute finding. Electronically Signed: Teddy Shaw MD at 1:49 EDT , EKG Initial EKG: Attestation: I personally reviewed and interpreted this EKG as follows: Interpretation: Sinus Rhythm (Sinus at 82 with no acute ischemia. No significant change when compared to prior study from October 2023) Treatment and Re-Evaluation :: CBC was white count of 4.3 with a hemoglobin 10.0. Differential unremarkable. Chemistry studies reveal a BUN of 19 and a creatinine 1.08. Initial troponin is 3 with a 2-hour repeat troponin of 4. D-dimer is 0.55 which is normal when adjusted for age. Portable chest x-ray per my interpretation reveals chronic changes with no acute findings. Radiology interpretation reviewed and agrees. EKG is sinus rhythm with no obvious ischemia. No significant change when co mpared to prior study from October. On repeat evaluation patient resting comfortably. Test results discussed with her and daughter at bedside. At this time I see no evidence of pulmonary embolism, pneumothorax, acute coronary syndrome, or AK. I do feel patient can be safely discharged home for follow-up. She is reassured with this. Return instructions were provided. Discharge Plan Triage Chief Complaint: Chest Pain ED Provider: Michlel Barajas Dx/Rx/DC Orders Clinical Impression: Chest pain Instructions: ED Chest Pain, Uncertain Cause Prescriptions: No Action topiramate [Topamax] 100 mg tablet 100 mg PO BID rosuvastatin 20 mg tablet 20 mg PO QHS Emgality Pen 120 mg/mL pen injector 120 mg subcut QMONTH epinephrine 0.3 mg/0.3 mL auto-injector 0.3 mg IM Q4H PRN (Reason: anaphylaxis) magnesium 250 mg tablet 250 mg PO DAILY cholecalciferol (vitamin D3) 50 mcg (2,000 unit) capsule 50 mcg PO DAILY pantoprazole 40 mg tablet,delayed release (DR/EC) 40 mg PO BID Mucus Relief Cold and Sinus 5-325-200 mg tablet 2 tab PO Q4-6H PRN (Reason: sinus symptoms) hydroxyzine pamoate 50 mg capsule 50 mg PO BID PRN (Reason: nausea and vomiting) risperidone 0.5 mg tablet 0.5 mg PO DAILY Atrovent HFA 17 mcg/actuation HFA aerosol inhaler 2 puff inhalation TID escitalopram oxalate [Lexapro] 10 mg tablet 10 mg PO DAILY quetiapine [Seroquel] 50 mg tablet 50 mg PO BID Trelegy Ellipta 200-62.5-25 mcg blister with device 1 inh inhalation DAILY Qty: 3 3RF albuterol sulfate 90 mcg/actuation HFA aerosol inhaler 2 inh inhalation Q6-8H Qty: 3 3RF lidocaine-prilocaine 2.5-2.5 % cream 1 applic topical ONCE PRN (Reason: port access) 30 Days Qty: 30 2RF MAGIC MOUTH WASH (BMX) 180 mL suspension 15 ml PO .qid PRN (Reason: pain) Qty: 180 5RF Rx Instructions: nbzzaaed88.5mg/5 mL 60mL; al-mag hydrox-sim 400 mg-400 mg-40mg/5mL PO susp 60mL; Lido Visc 2% soln 60mL levothyroxine 50 MCG tablet 50 mcg PO DAILY hydrocodone-ibuprofen 7.5-200 mg tablet 1 tab PO Q12H PRN (Reason: pain) Patient Comments: TAKE 1 ORAL TWICE A DAY FOR 7 DAYS tizanidine 2 mg capsule 2 mg PO Q12H PRN (Reason: muscle spasticity) Patient Comments: TAKE 1 CAPSULE BY MOUTH TWICE A DAY risperidone 2 mg tablet 2 mg PO QHS sumatriptan succinate 100 mg tablet 100 mg PO PRN guaifenesin [Mucinex] 1,200 mg tablet extended release 12hr 1,200 mg PO BID cetirizine [24Hour Allergy] 10 mg tablet 10 mg PO DAILY PRN (Reason: allergy symptoms) Primary Care Provider: Bob Lake Referrals: Bob Lake DO [Primary Care Provider] - 3-5 Days Print Language: Turkish Disposition Disposition: Home, Self Care
[2024-04-19 01:07] LABS: Absolute Lymphocyte Count 1.01 X10^3/uL (0.83-4.51); Absolute Neutrophil Count 2.8 X10^3/uL (2.0-7.7); Basophil# 0.02 X10^3/uL; Basophil% 0.5 % (0-1); Eosinophil# 0.11 X10^3/uL; Eosinophils% 2.5 % (0-5); Hematocrit 30.2 % (37-47); Lymphocyte # 1.01 X10^3/ul (0.83-4.51); Lymphocyte % 23.3 % (19-41); Mean Corp Hgb Conc 33.1 g/dL (32-36); Mean Corpuscular Hgb 33.7 pg (27.0-32.0); Mean Corpuscular Volume 101.7 fL (81-99); Mean Platelet Vol. 8.6 fl (6.2-12.0); Monocyte# 0.36 X10^3/uL; Monocyte% 8.3 % (0-10); NRBC Flagged by Analyzer 0 % (0-5); Neutrophil # 2.82 X10^3/uL (2.7-7.7); Neutrophil % 64.9 % (47-70); POSITIVE MORPHOLOGY YES; Platelet Count 158 K/mm3 (150-450); RBC Distribution Width CV 14.9 % (11.6-14.6); RBC Distribution Width SD 55.6 fl (35.1-43.9); Red Blood Count 2.97 M/mm3 (4.2-5.4); White Blood Count 4.3 K/mm3 (4.4-11.0)
[2024-04-19] MEDS: Aspirin 81 MG TAB.CHEW 324 MG PO (01:07)
[2024-04-19] MEDS: 0.9% Normal Saline (1000mL) 1,000 ML 150 ML IV (01:08)
[2024-04-19 01:16] LABS: Differential Indicated SCAN CRITERIA MET
[2024-04-19 01:31] LABS: Anion Gap 8 (5-15); BUN 19 mg/dL (7-18); BUN/Creat Ratio 17.6 RATIO (10-20); Calcium,Total 8.5 mg/dL (8.5-10.1); Chloride 109 mmol/L (98-107); Creatinine, Serum 1.08 mg/dL (0.55-1.02); EST Glomerular Filtration Rate 55 mL/min (>60); Est Glom Filt Rate - Afr Amer 67 mL/min (>60); Estimated Creatinine Clearance 64.75 ml/min; Glucose 107 mg/dL (74-106); Potassium 3.4 mmol/L (3.5-5.1); Sodium Level 142 mmol/L (136-145); Troponin-I HS (w/2H Reflex) 3 pg/mL (3.0-54.0)
[2024-04-19 01:32] LABS: Atypical Lymphocyte 1+ %
[2024-04-19 01:40] LABS: D-Dimer Quantitative (DVT/PE) 0.55 FEU/ug/m (0.27-0.49)
[2024-04-19] MEDS: Potassium Chloride Oral Tablet 20 MEQ 40 MEQ PO (01:47)
[2024-04-19 03:04] LABS: Reflex Troponin-HS? (from REC) Y
[2024-04-19 03:26] LABS: Troponin-I HS 4 pg/mL (3.0-54.0)
== END 2024-04-19 04:00 | disposition home or self-care (01) ==
PROVIDERS: Emergency Provider Emergency Medicine; PCP Student in an Organized Health Care Education/Training Program; Visit Provider Emergency Medicine
DX: R07.9 Chest pain, unspecified (principal); C34.90 Malignant neoplasm of unspecified part of unspecified bronchus or lung; J44.9 Chronic obstructive pulmonary disease, unspecified; E78.5 Hyperlipidemia, unspecified; Z87.891 Personal history of nicotine dependence; Z80.0 Family history of malignant neoplasm of digestive organs; I25.2 Old myocardial infarction; K21.9 Gastro-esophageal reflux disease without esophagitis; E03.9 Hypothyroidism, unspecified; Z86.16 Personal history of COVID-19
CPT/HCPCS: 36591; 71045; 80048; 84484; 85025; 85379; 93005; 96360; 96361; 99285; J7030; A4216

== ENCOUNTER → 2024-06-08 | Outpatient (CLI) | payer BC, MEDICARE, SELFPAY ==
--- NOTE | 2024-06-08 12:45 | STE_ITS ---
Reason For Study: CHEST PAIN Stress Results Protocol: DOBUTAIMINE Maximum Predicted HR: 160 bpm Target HR: 136 bpm % Maximum Predicted HR: 84 % Heart Stage Duration Rate BP Dose Comment (mm:ss) (bpm) BASELINE 70 121/77 STAGE 1 4:25 116 122/5210.00 CHEST PAIN, SHARP MIDSTERNAL 8/10, 122/52, RECHECKED BP AND STAGE 2 3:00 133 100/5320.00NOTED 100/53, STAGE 3 1:50 134 107/9630.00CHEST PAIN CONTINUES, DR BARAKAT IN ROOM RECOVERY 77 132/73 CHEST PAIN RESOLVING, LESS SEVERE Stress Duration: 9:15 mm:ss Maximum Stress HR: 134 bpm Baseline Echocardiogram Findings The estimated ejection fraction is 65 %. post stress EF is 80%. Stress Echo Wall motion Data Resting WM Intermediate WM Stress WM Resting Wall Motion Wall Motion Int. Wall Motion Stress No regional wall motion No regional wall motion No regional wall motion abnormalities noted. abnormalities noted. abnormalities noted. All segments Hyperkinetic. All segments Hyperkinetic. EKG Data The baseline ECG displays normal sinus rhythm. No significant ischemic changes. Symptoms with Stress The patient experinced Sharp 8/10 chest pain at max dobutamine dose . ECHO/Stress Test Echo w/o Contrast Interpretation Summary The estimated ejection fraction is 65 %. Dobutamine stress echo is negative for dobutamine infusion induced EKG changes of ischemia or echocardiographic changes of ischemia. Patient had sharp chest pain with dobutamine infusion Ordering Physician: Bob Lake Referring Physician: Bob Lake Performed By: Justine Grigsby RCS
== END | disposition home or self-care (01) ==
LOC: CVS 12:44
PROVIDERS: PCP Student in an Organized Health Care Education/Training Program; Referring Provider Student in an Organized Health Care Education/Training Program; Visit Provider Student in an Organized Health Care Education/Training Program
DX: R07.9 Chest pain, unspecified (principal)
CPT/HCPCS: 93017; 93350; J7040; A4216; C8928

== ENCOUNTER → 2024-07-12 | Outpatient (CLI) | payer BC, MEDICARE, SELFPAY ==
[2024-07-12 19:46] LABS: Thyroid Stim Hormone (TSH) 0.959 uIU/mL (0.358-3.740)
== END | disposition home or self-care (01) ==
LOC: LAB 12:24
PROVIDERS: PCP Student in an Organized Health Care Education/Training Program; Referring Provider Internal Medicine Cardiovascular Disease; Visit Provider Internal Medicine Cardiovascular Disease
DX: R07.9 Chest pain, unspecified (principal)
CPT/HCPCS: 36415; 84443

== ENCOUNTER → 2024-07-19 | Outpatient (CLI) | payer BC, MEDICARE, SELFPAY | END | disposition home or self-care (01) | LOC: PSN 10:56 | PROVIDERS: PCP Student in an Organized Health Care Education/Training Program; Referring Provider Internal Medicine Cardiovascular Disease; Visit Provider Internal Medicine Cardiovascular Disease | DX: R07.9 Chest pain, unspecified (principal); I10 Essential (primary) hypertension; R00.0 Tachycardia, unspecified | CPT/HCPCS: 93225; 93226 ==

== ENCOUNTER → 2024-07-27 | Outpatient (CLI) | payer BC, MEDICARE, SELFPAY | END | disposition home or self-care (01) | LOC: PSN 09:19 | PROVIDERS: PCP Student in an Organized Health Care Education/Training Program; Referring Provider Nurse Practitioner Acute Care; Visit Provider Nurse Practitioner Acute Care | DX: J43.2 Centrilobular emphysema (principal) | CPT/HCPCS: 94060; 94726; 94729 ==

== ENCOUNTER → 2024-07-30 | Outpatient (CLI) | payer BC, MEDICARE, SELFPAY ==
[2024-07-30 13:24] VITALS: PULSE 78; PULSE 81; PULSE 84; PULSE 87; PULSE 88; PULSE 89; PULSE 90; O2SAT 88; O2SAT 93; O2SAT 94; O2SAT 95; O2SAT 96; O2SAT 97
--- NOTE | 2024-08-01 12:23 | WT_ITS ---
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 Assistive device used: Cane Pre-test Oxygen Delivery Method Room Air Pulse Ox (%) 96 Pulse Rate (60-100 beats/min) 78 Dyspnea John Scale (0-10) 0.5 Exertion John Scale (6-20) 6 1st minute Oxygen Delivery Method Room Air Pulse Ox (%) 93 Pulse Rate (60-100 beats/min) 84 2nd minute Oxygen Delivery Method Room Air Pulse Ox (%) 88 Pulse Rate (60-100 beats/min) 88 Dyspnea John Scale (0-10) 5 Number of Rests Taken 1 3rd minute Oxygen Flow Rate (L/min) (L/min) 2 Oxygen Delivery Method Nasal Cannula Pulse Ox (%) 96 Pulse Rate (60-100 beats/min) 87 4th minute Oxygen Flow Rate (L/min) (L/min) 2 Oxygen Delivery Method Nasal Cannula Pulse Ox (%) 93 Pulse Rate (60-100 beats/min) 90 5th minute Oxygen Flow Rate (L/min) (L/min) 2 Oxygen Delivery Method Nasal Cannula Pulse Ox (%) 95 Pulse Rate (60-100 beats/min) 88 Number of Rests Taken 1 6th minute Oxygen Flow Rate (L/min) (L/min) 2 Oxygen Delivery Method Nasal Cannula Pulse Ox (%) 94 Pulse Rate (60-100 beats/min) 89 Dyspnea John Scale (0-10) 3 Exertion John Scale (6-20) 13 Post-test Oxygen Flow Rate (L/min) (L/min) 2 Oxygen Delivery Method Nasal Cannula Pulse Ox (%) 97 Pulse Rate (60-100 beats/min) 81 Full Laps Walked 7 Partial Lap, Number of Tiles Walked 32 Total Distance Walked (ft) 445 Interpretation Interpretation: The patient ambulated 445 feet over the course of 6 minutes beginning on room air with use of a cane. Pretesting oxygen saturation was noted to be 96% on room air. With ambulation, the joao oxygen saturation was 88%. 2 L/min of supplemental oxygen was applied, and the patient was able to complete the remainder of the test while maintaining appropriate saturations. Recommendations Recommendations: 2 L/min of supplemental oxygen should be utilized with exertion.
== END | disposition home or self-care (01) ==
PROVIDERS: PCP Student in an Organized Health Care Education/Training Program; Referring Provider Nurse Practitioner Acute Care; Visit Provider Nurse Practitioner Acute Care
DX: J43.2 Centrilobular emphysema (principal)
CPT/HCPCS: 94618

== ENCOUNTER → 2024-09-06 | Outpatient (CLI) | payer BC, MEDICARE, SELFPAY ==
--- NOTE | 2024-09-06 12:48 | CT_ITS ---
STUDY: CT CHEST WITHOUT CONTRAST REASON FOR EXAM: Female, 59 years old. CP RADIATION DOSAGE (If Supplied By Facility): CTDIvol = ( 12.19 ) mGy, DLP = ( 195.04 ) mGycm TECHNIQUE: Transaxial imaging was performed without the administration of intravenous contrast material. Cardiac over read examination. Individualized dose optimization techniques were used for this CT. COMPARISON: No relevant priors. FINDINGS: CHEST A right-sided portacatheter is seen. There is volume loss in the left hemithorax with shift of the heart and mediastinal structures towards the left side of the midline. Diffuse emphysematous changes. Small left pleural effusion with the evidence of a scarring and bronchiectasis with bullous formation in the left hemithorax. 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 There has been progression as compared to prior study dated October 27, 2023. Pericardial thickening. No significant coronary artery calcification is seen. Normal mediastinum. Normal hilar regions. Normal unenhanced pulmonary arteries. Normal aorta arch and descending thoracic aorta. There are degenerative changes of the thoracic spine. There is no demonstrated abnormality of the visualized upper abdomen. CT/Limited Chest CT Cardiac Only IMPRESSION: Small left pleural effusion with volume loss in left hemithorax with the scarring and bronchiectasis as described. 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 Clinical correlation recommended. Pericardial thickening. No coronary artery calcification is seen. Electronically Signed: Jules Cueto MD at 15:02 EST ,
--- NOTE | 2024-09-10 07:32 | CA.SCORE ---
Calcium Scoring Date of Study:: 09/06/24 Indications Indications: Chest pain Coronary Calcium Scoring: High-resolution Computed Tomographic imaging of the chest was performed on [09/06/24 ], with particular attention paid to the coronary arteries. Images from the examination were analyzed for the presence and extent of coronary artery calcification , using coronary calcium quantification software. The patient tolerated the procedure well and there were no complications. The results of the coronary calcification analysis are provided below. Findings Coronary Artery Left Main (LM): 0 Left Anterior Descending (LAD): 0.79 Left Circumflex (LCX): 0 Right Coronary Artery (RCA): 0 Total Agatston Score: 0.79 Percentile Rankin%-50% Calcium Scoring Interpretation: Different methods to categorize the overall amount of coronary plaque. Overall amount CAC SIS Visual of coronary plaque P1 Mild -100 <2 1-2 vessels with mild amount of plaque P2 Moderate 101-300 3-4 1-2 vessels with moderate amount, 3 vessels with mild amount of plaque P3 Severe 301-999 5-7 3 vessels with moderate amount, 1 vessel with severe amount of plaque P4 Extensive >1000 >8 2-3 vessels with severe amount of plaque Calcium Score: Mild: 1-2 vessels w/mild amount of plaque Conclusion: No significant atherosclerotic plaque
== END | disposition home or self-care (01) ==
LOC: CT 12:46
PROVIDERS: PCP Student in an Organized Health Care Education/Training Program; Referring Provider Internal Medicine Cardiovascular Disease; Visit Provider Internal Medicine Cardiovascular Disease
DX: R07.9 Chest pain, unspecified (principal); E78.5 Hyperlipidemia, unspecified
CPT/HCPCS: 75571; 76380

== ENCOUNTER 2024-10-18 14:52 | Emergency (ER) | payer BC, MEDICARE, SELFPAY ==
[2024-10-18 14:52] VITALS: BP 128/73; PULSE 80; RESP 18; TEMP 36.2; O2SAT 100
--- NOTE | 2024-10-18 15:10 | ED.VIS.FALL ---
HPI HPI - Fall History of Present Illness Chief Complaint: Fall Detail of Chief Complaint: Left foot injury. Informant: patient Occured/Mechanism Occurred: Today and Hours Mechanism/Context: Yes same level fall and Yes trip Usually ambulates: Without assistance Pain/Injury Pain Location: lower extremity (Left foot) Quality of Pain: Dull and Aching Current Severity: Moderate Maximum Severity: Moderate Narrative Narrative: 59-year-old female history of prior [place], COPD, lung CA on oxygen. States that she has 7 different dogs at home. She was doing activities with the dogs when she got tripped up fell and landed awkwardly on her left foot complaining of left midfoot pain. This occurred around noon today. She can walk on it but it is more painful to walk on. She denies any other significant injuries. No LOC. She is on no blood thinners. Prior similar symptoms: No Recent Illness/Hospitalization: No PFSH PFSH Medical History Encounter for antineoplastic immunotherapy Myocardial infarct Hyperlipemia Hypothyroidism COPD (chronic obstructive pulmonary disease) Vitamin D deficiency GERD (gastroesophageal reflux disease) Fatigue Encounter for immunotherapy Encounter for education Regional lymph node metastasis present Cancer of left lung Wears glasses Wears dentures Arthritis High cholesterol Back pain Restless legs Injury of head and neck Difficulty swallowing Acute parotitis History of IBS On home oxygen therapy Emphysema, unspecified Shortness of breath on exertion Leg cramps History of pain when walking History of edema Cardiology follow-up encounter COVID-19 Panic attack Neuropathy Gastroparesis Cancer Depression Anxiety Chronic pain Smoker Migraines Home Medications ?Medication ?Instructions ?Recorded ?Last Taken ?Type levothyroxine 50 mcg tablet 50 mcg PO DAILY thyroid 10/18/17 12/02/23 03:00 History epinephrine 0.3 mg/0.3 mL 0.3 mg IM Q4H PRN anaphylaxis 11/01/23 Unknown History injection, auto-injector galcanezumab-gnlm 120 mg/mL 120 mg subcut QMONTH 11/01/23 11/08/23 History subcutaneous pen injector (Emgality Pen) magnesium 250 mg tablet 250 mg PO DAILY 11/01/23 Unknown History rosuvastatin 20 mg tablet 20 mg PO QHS 11/01/23 Unknown History topiramate 100 mg tablet (Topamax) 100 mg PO BID 11/01/23 12/02/23 03:00 History pantoprazole 40 mg tablet,delayed 40 mg PO BID 11/04/23 12/02/23 03:00 History release risperidone 0.5 mg tablet 0.5 mg PO DAILY 11/04/23 Unknown History lidocaine-prilocaine 2.5 %-2.5 % 1 applic topical ONCE PRN port 11/23/23 Unknown Rx topical cream access 30 days #30 grams hydrocodone 7.5 mg-ibuprofen 200 1 tab PO Q12H PRN pain 11/29/23 Unknown History mg tablet tizanidine 2 mg capsule 2 mg PO Q12H PRN muscle spasticity 11/29/23 Unknown History fluticasone fur. 200 mcg-umeclid 1 inh inhalation DAILY #3 ea 01/03/24 Unknown Rx 62.5 mcg-vilant 25 mcg inhalat.powder (Trelegy Ellipta) MAGIC MOUTH WASH (BMX) 180 mL 15 ml PO .qid PRN pain #180 mL 01/18/24 Unknown Rx suspension risperidone 2 mg tablet 2 mg PO QHS 04/19/24 Unknown History cholecalciferol (vitamin D3) 125 125 mcg PO QDAY 07/04/24 Unknown History mcg (5,000 unit) tablet clobetasol 0.05 % topical ointment 1 applic topical BID 07/04/24 Unknown History furosemide 40 mg tablet 40 mg PO QDAY PRN 07/04/24 Unknown History hydroxyzine pamoate 50 mg capsule 50 mg PO 4X/DAY PRN nausea and 07/04/24 Unknown History vomiting ibuprofen 200 mg tablet 400 mg PO Q4H PRN 07/04/24 Unknown History ipratropium bromide 17 2 puff inhalation 4X/DAY 07/04/24 Unknown History mcg/actuation HFA aerosol inhaler (Atrovent HFA) levalbuterol tartrate 45 2 puff inhalation Q4H 07/04/24 Unknown History mcg/actuation aerosol inhaler loratadine 10 mg tablet 10 mg PO QDAY 07/04/24 Unknown History triamcinolone acetonide 0.1 % 1 applic topical QDAY PRN 07/04/24 Unknown History topical cream metoprolol succinate 50 mg 50 mg PO QDAY #90 tabs 07/12/24 Unknown Rx tablet,extended release 24 hr levalbuterol tartrate 45 2 inh inhalation Q6H #15 grams 07/25/24 Unknown Rx mcg/actuation aerosol inhaler (Xopenex HFA) vitamin [id number] B1 1,000 ml IM 09/12/24 Unknown History mcg-100 mg/mL injection solution Allergy/AdvReac Type Severity Reaction Status Date / Time acetaminophen (From Tylenol) Allergy Shortness Verified 10/18/24 14:55 of breath amoxicillin Allergy Other Verified 10/18/24 14:55 dicyclomine (From Bentyl) Allergy Rash Verified 10/18/24 14:55 Latex, Natural Rubber Allergy Rash Verified 10/18/24 14:55 mirtazapine Allergy Other Verified 10/18/24 14:55 morphine Allergy Shortness Verified 10/18/24 14:55 of breath Penicillins Allergy Other Verified 10/18/24 14:55 prasterone (DHEA) Allergy Other Verified 10/18/24 14:55 procaine Allergy Other Verified 10/18/24 14:55 prochlorperazine Allergy Other Verified 10/18/24 14:55 sulfasalazine Allergy Other Verified 10/18/24 14:55 valdecoxib (From Bextra) Allergy Shortness Verified 10/18/24 14:55 of breath Venlafaxine Analogues Allergy Other Verified 10/18/24 14:55 adhesive tape AdvReac Intermediate blistering Verified 10/18/24 14:55 ketorolac (From Toradol) AdvReac Other Verified 10/18/24 14:55 Family History Mother Colon cancer Diabetes Sister Colon cancer Diabetes Father Diabetes Cancer liver Other Heart disease Surgical History S/P cataract surgery Hx of elbow surgery H/O right knee surgery History of hysterectomy Social History (Updated 10/18/24 @ 15:12 by Jemima Caballero) household members: spouse and children housing: house Smoking Status: Former smoker Tobacco: How many years used: 50 alcohol intake: never substance use type: does not use ROS ROS ED ROS Narrative Denies recent illness. Constitutional Constitutional ED: Denies chills or fever(s) Eyes Eyes: Denies blurry vision ENT ENT ED: Denies ear pain Cardiovascular Cardiovascular: Denies chest pain Respiratory/Chest Respiratory/Chest: Denies cough or dyspnea Gastrointestinal Gastrointestinal: Denies abdominal pain Genitourinary Genitourinary ED: Denies dysuria or hematuria Musculoskeletal Musculoskeletal: Denies arthralgias Integumentary Denies abscess Neurologic Neurologic: Denies headache(s) Psychiatric Psychiatric: Denies anxiety or depression Endocrine Endocrinology: Denies polydipsia or polyphagia Hematologic/Lymphatic Hematologic/Lymphatic: Denies easy bleeding or easy bruising Allergic/Immunologic Allergic/Immunologic ED: Denies mouth swelling or tongue swelling EXAM Physical Exam Narrative Exam Narrative: 59-year-old female sitting upright in bed. Vital signs are stable afebrile. Her pulse ox 100% on her typical 2 L. She is in no distress. Family is at bedside. H EENT exam pupils round reactive light. No facial or head trauma. No bruising or lacerations. Nontender face and scalp. Neck nontender. Back and spine nontender. Lungs coarse breath sounds. No rales, rhonchi or wheezing. Equal symmetrical. No distress. Heart regular rhythm rate about 80 no murmur. Chest wall and ribs nontender. Abdomen soft nontender. Pelvic girdle intact. Nontender. No shortening or rotation either hip. 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 Upper extremities are nontender. Right lower extremity is nontender. Left hip, thigh, knee and lower leg are nontender. Ankle is nontender. Achilles tendon intact. Left midfoot mildly swollen. Tender palpation. No deformity. Currently no bruising yet. Normal DP pulse. Able to wiggle her toes. Normal touch sensation. Skin intact. Normal dorsi plantarflexion. Neurologically she is awake and alert. No focal motor deficits. GCS 15. Const Vital Signs: 10/18/24 14:52 Temperature 97.2 F L Temperature Source Temporal Pulse Rate 80 Respiratory Rate 18 Blood Pressure 128/73 H Blood Pressure Mean 91 Pulse Ox 100 Oxygen Delivery Method Nasal Cannula Oxygen Flow Rate (L/min) 2 Positive well nourished and well developed; Negative for cachectic, contractures or unkempt General Appearance ED: well developed and NAD; Negative for unkempt, cachectic or contractures Nutritional Appearance: Negative for cachectic HEENT Reports normocephalic atraumatic; Negative for trauma, contusion, hematoma or tenderness Eyes PERRL and EOMs intact bilaterally General Eye ED: Negative for pale conjunctiva or scleral icterus Neck full ROM, no lymphadenopathy and supple Chest Wall inspection of chest normal and palpation of chest normal Resp normal respiratory effort, no retractions and No clear to auscultation bilaterally Resp Narrative: Coarse breath sounds bilaterally. No distress. Auscultation: Negative for rales, rhonchi, wheezes or diminished lung sounds Cardio regular rate, regular rhythm, S1 normal heart sound, S2 normal heart sound and no murmurs GI non-tender, non-distended and no masses Palpation: soft; Negative for guarding or rebound tenderness present Back/Spine no CVA tenderness General Back: Negative for CVA tenderness Cervical Spine: Negative for cervical spine tenderness Lumbar Spine / Lower Back: Negative for lumbar spinal tenderness or paraspinal muscle tenderness Neuro oriented x3, CN's II-XII intact bilaterally, moves all extremities, no focal motor deficits and no sensory deficits noted Chelita Coma Scale: document GCS findings Spontaneous Obeys Commands Oriented 15 Sensorium / Orientation: alert, oriented to person, oriented to place and oriented to time; Negative for orientation impaired, confused, lethargic or stuporous Motor Exam: strength 5/5 throughout Psych mental status grossly normal and thought process normal Appearance: Negative for unkempt Attitude: No agitated Mood & Affect: Negative for depressed, anxious or tearful Skin General Skin Exam: Negative for other Lesions: no lesions Rashes: no rashes Trauma: Negative for abrasion, laceration or puncture MDM MDM MDM Narrative Medical decision making narrative: 59-year-old female tripped and fell complaining of left foot pain. X-ray being obtained. She does not need any other imaging. There is no other significant injuries on exam. She will be given Motrin for pain. Repeat exam 3:40 PM unchanged. Discussed x-ray results with patient and her . Ice and elevate. Motrin and Tylenol. Follow-up podiatry as needed History & Record Review Discussion w/independent historian: Patient and Family Radiography Diagnostic Testing: Clinical Impression(s) from Imaging Studies Foot X-Ray 10/18/24 15:15 IMPRESSION: Transverse fractures at the bases of the second and third metatarsals. Electronically Signed: Brock Masters MD at 15:35 EST , Left foot x-ray, 3 views, interpreted by myself and the radiologist, shows transverse fracture of the proximal end of the second third metatarsal. Discharge Plan Triage Chief Complaint: Fall ED Provider: Nagi Christensen Dx/Rx/DC Orders Prescriptions: No Action topiramate [Topamax] 100 mg tablet 100 mg PO BID rosuvastatin 20 mg tablet 20 mg PO QHS Emgality Pen 120 mg/mL pen injector 120 mg subcut QMONTH epinephrine 0.3 mg/0.3 mL auto-injector 0.3 mg IM Q4H PRN (Reason: anaphylaxis) magnesium 250 mg tablet 250 mg PO DAILY pantoprazole 40 mg tablet,delayed release (DR/EC) 40 mg PO BID risperidone 0.5 mg tablet 0.5 mg PO DAILY hydroxyzine pamoate 50 mg capsule 50 mg PO 4X/DAY PRN (Reason: nausea and vomiting) Atrovent HFA 17 mcg/actuation HFA aerosol inhaler 2 puff inhalation 4X/DAY Trelegy Ellipta 200-62.5-25 mcg blister with device 1 inh inhalation DAILY Qty: 3 3RF lidocaine-prilocaine 2.5-2.5 % cream 1 applic topical ONCE PRN (Reason: port access) 30 Days Qty: 30 2RF MAGIC MOUTH WASH (BMX) 180 mL suspension 15 ml PO .qid PRN (Reason: pain) Qty: 180 5RF Rx Instructions: rhywwwax26.5mg/5 mL 60mL; al-mag hydrox-sim 400 mg-400 mg-40mg/5mL PO susp 60mL; Lido Visc 2% soln 60mL levalbuterol tartrate [Xopenex HFA] 45 mcg/actuation HFA aerosol inhaler 2 inh inhalation Q6H Qty: 15 11RF furosemide 40 mg tablet 40 mg PO QDAY PRN clobetasol 0.05 % ointment 1 applic topical BID cholecalciferol (vitamin D3) 125 mcg (5,000 unit) tablet 125 mcg PO QDAY ibuprofen 200 mg tablet 400 mg PO Q4H PRN loratadine 10 mg tablet 10 mg PO QDAY levalbuterol tartrate 45 mcg/actuation HFA aerosol inhaler 2 puff inhalation Q4H triamcinolone acetonide 0.1 % cream 1 applic topical QDAY PRN metoprolol succinate 50 mg tablet extended release 24 hr 50 mg PO QDAY Qty: 90 3RF vitamin [id number] B1 1,000-100 mg/mL solution IM levothyroxine 50 MCG tablet 50 mcg PO DAILY hydrocodone-ibuprofen 7.5-200 mg tablet 1 tab PO Q12H PRN (Reason: pain) Patient Comments: TAKE 1 ORAL TWICE A DAY FOR 7 DAYS tizanidine 2 mg capsule 2 mg PO Q12H PRN (Reason: muscle spasticity) Patient Comments: TAKE 1 CAPSULE BY MOUTH TWICE A DAY risperidone 2 mg tablet 2 mg PO QHS Primary Care Provider: Bob Lake Referrals: Bob Lake DO [Primary Care Provider] - Print Language: Burmese
[2024-10-18] MEDS: Ibuprofen 600 MG Tablet PO (15:12)
--- NOTE | 2024-10-18 15:15 | RAD_ITS ---
STUDY: X-RAY - LEFT FOOT CLINICAL: Female, 59 years old. Trauma. TECHNIQUE: 3 views of the left foot. COMPARISON: None. FINDINGS: Normal talus, calcaneus, and tarsal bones. Normal visualized subtalar, talonavicular, calcaneocuboid, tarsal and tarsometatarsal articulations. There are transverse fractures at the bases of the second and third metatarsals. Normal metatarsophalangeal joint of the great toe. Normal tibial and fibular sesamoid bones. Normal interphalangeal joint of the great toe. Normal phalanges of the great toe. Normal second through fifth metatarsophalangeal joints. Normal interphalangeal joints and phalanges of the lesser toes. RAD/Foot min 3 Views IMPRESSION: Transverse fractures at the bases of the second and third metatarsals. Electronically Signed: Brock Masters MD at 15:35 EST ,
--- NOTE | 2024-10-18 16:14 | ED.RN ---
Pt declined crutches and states I have some at home. RN stresses the importance of using crutches.
[2024-10-18 16:16] VITALS: BP 109/59; PULSE 88; RESP 18; TEMP 36.3; O2SAT 96
== END 2024-10-18 16:16 | disposition home or self-care (01) ==
PROVIDERS: Emergency Provider Emergency Medicine; PCP Student in an Organized Health Care Education/Training Program; Visit Provider Emergency Medicine
DX: S92.332A Displaced fracture of third metatarsal bone, left foot, initial encounter for closed fracture (principal); J44.9 Chronic obstructive pulmonary disease, unspecified; E78.5 Hyperlipidemia, unspecified; Z87.891 Personal history of nicotine dependence; W01.0XXA Fall on same level from slipping, tripping and stumbling without subsequent striking against object, initial encounter; I25.2 Old myocardial infarction; Z85.118 Personal history of other malignant neoplasm of bronchus and lung; E03.9 Hypothyroidism, unspecified; Z86.16 Personal history of COVID-19; Z99.81 Dependence on supplemental oxygen; Z90.710 Acquired absence of both cervix and uterus
CPT/HCPCS: 73630; 99283

== ENCOUNTER 2024-10-29 14:04 | Outpatient (RCR) | payer BC, MEDICARE, SELFPAY | END 2024-11-23 23:59 | LOC: NS 14:04 | PROVIDERS: PCP Student in an Organized Health Care Education/Training Program; Visit Provider Internal Medicine Hematology & Oncology | DX: Z71.3 Dietary counseling and surveillance (principal) ==

== ENCOUNTER → 2024-10-31 | Outpatient (CLI) | payer BC, MEDICARE, SELFPAY ==
--- NOTE | 2024-10-31 07:41 | CT_ITS ---
PROCEDURE: CHEST WITH CONTRAST REASON FOR EXAM: History of non-small cell carcinoma. Surveillance. TECHNIQUE: Chest CT with intravenous contrast. CONTRAST: 95 cc of Isovue 300. COMPARISON: Comparison is made with prior study dated September 06, 2024. FINDINGS: Hardware: A right-sided port a catheter is seen with the tip in the superior vena cava. Lymph nodes: No mediastinal hilar or axillary lymphadenopathy. Heart and Vasculature: Normal heart size. Minimal pericardial thickening. Thoracic aorta and pulmonary arteries are unremarkable. Lungs and Airways: Once again, there is volume loss in the left hemithorax with shift of the heart and mediastinal structures to the left side of the midline. Diffuse emphysematous changes with centrilobular emphysema. 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 This involves the medial aspect of the left upper lobe as well as the lingular segment and superior segment of the left lower lobe. There has been no change. Pleura: Persistent small left pleural effusion although this has improved as compared to prior study. Upper Abdomen: Visualized portions of the upper abdominal viscera are unremarkable. Bones: Degenerative changes of the thoracic spine. CT/Chest WITH Contrast IMPRESSION: NO ACUTE FINDINGS ON CONTRAST-ENHANCED CHEST CT. Stable examination. One or more dose reduction techniques were used (e.g., Automated exposure contr ol, adjustment of the mA and/or kV according to patient size, use of iterative reconstruction technique). Reading Location: [place] [id number]
[2024-10-31] MEDS: 0.9 % NaCl (Sterile) Posiflush 10 mL IV (08:05)
[2024-10-31] MEDS: 0.9% Saline Lock 10 ML Syringe IV (08:15)
== END | disposition home or self-care (01) ==
PROVIDERS: PCP Student in an Organized Health Care Education/Training Program; Referring Provider Nurse Practitioner Family; Visit Provider Nurse Practitioner Family
DX: C34.82 Malignant neoplasm of overlapping sites of left bronchus and lung (principal)
CPT/HCPCS: 71260; Q9967; A4216

== ENCOUNTER → 2024-11-12 | Outpatient (CLI) | payer BC, MEDICARE, SELFPAY ==
--- NOTE | 2024-11-12 10:28 | ST.MBS ---
Modified Barium Swallow Patient Information Study Date: 11/12/24 Study Time: 10:22 Direct Billable Minutes: 87 Total Minutes procedure & reportin Diagnosis: Dysphagia R13.10 Referring Physician: Bayron Rapp Reason for Referral: Assess swallow function, assess risk for aspiration, and determine recommendations for least restrictive diet textures and compensatory strategies to improve safety of swallow. 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 From 12/12/2023 ? 01/23/2024 she was treated with definitive chemoradiation. Pt reported dysphagia, particularly in the upper esophagus w/ reports of food/liquids sticking regularly. No regurgitation. Regular diet textures w/ stable weight. Pt referred for MBSS w/ ST to assess pharyngeal vs. esophageal retention and determine recommendations for LRD textures and strategies to facilitate safe po intake. Pt reports coughing more w/ cold liquids than room temperature. PMH: Encounter for antineoplastic immunotherapy, CT, HLD, COPD, GERD, Cancer of the left lung, Regional lymph node metastasis, Wears glasses and dentures, Arthritis, Injury of the head and neck, Difficulty swallowing, Acute parotitis, SOB on exertion, Panic attack, Neuropathy, Gastroparesis, Smoker, Migraines - See EMR for full PMH. Current Diet Ordered: Regular textures / Thin liquids Dentition: Upper Dentures and Lower Dentures Mental Status: WNL Respiratory Status: Oxygenating on 2L/M nasal cannula Penetration-Aspiration Scale Penetration-Aspiration Scale: OBJECTIVE ASSESSMENT OF SWALLOW FUNCTION (QUANTITATIVE ? PER TRIAL): PENETRATION / ASPIRATION SCALE (ROY): 1 = does not enter airway 2 = enters airway/above vocal folds/ejected 3 = enters airway/above vocal folds/not ejected 4 = enters airway/contacts vocal folds/ejected 5 = enters airway/contacts vocal folds/not ejected 6 = enters airway/below vocal folds/ejected 7 = enters airway/below vocal folds/not ejected despite effort 8 = enters airway/below vocal folds/no effort VIDEOFLOROSCOPIC SCALE SCORE (ROY): Grade I = aspiration of material that has penetrated into the laryngeal vestibule, intact cough reflex Grade II = aspiration < 10 % of the bolus, intact cough reflex Grade III = aspiration of < 10 % of the bolus, reduced cough reflex or aspiration of > 10 % of the bolus, intact cough reflex Grade IV = aspiration of > 10 % of the bolus, reduced cough reflex Penetration-Aspiration Scale Score Thin Liquid via teaspoon: Result: 5= enters airways/contacts vocal folds/not ejected Comment: Delayed reflexive cough = cleared laryngeal vestibule Thin Liquid via teaspoon Trial 2: Result: 2= enter airway/above vocal folds/ejected (reflexive cough) Thin Liquid via small single sip: cup: Result: 3= enters airways/above vocal folds/not ejected Thin liquid via small single: cup - 3-sec prep and hard swallow: Result: 3= enters airways/above vocal folds/not ejected Thin Liquid via small single sip: cup Chin tuck: Result: 2= enter airway/above vocal folds/ejected Thin Liquids via cup - 10mL: Result: 2= enter airway/above vocal folds/ejected Thin Liquids via cup - 10mL trial 2: Result: 2= enter airway/above vocal folds/ejected [place] Thick Liquid via teaspoon: Result: 1= does not enter airway [place] Thick Liquid via teaspoon Trial 2: Result: 2= enter airway/above vocal folds/ejected [place] Thick liquid via cup - 10mL: Result: 2= enter airway/above vocal folds/ejected [place] Thick liquid via cup - 10mL Trial 2: Result: 1= does not enter airway Pudding via teaspoon: Result: 1= does not enter airway Comment: Esophageal screen - Retention in the upper and lower esophagus. Thin Liquid via single sip: straw: Result: 2= enter airway/above vocal folds/ejected Comment: Esophageal screen - Somewhat improved esophageal clearance of previous trial, but continued retention of pudding in upper and lower esophagus. Thin Liquid via single sip: straw Trial 2: Result: 1= does not enter airway Thin liquid via single straw - Swallow hard and fast: Result: 2= enter airway/above vocal folds/ejected Thin liquid via single straw - Swallow hard and fast Trial 2: Result: 2= enter airway/above vocal folds/ejected 1/4 Cookie: Result: 1= does not enter airway Comment: Esophageal screen - Retention in the upper esophagus. Thin liquid via single sip: straw - Swallow hard and fast - Trial 3: Result: 2= enter airway/above vocal folds/ejected Comment: Esophageal screen - Somewhat improved clearance of cookie through LES, but continued retention in mid esophagus despite liquid wash. Oral Phase Labial Seal: Escape beyond interlabial space; no extension beyond adeola border Tongue Control During Bolus Hold: Posterior escape of greater than half of bolus Bolus Preparation/Mastication: Slow prolonged chewing/mashing with complete recollection Bolus Transport/Lingual Motion: Slowed tongue motion Oral Residue: Residue collection on oral structures Pharyngeal Phase Initiation of Pharyngeal Swallow: Bolus head in pyriforms Soft Palate Elevation: No bolus between soft palate and pharyngeal wall Laryngeal Elevation: Partial superior movement thyroid cart/partial apprx aryt-epig petiole Anterior Hyoid Excursion: Partial anterior movement Epiglottic Movement: Complete inversion Laryngeal Vestibule Closure at Height of Swallow: Incomplete; narrow column of air/contrast in laryngeal vestibule Pharyngeal Stripping Wave: Present - complete Pharyngoesophageal Segment Opening: Parital distension and partial duration; parital obstruction of flow Tongue Base Retraction: Trace column of contrast between tongue base & post. pharyngeal wall Pharyngeal Residue: Trace residue within or on pharyngeal structures Esophageal Phase Esophageal Clearance: Esophageal retention w/ retrograde flow below pharyngoesophageal seg. Diagnosis/Impression Diagnosis: Mild oropharyngeal dysphagia R13.12; Esophageal dysphagia R13.14 Impression: Reflexive cough in response to 12 of the 18 trials; however, no aspiration was observed. Cough followed at least 1 of all consistencies assessed. The oral phase is marked by... -Decreased bolus control w/ posterior loss of >1/2 of thin liquid boluses to the pyriforms and laryngeal vestibule prior to swallow onset. -Slow tongue motion for A-P transport. -Mild oral residue of pudding and cookie that fully cleared w/ independent use of a second swallow. The pharyngeal phase is marked by... -Delayed swallow onset w/ >1/2 thin liquids boluses in the pyriforms and laryngeal vestibule prior to swallow onset. -Decreased laryngeal elevation and anterior hyoid excursion w/ consistent laryngeal penetration of liquids, which mostly ejected after the swallow. Trace residues of some thin liquid trials remained in the laryngeal vestibule. No aspiration. Frequent coughing after the swallow in response to laryngeal penetration.- The esophageal phase is marked by... -Retention of pudding and cookie in the esophagus, which somewhat cleared with liquid wash. Recommendations Diet: Regular Textures (Moisten dry textures) and Thin Liquids Compensatory Strategies: Small Bites, Small Sips (Swallow hard and fast), Sips by straw only, Slow Rate, Alternate bites/solids and sips/liquids, Sitting upright and Remain sitting upright for 30 minutes after PO intake Recommend Repeat Modified Barium Swallow: TBD Need for Skilled Speech Therapy Services: Yes Comment: -Train the patient in use of strategies to decrease risk for aspiration and reflux aspiration. -Ongoing assessment of diet tolerance of recommended textures. -Train the patient in oropharyngeal exercise program to improve bolus control, swallow onset, and airway closure (lingual resistance, Jame, Effortful). Recommended Referrals: GI Consult (Pt already established w/ lens maker, Dr. Yoel Palumbo, to manage gastroparesis. H[facility]PITAL[facility] RECRUITER to fax report to his office for follow-up.) Education Completed: 1. Described result of evaluation., 2. Pt understands evaluation & agrees with goals and treatment plan. and 7. Pt requires further education on strategies & risks. Status Active ST Patient: Active Contact Information [facility] Speech Therapy:: Maribel Martinez M.A. [facility]? Speech-Language Pathologist?? [facility] [address] [place] [address]? [email or web address]?? [phone]
== END | disposition home or self-care (01) ==
PROVIDERS: PCP Student in an Organized Health Care Education/Training Program; Referring Provider Student in an Organized Health Care Education/Training Program; Visit Provider Student in an Organized Health Care Education/Training Program
DX: R13.10 Dysphagia, unspecified (principal); C34.82 Malignant neoplasm of overlapping sites of left bronchus and lung
CPT/HCPCS: 74230; 92611

== ENCOUNTER → 2024-12-27 | Outpatient (CLI) | payer BC, MEDICARE, SELFPAY ==
[2024-12-27 15:48] LABS: Amphetamine Urine NEGATIVE (<1000 ng/mL); Barbiturate Urine NEGATIVE (< 200 ng/mL); Benzodiazepine Urine NEGATIVE (< 200 ng/mL); Buprenorphine Urine NEGATIVE (< 200 ng/mL); Cocaine Urine NEGATIVE (< 300 ng/mL); Fentanyl, Urine NEGATIVE; Methadone Urine NEGATIVE (< 300 ng/mL); Opiates Urine PRESUMPTIVE POSITIVE (< 300 ng/mL); Oxycodone, Urine NEGATIVE (< 100 ng/mL); PCP Urine NEGATIVE (< 25 ng/mL); THC Urine NEGATIVE (< 50 ng/mL)
== END | disposition home or self-care (01) ==
LOC: LAB 14:40
PROVIDERS: PCP Student in an Organized Health Care Education/Training Program; Referring Provider Anesthesiology Pain Medicine; Visit Provider Anesthesiology Pain Medicine
DX: F11.20 Opioid dependence, uncomplicated (principal)
CPT/HCPCS: 80307

== ENCOUNTER 2025-01-09 10:30 | Outpatient (RCR) | payer BC, MEDICARE, SELFPAY ==
--- NOTE | 2024-12-05 16:31 | HP.SP.EVAL ---
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 From 12/12/2023 ? 01/23/2024 she was treated with definitive chemoradiation. Pt reports dysphagia, particularly in the upper esophagus w/ reports of food/liquids sticking regularly. No regurgitation. Regular diet textures w/ stable weight. Pt referred for MBSS w/ ST to assess pharyngeal vs. esophageal retention and determine recommendations for LRD textures and strategies to facilitate safe po intake. Pt reports coughing more w/ cold liquids than room temperature. MBSS 11/12/2024 revealed mild oropharyngeal dysphagia, mild esophageal dysphagia, GI consult (GI care established w/ Dr. Palumbo and follow up planned 12/25/2024), and recommendations for Regular Textures (Moisten dry textures) and Thin Liquids; Compensatory Strategies: Small Bites, Small Sips (Swallow hard and fast), Sips by straw only, Slow Rate, Alternate bites/solids and sips/liquids, Sitting upright and Remain sitting upright for 30 minutes after PO intake. Today, pt reports having continued coughing, but less severe than before MBSS and implementing aspiration precautions and strategies to decrease risk for aspiration. PMH: Encounter for antineoplastic immunotherapy, [place], HLD, COPD, GERD, Cancer of the left lung, Regional lymph node metastasis, Wears glasses and dentures, Arthritis, Injury of the head and neck, Difficulty swallowing, Acute parotitis, SOB on exertion, Panic attack, Neuropathy, Gastroparesis, Smoker, Migraines - See EMR for full PMH. Smoking Status: Former smoker Pain Is pain an issue with your current prescribed condition?: Yes Personal Preferred language: [place] Patient Allergies Allergies Allergies: Allergies acetaminophen (From Tylenol) Allergy (Verified 11/07/24 10:58) Shortness of breath amoxicillin Allergy (Verified 11/07/24 10:58) Other dicyclomine (From Bentyl) Allergy (Verified 11/07/24 10:58) Rash Latex, Natural Rubber Allergy (Verified 11/07/24 10:58) Rash mirtazapine Allergy (Verified 11/07/24 10:58) Other morphine Allergy (Verified 11/07/24 10:58) Shortness of breath Penicillins Allergy (Verified 11/07/24 10:58) Other prasterone (DHEA) Allergy (Verified 11/07/24 10:58) Other procaine Allergy (Verified 11/07/24 10:58) Other DENTAL GRADE prochlorperazine Allergy (Verified 11/07/24 10:58) Other sulfasalazine Allergy (Verified 11/07/24 10:58) Other valdecoxib (From Bextra) Allergy (Verified 11/07/24 10:58) Shortness of breath Venlafaxine Analogues Allergy (Verified 11/07/24 10:58) Other adhesive tape Adverse Reaction (Intermediate, Verified 11/07/24 10:58) blistering ketorolac (From Toradol) Adverse Reaction (Verified 11/07/24 10:58) Other TRIGGERS ANXIETY Objective Dysphagia Administered by Administered by: Self Thin Liquids Oral Transit: Delay > 1 seconds Patient Report: Pt admits to not using hard and fast swallows. Comments: Thin juice consumed intermittently during meal w/ throat clearing 1X, independent use of single sips. Regular Patient Report: When she feels something catching, she will take a drink and it clears it each time. Comments: Skilled meal analysis of regular textured salad (chicken, vu, lettuce, raw onion) with slow mastication, cough 1X, independent use of intermittent liquid wash. 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 V Trigeminal Nerve V Trigeminal Nerve Response: Impaired Comment:: Pt reports decreased facial sensation on L side VII Facial Nerve VII Facial Nerve Result: Impaired Comment: Pt reports moderate hypogeusia and dysgeusia X Vagus Nerve X Vagus Nerve Result: Intact XII Hypoglossal Nerve XII Hypoglossal Nerve Result: Intact Swallowing Performance Scale Swallowing Performance Scale Swallowing Performance Scale Result: 3 Mild Reference: Neuro-QoL instrument Radiation Oncology Patient FOIS Functional Oral Intake Scale Total oral diet with multiple consistencies without special preparation, but with specific food limitations: Level 6 Other Other EAT-10: -: Eating Assessment Tool (EAT-10) ? Score = 27 Score of 3 or more indicates there may be a swallowing problem or dysphagia. For patients with head and neck cancer, researchers found a cut-off value of 19 to be helpful in detecting presence of post-swallow pharyngeal residue. Plan Plan Plan: Will recommend the patient for outpatient dysphagia therapy to address mild oropharyngeal and esophageal dysphagia. Speech therapy POC to include further education and training re: oropharyngeal exercise program, diet texture recommendations, and compensatory strategies to decrease risk for aspiration. Additionally, will provide ongoing assessment of diet tolerance. Without skilled ST services, the patient is at increased risk for aspiration. Recommendations Treatment Warranted: Yes Treatment Warranted: Dysphagia Progress Prognosis: Good Frequency Frequency: Every Other Week Duration: 2-4 Months Goals that are Established Determination:: Goals will be added/modified as deemed necessary and appropriate. Therapy will be discontinued when results of re-evaluation indicate therapy is no longer needed or lack of progress has been documented. Goal #1-5 Goal #1: The patient will consume least restrictive diet textures without overt s/s of aspiration with 90% acc with minimal verbal cues to utilize strategies to facilitate safe po intake. Goal #2: The patient will complete an oropharyngeal exercise program X10-15 reps, 3-5X daily with minimal verbal cues to improve strength, ROM, and coordination of swallowing mechanism (lingual resistance, effortful, Jame). Education Patient has Indicated that the Following The Patient has indicated that they have no educational or learning abilities that may effect their care.: Yes Patient Instruction Patient Education: Diagnosis, Treatment Plan, Goals, Safety Precautions, Diet Level and Home Exercise Program Person Taught: Patient Teaching Method: Discussion, Demonstration, Handout and Teach Back Response to teaching: Return Demonstration, Verbalize Understanding and Reinforcement Needed
--- NOTE | 2025-04-05 14:05 | HP.SP.DC ---
ST Discharge Summary Discharged: Discharge: Pt has not returned for additional OP ST. The chart will be discharged at this time. Please re-consult if concern for worsening swallow function or aspiration risk.
== END 2025-01-09 19:00 | disposition home or self-care (01) ==
LOC: SP 10:30
PROVIDERS: PCP Student in an Organized Health Care Education/Training Program; Referring Provider Student in an Organized Health Care Education/Training Program; Visit Provider Student in an Organized Health Care Education/Training Program
DX: R13.10 Dysphagia, unspecified (principal)
CPT/HCPCS: 92526; 92610

== ENCOUNTER → 2025-01-28 | Outpatient (CLI) | payer BC, MEDICARE, SELFPAY ==
--- NOTE | 2025-01-28 09:49 | ECHOTEE_ITS ---
Reason For Study Reason For Study: Abn Echo Medication CHENTE probe 6VT-D (SN [id number]) passed without difficulty. No complications were noted. Cetacaine Topical [place] given X3 orally. Versed 2 mg given slow IVP. Performed a rapid injection of agitated mix of 9 cc saline and 1cc air to assess for atrial septal defect. Left Ventricle Normal LV size. Left ventricular systolic function is normal. The left ventricular ejection fraction is 65 %. No regional wall motion abnormalities noted. Right Ventricle Normal RV size. Normal systolic function. Atria Bubble contrast study is positive for PFO. Normal left atrium. No thrombus is detected in the left atrial appendage. Normal right atrium. Mitral Valve Normal mitral valve. Tricuspid Valve Normal tricuspid valve. Aortic Valve Normal aortic valve. Trisinus/trileaflet aortic valve. Pulmonic Valve Normal pulmonic valve. Vessels Normal aortic root. Moderate atherosclerosis of the aortic arch. The pulmonary artery is normal size. Pulmonary venous flow normal. Pericardium No pericardial effusion. ECHO/Echo Transesophageal (CHENTE) Interpretation Summary Normal LV size. Left ventricular systolic function is normal. The left ventricular ejection fraction is 65 %. No valvular mass noted on any of the valves and specifically not on the pulmoni c valve. Tiny PFO present Ordering Physician: Jasmin Meng Referring Physician: Bob Lake Performed By: Angelina Rao RDCS
== END | disposition home or self-care (01) ==
LOC: CVS 09:47
PROVIDERS: PCP Student in an Organized Health Care Education/Training Program; Referring Provider Internal Medicine Hematology & Oncology; Visit Provider Internal Medicine Hematology & Oncology
DX: R93.1 Abnormal findings on diagnostic imaging of heart and coronary circulation (principal)
CPT/HCPCS: 93312; 93320; 93325; A4216

== ENCOUNTER → 2025-02-01 | Outpatient (CLI) | payer BC, MEDICARE, SELFPAY ==
[2025-02-05 08:08] LABS: Calprotectin, Stool 39 ug/g (0-120)
== END | disposition home or self-care (01) ==
PROVIDERS: PCP Student in an Organized Health Care Education/Training Program; Referring Provider Nurse Practitioner Family; Visit Provider Nurse Practitioner Family
DX: K58.0 Irritable bowel syndrome with diarrhea (principal)
CPT/HCPCS: 83993; 87506

== ENCOUNTER → 2025-03-06 | Outpatient (CLI) | payer BC, MEDICARE, SELFPAY ==
--- NOTE | 2025-03-06 14:26 | CT_ITS ---
PROCEDURE: CTA CHEST W/WO CONTRAST 03/06/2025 REASON FOR EXAM: LUNG CANCER ON RX WITH INCREASED DYSPNEA TECHNIQUE: CTA axial imaging of the chest with intravenous contrast. Multiplanar and multisequence images were obtained. PATIENT PREPARATION: Per protocol One or more dose reduction techniques were used (e.g., Automated exposure control, adjustment of the mA and/or kV according to patient size, use of iterative reconstruction technique). CONTRAST: Isovue 370 VOLUME: 100 mL RADIATION DOSE SUMMARY: CTDlvol: 9.5 mGy DLP: 509.67 mGycm COMPARISON: Prior study dated October 31, 2024. FINDINGS: Hardware: Right-sided port a catheter with the tip in the superior vena cava. Lymph nodes: No suspicious lymph nodes are seen. Heart: Heart is nonenlarged. No coronary artery calcification. Minimal pericardial thickening along the left side of the heart. Thoracic Aorta: No thoracic aortic aneurysm or dissection. Pulmonary Vessels: No evidence of pulmonary embolism. Lungs and Airways: Once again, there is loss of volume in the left hemithorax with shift of the heart and mediastinal structures towards the left side. Stable bronchiectasis with the irregular density in the left upper lobe and lingular segment of the left upper lobe as well as the superior segment of the left lower lobe. This most likely represents changes due to prior radiation therapy. Mild scarring in the right upper lobe. Pleura: No pleural effusion. Upper Abdomen: Fatty infiltration of the liver. Bones: Bone windows are unremarkable. CT/CTA Chest W/WO Contrast IMPRESSION: Stable examination. No evidence of pulmonary embolism. Reading Location: [place] [id number]
== END | disposition home or self-care (01) ==
LOC: CT 14:25
PROVIDERS: PCP Student in an Organized Health Care Education/Training Program; Referring Provider Internal Medicine Hematology & Oncology; Visit Provider Internal Medicine Hematology & Oncology
DX: C34.82 Malignant neoplasm of overlapping sites of left bronchus and lung (principal); C77.9 Secondary and unspecified malignant neoplasm of lymph node, unspecified; R06.00 Dyspnea, unspecified
CPT/HCPCS: 71275; Q9967; A4216

== ENCOUNTER → 2025-06-26 | Outpatient (CLI) | payer BC, MEDICARE, SELFPAY ==
--- NOTE | 2025-06-26 12:48 | CT_ITS ---
PROCEDURE: CT CHEST AND ABD W/ CONTRAST 06/26/2025 REASON FOR EXAM: F/U NSCLC TECHNIQUE: Chest and abdomen CT with intravenous contrast. Coronal and Sagittal reconstruction series were provided. One or more dose reduction techniques were used (e.g., Automated exposure control, adjustment of the mA and/or kV according to patient size, use of iterative reconstruction technique. PATIENT PREPARATION: Per protocol CONTRAST: Isovue-300 VOLUME: 100mL Gauge IV RADIATION DOSE SUMMARY: CTDlvol: 100 mGy DLP: 507 mGycm COMPARISON: CT chest 09/06/2024 FINDINGS: CT CHEST: Lymph nodes: Scattered mediastinal lymph nodes. Heart and Vasculature: Normal heart size. Trace pericardial effusion. Lungs and Airways: Redemonstration of radiation changes with volume loss within left hemithorax. There is 2.7 x 1.5 cm patchy consolidative opacity within left upper lobe. Additionally there is irregular density visualized within lingula. It is thickening along left major fissure with nodularity measuring 7.4 mm (series 2, image 37) additionally multiple reticular changes are again visualized. Interval decrease in previously seen left-sided pleural effusion now trace left pleural effusion is visualized. Right basilar atelectasis changes. Bilateral emphysematous changes. Stable scarring within right upper lung. Pleura: Trace left pleural effusion. Bibasilar atelectasis. CT ABDOMEN: Liver: Diffuse hepatic steatosis. Gallbladder: Gallbladder filled with sludge. Spleen: Normal size. Pancreas: Normal size without evidence of mass surrounding inflammation or ductal dilation. Adrenals: Unremarkable bilateral adrenal glands. Kidneys: Normal renal sizes. No hydronephrosis. Bowel: Kbmkmuqu-[id number] stool burden. Colonic diverticulosis without evidence of diverticulitis. Lymph nodes: Scattered mesenteric lymph nodes. Vasculature: Atherosclerotic calcification of abdominal aorta and its branches. Peritoneum / Retroperitoneum: Unremarkable Bones: Age-related degenerative changes. Other: Port overlying right chest wall with lead in cavoatrial junction. CT/CT Chest AND Abd W/ Contrast IMPRESSION: Coronary artery calcification (CAC) is is present Persistent volume loss with mediastinal shift towards left, findings are unchan ged since prior study. Interval decrease in previously seen left-sided small pleural effusion. Now on ly trace pleural effusion is visualized. There is persistent consolidative opacities within left lung as detailed above. Findings could be related to underlying infectious/inflammatory process versus sequelae of radiation changes however gi lady patient history of malignancy, close attention on follow-up imaging is recommended. Furthermore PET-CT can be obtained as cli nically indicated for restaging. Persistent bronchiectasis with emphysematous changes in bilateral lungs. Diffuse hepatic steatosis. Pelttjeb-er-[id number] stool burden. Colonic diverticulosis without evidence of diverticulitis. Reading Location: [id number]
== END | disposition home or self-care (01) ==
LOC: CT 12:39
PROVIDERS: PCP Student in an Organized Health Care Education/Training Program; Referring Provider Internal Medicine Hematology & Oncology; Visit Provider Internal Medicine Hematology & Oncology
DX: C34.82 Malignant neoplasm of overlapping sites of left bronchus and lung (principal); C77.9 Secondary and unspecified malignant neoplasm of lymph node, unspecified
CPT/HCPCS: 71260; 74160; Q9967; A4216

== ENCOUNTER 2025-07-04 14:20 | Outpatient (RCR) | payer BC, MEDICARE, SELFPAY | END 2025-07-26 23:59 | LOC: NS 14:20 | PROVIDERS: PCP Student in an Organized Health Care Education/Training Program; Visit Provider Nurse Practitioner Family | DX: Z71.3 Dietary counseling and surveillance (principal) ==

== ENCOUNTER → 2025-07-10 | Outpatient (CLI) | payer BC, MEDICARE, SELFPAY | END | disposition home or self-care (01) | LOC: PSN 12:48 | PROVIDERS: PCP Student in an Organized Health Care Education/Training Program; Referring Provider Nurse Practitioner Acute Care; Visit Provider Nurse Practitioner Acute Care | DX: J43.2 Centrilobular emphysema (principal) | CPT/HCPCS: 94060; 94726; 94729 ==